=== PATIENT | male | born 1965 | race Caucasian/White ===

== ENCOUNTER 2024-02-29 18:24 | Inpatient (IN) | payer OTHER, SELFPAY ==
--- OUTSIDE RECORDS SUMMARY | 2024-02-29 18:26 | XMS_ITS | Continuity of Care Document ---
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 Graham torres Outpatient [facility] Outpatient [facility] Out[facility] Recurring Patient [facility] Recurring Patient [facility] Rec[facility] Rec[facility] Rec[facility] Rec[facility] Rec[facility] Rec[facility] Rec[facility] Rec[facility] Rec[facility] Outpatient [facility] Outpatient [facility] Outpatient [facility] Outpatient [facility] Outpatient [facility] Out[facility] Out[facility] Outpatient [facility]
[2024-02-29 18:30] VITALS: BP 144/118; PULSE 130; RESP 24; TEMP 37.7; O2SAT 94; BMI 39.1
--- NOTE | 2024-02-29 18:49 | CRLHL7_ITS ---
For Patients: As a result of the Cures Act, medical imaging exams and procedure reports are released immediately into your electronic medical record. You may view this report before your referring provider. If you have questions, please contact your health care provider. INDICATION: Intermittent chest pain. COMPARISON: None. FINDINGS: The cardiomediastinal silhouette is normal. The lungs are essentially clear. The pulmonary vasculature and pleural surfaces appear normal. There are mild multilevel wedge compression fractures of the lower thoracic and upper lumbar spine. IMPRESSION: No acute cardiac pulmonary process identified. There are mild multilevel wedge compression fractures of the lower thoracic and upper lumbar spine. Dictated by Del Wade MD @ 02/29/2024 8:48:03 PM (Electronically Signed)
--- NOTE | 2024-02-29 18:49 | CRLHL7_ITS ---
For Patients: As a result of the 21st Century Cures Act, medical imaging exams and procedure reports are released immediately into your electronic medical record. You may view this report before your referring provider. If you have questions, please contact your health care provider. INDICATION: Abdominal pain. TECHNIQUE: Multiplanar CT examination of the abdomen and pelvis was performed after the administration of 137 mL Omnipaque 300 intravenous contrast. COMPARISON: Same day ultrasound abdomen. FINDINGS: Lower chest: No focal consolidation. Normal heart size. No pleural effusions or pneumothorax. Linear band like opacification of the lungs bilaterally, likely subsegmental atelectasis and/or scarring. Liver: Diffuse hepatic steatosis. Gallbladder: Distended gallbladder measuring approximately 11.9 cm longitudinally. No gallbladder wall thickening, cholelithiasis or pericholecystic edema. Biliary: Unremarkable. Pancreas: Within normal limits. Spleen: Splenomegaly. Adrenal glands: Unremarkable. Renal/ureters/bladder: Normal in size and symmetrically enhancing. No obstructive uropathy. No hydronephrosis or obstructive urinary calculi. Subcentimeter renal hypodensities are too small to characterize. Tiny nonobstructive calculi within the collecting system of the left kidney. The ureters appear unremarkable. The bladder is within normal limits. Pelvis: Unremarkable prostate. Gastrointestinal: Mild wall thickening and hyperenhancement involving loops of nondistended, fluid-filled small bowel diffusely. No bowel obstruction. Normal appendix. Trace colonic diverticulosis without pericolonic fat stranding. Mild colonic stool burden. Vasculature: No aortic aneurysm. The portal vein remains patent. Mild atherosclerotic calcifications. Lymph nodes: No pathologic lymphadenopathy by size criteria. Peritoneum: No free fluid or pneumoperitoneum. No drainable fluid collections. Abdominal wall/soft tissues: Unremarkable. Small fat containing umbilical hernia. Bones: No acute osseous abnormalities. Multilevel degenerative changes of the visualized thoracolumbar spine. IMPRESSION: 1. Mild wall thickening and hyperenhancement involving loops of nondistended, fluid-filled small bowel diffusely, raising the possibility of an underlying nonspecific infectious versus inflammatory enteritis. No bowel obstruction. 2. Gallbladder distention without cholelithiasis, gallbladder wall thickening or adjacent inflammatory changes to suggest acute cholecystitis. 3. Splenomegaly. 4. Diffuse hepatic steatosis. Please note that all CT scans at this facility use dose modulation, iterative reconstruction, and/or weight-based dosing when appropriate to reduce radiation dose to as low as reasonably achievable. Dictated by Raul Mccarthy MD @ 02/29/2024 8:54:48 PM (Electronically Signed)
--- NOTE | 2024-02-29 18:55 | CRLHL7_ITS ---
For Patients: As a result of the Century Cures Act, medical imaging exams and procedure reports are released immediately into your electronic medical record. You may view this report before your referring provider. If you have questions, please contact your health care provider. INDICATION: Right upper quadrant pain. TECHNIQUE: Limited right upper quadrant ultrasound examination of the abdomen was performed. Grayscale and color Doppler images were obtained. COMPARISON: Same day CT abdomen and pelvis. FINDINGS: Liver: Normal in size and contour. Increased echogenicity of the hepatic echotexture, compatible with diffuse hepatic steatosis. No suspicious hepatic masses. Gallbladder: Distended gallbladder measuring 5.6 cm in maximal transverse dimension. No pericholecystic fluid. Biliary sludge. No cholelithiasis. Sonographic Velazquez`s sign was negative. Common bile duct: Measures 8.5 mm, within normal limits given patient`s age. Pancreas: Visualized portions unremarkable. Right kidney: Normal in size. No hydronephrosis. No suspicious renal masses or obstructive urinary calculus. Vascular: Visualized aorta and IVC are unremarkable. IMPRESSION: 1. Gallbladder distention and biliary sludge without cholelithiasis or other sonographic evidence of acute cholecystitis, indeterminate. Consider further evaluation with a nuclear medicine HIDA scan if clinically warranted. 2. Diffuse hepatic steatosis. Dictated by Raul Mccarthy MD @ 02/29/2024 8:42:29 PM (Electronically Signed)
[2024-02-29] MEDS: ONDANSETRON 2 MG/ML inj 4 MG IVP ×2 (19:00→20:56)
[2024-02-29] MEDS: MORPHINE 4 MG/ML INJ IVP ×2 (19:00→20:50)
[2024-02-29] MEDS: LACTATED RINGERS 1000 ML 1,000 ML IV ×2 (19:02→20:57)
[2024-02-29 19:03] LABS: Lactate* 2.2 mmol/L (0.5-1.9)
[2024-02-29 19:05] LABS: Eosinophils Percent Auto 1.2 % (0.0-7.0); Hematocrit 49.8 % (37.0-53.0); Hemoglobin* 16.8 gm/dL (13.5-17.5); Lymphocytes Percent Auto 15.4 % (20-44); Mean Corpuscular HGB Conc 34 gm/dL (32-36); Mean Corpuscular Hemoglobin 28 pg (26-34); Mean Corpuscular Volume 84 fL (80-100); Monocytes Percent Auto 9.5 % (0.0-11.0); Neutrophils Percent Auto 73.9 % (42.0-72.0); Platelet Count* 70 K/uL (140-440); RDW Coefficient of Variation % 13.2 % (11.5-15.5); Red Blood Count 5.93 m/uL (4.30-5.90); White Blood Count* 2.53 K/uL (4.50-11.00)
[2024-02-29 19:07] LABS: Slide Review Reflex No
--- OUTSIDE RECORDS SUMMARY | 2024-02-29 19:25 | XMS_ITS | Continuity of Care Document ---
Author Name [place] [facility] Address Unknown Organization Unknown Address Unknown Encounters FILTER APPLIED:Only known Encounters with Admission Date within the last 5 years Encounter Location Admission Discharge Billing Code Candy Butcher Graham torres Outpatient [facility] Outpatient [facility] Outpatient [facility] Recurring Patient [facility] Recurring [facility] Recur[facility] Patient [facility] Recur[facility] Patient [facility] Rec[facility] Patient [facility] Recur[facility] Patient [facility] Recur[facility] Patient [facility] Recur[facility] Patient [facility] Recur[facility] Patient [facility] Recur[facility] Patient [facility] Recur[facility] Patient [facility] Outpatient [facility] Outpatient [facility] Outpatient [facility] Outpatient [facility] Outpatient [facility] Outpatient [facility] Outpatient [facility] Out[facility]
--- OUTSIDE RECORDS SUMMARY | 2024-02-29 19:25 | XMS_ITS | Clinical Summary ---
Author Organization [facility] Address [address] [place] [address] Care Team Providers Care Clamp Jig Assembler Name Role Phone Abdirizak Villalta MD Unavailable [phone] Kassie Elizabeth MD Unavailable [phone] Kassie Elizabeth MD Primary Care Provider Kassie Martinez [facility] Unavailable [phone] Darcy Trevino RN Unavailable Unavailable Kassie Martinez [facility] Unavailable Cl Hugo MD Unavailable [phone] Markie Wade MD Unavailable [phone] Christopher Castaneda DO Unavailable [phone] Allergies Active Allergy Reactions Criticality Noted Date Comments Dulaglutide 12/17/2017 itchiness Niacin 07/12/2008 FLUSHING Rosuvastatin Calcium 07/12/2008 MUSCLE PAIN Medications * This document contains information received from the source organization and may not represent a complete record from that organization. omeprazole 20 MG tabletIndicatio ns:Gastroesopha geal reflux disease without esophagitis Take 1 tablet (20 mg) by mouth daily 90 tablet 3 12/06/19 17 Active aspirin 81 MG tabletIndicatio ns:Type 2 diabetes mellitus with hyperglycemia, without long-term current use of insulin (H) Take 1 tablet (81 mg) by mouth daily INDICATION: FOR HEART AND CARDIOVASCULAR HEALTH 100 tablet 3 12/06/19 17 Active Loratadine (CLARITIN PO) Take 10 mg by mouth as needed (allergies) Active sildenafil (VIAGRA) 100 MG tabletIndicatio ns:Erectile dysfunction, unspecified erectile dysfunction type Take 0.5-1 tablet an hour prior to sexual activity. Do not exceed 100 mg in 24 hours. 30 tablet 3 02/09/20 22 Active cholecalciferol (VITAMIN D3) 125 mcg (5000 units) capsule Take by mouth daily Active lisinopril (ZESTRIL) 5 MG tabletIndicatio ns:Type 2 diabetes mellitus with peripheral neuropathy (H) TAKE 1 TABLET BY MOUTH DAILY DIRECTED TO LOWER BLOOD PRESSURE 90 tablet 3 09/30/19 24 Active metFORMIN (GLUCOPHAGE) 1000 MG tabletIndicatio ns:Type 2 diabetes mellitus with peripheral neuropathy (H) TAKE 1 TABLET(1000 MG) BY MOUTH TWICE DAILY WITH MEALS 180 tablet 1 09/30/19 24 Active Continuous Glucose Sensor (FREESTYLE JUAN PABLO 3 PLUS SENSOR) MISCIndications :Type 2 diabetes mellitus with peripheral neuropathy (H) Use 1 sensor every 15 days. Use to read blood sugars per coning machine operator's instructions. 6 each 3 12/19/19 24 Active glipiZIDE (GLUCOTROL) 5 MG tabletIndicatio ns:Type 2 diabetes mellitus with diabetic polyneuropathy, without long-term current use of insulin (H) Take 1 tablet (5 mg) by mouth 2 times daily (before meals). 180 tablet 1 12/30/19 24 Active insulin pen needle (BD PEN NEEDLE HORTENCIA 2ND GEN) 32G X 4 MM miscellaneousIn dications:Type 2 diabetes mellitus with diabetic polyneuropathy, without long-term current use of insulin (H) Use twice daily with insulin 100 each 3 12/30/19 24 Active insulin glargine (LANTUS PEN) 100 UNIT/ML penIndications: Type 2 diabetes mellitus with diabetic polyneuropathy, without long-term current use of insulin (H) Inject 40 units in the morning and 35 units in the evening 75 mL 1 12/31/19 24 Active MOUNJARO 15 MG/0.5ML SOAJIndications :Type 2 diabetes mellitus with peripheral neuropathy (H) Inject 0.5 mLs (15 mg) subcutaneously every 7 days. 6 mL 01/29/20 24 Active rosuvastatin (CRESTOR) 40 MG tabletIndicatio ns:CAD (coronary artery disease),Type 2 diabetes, HbA1c goal < 7% (H),Hyperlipide ursula LDL goal <100 Take 1 tablet (40 mg) by mouth daily INDICATION: TO LOWER CHOLESTEROL 30 tablet PRN 03/11/19 14 014 Discontin ued(Reord er (No AVS)) Active Problems Problem Noted Date Diagnosed Date Intermittent asthma, uncomplicated 12/30/2023 Type 2 diabetes mellitus with peripheral neuropa thy 03/26/2021 Bariatric surgery status 01/29/2021 History of hepatitis C 10/05/2020 Coronary artery disease invo lving circle coronary artery of circle heart without angina pectoris 03/12/2016 Gastroesophageal reflux disease without esophagi tis 09/29/2014 Osteoarthritis of knee 09/29/2014 Hypertriglyceridemia 09/29/2014 Hyperlipidemia with target LDL less than 100 06/2014 Hepatitis B core antibody positive 03/04/2014 Severe obesity (BMI 35.0-39.9) with comorbidity 12/10/2013 Primary hypertension 12/10/2013 History of DVT of lower extremity 02/09/2013 Overview (09/27/2016): Left leg Anxiety 07/31/2012 Vitamin B12 deficiency without anemia 12/31/2011 Overview (12/26/2014): Diagnosis updated by automated process. Provider to review and confirm. History of intravenous drug use in remission 10/2011 Thrombocytopenia 06/10/2011 Overview (06/10/2011): RELATED TO ALCOHOL USE Testosterone deficiency 12/03/2010 Alcohol dependence in remission 11/06/2010 Overview (11/25/2011): (Problem list name updated by automated process. Provider to review and confirm.) CHEYENNE (obstructive sleep apnea) 11/06/2010 Overview (09/27/2016): Uses CPAP Erectile dysfunction 11/06/2010 Vitamin D deficiency 07/19/2010 Plantar fascial fibromatosis 07/02/2007 Resolved Problems Problem Noted Date Diagnosed Date Resolved Date Postsurgical malabsorption 01/29/2021 1 04/11/2020 Alcohol withdrawal with comp lication with inpatient treatment, with unspecified complication 12/24/2020 02/08/2021 Knee pain, right 10/18/2020 01/02/2021 Knee pain, left 10/18/2020 01/02/2021 Small's esophagus 11/01/2016 12/17/19 19 RUQ abdominal pain 10/20/2016 8 Morbid obesity due to excess calories 09/05/2016 03/12/2017 Type 2 diabetes mellitus wit hout complication, without long-term current use of insulin 03/12/2016 08/16/2021 Chronic hepatitis C without hepatic coma 04/26/2015 10/05/2020 Obesity (BMI 30-39.9) 04/18/20152017 Morbid obesity 12/18/2014 04/18/2015 Adult BMI 38.0-38.9 kg/sq m 06/28/2014 02/08/2021 Alcoholic cirrhosis 03/04/2014 04/18/19 16 Neck pain 12/16/2013 10/18/2020 Shoulder joint pain 12/16/2013 10/19/19 21 Overview (03/12/2017): 2003 injury Esophageal reflux 12/10/2013 04/18/2015 Intermittent asthma 02/09/2013 12/18/19 18 Hypomagnesemia 02/09/2013 02/08/2021 CAD (coronary artery disease) 02/09/2013 03/12/2017 Special screening for malign ant neoplasms, colon 02/09/2013 10/05/2020 Swelling of left lower extremity 02/09/2013 10/05/2020 EtOH dependence 11/03/2012 02/09/2013 GERD (gastroesophageal reflux disease) 11/03/2012 04/18/2015 Pain in shoulder 11/03/2012 09/24/2016 Health Snf 07/29/2012 08/11/2023 Overview (08/14/2012): [facility] Sn[facility] Patient Care Plan About Me Patient Name Richardson Eugene Date of 1965 Age [age] year old Cell Phone Address: [address] [address] Email address [email or web address] Insurance I.D. [id number] [facility] Emergency Contact Rita Eugene (mother ) Parent/Guardian Phone Primary language: Citizen Of [place] Roofing Supervisor needed? No [facility]: [phone] op. 1 Preferred Method of Communication: MyChart, Phone and Letter Other communication barriers: Current living arrangement: Mobility Status/ Medical Equipment: Other information to know about me: My Access Plan Medical Emergency 911 Primary Clinic Line [phone] 24 Hour Appointment Line [phone] or [phone]) (toll-free) 24 Hour Nurse Line (toll-free) Preferred Urgent Care Preferred Hospital Preferred Pharmacy Behavioral Health Crisis Line Crisis Connection, or 922 My Care Team Members Care Clamp Jig Assembler Name/Specialty Clinic, Address, Phone, Fax, E-mail Date of release on file Primary Care Provider: Hansel Gillespie [facility] Clinic: [address] [place] [id number] [facility] Worker: Elinor Higgins RN [facility] [phone] [facility] My Care Plans Self Management and Treatment Plan Presenting Concern Signs and symptoms Goal/Action Plan Alcohol dependence I will continue my sobriety I will attend AA meetings once a week and call my sponsor for support Start Date: 08/07/2012 Active/Complete Active Initiated with: Elinor Higgins RN Date Reviewed: 08/07/2012 Anxiety I will take my Ativan as needed and use the Remeron as directed. I will go to the gym I just joined when able Start Date: 08/07/2012 Active/Complete Active Initiated with: Elinor Higgins RN Date Reviewed: 08/07/2012 Start Date: Active/Complete Initiated with: Date Reviewed: Action Plans on File: No None Advance Care Plans/Directives on file: not on file My Medical and Care Information Problem List as of Patient Active Problem List Diagnosis HEPATITIS C CARRIER OBESITY NOS VITAMIN D DEFICIENCY NOS LIPOID METABOL DIS NOS PAIN IN LIMB PLANTAR FIBROMATOSIS FH: Coronary Artery Bypass Surgery CARDIOVASCULAR SCREENING; LDL GOAL LESS THAN 130 Alcohol abuse, in remission Lumbar pain Shoulder pain Ankle pain Vitamin D deficiency Dysmetabolic syndrome Alcohol dependence in remission CHEYENNE (obstructive sleep apnea) Erectile dysfunction Testosterone deficiency Hyperlipidemia LDL goal <130 Thrombocytopenia Alcoholism Abnormal LFTs Encounter for long-term (current) use of medications Alcoholic liver disease History of intravenous drug use in remission Hepatitis B carrier COPD (chronic obstructive pulmonary disease) Type 2 diabetes, HbA1C goal < 7% Nondependent alcohol abuse Vitamin C deficiency SOB (shortness of breath) Hyperlipidemia LDL goal <100 Vitamin B12 deficiency (non anaemic) Atypical chest pain Health Snf Anxiety Current Medications as of Current Outpatient Prescriptions Medication Sig mirtazapine (REMERON) 15 MG tablet Take 1 tablet by mouth At Bedtime. For the first week take 1/2 tab then increase to 1 whole tab before bed. LORazepam (ATIVAN) 1 MG tablet Take 1 tablet by mouth every 8 hours as needed for anxiety. lisinopril-hydrochlorothiazide (PRINZIDE,ZESTORETIC) 10-12.5 MG per tablet Take 1 tablet by mouth daily (with breakfast). INDICATION: TO LOWER BLOOD PRESSURE AND TO PREVENT DIABETIC KIDNEY DISEASE glipiZIDE (GLIPIZIDE XL) 5 MG 24 hr tablet Take 1 tablet by mouth daily. atorvastatin (LIPITOR) 80 MG tablet Take 0.5 tablets by mouth every evening. INDICATION: TO LOWER CHOLESTEROL AND TO HELP REDUCE RISK OF HEART ATTACK AND STROKE omeprazole (PRILOSEC) 20 MG capsule Take 1 capsule by mouth 2 times daily. cholecalciferol 39152 UNITS capsule TAKE ONE CAP 3 X A MONTH ON THE , AND OF EACH MONTH, FOR VITAMIN D DEFICIENCY aspirin 81 MG tablet Take 1 tablet by mouth daily. INDICATION:HEART HEALTH inositol niacinate (NIACIN FLUSH FREE) 500 MG CAPS Take 2 tablets by mouth 2 times daily (with meals). INDICATION: DYSLIPIDEMIA glucose blood test strips (ACCU-CHEK SMARTVIEW) strip Test twice a day ascorbic acid (VITAMIN C) 1000 MG TABS Take 1 tablet by mouth daily. VITAMIN SUPPLEMENT oxyCODONE (ROXICODONE) 5 MG immediate release tablet Take 1-2 tablets by mouth every 6 hours as needed for pain. Multiple Vitamin (MULTIVITAMIN) per tablet Take 1 tablet by mouth daily. tramadol (ULTRAM) 50 MG tablet Take 1 tablet by mouth every 6 hours as needed for pain. Allergies Allergies Allergen Reactions Niacin FLUSHING Rosuvastatin Calcium MUSCLE PAIN Health Snf Complexity Tier: Care Coordination Start Date: 08/07/2012 Frequency of Care Coordination:1-2 weeks Form Last Updated: 08/07/2012 Atypical chest pain 07/26/2012 09/25/19 17 Hyperlipidemia LDL goal <100 12/31/2011 04/18/2015 COPD (chronic obstructive pulmonary disease) 2 03/12/2017 Type 2 diabetes mellitus without complication 09/02/19 12 03/12/2017 Vitamin C deficiency 09/02/2011 021 SOB (shortness of breath) 09/02/2011 Overview (09/02/2011): WITH WHEEZING IN THE SETTING OF HX OF TOBACCO USE, BUT ALSO HAS ANKLE SWELLING Encounter for long-term (cur rent) use of medications 06/10/2011 10/05/2020 Overview (06/10/2011): STATINS, GLUCOPHAGE Dysmetabolic syndrome 07/19/20102021 Ankle pain 07/05/2010 09/24/2016 Lumbar pain 06/12/2010 10/18/2020 Shoulder pain 06/12/2010 09/24/2016 Pain in limb 07/02/2007 04/18/2015 Disorder of lipoid metabolism 06/24/2007 04/18/2015 Overview (11/25/2014): Problem list name updated by automated process. Provider to review Vitamin D deficiency 03/20/2007 016 Overview (11/25/2014): Problem list name updated by automated process. Provider to review Encounters Date Type Department Care Team Description 02/11/2024 Telephone [facility] [address] [place] [address] Kassie Elizabeth MD Prior Auth - Medication (MOUNJARO 15 MG/0.5ML SOAJ - PA NOT NEEDED) 01/29/2024 [facility] Medical Advice [facility] [address] [place] [phone] Kassie Martinez RPH Type 2 diabetes mellitus with peripheral neuropathy (H) (Primary Dx) 01/14/2024 MyC Medical Advice [facility] [place] [address] [facility] [address] [place] [address] Katie Reina, DPM, Podiatry/Foot and Ankle Surgery Diabetic polyneuropathy associated with type 2 diabetes mellitus (H) (Primary Dx); Plantar fasciitis, bilateral 01/14/2024 MyC Medical Advice [address] [phone] [facility] 12/31/2023 2:00 PM WATERWORKS PUMP STATION OPERATOR Office Visit [facility] [address] [place] [phone] Kassie Martinez RPH Type 2 diabetes mellitus with diabetic polyneuropathy, without long-term current use of insulin (H) (Primary Dx); Severe obesity (BMI 35.0-39.9) with comorbidity (H) 12/30/2023 2:30 PM WATERWORKS PUMP STATION OPERATOR Office Visit [address] [phone] Kassie Elizabeth MD Type 2 diabetes mellitus with diabetic polyneuropathy, without long-term current use of insulin (H) (Primary Dx); Primary hypertension; Intermittent asthma, uncomplicated; Severe obesity (BMI 35.0-39.9) with comorbidity (H) 12/30/2023 Travel 12/29/2023 Travel 12/19/2023 MyC Medical Advice [facility] [address] [place] [phone] Kassie Martinez RPH Type 2 diabetes mellitus with peripheral neuropathy (H) (Primary Dx) 12/19/2023 Refill [facility] [address] [place] [phone] Kassie Elizabeth MD Medication Refill from Last 3 Months Immunizations Name Administration Dates Next Due HepB 03/09/2014 Hepatitis A (ADULT 19+) 08/14/2012,09/02/2011 Hepatitis B, Peds 03/09/2014 Influenza (IIV3) PF 11/15/2015, 4,01/10/2013,2012,12/22/2011,12/04/2009,01/15/2008 Influenza (prior to 2023) 12/01/2008 Influenza Vaccine 18-64 (Flublok) 2019,12/15/2018,12/16/2017,2017 Influenza Vaccine >6 months,quad, PF 12/2022,12/05/2021,12/06/2020,2017,11/20/2016 Influenza, Split Virus, Triv alent, Pf (Fluzone\Fluarix) 11/26/2023,12/01/2008 Influenza,INJ,MDCK,PF,Quad >6mo(Flucelvax) 12/04/2016 Pneumo Conj 13-V (2010&after) 06/28/2014 Pneumococcal 23 valent 10/07/2009,01/26/2007 TD,PF 7+ (Tenivac) 07/27/2021,02/02/2005 TDAP Vaccine (Adacel) 08/16/2011 Td (Adult), Adsorbed 12/30/2004,12/18/1998 Family History Medical History Relation Comments Anxiety Disorder Brother 1 Coronary Artery Disease Brother [address] from apparent heart attack Diabetes Brother 1 Hepatitis Brother 1 Substance Abuse Brother 1 Cardiovascular Brother 2 DVT with IVC regino ter placement, PVD Diabetes Brother 2 Substance Abuse Brother 2 Unknown/Adopted Brother 2 Lipids Brother 3 Blood Disease Brother 4 DVT Blood Disease Father PULM EMBOLUS C.A.D. Father 76 YRS Cancer Father Bladder, lung Eye Disorder Father Cataracts Prostate Cancer Father Unknown/Adopted Maternal Grandfather Unknown/Adopted Maternal Grandmother Anxiety Disorder Mother C.A.D. Mother Had bypass at ag e 79 yrs Coronary Artery Disease Mother Eye Disorder Mother Cataracts Hypertension Mother Thyroid Disease Mother Unknown/Adopted Niece Unknown/Adopted Paternal Grandfather Unknown/Adopted Paternal Grandmother Arthritis Sister 1 Depression Sister 1 Unknown/Adopted Sister 1 Blood Disease Sister 2 PULM EMBOLUS Gallbladder Disease Sister 3 Unknown/Adopted Sister 4 Relation Status Comments Brother 1 Alive Brother 2 Alive Brother 3 Brother 4 Father Maternal Grandfather Maternal Grandmother Mother Alive Niece Paternal Grandfather Paternal Grandmother Sister 1 Alive Sister 2 Sister 3 Sister 4 Social History Tobacco Use Types Packs/Day Years Used Date Smoking Tobacco: Former Cigarettes 1 35 0 05/13/1976 - 05/10/2011 Smokeless Tobacco: Never Tobacco Cessation:Counseling Given: Not Answered Alcohol Use Standard Drinks/Week Comments Not Currently 0 (1 standard drink = 0.6 oz pur e alcohol) Social Connection and Isolation Panel [NHANES] A nswer Date Recorded In a typical week, how many times do you talk on the phone with family, friends, or neighbors? Twice a week 03/24/19 How often do you get togethe r with friends or relatives? Twice a week 03/24/2023 How often do you attend up health system or scientologist services? Patient declined 03/24/2023 Do you belong to any clubs o r organizations such as moravian groups, unions, fraternal or athletic groups, or school groups? Patient declined 03/24/2023 How often do you attend meet ings of the clubs or organizations you belong to? Patient declined 03/24/2023 Are you , , di vorced, , never , or living with a partner? Living with partner 03/24/2023 AUDIT-C Answer Date Recorded Q1: How often do you have a drink containing alcohol? Never 03/24/2023 Q2: How many drinks containi ng alcohol do you have on a typical day when you are drinking? Patient does not drink Q3: How often do you have si x or more drinks on one occasion? Never 03/24/2023 PHQ-2 Answer Date Recorded PHQ-2 Score 0 09/30/2023 [facility] Occupat ional [facility] - Occupational Stress Questionnaire Answer Date Recorded Do you feel stress - tense, restless, nervous, or anxious, or unable to sleep at night because your mind is troubled all the time - these days? Only a little 03/24/2023 Exercise Vital Sign Answer Date Recorde d On average, how many days pe r week do you engage in moderate to strenuous exercise (like a brisk walk)? 2 days 03/24/2023 On average, how many minutes do you engage in exercise at this level? 30 min 03/24/2023 Adolescent Education Answer Date Record ed Getting School Help Needed Not on file 11/20 Food Insecurity Answer Date Recorded Within the past 12 months, d id you worry that your food would run out before you got money to buy more? Patient declined 0 03/24/2023 Within the past 12 months, d id the food you bought just not last and you didn t have money to get more? Patient declined 03/24/2023 Housing Stability Answer Date Recorded Do you have housing? (Hayes g is defined as stable permanent housing and does not include staying ouside in a car, in a tent, in an abandoned building, in an overnight halfway, or couch-surfing.) Yes 03/24/2023 Are you worried about losing your housing? No 03/24/2023 Financial Resource Strain Answer Date R ecorded Within the past 12 months, h ave you or your family members you live with been unable to get utilities (heat, electricity) when it was really needed? Patient declined 024 Transportation Needs Answer Date Record ed Within the past 12 months, h as lack of transportation kept you from medical appointments, getting your medicines, non-medical meetings or appointments, work, or from getting things that you need? Patient declined 03/24/2023 Interpersonal Safety Answer Date Record ed Do you feel physically and e motionally safe where you currently live? Yes 03/24/2023 Within the past 12 months, h ave you been hit, slapped, kicked or otherwise physically hurt by someone? No 03/24/2023 Within the past 12 months, h ave you been humiliated or emotionally abused in other ways by your partner or ex-partner? No 03/24/2023 Sex and Gender Information Value Date Recorded Sex Assigned at Male 06/23/2020 10:21 PM CDT Legal Sex Male 3:30 AM WATERWORKS PUMP STATION OPERATOR Gender Identity Male 06/23/2020 10:21 PM CDT Sexual Orientation Straight 06/23/2020 10 :21 PM CDT Last Filed Vital Signs Vital Sign Reading Time Taken Comments Blood Pressure 109/71 12/31/2023 2:17 PM WATERWORKS PUMP STATION OPERATOR Pulse 74 12/31/2023 2:17 PM WATERWORKS PUMP STATION OPERATOR Temperature 36.4 C (97.5 F) 12/30/2023 1:57 PM WATERWORKS PUMP STATION OPERATOR Respiratory Rate 14 12/30/2023 1:57 PM WATERWORKS PUMP STATION OPERATOR Oxygen Saturation 99% 12/31/2023 2:17 PM WATERWORKS PUMP STATION OPERATOR Inhaled Oxygen Concentration - - Weight 123.4 kg (272 lb) 12/31/2023 2:17 PM WATERWORKS PUMP STATION OPERATOR Height 179.7 cm (5' 10.75) 12/30/2023 1:57 PM C Body Mass Index 38.2 12/30/2023 1:57 PM WATERWORKS PUMP STATION OPERATOR Plan of Treatment Upcoming Encounters Date Type Department Care Team (Late st Contact Info) Description 04/09/2024 9:30 AM WATERWORKS PUMP STATION OPERATOR Office Visit [facility] [address] [place] [phone] [place] [address] [place], [place] [phone] 04/14/2024 2:00 PM WATERWORKS PUMP STATION OPERATOR Office Visit [facility] [address] [place] [phone] Kassie Martinez, [facility] [address] [place] [address] Health Maintenance Due Date Last Done Comments ASTHMA ACTION PLAN 1965 CT COLONOGRAPHY 1965 FLEX SIG 1965 sDNA (Cologuard) 1965 ZOSTER IMMUNIZATION (1 of 2) 2013 FIT 02/10/2014 02/10/2013 LUNG CANCER SCREENING 11/05/2017 11/05/2016 , 07/26/2012, 08/21/2011 Pneumococcal Vaccine: 50+ Years (3 of 3 - PCV20 or PCV21) 06/29/2019 06/28/2014, 10/07/2009, 01/26/2007 RSV VACCINE (1 - Risk 60-74 years 1-dose series) 2023 COVID-19 Vaccine (3 - season) 2023 07/17/2020, 06/24/2020 CMP 12/27/2023 06/26/2023, 08/24, 05/23/2022, Additional history exists DIABETIC FOOT EXAM 01/02/2024 01/01/2023, 0 11/20/2021, 11/20/2021, Additional history exists PHQ-2 (once per calendar year) 2024 09/30/2023, 09/30/2023, 03/26/2023, Additional history exists YEARLY PREVENTIVE VISIT 03/24/2024 03/24/19 24, 06/23/2020, 07/15/2018 ASTHMA CONTROL TEST 04/01/2024 09/30/2023, 03/24/2023, 09/03/2022, Additional history exists EYE EXAM 04/04/2024 04/04/2023, 02/0 10/2023, 04/04/2023, Additional history exists CBC 06/25/2024 06/26/2023, 08/24, 06/13/2022, Additional history exists PSA 06/25/2024 06/26/2023, 01/25, 02/08/2021, Additional history exists TSH W/FREE T4 REFLEX 06/25/2024 06/26/2023, 02/19/2022, 12/23/2020, Additional history exists BMP 09/29/2024 09/30/2023, 05/0 03/2023, 09/03/2022, Additional history exists LIPID 09/29/2024 09/30/2023, 08/24, 08/15/2021, Additional history exists MICROALBUMIN 09/29/2024 09/30/2023, 03/3 , 03/26/2021, Additional history exists A1C 12/29/2024 12/30/2023, 08/0 07/2023, 06/26/2023, Additional history exists ANNUAL REVIEW OF HM ORDERS 12/29/202412/29, 12/10/2022, 11/20/2021, Additional history exists ADVANCE CARE PLANNING 03/26/2026 03/26/2021 , 01/19/2020 (Declined) COLONOSCOPY 04/14/2030 04/14/2020, 03/27, 03/30/2013 COLORECTAL CANCER SCREENING 04/14/2030 DTAP/TDAP/TD IMMUNIZATION (3 - Td or Tdap) 07/28/2031 07/27/2021, 08/16/2011, 02/02/2005, Additional history exists HIV SCREENING Completed 02/05/2007 HEPATITIS B IMMUNIZATION Discontinued 03/09/2014, 02/24 HEPATITIS C SCREENING Completed 06/06/2017 , 02/26/2017, 09/24/2016, Additional history exists INFLUENZA VACCINE Completed 11/26/2023, , 12/05/2021, Additional history exists HPV IMMUNIZATION Aged Out No longer e ligible based on patient's age to complete this topic MENINGITIS IMMUNIZATION Aged Out No l onger eligible based on patient's age to complete this topic RSV MONOCLONAL ANTIBODY Aged Out No l onger eligible based on patient's age to complete this topic Goals Goal Patient Goal Type Associated Problems Recent Progress Patient-Stated? Author Healthy Eating General Yes Darcy Trevino, RN Note: My Goal: I will increase my carb intake. What I need to meet my goal: Read labels and count carbs in meals/snacks. I plan to meet my goal by this date: November 2021. Procedures Procedure Name Priority Date/Time Associated Diagnosis Comments HEMOGLOBIN A1C Routine 12/30/2023 1:55 PM WATERWORKS PUMP STATION OPERATOR Type 2 diabetes mellitus with diabetic polyneuropathy, without long-term current use of insulin (H) ALBUMIN RANDOM URINE QUANTITATIVE Routine 09/30/2023 1:45 PM CDT Type 2 diabetes mellitus with peripheral neuropathy (H) LIPID REFLEX TO DIRECT LDL PANEL Routine 09/30/2023 1:05 PM CDT Hypertriglyceridemia BASIC METABOLIC PANEL Routine 09/30/2023 1:05 PM CDT Primary hypertension CBC WITH PLATELETS Routine 06/26/2023 12 :50 PM CDT Thrombocytopenia (H) TSH WITH FREE T4 REFLEX Routine 06/26/2023 12:50 PM CDT Type 2 diabetes mellitus with peripheral neuropathy (H) PROSTATE SPECIFIC ANTIGEN SCREEN Routine 06/26/2023 12:50 PM CDT Screening for prostate cancer COMPREHENSIVE METABOLIC PANEL Routine 06/26/2023 12:50 PM CDT Primary hypertension EYE EXAM - HIM SCAN Routine 04/04/2023 COLONOSCOPY - HIM SCAN 04/14/2020 12:00 AM WATERWORKS PUMP STATION OPERATOR HEPATITIS C RNA, QUANTITATIVE BY PCR Routine 06/06/2017 10:54 AM CDT Chronic hepatitis C without hepatic coma (H) CT CHEST W CONTRAST XIN 11/05/2016 7 :56 AM CDT RUQ abdominal pain Painful respiration FECAL COLORECTAL CANCER SCREEN FIT Routine 02/10/2013 4:30 PM WATERWORKS PUMP STATION OPERATOR Special screening for malignant neoplasms, colon C FOOT EXAM Routine 02/09/2013 10:03 AM WATERWORKS PUMP STATION OPERATOR Type 2 diabetes, HbA1C goal < 7% (H) HCL HIV 1 & 2 ANTIBODY Routine 02/05/2007 9:23 AM WATERWORKS PUMP STATION OPERATOR Hepatitis Nos from Last 3 Months or Most Recently Relevant to Health Maintenance Results * (ABNORMAL) Hemoglobin A1c (12/30/2023 1:55 PM WATERWORKS PUMP STATION OPERATOR) Estimated Average Glucose 174(H) <117 mg/dL 12/30/2023 2:15 PM WATERWORKS PUMP STATION OPERATOR [facility] Hemoglobin A1C 7.7(H) 0.0 - 5.6 % 12/30/2023 2:15 PM WATERWORKS PUMP STATION OPERATOR [facility] Comment: Normal <5.7% Prediabetes 5.7-6.4% Diabetes 6.5% or higher Note: Adopted from ADA consensus guidelines. Blood BLOOD SPECIMEN / Unknown Venipuncture / Unknown 12/30/2023 1:55 PM WATERWORKS PUMP STATION OPERATOR 12/30/2023 1:55 PM WATERWORKS PUMP STATION OPERATOR us Kassie Elizabeth MD LAB - BLOOD ORDERABLES Fi nal Result LABORATORY [facility] [address] [facility] Lab (no room number, 1st floor of clinic) [place] [address], [place] * (ABNORMAL) Albumin Random Urine Quantitative with Creat Ratio (09/30/2023 1:45 PM CDT) Creatinine Urine mg/dL 154.0 mg/dL 09/30/2023 7:23 PM CDT [facility] Comment:The reference ranges have not been established in urine creatinine. The results should be integrated into the clinical context for interpretation. Albumin Urine mg/L 46.4 mg/L 2023 7:23 PM CDT [facility] Comment:The reference ranges have not been established in urine albumin. The results should be integrated into the clinical context for interpretation. Albumin Urine mg/g Cr 30.13(H) 0.00 - 17.00 mg/g Cr 09/30/2023 7:23 PM CDT [facility] Comment: Microalbuminuria is defined as an albumin:creatinine ratio of 17 to 299 for males and 25 to 299 for females. A ratio of albumin:creatinine of 300 or higher is indicative of overt proteinuria. Due to biologic variability, positive results should be confirmed by a second, first-morning random or 24-hour timed urine specimen. If there is discrepancy, a third specimen is recommended. When 2 out of 3 results are in the microalbuminuria range, this is evidence for incipient nephropathy and warrants increased efforts at glucose control, blood pressure control, and institution of therapy with an ixlpjlnbfxr-gmokrapvme-viqcef (SHANTEL) inhibitor (if the patient can tolerate it). Urine URINE SPECIMEN OBTAINED BY CLEAN CATCH PROCEDURE / Unknown Non-blood Collection / Unknown 09/30/2023 1:45 PM CDT 09/30/2023 1:54 PM CDT us Kassie Elizabeth MD LAB - URINE ORDERABLES Fi nal Result [facility] [address] [facility] [place], [address] [place] [address], [place] * (ABNORMAL) Lipid panel reflex to direct LDL Fasting (09/30/2023 1:05 PM CDT) Cholesterol 149 <200 mg/dL 09/30/2023 7:29 PM CDT [facility] Triglycerides 459(H) <150 mg/dL 09/30/2023 7:29 PM CDT [facility] Direct Measure HDL 24(L) >=40 mg/dL 09/30/2023 7:29 PM CDT [facility] LDL Cholesterol Calculated 09/30/2023 7:29 PM CDT [facility] Comment:Cannot estimate LDL when triglyceride exceeds 400 mg/dL Non HDL Cholesterol 125 <130 mg/dL 09/30/2023 7:29 PM CDT [facility] Patient Fasting > 8hrs? Yes 09/30/2023 7:29 PM CDT [facility] Blood BLOOD SPECIMEN / Unknown Venipuncture / Unknown 09/30/2023 1:05 PM CDT 09/30/2023 1:05 PM CDT Narrative [facility] - 09/30/2023 7:29 PM CDT Cholesterol Desirable: <200 mg/dL Triglycerides Normal: Less than 150 mg/dL Borderline High: 150-199 mg/dL High: 200-499 mg/dL Very High: Greater than or equal to 500 mg/dL Direct Measure HDL Female: Greater than or equal to 50 mg/dL Male: Greater than or equal to 40 mg/dL LDL Cholesterol Desirable: <100mg/dL Above Desirable: 100-129 mg/dL Borderline High: 130-159 mg/dL High: 160-189 mg/dL Very High: >= 190 mg/dL Non HDL Cholesterol Desirable: 130 mg/dL Above Desirable: 130-159 mg/dL Borderline High: 160-189 mg/dL High: 190-219 mg/dL Very High: Greater than or equal to 220 mg/dL us Kassie Elizabeth MD LAB - BLOOD ORDERABLES Fi nal Result U LAB[facility]ATORY [facility] [address] [facility], [address] [place] [address], [place] * (ABNORMAL) Basic metabolic panel (Ca, Cl, CO2, Creat, Gluc, K, Na, BUN) (09/30/2023 1:05 PM CDT) Sodium 138 135 - 145 mmol/L 09/30/2023 7:29 PM CDT [facility] Potassium 4.7 3.4 - 5.3 mmol/L 09/30/2023 7:29 PM CDT [facility] Chloride 108(H) 98 - 107 mmol/L 09/30/2023 7:29 PM CDT [facility] Carbon Dioxide (CO2) 20(L) 22 - 29 mmol/L 09/30/2023 7:29 PM CDT [facility] Anion Gap 10 7 - 15 mmol/L 09/30/2023 7:29 PM CDT [facility] Urea Nitrogen 18.6 8.0 - 23.0 mg/dL 09/30/2023 7:29 PM CDT [facility] Creatinine 0.82 0.67 - 1.17 mg/dL 09/30/2023 7:29 PM CDT [facility] GFR Estimate >90 >60 mL/min/1.7 3m2 09/30/2023 7:29 PM CDT [facility] Comment:eGFR calculated usin 2020 CKD-EPI equation. Calcium 10.4 8.8 - 10.4 mg/dL 09/30/2023 7:29 PM CDT [facility] Comment:Reference intervals for this test were updated on 09/09/2023 to reflect our healthy population more accurately. There may be differences in the flagging of prior results with similar values performed with this method. Those prior results can be interpreted in the context of the updated reference intervals. Glucose 148(H) 70 - 99 mg/dL 09/30/2023 7:29 PM CDT [facility] Patient Fasting > 8hrs? Yes 09/30/2023 7:29 PM CDT [facility] Blood BLOOD SPECIMEN / Unknown Venipuncture / Unknown 09/30/2023 1:05 PM CDT 09/30/2023 1:05 PM CDT us Kassie Elizabeth MD LAB - BLOOD ORDERABLES Fi nal Result [facility] [address] [facility] [facility] [place], [address] [id number] [place] [address] * TSH WITH FREE T4 REFLEX (06/26/2023 12:50 PM CDT) [facility] TSH 1.36 0.30 - 4.20 uIU/mL 06/26/2023 6:32 PM CDT U [facility]ORY Blood BLOOD SPECIMEN / Unknown Venipuncture / Unknown 06/26/2023 12:50 PM CDT 06/26/2023 1:01 PM CDT Kassie Elizabeth MD LAB - BLOOD ORDERABLES Fi nal Result Performing Organization Address City/[facility]/ZIP Co de Phone Number LABORATORY [facility] [address] [facility] [place], [address] [id number] * PROSTATE SPEC ANTIGEN SCREEN (06/26/2023 12:50 PM CDT) [facility] Prostate Specific Antigen Screen 1.98 0.00 - 4.50 ng/mL 06/26/2023 6:32 PM CDT LABORATORY Blood BLOOD SPECIMEN / Unknown Venipuncture / Unknown 06/26/2023 12:50 PM CDT 06/26/2023 1:01 PM CDT Narrative [facility] - 06/26/2023 6:32 PM CDT This result is obtained using the [employer] Elecsys total PSA method on the rema [id number] immunoassay analyzer. Results obtained with different assay methods or kits cannot be used interchangeably. Kassie Elizabeth MD LAB - BLOOD ORDERABLES Fi nal Result LABORATORY [facility] [address] [facility] [facility] [place], [address] [id number] * (ABNORMAL) COMPREHENSIVE METABOLIC PANEL (06/26/2023 12:50 PM CDT) [facility] Sodium 136 135 - 145 mmol/L 06/26/2023 6:32 PM CDT [facility] Comment:Reference intervals for this test were updated on 11/19/2022 to more accurately reflect our healthy population. There may be differences in the flagging of prior results with similar values performed with this method. Interpretation of those prior results can be made in the context of the updated reference intervals. Potassium 4.6 3.4 - 5.3 mmol/L 06/26/2023 6:32 PM CDT [facility] Carbon Dioxide (CO2) 20(L) 22 - 29 mmol/L 06/26/2023 6:32 PM CDT [facility] Anion Gap 13 7 - 15 mmol/L 06/26/2023 6:32 PM CDT [facility] Urea Nitrogen 23.7(H) 8.0 - 23.0 mg/dL 06/26/2023 6:32 PM CDT [facility] Creatinine 0.78 0.67 - 1.17 mg/dL 06/26/2023 6:32 PM CDT [facility] GFR Estimate >90 >60 mL/min/1. 73m2 06/26/2023 6:32 PM CDT [facility] Calcium 10.7(H) 8.8 - 10.2 mg/dL 06/26/2023 6:32 PM CDT [facility] Chloride 103 98 - 107 mmol/L 06/26/2023 6:32 PM CDT [facility] Glucose 211(H) 70 - 99 mg/dL 06/26/2023 6:32 PM CDT [facility] Alkaline Phosphatase 45 40 - 150 U/L 06/26/2023 6:32 PM CDT [facility] Comment:Reference intervals for this test were updated on 01/07/2023 to more accurately reflect our healthy population. There may be differences in the flagging of prior results with similar values performed with this method. Interpretation of those prior results can be made in the context of the updated reference intervals. AST 39 0 - 45 U/L 06/26/2023 6:32 PM CDT [facility] Comment:Reference intervals for this test were updated on 08/05/2022 to more accurately reflect our healthy population. There may be differences in the flagging of prior results with similar values performed with this method. Interpretation of those prior results can be made in the context of the updated reference intervals. ALT 60 0 - 70 U/L 06/26/2023 6:32 PM CDT [facility] Comment:Reference intervals for this test were updated on 08/05/2022 to more accurately reflect our healthy population. There may be differences in the flagging of prior results with similar values performed with this method. Interpretation of those prior results can be made in the context of the updated reference intervals. Protein Total 7.5 6.4 - 8.3 g/dL 06/26/2023 6:32 PM CDT [facility] Albumin 4.3 3.5 - 5.2 g/dL 06/26/2023 6:32 PM CDT [facility] Bilirubin Total 0.6 <=1.2 mg/dL 06/26/2023 6:32 PM CDT [facility] Blood BLOOD SPECIMEN / Unknown Venipuncture / Unknown 06/26/2023 12:50 PM CDT 06/26/2023 1:01 PM CDT us Kassie Elizabeth MD LAB - BLOOD ORDERABLES Fi nal Result [facility] [address] [facility] [facility] [place], [address] [id number] * (ABNORMAL) CBC with platelets (06/26/2023 12:50 PM CDT) WBC Count 3.8(L) 4.0 - 11.0 10e3/uL 06/26/2023 3:54 PM CDT [facility] RBC Count 5.16 4.40 - 5.90 10e6/uL 06/26/2023 3:54 PM CDT [facility] Hemoglobin 14.4 13.3 - 17.7 g/dL 06/26/2023 3:54 PM CDT [facility] Hematocrit 43.4 40.0 - 53.0 % 06/26/2023 3:54 PM CDT [facility] MCV 84 78 - 100 fL 06/26/2023 3:54 PM CDT [facility] MCH 27.9 26.5 - 33.0 pg 06/26/2023 3:54 PM CDT [facility] MCHC 33.2 31.5 - 36.5 g/dL 06/26/2023 3:54 PM CDT [facility] RDW 14.1 10.0 - 15.0 % 06/26/2023 3:54 PM CDT [facility] Platelet Count 82(L) 150 - 450 10e3/uL 06/26/2023 3:54 PM CDT [facility] Blood BLOOD SPECIMEN / Unknown Venipuncture / Unknown 06/26/2023 12:50 PM CDT 06/26/2023 1:01 PM CDT us Kassie Elizabeth MD LAB - BLOOD ORDERABLES Fi nal Result LABORATORY [facility] [address] Lab (1st floor, no room number) [place] [address], [place] * Eye Exam - HIM Scan (04/04/2023) RETINOPATHY UNKNOWN Narrative Erin Perez Graham - 04/04/2023 See encounter dated 04/07/23 us Patient Reported OTHER Final Result * COLONOSCOPY - HIM SCAN (04/14/2020 12:00 AM WATERWORKS PUMP STATION OPERATOR) 04/14/2020 us Provider Outside PROCEDURES Final Result * Hepatitis C RNA quantitative (06/06/2017 10:54 AM CDT) HCV RNA Quant IU/ml HCV RNA Not Detected HCVND^HCV RNA Not Detected [IU]/mL 06/09/2017 1:19 PM CDT [facility] Comment: The REMA AmpliPrep/REMA TaqMan HCV Test is an FDA-approved in vitro nucleic acid amplification test for the quantitation of HCV RNA in human plasma (ETDA plasma) or serum using the REMA AmpliPrep Instrument for automated viral nucleic acid extraction and the REMA TaqMan Analyzer or REMA TaqMan for automated Real Time PCR amplification and detection of the viral nucleic acid target. Titer results are reported in International Units/mL (IU/mL) using the 1st WHO International standard for HCV for Nucleic Acid Amplification based assays. Log of HCV RNA Qt Not Calculated <1.2 Log IU/mL 06/09/2017 1:19 PM CDT [facility] Blood specimen (specimen) 06/06/2017 10:54 AM CDT 06/06/2017 11:00 AM CDT Abdirizak Salinas MD LAB - BLOOD ORDERABLES Final Result [facility] [address] [place] [address], [place] * CT Chest w Contrast (11/05/2016 7:56 AM CDT) Anatomical Region Laterality Modality Chest, SUBRAD CT BODY, UMP CT CHEST Computed Tomography Impressions 11/05/2016 9:23 AM CDT IMPRESSION: 1. Trace atelectasis and/or fibrosis at both lung bases right worse than left. 2. Marked fatty infiltration of the liver. 3. Splenomegaly at 16.4 cm in greatest axial dimension. The entire spleen is not included in the study. NIKO CHAU MD Narrative 11/05/2016 9:[address] CHEST WITH CONTRAST November 05, 2016 7:56 AM HISTORY: Abnormal chest x-ray. Persistent right upper quadrant pain. Chest pain on breathing. COMPARISON: None. TECHNIQUE: Volumetric helical acquisition of CT images of the chest from the clavicles to the kidneys were acquired after the administration of 75mL Isovue-370 IV contrast. Radiation dose for this scan was reduced using automated exposure control, adjustment of the mA and/or kV according to patient size, or iterative reconstruction technique. FINDINGS: Trace peripheral fibrosis and/or atelectasis at the lung base. No pleural or pericardial effusion. There are mild coronary vascular calcifications consistent with coronary artery disease. Normal caliber aorta. Fatty changes of the liver seen in the upper abdomen. Splenomegaly at 16.4 cm. Survey of the visualized bony structures demonstrates no destructive bony lesions. Procedure Note Niko Chau MD - 11/05/2016 CT CHEST WITH CONTRAST November 05, 2016 7:56 AM HISTORY: Abnormal chest x-ray. Persistent right upper quadrant pain. Chest pain on breathing. COMPARISON: None. TECHNIQUE: Volumetric helical acquisition of CT images of the chest from the clavicles to the kidneys were acquired after the administration of 75mL Isovue-370 IV contrast. Radiation dose for this scan was reduced using automated exposure control, adjustment of the mA and/or kV according to patient size, or iterative reconstruction technique. FINDINGS: Trace peripheral fibrosis and/or atelectasis at the lung base. No pleural or pericardial effusion. There are mild coronary vascular calcifications consistent with coronary artery disease. Normal caliber aorta. Fatty changes of the liver seen in the upper abdomen. Splenomegaly at 16.4 cm. Survey of the visualized bony structures demonstrates no destructive bony lesions. IMPRESSION: 1. Trace atelectasis and/or fibrosis at both lung bases right worse than left. 2. Marked fatty infiltration of the liver. 3. Splenomegaly at 16.4 cm in greatest axial dimension. The entire spleen is not included in the study. NIKO CHAU MD Hansel Gillespie MD IMG CT ORDERABLES Final Res ult * Fecal colorectal cancer screen FIT (02/10/2013 4:30 PM WATERWORKS PUMP STATION OPERATOR) Occult Blood Scn FIT Negative [facility] Stool specimen (specimen) 02/10/2013 4:30 PM WATERWORKS PUMP STATION OPERATOR 02/11/2013 4:50 PM WATERWORKS PUMP STATION OPERATOR us Hansel Gillespie MD LAB - STOOLS ORDERABLES Fin al Result Performing Organization Address [facility] Co de Phone Number [address] [address] * HIV 1 & 2, SCREEN (02/05/2007 9:23 AM WATERWORKS PUMP STATION OPERATOR) HIV 1&[address] 02/05/2007 9:23 AM WATERWORKS PUMP STATION OPERATOR 02/05/2007 9:28 AM WATERWORKS PUMP STATION OPERATOR us Hansel Gillespie MD LABORATORY Final Resul t Performing Organization Address [facility] Co de Phone Number [facility] [address] [place] [address] from Last 3 Months or Most Recently Relevant to Health Maintenance Insurance [address] [address] [employer] [address] [address] [address] [address] [employer] [address] [address] [employer] [address] [address] [facility] [facility] * Guarantor: Richardson Eugene Account Type Relation to Patient Date of Phone Billing Address Medication Therapy Self [address] [address] [facility] [address] [address] [facility] Advance Directives For more information, please contact: [phone] * Full Code (Latest Code Status on File) Date Activated Date Inactivated Comments 12/24/2020 3:23 AM 12/25/2020 3:06 PM All basic a nd advanced life-sustaining interventions are performed as appropriate Question Answer Comments Code status determined by: Discussion with patie nt/ legal decision maker * Full Code Date Activated Date Inactivated Comments 10/20/2016 1:50 PM 12/23/2020 5:32 PM * Full Code Date Activated Date Inactivated Comments 10/20/2016 3:28 AM 10/20/2016 1:50 PM * Full Code Date Activated Date Inactivated Comments 07/28/2012 4:29 PM 10/20/2016 3:28 AM * Full Code Date Activated Date Inactivated Comments 07/26/2012 5:06 PM 07/28/2012 4:29 PM Care Teams Clamp Jig Assembler Relationship Specialty [place] [address] [place] [address] PCP - General Family Medicine 01/29/21 Abdirizak Villalta MD [address] [facility] [address] [place] [address] Referring Physician Gastroenterology 09/24/16 [place] [address] [place] [address] Assigned PCP 10/15/20 Kassie Martinez [facility] [address] [place] [address] Pharmacist Pharmacist 05/14/21 Darcy Trevino, tank maker wood Diabetes Education 09/25/21 Kassie Martinez [facility] [address] [place] [address] Assigned MTM Pharmacist 11/21/21 Cl Hugo MD [address] [id number] Urology 01/28/23 Markie Wade MD [address] [place] [id number] Assigned Surgical Provider 08/17/23 [place] [address] [address] CARBAJAL, [address] [address] Assigned Musculoskeletal Provider 01/17/24
[2024-02-29 19:26] LABS: Chloride* 105 mmol/L (96-114); Potassium* 4.2 mmol/L (3.6-5.1); Sodium* 133 mmol/L (135-149)
--- OUTSIDE RECORDS SUMMARY | 2024-02-29 19:26 | XMS_ITS | Encounter Summary ---
Author Organization [place] Address [address] [place] [address] Care Team Providers Care Laborer Aquatic Life Name Role Phone Abdirizak Villalta MD Unavailable [phone] Kassie Elizabeth MD Unavailable [phone] [facility] Primary Care Provider [phone] Holli Damian-C Unavailable [phone] Dilip Tate DPM Unavailable [phone] Abdirizak Villalta MD Unavailable [phone] Kassie Martinez [facility] Unavailable [phone] Jackie Muñoz RN Unavailable Unavailable Kassie Martinez RP Unavailable [phone] Darcy Trevino RN Unavailable Unavailable Kassie Martinez RP Unavailable [phone] Luh Tapia-C Unavailable [phone] Holli Damian-C Unavailable [phone] Luh Tapia-C Unavailable [phone] Abdiel New PA-C Unavailable [phone] Katie Reina DPM, Podiatry /Foot and Ankle Surgery Unavailable Cl Hugo MD Unavailable [phone] Christopher Castaneda DO Unavailable [phone] Markie Wade MD Unavailable [phone] Dilip TateM Unavailable [phone] Christopher Castaneda DO Unavailable [phone] Encounter Details Date Type Department Care Team (Late st Contact Info) Description 10/08/2021 [facility] Advice [address] [address] Kassie Martinez, [facility] [address] [place] [address] Type 2 diabetes mellitus with peripheral neuropathy (H) (Primary Dx) Social History Tobacco Use Types Packs/Day Years Used Date Smoking Tobacco: Former Cigarettes 1 35 0 05/13/1976 - 05/10/2011 Smokeless Tobacco: Never Alcohol Use Standard Drinks/Week Comments Not Currently 0 (1 standard drink = 0.6 oz pur e alcohol) PHQ-2 Answer Date Recorded PHQ-2 Score 0 05/10/2021 Sex and Gender Information Value Date Recorded Sex Assigned at Male 06/23/2020 10:21 PM CDT Legal Sex Male 3:30 AM SLUDGE CONTROL ATTENDANT Gender Identity Male 06/23/2020 10:21 PM CDT Sexual Orientation Straight 06/23/2020 10 :21 PM CDT COVID-19 Exposure Response Date Recorded In the last 10 days, have yo u been in contact with someone who was confirmed or suspected to have Coronavirus/COVID-19? No / Unsure 10/03/2021 2:00 PM CDT documented as of this encounter Miscellaneous Notes * Telephone Encounter - Kassie Martinez [facility] - 10/08/2021 1:21 PM CDT See [employer] message, sending Ozempic prescription using collaborative practice agreement with Dr. Kassie Elizabeth. Reyna Martinez, PharmD Medication Therapy Management Pharmacist documented in this encounter Plan of Treatment Upcoming Encounters Date Type Department Care Team (Late st Contact Info) Description 04/09/2024 9:30 AM SLUDGE CONTROL ATTENDANT Office Visit [facility] [address] [place] [address] [place] [address] [place] [address] 04/14/2024 2:00 PM SLUDGE CONTROL ATTENDANT Office Visit [facility] [address] [place] [phone] Kassie Martinez RPH [address] [place], [place] [id number] documented as of this encounter Goals Goal Patient Goal Type Associated Problems Recent Progress Patient-Stated? Author Healthy Eating General Yes Darcy Trevino, RN Note: My Goal: I will increase my carb intake. What I need to meet my goal: Read labels and count carbs in meals/snacks. I plan to meet my goal by this date: November 2021. documented as of this encounter Visit Diagnoses Diagnosis Type 2 diabetes mellitus with peripheral neuropathy (H)- Primary documented in this encounter Additional Health Concerns Infection Onset Date Last Indicated Resolved Time Rule Out COVID-19 03/01/2022 03/01/2022 03/22/2022 11:41 PM SLUDGE CONTROL ATTENDANT Rule Out COVID-19 06/13/2022 06/13/2022 06/14/2022 9:45 AM CDT Assessment Noted Time PHQ-9 Depression Total Score: 2 06/25/19 7:02 AM CDT documented as of this encounter Care Teams Laborer Aquatic Life Relationship Specialty [place] [address] [place], [place] [id number] PCP - General Family Medicine 01/29/21 Abdirizak Villalta MD [address] [place] [address] Referring Physician Gastroenterology 09/24/16 [place] [address] [place] [address] Assigned PCP 10/15/20 Holli Damian PA-C [address] [facility] [place] [address] Assigned Surgical Provider 02/04/2104/26/22 Dilip Tate DPM [address] [facility] 300 [place] [address] Assigned Musculoskeletal Provider 01/28/21 07/26/22 Abdirizak Villalta MD [address] [place] [address] Assigned Gastroenterology Provider 01/28/21 07/26/22 Kassie Martinez [facility] [address] [place] [address] Pharmacist Pharmacist 05/14/21 Jackie Muñoz, RN Personal Advocate & Liaison (PAL) Family Medicine 07/06/21 05/22/22 Kassie Martinez Tisha [address] [place] [address] Assigned MTM Pharmacist 07/21/21 Darcy Trevino, director enterprise systems Diabetes Education 09/25/21 Kassie Martinez [facility] [address] [place] [address] Assigned MTM Pharmacist 11/21/21 Luh Tapia PA-C [address] [facility] [address] [place] [address] Assigned Surgical Provider 04/27/22 Holli Damian PA-C [address] [facility] [address] [place] [address] Assigned Surgical Provider 06/22/2206/28/22 Luh Tapia PA-C [address] [facility] [address] [place] [address] Assigned Surgical Provider 06/29/22 Abdiel New PA-C [address] [place] [address] Assigned Musculoskeletal Provider 12/21/22 01/03/23 Katie Reina DPM, Podiatry/Foot and Ankle Surgery [address] [facility] 300 [place] [address] Assigned Musculoskeletal Provider 01/04/23 06/16/23 Cl Hugo MD 420 [facility] 394 [place] [address] Urology 01/28/23 [place] [address] [facility] 300 [place] [address] Assigned Musculoskeletal Provider 06/17/23 08/16/23 Markie Wade MD 9 [place] [address] Assigned Surgical Provider 08/17/23 Dilip Tate DPM [address] [facility] [address] [place] [address] Assigned Musculoskeletal Provider 08/17/23 01/16/24 [place] [address] [address], [facility] [address] [place] [address] Assigned Musculoskeletal Provider 01/17/24 documented as of this encounter
--- OUTSIDE RECORDS SUMMARY | 2024-02-29 19:26 | XMS_ITS | Encounter Summary ---
Author Organization [place] Address [address] [place] [address] Care Team Providers Care Master Control Operator Name Role Phone Abdirizak Villalta MD Unavailable [phone] Kassie Elizabeth MD Unavailable [phone] Kassie Elizabeth MD Primary Care Provider Kassie Martinez [facility] Unavailable [phone] Darcy Tervino RN Unavailable Unavailable Kassie Martinez [facility] Unavailable [phone] Luh Tapia-C Unavailable [phone] Abdiel New PA-C Unavailable [phone] Katie Reina DPM, Podiatry /Foot and Ankle Surgery Unavailable Cl Hugo MD Unavailable [phone] Christopher Castaneda DO Unavailable [phone] Markie Wade MD Unavailable [phone] Dilip Tate DPM Unavailable [phone] Christopher Castaneda DO Unavailable [phone] Encounter Details Date Type Department Care Team (Late st Contact Info) Description 12/11/2022 My[facility] Medical Advice [facility] [address] [place] [address] Kassie Martinez, [facility] [address] [place] [address] Social History Tobacco Use Types Packs/Day Years Used Date Smoking Tobacco: Former Cigarettes 1 35 0 05/13/1976 - 05/10/2011 Smokeless Tobacco: Never Alcohol Use Standard Drinks/Week Comments Not Currently 0 (1 standard drink = 0.6 oz pur e alcohol) PHQ-2 Answer Date Recorded PHQ-2 Score 0 12/10/2022 Adolescent Education Answer Date Record ed Getting School Help Needed Not on file 11/20 Food Insecurity Answer Date Recorded Within the past 12 months, d id you worry that your food would run out before you got money to buy more? No 12/10/2022 Within the past 12 months, d id the food you bought just not last and you didn t have money to get more? No 12/10/2022 Housing Stability Answer Date Recorded Do you have housing? (Housin g is defined as stable permanent housing and does not include staying ouside in a car, in a tent, in an abandoned building, in an overnight longterm, or couch-surfing.) Yes 12/10/2022 Are you worried about losing your housing? No 12/10/2022 Financial Resource Strain Answer Date R ecorded Within the past 12 months, h ave you or your family members you live with been unable to get utilities (heat, electricity) when it was really needed? No 12/10/2022 Transportation Needs Answer Date Record ed Within the past 12 months, h as lack of transportation kept you from medical appointments, getting your medicines, non-medical meetings or appointments, work, or from getting things that you need? No 12/10/2022 Interpersonal Safety Answer Date Record ed Do you feel physically and e motionally safe where you currently live? Yes 12/10/2022 Within the past 12 months, h ave you been hit, slapped, kicked or otherwise physically hurt by someone? No 12/10/2022 Within the past 12 months, h ave you been humiliated or emotionally abused in other ways by your partner or ex-partner? No 12/10/2022 Sex and Gender Information Value Date Recorded Sex Assigned at Male 06/23/2020 10:21 PM CDT Legal Sex Male 3:30 AM RADIAL DRILL PRESS SET UP OPERATOR Gender Identity Male 06/23/2020 10:21 PM CDT Sexual Orientation Straight 06/23/2020 10 :21 PM CDT COVID-19 Exposure Response Date Recorded In the last 10 days, have yo u been in contact with someone who was confirmed or suspected to have Coronavirus/COVID-19? No / Unsure 11/13/2022 1:28 PM CDT documented as of this encounter Plan of Treatment Upcoming Encounters Date Type Department Care Team (Late st Contact Info) Description 04/09/2024 9:30 AM RADIAL DRILL PRESS SET UP OPERATOR Office Visit [facility] [address] [place] [address] Kassie Elizabeth MD [address] [place] [address] 04/14/2024 2:00 PM RADIAL DRILL PRESS SET UP OPERATOR Office Visit [facility] [address] [place] [address] Kassie Martinez, [facility] [address] [place] [address] documented as of this encounter Goals Goal [...] documented as of this encounter Visit Diagnoses Not on filedocumented in this encounter Additional Health Concerns Assessment Noted Time PHQ-9 Depression Total Score: 0 12/11/19 2:04 PM CDT documented as of this encounter Care Teams Master Control Operator Relationship Specialty [place] [address] [place] [address] PCP - General Family Medicine 01/29/21 Abdirizak Villalta MD 6 [facility] [address] [place] [address] Referring Physician Gastroenterology 09/24/16 [place] [address] [place] [address] Assigned PCP 10/15/20 Kassie Martinez [facility] [address] [place] [address] Pharmacist Pharmacist 05/14/21 Darcy Trevino, wire brush operator Diabetes Education 09/25/21 Kassie Martinez [facility] [address] [place] [address] Assigned MTM Pharmacist 11/21/21 Luh Tapia PA-C [address] [address] Assigned Surgical Provider 06/29/22 Abdiel New PA-C [address] [place] [address] Assigned Musculoskeletal Provider 12/21/22 01/03/23 Katie Reina DPM, Podiatry/Foot and Ankle Surgery [address] [address] [address] Assigned Musculoskeletal Provider 01/04/23 06/16/23 Cl Hugo MD [address] [place] [address] 394 [place] [address] Urology 01/28/23 [place] [address] [facility], [facility] 300 [place] [address] Assigned Musculoskeletal Provider 06/17/23 08/16/23 Markie Wade MD [address] [place] [address] Assigned Surgical Provider 08/17/23 Dilip Tate DPM [address] [facility] 300 [place], [place] [address] Assigned Musculoskeletal Provider 08/17/23 01/16/24 [place] [address] [address]AL, [facility] 300 [place] [address] Assigned Musculoskeletal Provider 01/17/24 documented as of this encounter
--- OUTSIDE RECORDS SUMMARY | 2024-02-29 19:26 | XMS_ITS | Encounter Summary ---
Author Organization [place] Address [address] [place] [address] Care Team Providers Care Bindery Manager Name Role Phone Abdirizak Villalta MD Unavailable [phone] Kassie Elizabeth MD Unavailable [phone] Kassie Elizabeth MD Primary Care Provider [phone] Kassie Martinez [facility] Unavailable [phone] Darcy Trevino RN Unavailable Unavailable Kassie Martinez [facility] Unavailable [phone] Luh Tapia PA-C Unavailable [phone] Katie Reina DPM, Podiatry /Foot and Ankle Surgery Unavailable Cl Hugo MD Unavailable [phone] Christopher Castaneda DO Unavailable [phone] Markie Wade MD Unavailable [phone] Dilip Tate DPM Unavailable [phone] Christopher Castaneda DO Unavailable [phone] Encounter Details Date Type Department Care Team (Late st Contact Info) Description 02/21/2023 [facility] Advice [facility] [address] [address] Yo Workman RN Social History Tobacco Use Types Packs/Day Years Used Date Smoking Tobacco: Former Cigarettes 1 35 0 05/13/1976 - 05/10/2011 Smokeless Tobacco: Never Alcohol Use Standard Drinks/Week Comments Not Currently 0 (1 standard drink = 0.6 oz pur e alcohol) PHQ-2 Answer Date Recorded PHQ-2 Score 0 01/21/2023 Adolescent Education Answer Date Record ed Getting [...] Date Recorded Do you have housing? (Hayes moran is defined as stable permanent housing and does not include staying ouside in a car, in a tent, in an abandoned building, in an overnight prison, or couch-surfing.) Yes 12/10/2022 Are you worried [...] PM CDT Legal Sex Male 3:30 AM WHARF OPERATOR Gender Identity Male 06/23/2020 10:21 PM CDT Sexual Orientation Straight 06/23/2020 10 :21 PM CDT documented as of this encounter Plan of Treatment Upcoming Encounters Date Type Department Care Team (Late st Contact Info) Description 04/09/2024 9:30 AM WHARF OPERATOR Office Visit [facility] [address] [place] [address] [place] [address] [place] [address] 04/14/2024 2:00 PM WHARF OPERATOR Office Visit [facility] [address] [place] [phone] Kassie Martinez [facility] [address] [place], [place] [id number] documented as of this encounter Goals Goal [...] Time PHQ-9 Depression Total Score: 0 12/11/19 23 2:04 PM CDT documented as of this encounter Care Teams Bindery Manager Relationship Specialty [place] [address] [place] [address] PCP - General Family Medicine 01/29/21 Abdirizak Villalta MD 6 [facility] [place] [address] Referring Physician Gastroenterology 09/24/16 [place] [address] [place] [address] Assigned PCP 10/15/20 Kassie Martinez [facility] [address] [place] [address] Pharmacist Pharmacist 05/14/21 Darcy Trevino, groundskeeping maintenance Diabetes Education 09/25/21 Kassie Martinez [facility] [address] [place] [address] Assigned MTM Pharmacist 11/21/21 Luh Tapia PA-C 6363 [facility] 500 [place] [address] Assigned Surgical Provider 06/29/22 Katie Reina DPM, Podiatry/Foot and Ankle Surgery [address] [address] Assigned Musculoskeletal Provider 01/04/23 06/16/23 Cl Hugo MD [address] [place] [address] 394 [place] [address] Urology 01/28/23 [place] [address] [facility] 300 [place] [address] Assigned Musculoskeletal Provider 06/17/23 08/16/23 Markie Wade MD [address] [place] [address] Assigned Surgical Provider 08/17/23 Dilip Tate DPM [address] [facility] [address] [place] [address] Assigned Musculoskeletal Provider 08/17/23 01/16/24 [place] [address] [facility] 300 [place] [address] Assigned Musculoskeletal Provider 01/17/24 documented as of this encounter
--- OUTSIDE RECORDS SUMMARY | 2024-02-29 19:26 | XMS_ITS | Encounter Summary ---
Author Organization [place] Address [address] [place] [address] Care Team Providers Care Vp Software Support Name Role Phone Abdirizak Villalta MD Unavailable [phone] Kassie Elizabeth MD Unavailable [phone] Kassie Elizabeth MD Primary Care Provider Kassie Martinez [facility] Unavailable [phone] Darcy Trevino RN Unavailable Unavailable Kassie Martinez [facility] Unavailable [phone] Luh Tapia PA-C Unavailable [phone] Katie Reina DPM, Podiatry /Foot and Ankle Surgery Unavailable Cl Hugo MD Unavailable [phone] Christopher Castaneda DO Unavailable [phone] Markie Wade MD Unavailable [phone] Dilip Tate DPM Unavailable [phone] Christopher Castaneda DO Unavailable [phone] Encounter Details Date Type Department Care Team (Late st Contact Info) Description 01/22/2023 [facility] [address] [place] [address] Luh Tapia PA-C [address] [facility] [facility] 500 [place] [address] Social History Tobacco Use Types Packs/Day Years [...] Answer Date Recorded Do you have housing? (Dengin g is defined as stable permanent housing and does not include staying ouside in a car, in a tent, in an abandoned building, in an overnight alf, or couch-surfing.) Yes 12/10/2022 Are you worried [...] PM CDT Legal Sex Male 3:30 AM PHONE REPRESENTATIVE Gender Identity Male 06/23/2020 10:21 PM CDT Sexual Orientation Straight 06/23/2020 10 :21 PM CDT documented as of this encounter Plan of Treatment Upcoming Encounters Date Type Department Care Team (Late st Contact Info) Description 04/09/2024 9:30 AM PHONE REPRESENTATIVE Office Visit [facility] [address] [place] [address] [place] [address] [place], [place] [address] 04/14/2024 2:00 PM PHONE REPRESENTATIVE Office [facility] [address] [place] [phone] [facility] [address] [place] [address] documented as of this encounter Goals Goal [...] documented as of this encounter Care Teams Vp Software Support Relationship Specialty [place] [address] [place] [address] PCP - General Family Medicine 01/29/21 Abdirizak Villalta MD [address] [facility] [address] [place] [address] Referring Physician Gastroenterology 09/24/16 [place] [address] [place] [address] Assigned PCP 10/15/20 Kassie Martinez [facility] [address] [place] [address] Pharmacist Pharmacist 05/14/21 Darcy Trevino, loading machine operator helper Diabetes Education 09/25/21 Kassie Martinez [facility] [address] [place] [address] Assigned MTM Pharmacist 11/21/21 Luh Tapia PA-C 6[address] [facility] 500 [place], [place] [address] Assigned Surgical Provider 06/29/22 Katie Reina DPM, Podiatry/Foot and Ankle Surgery [address] [facility] 300 [place], [place] [address] Assigned Musculoskeletal Provider 01/04/23 06/16/23 Cl Hugo MD 420 [facility] 394 [place], [place] [address] Urology 01/28/23 [place] [address] [address], [facility] 300 [place], [place] [address] Assigned Musculoskeletal Provider 06/17/23 08/16/23 Markie Wade MD 909 [place] [address] Assigned Surgical Provider 08/17/23 Dilip Tate DPM [address] [facility] 300 [place], [place] [address] Assigned Musculoskeletal Provider 08/17/23 01/16/24 [place] [address] [facility], [facility] 300 [place] [address] Assigned Musculoskeletal Provider 01/17/24 documented as of this encounter
--- OUTSIDE RECORDS SUMMARY | 2024-02-29 19:26 | XMS_ITS | Encounter Summary ---
Author Organization [facility] Address [address] [place] [address]. [place] [address] Care Team Providers Care Handle And Vent Machine Operator Name Role Phone Abdirizak Villalta MD Unavailable [phone] Kassie Elizabeth MD Unavailable [phone] Kassie Elizabeth MD Primary Care Provider [phone] Kassie Martinez [facility] Unavailable [phone] Darcy Trevino RN Unavailable Unavailable Kassie Martinez [facility] Unavailable [phone] Cl Hugo MD Unavailable [phone] Markie Wade MD Unavailable [phone] Dilip Tate DPM Unavailable [phone] Christopher Castaneda DO Unavailable [phone] Reason for Visit * Reason Onset Date Comments MyChart Communication 01/14/2024 Encounter Details Date Type Department Care Team (Late st Contact Info) Description 01/14/2024 MyC Medical [facility] [address] [place] [address] [place] [address] [place] [address] Performance Indicatort Communication Social History Tobacco Use Types Packs/Day Years [...] week 03/24/2023 How often do you attend chur or adventist services? Patient declined 03/24/2023 Do you belong to any clubs o r organizations such as yarsani groups, unions, fraternal or athletic groups, or [...] Answer Date Recorded PHQ-2 Score 0 09/30/2023 [facility]ational [facility] Questionnaire Answer [...] in an abandoned building, in an overnight nursing home, or couch-surfing.) Yes 03/24/2023 Are you worried [...] PM CDT Legal Sex Male 3:30 AM BLAST FURNACE KEEPER HELPER Gender Identity Male 06/23/2020 10:21 PM CDT Sexual Orientation Straight 06/23/2020 10 :21 PM CDT documented as of this encounter Plan of Treatment Upcoming Encounters Date Type Department Care Team (Late st Contact Info) Description 04/09/2024 9:30 AM BLAST FURNACE KEEPER HELPER Office Visit [facility] [address] [place] [address] [place] [address] [place] [address] 04/14/2024 2:00 PM BLAST FURNACE KEEPER HELPER Office Visit [address] [phone] Kassie Martinez RPH [address] [place] [address] documented as of this encounter Goals Goal [...] Noted Time PHQ-9 Depression Total Score: 0 09/30/19 24 12:59 PM CDT documented as of this encounter Care Teams Handle And Vent Machine Operator Relationship Specialty [place] [address] [place] [address] PCP - General Family Medicine 01/29/21 Abdirizak Villalta MD 6 [facility] 2[address] [place] [address] Referring Physician Gastroenterology 09/24/16 [place] [address] [place] [address] Assigned PCP 10/15/20 Kassie Martinez RPH [address] [place] [address] Pharmacist Pharmacist 05/14/21 Darcy Trevino, survey operations director Diabetes Education 09/25/21 Kassie Martinez [facility] [address] [place] [address] Assigned MTM Pharmacist 11/21/21 Cl Hugo MD [address] [facility] 394 [place], [place] [address] Urology 01/28/23 Markie Wade MD [address] [place], [place] [address] Assigned Surgical Provider 08/17/23 Dilip Tate DPM [address] [facility] [address] [place], [place] [address] Assigned Musculoskeletal Provider 08/17/23 01/16/24 [place] [address] [facility] 300 [place], [place] [address] Assigned Musculoskeletal Provider 01/17/24 documented as of this encounter
--- OUTSIDE RECORDS SUMMARY | 2024-02-29 19:26 | XMS_ITS | Encounter Summary ---
Author Organization [facility] Address [address] [place] [address] Care Team Providers Care Crna Name Role Phone Abdirizak Villalta MD Unavailable [phone] Kassie Elizabeth MD Unavailable [phone] [facility] Primary Care Provider [phone] Holli Damian-C Unavailable +[phone] Dilip Tate DPM Unavailable [phone] Abdirizak Villalta MD Unavailable [phone] Kassie Martinez [facility] Unavailable +[phone] Jackie Muñoz RN Unavailable Unavailable Kassie Martinez RP Unavailable [phone] Darcy Trevino RN Unavailable Unavailable Kassie Martinez RP Unavailable [phone] Luh Tapia-C Unavailable [phone] Holli Damian-C Unavailable [phone] Luh Tapia-C Unavailable [phone] Abdiel New PA-C Unavailable [phone] Katie Reina DPM, Podiatry /Foot and Ankle Surgery Unavailable Cl Hugo MD Unavailable [phone] Christopher Castaneda DO Unavailable [phone] Markie Wade MD Unavailable [phone] Dilip TateM Unavailable [phone] Christopher Castaneda DO Unavailable [phone] Encounter Details Date Type Department Care Team (Late st Contact Info) Description 10/06/2021 MyC Medical Advice [facility] [address] [place] [address] Kassie Martinez [facility] [address] [place] [address] Social History Tobacco Use Types Packs/Day Years [...] PM CDT Legal Sex Male 3:30 AM FINANCIAL SERVICES SALES REPRESENTATIVE Gender Identity Male 06/23/2020 10:21 PM [...] Encounters Date Type Department Care Team (Late Contact Info) Description 04/09/2024 9:30 AM FINANCIAL SERVICES SALES REPRESENTATIVE Office Visit [facility] [address] [place] [address] [place] [address] [place] [address] 04/14/2024 2:00 PM FINANCIAL SERVICES SALES REPRESENTATIVE Office Visit [address] [phone] Kassie Martinez, [facility] [address] [place] [address] documented as of this encounter Goals Goal Patient Goal Type Associated Problems Recent Progress Patient-Stated? Author Healthy Eating General Yes Darcy Trevino, MARIE Note: My Goal: I will increase my carb intake. What I need to meet my goal: Read labels and count carbs in meals/snacks. I plan to meet my goal by this date: November 2021. documented as of this encounter Visit Diagnoses Not on filedocumented in this encounter Additional Health Concerns Infection Onset Date Last Indicated Resolved Time Rule Out COVID-19 03/01/2022 03/01/2022 03/22/2022 11:41 PM FINANCIAL SERVICES SALES REPRESENTATIVE Rule Out COVID-19 06/13/2022 06/13/2022 06/14/2022 9:45 AM CDT Assessment Noted Time PHQ-9 Depression Total Score: 2 06/25/19 7:02 AM CDT documented as of this encounter Care Teams Crna Relationship Specialty [place] [address] [place] [address] PCP - General Family Medicine 01/29/21 Abdirizak Villalta MD [address] [place] [address] Referring Physician Gastroenterology 09/24/16 [place] [address] [place] [address] Assigned PCP 10/15/20 Holli Damian PA-C [address] [place] [address] Assigned Surgical Provider 02/04/2104/26/22 Dilip Tate DPM [address] [facility] [address] [place] [address] Assigned Musculoskeletal Provider 01/28/21 07/26/22 Abdirizak Villalta MD [address] [address] Assigned Gastroenterology Provider 01/28/21 07/26/22 Kassie Martinez [facility] [address] [place] [address] Pharmacist Pharmacist 05/14/21 Jackie Muñoz, MARIE Personal Advocate & Liaison (PAL) Family Medicine 07/06/21 05/22/22 Kassie Martinez [facility] [address] [place] [address] Assigned MTM Pharmacist 07/21/21 Darcy Trevino, car supervisor Diabetes Education 09/25/21 Kassie Martinez [facility] [address] [place] [address] Assigned MTM Pharmacist 11/21/21 Luh Tapia PA-C [address] [place] [address] Assigned Surgical Provider 04/27/22 Holli Damian PA-C [address] [place] [address] Assigned Surgical Provider 06/22/2206/28/22 Luh Tapia PA-C [address] [place] [address] Assigned Surgical Provider 06/29/22 Abdiel New PA-C [address] [place] [address] Assigned Musculoskeletal Provider 12/21/22 01/03/23 Katie Reina DPM, Podiatry/Foot and Ankle Surgery [address] [facility] [address] [place], [place] [address] Assigned Musculoskeletal Provider 01/04/23 06/16/23 Cl Hugo MD [address] [place] [address] Urology 01/28/23 [place] [address] [address] [facility] [address] [place] [address] Assigned Musculoskeletal Provider 06/17/23 08/16/23 Markie Wade MD [address] [place] [address] Assigned Surgical Provider 08/17/23 Dilip Tate DPM [address] [facility] [address] [place] [address] Assigned Musculoskeletal Provider 08/17/23 01/16/24 [place] [address] [facility], [address] [place] [address] Assigned Musculoskeletal Provider 01/17/24 documented as of this encounter
--- OUTSIDE RECORDS SUMMARY | 2024-02-29 19:26 | XMS_ITS | Encounter Summary ---
Author Organization [facility] Address [address] [place] [address]. [place] [address] Care Team Providers Care Clinical Informaticist Name Role Phone Abdirizak Villalta MD Unavailable [phone] Kassie Elizabeth MD Unavailable [phone] Kassie Elizabeth MD Primary Care Provider [phone] Kassie Martinez [facility] Unavailable [phone] Darcy Trevino RN Unavailable Unavailable Kassie Martinez [facility] Unavailable [phone] Cl Hugo MD Unavailable [phone] Markie Wade MD Unavailable [phone] Christopher Castaneda DO Unavailable [phone] Reason for Visit * Reason Onset Date Comments Prior Auth - Medication 02/11/2024 MOUNJARO 15 MG/0.5ML SOAJ - PA NOT NEEDED Encounter Details Date Type Department Care Team (Late st Contact Info) Description 02/11/2024 Telephone [facility] [address] [place] [address] [place] [address] [place] [address] Prior Auth - Medication (MOUNJARO 15 MG/0.5ML SOAJ - PA NOT NEEDED) Social History Tobacco Use Types Packs/Day Years [...] How often do you attend chur or adventism services? Patient declined 03/24/2023 Do you belong to any clubs o r organizations such as baptism groups, unions, fraternal or athletic groups, or [...] Answer Date Recorded PHQ-2 Score 0 09/30/2023 [facility] - Occupational Stress Questionnaire [...] in an abandoned building, in an overnight assisted, or couch-surfing.) Yes 03/24/2023 Are you worried [...] PM CDT Legal Sex Male 3:30 AM THINNER SPRAYER Gender Identity Male 06/23/2020 10:21 PM CDT Sexual Orientation Straight 06/23/2020 10 :21 PM CDT documented as of this encounter Miscellaneous Notes * Telephone Encounter - NewtonTanja N - 02/12/2024 4:03 PM CST Images from the original note were not included. Prior Authorization Not Needed per Insurance Medication: MOUNJARO 15 MG/0.5ML SC SOAJ Insurance Company: [employer] - Expected CoPay: $ Pharmacy Filling the Rx: [id number] - [place], [place] - [address] [facility] [address] Pharmacy Notified: YES Patient Notified: Instructed pharmacy to notify patient once order is ready. NER SPRAYER * Telephone Encounter - Mukul Hameed - 02/11/2024 7:26 AM CST Prior Authorization Retail Medication Request Medication/Dose: MOUNJARO 15 MG/0.5ML SOAJ Diagnosis and ICD code (if different than what is on RX): New/renewal/insurance change PA/secondary ins. PA: Previously Tried and Failed: tirzepatide (MOUNJARO) 10 MG/0.5ML pen, insulin glargine (LANTUS PEN) 100 UNIT/ML pen Rationale: Insurance COVERMYMEDS RAMIREZ: [id number]ST NAME: SJOBERG : 1965 Secondary (if applicable): Insurance ID: Pharmacy Information (if different than what is on RX) Name: Phone: Fax: Clinic Information Preferred routing pool for dept communication: Mukul Hameed XRT NER SPRAYER documented in this encounter Plan of Treatment Upcoming Encounters Date Type Department Care Team (Late st Contact Info) Description 04/09/2024 9:30 AM THINNER SPRAYER Office Visit [facility] [address] [place] [address] [place] [address] [place] [address] 04/14/2024 2:00 PM THINNER SPRAYER Office Visit [facility] [address] [place] [address] Kassie Martinez [facility] [address] [place] [address] documented as of this encounter Goals Goal [...] documented as of this encounter Care Teams Clinical Informaticist Relationship Specialty [place] [address] [place] [address] PCP - General Family Medicine 01/29/21 Abdirizak Villalta MD 516 [facility] [address] [place] [address] Referring Physician Gastroenterology 09/24/16 [place] [address] [place] [address] Assigned PCP 10/15/20 Kassie Martinez RPH [address] [place] [address] Pharmacist Pharmacist 05/14/21 Darcy Trevino, white kid buffer Diabetes Education 09/25/21 Kassie Martinez RPH [address] [place] [address] Assigned MTM Pharmacist 11/21/21 Cl Hugo MD [address] [address] [facility] [address] [place], [place] [address] Urology 01/28/23 Markie Wade MD [address] [facility] [place] [address] Assigned Surgical Provider 08/17/23 [place] [address] [address], [address] [address] Assigned Musculoskeletal Provider 01/17/24 documented as of this encounter
--- OUTSIDE RECORDS SUMMARY | 2024-02-29 19:26 | XMS_ITS | Encounter Summary ---
Author Organization [facility] Address [address] [place] [address] Care Team Providers Care Jack Prizer Name Role Phone Abdirizak Villalta MD Unavailable [phone] Kassie Elizabeth MD Unavailable [phone] Kassie Elizabeth MD Primary Care Provider [phone] Kassie Martinez [facility] Unavailable [phone] Darcy Trevino RN Unavailable Unavailable Kassie Martinez [facility] Unavailable [phone] Cl Hugo MD Unavailable [phone] Markie Wade MD Unavailable [phone] Dilip Tate DPM Unavailable [phone] Encounter Details Date Type Department Care Team (Late st Contact Info) Description 01/14/2024 MyC Medical Advice [facility] [address] [facility] [address] [place] [address] Katie Reina, DPM, Podiatry/Foot and Ankle Surgery [address] [place], [place] [id number] Diabetic polyneuropathy associated with type 2 diabetes mellitus (H) (Primary Dx); Plantar fasciitis, bilateral Social History Tobacco Use Types Packs/Day Years [...] How often do you attend chur or hindu services? Patient declined 03/24/2023 Do you belong to any clubs o r organizations such as samaritan groups, unions, fraternal or athletic groups, or [...] Answer Date Recorded PHQ-2 Score 0 09/30/2023 [facility] - Occupational Stress Questionnaire Answer Date Recorded [...] in an abandoned building, in an overnight fdc, or couch-surfing.) Yes 03/24/2023 Are you worried [...] PM CDT Legal Sex Male 3:30 AM HVAC ENGINEER Gender Identity Male 06/23/2020 10:21 PM CDT Sexual Orientation Straight 06/23/2020 10 :21 PM CDT documented as of this encounter Miscellaneous Notes * Telephone Encounter - Katie Reina DPM, Podiatry/Foot and Ankle Surgery - 01/15/2024 2:15 PM CST I did put in an order for orthotics. He likely will have to follow-up in clinic before he gets fitted for another pair for insurance to cover them. Please let patient know. Thanks, Katie Reina DPM CST * Telephone Encounter - Margie Sams ATC - 01/15/2024 1:40 PM CST See patient request for new orthotics order and advise. Margie Sams ATC ENGINEER documented in this encounter Plan of Treatment Upcoming Encounters Date Type Department Care Team (Late st Contact Info) Description 04/09/2024 9:30 AM HVAC ENGINEER Office Visit [facility] [address] [place] [address] [place] [address] [place], [place] [address] 04/14/2024 2:00 PM HVAC ENGINEER Office Visit [facility] [address] [place] [address] Kassie Martinez, [facility] [address] [place] [id number] documented as of this encounter Goals Goal Patient Goal Type Associated Problems Recent Progress Patient-Stated? Author Healthy Eating General Yes Darcy Trevino RN Note: My Goal: I will increase my carb intake. What I need to meet my goal: Read labels and count carbs in meals/snacks. I plan to meet my goal by this date: November 2021. documented as of this encounter Visit Diagnoses Diagnosis Diabetic polyneuropathy associated with type 2 diabetes mellitus (H)- Primary Plantar fasciitis, bilateral Plantar fascial fibromatosis documented in this encounter Additional Health Concerns Assessment Noted Time PHQ-9 Depression Total Score: 0 09/30/19 24 12:59 PM CDT documented as of this encounter Care Teams Jack Prizer Relationship Specialty [place] [address] [place] [address] PCP - General Family Medicine 01/29/21 Abdirizak Villalta MD [address] [facility] [address] [place] [address] Referring Physician Gastroenterology 09/24/16 [place] [address] [place] [address] Assigned PCP 10/15/20 Kassie Martinez [facility] [address] [address] Pharmacist Pharmacist 05/14/21 Darcy Trevino, roll machine operator Diabetes Education 09/25/21 Kassie Martinez [facility] [address] [place] [address] Assigned MTM Pharmacist 11/21/21 Cl Hugo MD 420 [facility] [address] [place] [address] Urology 01/28/23 Markie Wade MD [address] [facility] [place], [place] [address] Assigned Surgical Provider 08/17/23 Dilip Tate DPM [address] [facility] [address] [place] [address] Assigned Musculoskeletal Provider 08/17/23 01/16/24 documented as of this encounter
--- OUTSIDE RECORDS SUMMARY | 2024-02-29 19:26 | XMS_ITS | Encounter Summary ---
Author Organization [facility] Address [address] [place] [address] Care Team Providers Care Social Organization Professor Name Role Phone Abdirizak Villalta MD Unavailable Kassie Elizabeth MD Unavailable [phone] Kassie Elizabeth MD Primary Care Provider Dilip Tate DPM Unavailable [phone] Abdirizak Villalta MD Unavailable [phone] Kassie Martinez [facility] Unavailable [phone] Jackie Muñoz RN Unavailable Unavailable Darcy Trevino RN Unavailable Unavailable Kassie Martinez [facility] Unavailable [phone] Luh Tapia PA-C Unavailable [phone] Holli Damian PA-C Unavailable + [phone] Luh Tapia PA-C Unavailable [phone] Abdiel New PA-C Unavailable [phone] Katie Reina DPM, Podiatry /Foot and Ankle Surgery Unavailable Cl Hugo MD Unavailable [phone] Christopher Castaneda DO Unavailable [phone] Markie Wade MD Unavailable [phone] Dilip Tate DPM Unavailable [phone] Christopher Castaneda DO Unavailable [phone] Encounter Details Date Type Department Care Team (Late st Contact Info) Description 04/30/2022 MyC Medical Advice [facility] [address] [place] [address] Kassie Martinez RPH [address] [place] [address] Type 2 diabetes mellitus with peripheral neuropathy (H) Social History Tobacco Use Types Packs/Day Years Used Date Smoking Tobacco: Former Cigarettes 1 35 0 05/13/1976 - 05/10/2011 Smokeless Tobacco: Never Alcohol Use Standard Drinks/Week Comments Not Currently 0 (1 standard drink = 0.6 oz pur e alcohol) PHQ-2 Answer Date Recorded PHQ-2 Score 0 02/19/2022 Sex and Gender Information Value Date Recorded Sex Assigned at Male 06/23/2020 10:21 PM CDT Legal Sex Male 3:30 AM MANAGER OF PRODUCTION Gender Identity Male 06/23/2020 10:21 PM CDT Sexual Orientation Straight 06/23/2020 10 :21 PM CDT COVID-19 Exposure Response Date Recorded In the last 10 days, have yo u been in contact with someone who was confirmed or suspected to have Coronavirus/COVID-19? No / Unsure 04/15/2022 12:03 PM MANAGER OF PRODUCTION documented as of this encounter Miscellaneous Notes * Telephone Encounter - Kassie Martinez RPH - 05/06/2022 12:04 PM CDT Sending new prescription for Lantus with dose change and updating med list since patient is no longer taking Mounjaro due to cost issues. Changes made using collaborative practice agreement with Dr. Kassie Elizabeth. Reyna Martinez PharmD Medication Therapy Management Pharmacist documented in this encounter Plan of Treatment Upcoming Encounters Date Type Department Care Team (Late st Contact Info) Description 04/09/2024 9:30 AM MANAGER OF PRODUCTION Office Visit [facility] [address] [place] [address] [place] [address] [place] [address] 04/14/2024 2:00 PM MANAGER OF PRODUCTION Office Visit [facility] [address] [place] [phone] Kassie Martinez RPH [address] [place] [address] documented as of this encounter Goals Goal [...] 2 diabetes mellitus with peripheral neuropathy (H) documented in this encounter Additional Health Concerns Infection Onset Date Last Indicated Resolved Time Rule Out COVID-19 06/13/2022 06/13/2022 06/14/2022 9:45 AM CDT Assessment Noted Time PHQ-9 Depression Total Score: 2 06/25/19 7:02 AM CDT documented as of this encounter Care Teams Social Organization Professor Relationship Specialty [place] [address] [place] [address] PCP - General Family Medicine 01/29/21 Abdirizak Villalta MD [address] [facility] [address] [place], [place] [address] Referring Physician Gastroenterology 09/24/16 [place] [address] [place] [address] Assigned PCP 10/15/20 Dilip Tate DPM [address] [facility] [address] [place] [address] Assigned Musculoskeletal Provider 01/28/21 07/26/22 Abdirizak Villalta MD [address] [address] Assigned Gastroenterology Provider 01/28/21 07/26/22 Kassie Martinez [facility] [address] [facility] [place] [address] Pharmacist Pharmacist 05/14/21 Jackie Muñoz, RN Personal Advocate & Liaison (PAL) Family Medicine 07/06/21 05/22/22 Darcy Trevino, newspaper deliverer Diabetes Education 09/25/21 Kassie Martinez [facility] [address] [place] [address] Assigned MTM Pharmacist 11/21/21 Luh Tapia PA-C [address] [place] [address] Assigned Surgical Provider 04/27/22 Holli Damian PA-C [address] [place] [address] Assigned Surgical Provider 06/22/2206/28/22 Luh Tapia PA-C [address] [facility] 500 [place] [address] Assigned Surgical Provider 06/29/22 Abdiel New PA-C [address] [place] [address] Assigned Musculoskeletal Provider 12/21/22 01/03/23 Katie Reina DPM, Podiatry/Foot and Ankle Surgery [address] [facility] [address] [place] [address] Assigned Musculoskeletal Provider 01/04/23 06/16/23 Cl Hugo MD [address] [place] [address] [address] [place], [place] [address] Urology 01/28/23 [place] [address] [facility] [address] [place] [address] Assigned Musculoskeletal Provider 06/17/23 08/16/23 Markie Wade MD [address] [place] [address] Assigned Surgical Provider 08/17/23 Dilip Tate DPM [address] [facility] [address] [place], [place] [address] Assigned Musculoskeletal Provider 08/17/23 01/16/24 [place] [address] [address], [address] [address] Assigned Musculoskeletal Provider 01/17/24 documented as of this encounter
--- OUTSIDE RECORDS SUMMARY | 2024-02-29 19:26 | XMS_ITS | Referral Summary ---
Author Organization [facility] Address [address] [place] [address] Care Team Providers Care Is Technician Name Role Phone Abdirizak Villalta MD Unavailable [phone] Kassie Elizabeth MD Unavailable [phone] Kassie Elizabeth MD Primary Care Provider Kassie Martinez [facility] Unavailable [phone] Darcy Trevino RN Unavailable Unavailable Kassie Martinez RPH Unavailable [phone] Cl Hugo MD Unavailable [phone] Markie Wade MD Unavailable [phone] Christopher Castaneda DO Unavailable [phone] Encounters Date Type Department Care Team Description 02/11/2024 Telephone [facility] [address] [place] [address] Kassie Elizabeth MD Prior Auth - Medication (MOUNJARO 15 MG/0.5ML SOAJ - PA NOT NEEDED) 01/29/2024 MyC Medical Advice [facility] [address] [place] [address] Kassie Martinez RPH Type 2 diabetes mellitus with peripheral neuropathy (H) (Primary Dx) 01/14/2024 [facility] Medical Advice [facility] [address] [place] [address] Katie Reina, DPM, Podiatry/Foot and Ankle Surgery Diabetic polyneuropathy associated with type 2 diabetes mellitus (H) (Primary Dx); Plantar fasciitis, bilateral 01/14/2024 MyC Medical Advice [address] [phone] Kassie Elizabeth MD [facility] Communication 12/31/2023 2:00 PM FRUIT OR NUT FARMER Office Visit [address] [phone] Kassie Martinez RPH Type 2 diabetes mellitus with diabetic polyneuropathy, without long-term current use of insulin (H) (Primary Dx); Severe obesity (BMI 35.0-39.9) with comorbidity (H) 12/30/2023 Travel 12/30/2023 2:30 PM FRUIT OR NUT FARMER Office Visit [address] [phone] Kassie Elizabeth MD Type 2 diabetes mellitus with diabetic polyneuropathy, without long-term current use of insulin (H) (Primary Dx); Primary hypertension; Intermittent asthma, uncomplicated; Severe obesity (BMI 35.0-39.9) with comorbidity (H) 12/29/2023 Travel 12/19/2023 [facility] Medical Advice [facility] [address] [place] [address] Kassie Martinez RPH Type 2 diabetes mellitus with peripheral neuropathy (H) (Primary Dx) 12/19/2023 Refill [facility] [address] [place] [phone] Kassie Elizabeth MD Medication Refill from Last 3 Months Allergies Active Allergy Reactions Criticality Noted Date [...] days. Use to read blood sugars per senior system operator's instructions. 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 [id number] [facility] Emergency Contact Rita Eugene (mother ) Parent/Guardian Phone Primary language: Jamaican Oven Dumper needed? No [facility]: [phone] op. 1 Preferred Method of Communication: MyChart, Phone and Letter Other communication barriers: Current living arrangement: Mobility Status/ Medical Equipment: Other information to know about me: My Access Plan Medical Emergency 911 Primary Clinic Line [phone] 24 Hour Appointment Line [phone] or [phone] ([phone]) (toll-free) 24 Hour Nurse Line (toll-free) Preferred Urgent Care Preferred Hospital Preferred Pharmacy Behavioral Health Crisis Line Crisis Connection, or [phone] My Care Team Members Care Is Technician Name/Specialty Clinic, Address, Phone, Fax, E-mail Date of release on file Primary Care Provider: Hansel Gillespie [facility]: [address] [address] [place] Topology Teacher: Elinor Higgins RN [facility] [phone] [place] My Care Plans Self Management and Treatment [...] deficiency (non anaemic) Atypical chest pain Health Longterm Anxiety Current Medications as of Current Outpatient [...] capsule by mouth 2 times daily. cholecalciferol 93051 UNITS capsule TAKE ONE CAP 3 X [...] Niacin FLUSHING Rosuvastatin Calcium MUSCLE PAIN Health Longterm Complexity Tier: Care Coordination Start Date: 08/07/2012 [...] updated by automated process. Provider to review Immunizations Name Administration Dates Next Due HepB [...] Vaccine (Adacel) 08/16/2011 Td (Adult), Adsorbed 12/30/2004,12/18/1998 Social History Tobacco Use Types Packs/Day Years [...] friends, or neighbors? Twice a week 03/24/19 24 How often do you get togethe r with friends or relatives? Twice a week 03/24/2023 How often do you attend [facility] or spiritism services? Patient declined 03/24/2023 Do you belong to any clubs o r organizations such as holiness groups, unions, fraternal or athletic groups, or [...] Answer Date Recorded PHQ-2 Score 0 09/30/2023 [facility] - Occupational Stress [...] in an abandoned building, in an overnight custodial, or couch-surfing.) Yes 03/24/2023 Are you worried [...] PM CDT Legal Sex Male 3:30 AM FRUIT OR NUT FARMER Gender Identity Male 06/23/2020 10:21 PM CDT Sexual Orientation Straight 06/23/2020 10 :21 PM CDT Last Filed Vital Signs Vital Sign Reading Time Taken Comments Blood Pressure 109/71 12/31/2023 2:17 PM FRUIT OR NUT FARMER Pulse 74 12/31/2023 2:17 PM FRUIT OR NUT FARMER Temperature 36.4 C (97.5 F) 12/30/2023 1:57 PM FRUIT OR NUT FARMER Respiratory Rate 14 12/30/2023 1:57 PM FRUIT OR NUT FARMER Oxygen Saturation 99% 12/31/2023 2:17 PM FRUIT OR NUT FARMER Inhaled Oxygen Concentration - - Weight 123.4 kg (272 lb) 12/31/2023 2:17 PM FRUIT OR NUT FARMER Height 179.7 cm (5' 10.75) 12/30/2023 1:[address] Body Mass Index 38.2 12/30/2023 1:57 PM FRUIT OR NUT FARMER Plan of Treatment Upcoming Encounters Date Type Department Care Team (Late st Contact Info) Description 04/09/2024 9:30 AM FRUIT OR NUT FARMER Office Visit [facility] [address] [place] [address] [place] [address] [place] [address] 04/14/2024 2:00 PM FRUIT OR NUT FARMER Office Visit [address] [address] Kassie Martinez, [facility] [address] [address] Goals Goal Patient Goal Type Associated Problems [...] Comments HEMOGLOBIN A1C Routine 12/30/2023 1:55 PM FRUIT OR NUT FARMER Type 2 diabetes mellitus with diabetic polyneuropathy, [...] COLONOSCOPY - HIM SCAN 04/14/2020 12:00 AM FRUIT OR NUT FARMER HEPATITIS C RNA, QUANTITATIVE BY PCR Routine 06/06/2017 10:54 AM CDT Chronic hepatitis C without hepatic coma (H) CT CHEST W CONTRAST XIN 11/05/2016 7 :56 AM CDT RUQ abdominal pain Painful respiration FECAL COLORECTAL CANCER SCREEN FIT Routine 02/10/2013 4:30 PM FRUIT OR NUT FARMER Special screening for malignant neoplasms, colon C FOOT EXAM Routine 02/09/2013 10:03 AM FRUIT OR NUT FARMER Type 2 diabetes, HbA1C goal < 7% (H) HCL HIV 1 & 2 ANTIBODY Routine 02/05/2007 9:23 AM FRUIT OR NUT FARMER Hepatitis Nos from Last 3 Months or Most Recently Relevant to Health Maintenance Results * (ABNORMAL) Hemoglobin A1c (12/30/2023 1:55 PM FRUIT OR NUT FARMER) Estimated Average Glucose 174(H) <117 mg/dL 12/30/2023 2:15 PM FRUIT OR NUT FARMER [facility] Hemoglobin A1C 7.7(H) 0.0 - 5.6 % 12/30/2023 2:15 PM FRUIT OR NUT FARMER [facility] Comment: Normal <5.7% Prediabetes 5.7-6.4% Diabetes 6.5% or higher Note: Adopted from ADA consensus guidelines. Blood BLOOD SPECIMEN / Unknown Venipuncture / Unknown 12/30/2023 1:55 PM FRUIT OR NUT FARMER 12/30/2023 1:55 PM FRUIT OR NUT FARMER us Kassie Elizabeth MD LAB - BLOOD ORDERABLES Fi nal Result [facility] [address] [facility] Lab (no room number, 1st floor of clinic) [place] [address], [facility] * (ABNORMAL) Albumin Random Urine Quantitative with [...] control, and institution of therapy with an uvvsmuulbzo-fnomknhovl-veyepr (SHANTEL) inhibitor (if the patient can tolerate it). Urine URINE SPECIMEN OBTAINED BY CLEAN CATCH PROCEDURE / Unknown Non-blood Collection / Unknown 09/30/2023 1:45 PM CDT 09/30/2023 1:54 PM CDT us Kassie Elizabeth MD LAB - URINE ORDERABLES Fi nal Result [facility] Core Lab [address] [facility], [address] [place] [address], [facility] * (ABNORMAL) Lipid panel reflex to direct [...] BLOOD ORDERABLES Fi nal Result [facility] [place] [address] [facility], [address] [address] * (ABNORMAL) Basic metabolic panel (Ca, Cl, [...] 7:29 PM CDT [facility] Comment:eGFR calculated us2020 CKD-EPI equation. Calcium 10.4 8.8 - 10.4 [...] 1:05 PM CDT 09/30/2023 1:05 PM CDT Kassie Elizabeth MD LAB - BLOOD ORDERABLES Fi nal Result [facility] [place] [facility] [address] [facility], [address] [place] [address] * TSH WITH FREE T4 REFLEX (06/26/2023 12:50 PM CDT) TSH 1.36 0.30 - 4.20 uIU/mL 06/26/2023 6:32 PM CDT [facility] Blood BLOOD SPECIMEN / Unknown Venipuncture / Unknown 06/26/2023 12:50 PM CDT 06/26/2023 1:01 PM CDT Kassie Elizabeth MD LAB - BLOOD ORDERABLES Fi nal Result Performing Organization Address [facility] Co de Phone Number LABORATORY [facility] Core Lab [address] [facility], [address] * PROSTATE SPEC ANTIGEN SCREEN (06/26/2023 12:50 PM CDT) Pathologist [facility] Prostate Specific Antigen Screen 1.98 0.00 - 4.50 ng/mL 06/26/2023 6:32 PM CDT [facility] Blood [...] ORDERABLES Fi nal Result Performing Organization Address [facility] de Phone Number LABORATORY [facility] Core Lab [address] [place] [address], Room [address] [place] [address] * (ABNORMAL) COMPREHENSIVE METABOLIC PANEL (06/26/2023 12:50 PM CDT) Pathologist [facility] Sodium 136 135 - 145 mmol/L 06/26/2023 [...] BLOOD ORDERABLES Fi nal Result [facility] [place] [facility] [address] [facility], [address] [place] [address] * (ABNORMAL) CBC with platelets (06/26/2023 12:50 PM CDT) Pathologist [facility] WBC Count 3.8(L) 4.0 - 11.0 10e3/uL [...] LAB - BLOOD ORDERABLES Fi nal Result [facility] [address] Lab (1st floor, no room number) [place] [address], [facility] * Eye Exam - HIM Scan (04/04/2023) RETINOPATHY UNKNOWN Narrative Erin Perez - 04/04/2023 See encounter dated 04/07/23 us Patient Reported OTHER Final Result * COLONOSCOPY - HIM SCAN (04/14/2020 12:00 AM FRUIT OR NUT FARMER) 04/14/2020 us Provider Outside PROCEDURES Final Result * Hepatitis C RNA quantitative (06/06/2017 10:54 AM CDT) HCV RNA Quant IU/ml HCV RNA Not Detected HCVND^HCV RNA Not Detected [IU]/mL 06/09/2017 1:19 PM CDT [facility] Comment: The REMA AmpliPrep/REMA TaqMan HCV Test [...] 06/09/2017 1:19 PM CDT [facility] Blood specimen (specimen) 06/06/2017 10:54 AM CDT 06/06/2017 11:00 AM CDT us Abdirizak Salinas MD LAB - BLOOD ORDERABLES Final Result [facility] [address] [place] [address], [facility] * CT Chest w Contrast (11/05/2016 7:56 AM CDT) Anatomical Region Laterality Modality Chest, SUBRAD CT BODY, [facility] CT CHEST Computed Tomography Impressions 11/05/2016 9:23 [...] included in the study. NIKO CHAU MD us Hansel Gillespie MD IMG CT ORDERABLES Final Res ult * Fecal colorectal cancer screen FIT (02/10/2013 4:30 PM FRUIT OR NUT FARMER) Occult Blood Scn FIT Negative NEG [facility] Stool specimen (specimen) 02/10/2013 4:30 PM FRUIT OR NUT FARMER 02/11/2013 4:50 PM FRUIT OR NUT FARMER us Hansel Gillespie MD LAB - STOOLS ORDERABLES Fin al Result Performing Organization Address [facility] Co de Phone Number [facility] [address] [place] [address] * HIV 1 & 2, SCREEN (02/05/2007 9:23 AM FRUIT OR NUT FARMER) HIV 1&2 Antibody Negative NEG [facility] 02/05/2007 9:23 AM FRUIT OR NUT FARMER 02/05/2007 9:28 AM FRUIT OR NUT FARMER us Hansel Gillespie MD LABORATORY Final Resul t Performing Organization Address [facility] Co de Phone Number [facility] [address] [place] [address] from Last 3 Months or Most Recently Relevant to Health Maintenance Insurance [address] [address] [employer] [address] [address] [address] [address] [employer] [address] [address] [employer] [address] [address] [facility] * Guarantor: [place] Eugene Account Type Relation to Patient Date of Phone Billing Address Medication Therapy Self 1965 [address] [address] [facility] [address] [address] [facility] Advance Directives For more information, please contact: [phone] * Full Code (Latest Code Status on [...] 5:06 PM 07/28/2012 4:29 PM Care Teams Is Technician Relationship Specialty [place] [address] [place] [address] PCP - General Family Medicine 01/29/21 Abdirizak Villalta MD [address] [address] Referring Physician Gastroenterology 09/24/16 [place] [address] [place] [address] Assigned PCP 10/15/20 Kassie Martinez RPH [address] [place] [address] Pharmacist Pharmacist 05/14/21 Darcy Trevino, dry cleaner Diabetes Education 09/25/21 Kassie Martinez RPH [address] [place] [address] Assigned MTM Pharmacist 11/21/21 Cl Hugo MD [address] [facility] [address] [place], [place] [address] Urology 01/28/23 Markie Wade MD [address] [place], [place] [address] Assigned Surgical Provider 08/17/23 [place] [address] [address], [address] [address] Assigned Musculoskeletal Provider 01/17/24
--- OUTSIDE RECORDS SUMMARY | 2024-02-29 19:26 | XMS_ITS | Encounter Summary ---
Author Organization [facility] [place] Address [address] [facility] [place] [address] Care Team Providers Care Personal Insurance Advisor Name Role Phone Abdirizak Villalta MD Unavailable [phone] Kassie Elizabeth MD Unavailable [phone] Kassie Elizabeth MD Primary Care Provider [phone] Kassie Martinez [facility] Unavailable [phone] Darcy Trevino RN Unavailable Unavailable Kassie Martinez [facility] Unavailable Cl Hugo MD Unavailable [phone] Markie Wade MD Unavailable [phone] Christopher Castaneda DO Unavailable [phone] Encounter Details Date Type Department Care Team (Late st Contact Info) Description 01/29/2024 MyC Medical Advice [facility] [address] [place] [address] Kassie Martinez [facility] [address] [place] [address] Type 2 diabetes mellitus with [...] How often do you attend chur or buddhism services? Patient declined 03/24/2023 Do you belong to any clubs o r organizations such as hinduism groups, unions, fraternal or athletic groups, or [...] Score 0 09/30/2023 [facility] - Occupational [...] in an abandoned building, in an overnight fci, or couch-surfing.) Yes 03/24/2023 Are you worried [...] PM CDT Legal Sex Male 3:30 AM BRICKLAYER PAVING BRICK Gender Identity Male 06/23/2020 10:21 PM CDT Sexual Orientation Straight 06/23/2020 10 :21 PM CDT documented as of this encounter Plan of Treatment Upcoming Encounters Date Type Department Care Team (Late st Contact Info) Description 04/09/2024 9:30 AM BRICKLAYER PAVING BRICK Office Visit [facility] [address] [place] [phone] [place] [address] [place], [place] [phone] 04/14/2024 2:00 PM BRICKLAYER PAVING BRICK Office Visit [facility] [address] [place] [address] Kassie Martinez RPH [address] [place] [address] documented as of this encounter Goals Goal [...] documented as of this encounter Care Teams Personal Insurance Advisor Relationship Specialty [place] [address] [place] [address] PCP - General Family Medicine 01/29/21 Abdirizak Villalta MD [address] [place] [address] Referring Physician Gastroenterology 09/24/16 [place] [address] [place] [address] Assigned PCP 10/15/20 Kassie Martinez RPH [address] [place] [address] Pharmacist Pharmacist 05/14/21 Darcy Trevino, developer programmer analyst Diabetes Education 09/25/21 Kassie Martinez [facility] [address] [place] [address] Assigned MTM Pharmacist 11/21/21 Cl Hugo MD [address] [facility] [address] [place], [place] [address] Urology 01/28/23 Markie Wade MD [address] [place], [place] [address] Assigned Surgical Provider 08/17/23 [place] [address] [address]AL, [address] [address] Assigned Musculoskeletal Provider 01/17/24 documented as of this encounter
--- OUTSIDE RECORDS SUMMARY | 2024-02-29 19:26 | XMS_ITS | Encounter Summary ---
Author Organization [facility] Address [address] [facility] [place] [address] Care Team Providers Care Customer Experience Professional Name Role Phone Abdirizak Villalta MD Unavailable [phone] Kassie Elizabeth MD Unavailable [phone] Ksasie Elizabeth MD Primary Care Provider [phone] Kassie Martinez [facility] Unavailable [phone] Darcy Trevino RN Unavailable Unavailable Kassie Martinez [facility] Unavailable [phone] Cl Hugo MD Unavailable [phone] Markie Wade MD Unavailable [phone] Dilip Tate DPM Unavailable [phone] Christopher Castaneda DO Unavailable [phone] Encounter Details Date Type Department Care Team (Late st Contact Info) Description 11/05/[address] [facility] [address] [place] [address] Kassie Martinez [facility] [address] [place] [address] Social History Tobacco Use Types Packs/Day [...] How often do you attend chur or amish services? Patient declined 03/24/2023 Do you belong to any clubs o r organizations such as religious groups, unions, fraternal or athletic groups, or [...] Answer Date Recorded PHQ-2 Score 0 09/30/2023 [facility] - Occupational Stress Questionnaire Answer Date [...] in an abandoned building, in an overnight usp, or couch-surfing.) Yes 03/24/2023 Are you worried [...] PM CDT Legal Sex Male 3:30 AM MERCURY WASHER Gender Identity Male 06/23/2020 10:21 PM CDT Sexual Orientation Straight 06/23/2020 10 :21 PM CDT documented as of this encounter Plan of Treatment Upcoming Encounters Date Type Department Care Team (Late st Contact Info) Description 04/09/2024 9:30 AM MERCURY WASHER Office Visit [facility] [address] [place] [address] [place] [address] [place], [place] [address] 04/14/2024 2:00 PM MERCURY WASHER Office Visit [address] [address] Kassie Martinez RPH [address] [place] [address] documented as of this encounter Goals Goal [...] documented as of this encounter Care Teams Customer Experience Professional Relationship Specialty [place] [address] [place] [address] PCP - General Family Medicine 01/29/21 Abdirizak Villalta MD [address] [facility] [address] [place] [address] Referring Physician Gastroenterology 09/24/16 [place] [address] [place] [address] Assigned PCP 10/15/20 Kassie Martinez RPH [address] [place] [address] Pharmacist Pharmacist 05/14/21 Darcy Trevino, diamond powder mixer Diabetes Education 09/25/21 Kassie Martinez [facility] [address] [place] [address] Assigned MTM Pharmacist 11/21/21 Cl Hugo MD [address] [facility] [address] [place], [place] [address] Urology 01/28/23 Markie Wade MD [address] [facility] [place] [address] Assigned Surgical Provider 08/17/23 Dilip Tate DPM [address] [facility] [address] [place] [address] Assigned Musculoskeletal Provider 08/17/23 01/16/24 [place] [address] [facility] [address] [place], [place] [address] Assigned Musculoskeletal Provider 01/17/24 documented as of this encounter
--- OUTSIDE RECORDS SUMMARY | 2024-02-29 19:26 | XMS_ITS | Encounter Summary ---
Author Organization [facility] Address [address] [place] [address] Care Team Providers Care Classifications Officer Cc/Cm Name Role Phone Abdirizak Villalta MD Unavailable [phone] Kassie Elizabeth MD Unavailable [phone] Kassie Elizabeth MD Primary Care Provider Dilip Tate DPM Unavailable [phone] Abdirizak Villalta MD Unavailable [phone] [facility] Unavailable [phone] Jackie Muñoz RN Unavailable Unavailable Darcy Trevino RN Unavailable Unavailable Kassie Martinez [facility] Unavailable [phone] Luh Tapia PA-C Unavailable [phone] Holli Damian PA-C Unavailable + [phone] Luh Tapia PA-C Unavailable [phone] Abdiel New PA-C Unavailable [phone] Katie Reina DPM, Podiatry /Foot and Ankle Surgery Unavailable Cl Hugo MD Unavailable [phone] Christopher Castaneda DO Unavailable [phone] Markie Wade MD Unavailable [phone] Dilip Tate DPM Unavailable [phone] Christopher Castaneda DO Unavailable [phone] Encounter Details Date Type Department Care Team (Late Contact Info) Description 05/15/2022 MyC Medical Advice [facility] [address] [place] [address] Jackie Muñoz RN Social History Tobacco Use Types Packs/Day Years Used Date Smoking Tobacco: Former Cigarettes 1 35 0 05/13/1976 - 05/10/2011 Smokeless Tobacco: Never Alcohol Use Standard Drinks/Week Comments Not Currently 0 (1 standard drink = 0.6 oz pur e alcohol) PHQ-2 Answer Date Recorded PHQ-2 Total Score (Adult) - Positive if 3 or more points; Administer PHQ-9 if positive 0 05/16/2022 Sex and Gender Information Value Date Recorded Sex Assigned at Male 06/23/2020 10:21 PM CDT Legal Sex Male 3:30 AM ALTERATION TAILOR APPRENTICE Gender Identity Male 06/23/2020 10:21 PM CDT Sexual Orientation Straight 06/23/2020 10 :21 PM CDT COVID-19 Exposure Response Date Recorded In the last 10 days, have yo u been in contact with someone who was confirmed or suspected to have Coronavirus/COVID-19? No / Unsure 04/15/2022 12:03 PM ALTERATION TAILOR APPRENTICE documented as of this encounter Plan of Treatment Upcoming Encounters Date Type Department Care Team (Late st Contact Info) Description 04/09/2024 9:30 AM ALTERATION TAILOR APPRENTICE Office Visit [facility] [address] [place] [address] [place] [address] [place] [address] 04/14/2024 2:00 PM ALTERATION TAILOR APPRENTICE Office Visit [facility] [address] [place] [phone] Kassie Martinez, [facility] [address] [place], [place] [phone] documented as of this encounter Goals Goal [...] documented as of this encounter Care Teams Classifications Officer Cc/Cm Relationship Specialty [place] [address] [place] [address] PCP - General Family Medicine 01/29/21 Abdirizak Villalta MD [address] [facility] [address] [place] [address] Referring Physician Gastroenterology 09/24/16 [place] [address] [place] [address] Assigned PCP 10/15/20 Dilip Tate DPM [address] [facility] 300 [place] [address] Assigned Musculoskeletal Provider 01/28/21 07/26/22 Abdirizak Villalta MD [address] [facility] [address] [place] [address] Assigned Gastroenterology Provider 01/28/21 07/26/[address] [facility] [address] [place] [address] Pharmacist Pharmacist 05/14/21 Jackie Muñoz, MARIE Personal Advocate & Liaison (PAL) Family Medicine 07/06/21 05/22/22 Darcy Trevino, rice farmworker Diabetes Education 09/25/[address] [facility] [address] [place] [address] Assigned MTM Pharmacist 11/21/21 Luh Tapia PA-C [address] [place] [address] Assigned Surgical Provider 04/27/22 Holli Damian PA-C [address] [place] [address] Assigned Surgical Provider 06/22/2206/28/22 Luh Tapia PA-C [address] [place] [address] Assigned Surgical Provider 06/29/22 Abdiel New PA-C [address] [address] Assigned Musculoskeletal Provider 12/21/22 01/03/23 Katie Reina DPM, Podiatry/Foot and Ankle Surgery [address] [address] [facility] 300 [place] [address] Assigned Musculoskeletal Provider 01/04/23 06/16/23 Cl Hugo MD [address] [place] [address] [address] [place] [address] Urology 01/28/23 [place] [address] [address]AL, [facility] [address] [place] [address] Assigned Musculoskeletal Provider 06/17/23 08/16/23 Markie Wade MD [address] [place] [address] Assigned Surgical Provider 08/17/23 Dilip Tate DPM [address] [facility] 300 [place] [address] Assigned Musculoskeletal Provider 08/17/23 01/16/24 [place] [address] [address], [facility] 300 [place] [address] Assigned Musculoskeletal Provider 01/17/24 documented as of this encounter
--- OUTSIDE RECORDS SUMMARY | 2024-02-29 19:26 | XMS_ITS | Encounter Summary ---
Author Organization [facility] Address [address] [place] [address] Care Team Providers Care V Belt Finisher Name Role Phone Abdirizak Villalta MD Unavailable [phone] Kassie Elizabeth MD Unavailable [phone] Kassie Elizabeth MD Primary Care Provider Dilip TateM Unavailable [phone] Abdirizak Villalta MD Unavailable [phone] Kassie Martinez [facility] Unavailable [phone] Darcy Trevino RN Unavailable Unavailable Kassie Martinez [facility] Unavailable [phone] Luh Tapia PA-C Unavailable [phone] Holli Damian PA-C Unavailable [phone] Luh Tapia-C Unavailable [phone] Abdiel New PA-C Unavailable [phone] Katie Reina DPM, Podiatry /Foot and Ankle Surgery Unavailable Cl Hugo MD Unavailable Christopher Castaneda DO Unavailable [phone] Markie Wade MD Unavailable [phone] Bebeto Dilip DPM Unavailable [phone] Christopher Castaneda DO Unavailable [phone] Encounter Details Date Type Department Care Team (Late st Contact Info) Description 06/06/2022 MyC Medical Advice [address] [address] [place] [address] [place] [address] Throat pain Social History Tobacco Use Types Packs/Day Years Used Date Smoking Tobacco: Former Cigarettes 1 35 0 05/13/1976 - 05/10/2011 Smokeless Tobacco: Never Alcohol Use Standard Drinks/Week Comments Not Currently 0 (1 standard drink = 0.6 oz pur e alcohol) PHQ-2 Answer Date Recorded PHQ-2 Score 0 05/21/2022 Sex and Gender Information Value Date Recorded Sex Assigned at Male 06/23/2020 10:21 PM CDT Legal Sex Male 3:30 AM FINISH MILL OPERATOR Gender Identity Male 06/23/2020 10:21 PM CDT Sexual Orientation Straight 06/23/2020 10 :21 PM CDT COVID-19 Exposure Response Date Recorded In the last 10 days, have yo u been in contact with someone who was confirmed or suspected to have Coronavirus/COVID-19? No / Unsure 05/23/2022 2:15 PM CDT documented as of this encounter Plan of Treatment Upcoming Encounters Date Type Department Care Team (Late st Contact Info) Description 04/09/2024 9:30 AM FINISH MILL OPERATOR Office Visit [address] [address] [place] [address] [place] [address] 04/14/2024 2:00 PM FINISH MILL OPERATOR Office Visit [facility] [id number] [place] [address] Kassie Martinez, [facility] [address] [place] [address] documented as of this encounter [...] November 2021. documented as of this encounter Procedures Procedure Name Priority Date/Time Associated Diagnosis Comments CBC WITH PLATELETS AND DIFFERENTIAL Routine 06/13/2022 10:56 AM CDT Throat pain CBC WITH PLATELETS & DIFFERENTIAL Routine 06/13/2022 10:56 AM CDT Throat pain documented in this encounter Results * (ABNORMAL) CBC with platelets and differential (06/13/2022 10:56 AM CDT) WBC Count 5.8 4.0 - 11.0 10e3/uL 06/13/2022 7:28 PM CDT [facility] RBC Count 5.02 4.40 - 5.90 10e6/uL 06/13/2022 7:28 PM CDT [facility] Hemoglobin 14.6 13.3 - 17.7 g/dL 06/13/2022 7:28 PM CDT [facility] Hematocrit 44.7 40.0 - 53.0 % 06/13/2022 7:28 PM CDT [facility] MCV 89 78 - 100 fL 06/13/2022 7:28 PM CDT [facility] MCH 29.1 26.5 - 33.0 pg 06/13/2022 7:28 PM CDT [facility] MCHC 32.7 31.5 - 36.5 g/dL 06/13/2022 7:28 PM CDT [facility] RDW 13.7 10.0 - 15.0 % 06/13/2022 7:28 PM CDT [facility] Platelet Count 89(L) 150 - 450 10e3/uL 06/13/2022 7:28 PM CDT [facility] % Neutrophils 53 % 06/13/2022 7:28 PM CDT [facility] % Lymphocytes 35 % 06/13/2022 7:28 PM CDT [facility] % Monocytes 9 % 06/13/2022 7:28 PM CDT [facility] % Eosinophils 2 % 06/13/2022 7:28 PM CDT [facility] % Basophils 1 % 06/13/2022 7:28 PM CDT [facility] % Immature Granulocytes 0 % 06/13/2022 7:28 PM CDT [facility] NRBCs per 100 WBC 0 <1 /100 023 7:28 PM CDT [facility] Absolute Neutrophils 3.0 1.6 - 8.3 10e3/uL 06/13/2022 7:28 PM CDT [facility] Absolute Lymphocytes 2.0 0.8 - 5.3 10e3/uL 06/13/2022 7:28 PM CDT [facility] Absolute Monocytes 0.5 0.0 - 1.3 10e3/uL 06/13/2022 7:28 PM CDT [facility] Absolute Eosinophils 0.1 0.0 - 0.7 10e3/uL 06/13/2022 7:28 PM CDT [facility] Absolute Basophils 0.0 0.0 - 0.2 10e3/uL 06/13/2022 7:28 PM CDT [facility] Absolute Immature Granulocytes 0.0 <=0.4 10e3/uL 06/13/2022 7:28 PM CDT [facility] Absolute NRBCs 0.0 10e3/uL 06/13/2022 7:28 PM CDT [facility] Blood STRUCTURE OF LEFT HAND / Unknown Venipuncture / Unknown 06/13/2022 10:56 AM CDT 06/13/2022 10:56 AM CDT us Aline Kaur NP LAB - BLOOD ORDERABLES Final Res ult [facility] [address] Lab (1st floor, no room number) [place] [address], [facility] [phone] documented in this encounter Visit Diagnoses Diagnosis Throat pain documented in this encounter Additional Health Concerns Infection Onset Date Last Indicated Resolved Time Rule Out COVID-19 06/13/2022 06/13/2022 06/14/2022 9:45 AM CDT Assessment Noted Time PHQ-9 Depression Total Score: 2 06/25/19 7:02 AM CDT documented as of this encounter Care Teams V Belt Finisher Relationship Specialty [place] [address] [place] [address] PCP - General Family Medicine 01/29/21 Abdirizak Villalta MD [address] [place] [address] Referring Physician Gastroenterology 09/24/16 [place] [address] [place] [address] Assigned PCP 10/15/20 [place] [address] [facility] 300 [place] [address] Assigned Musculoskeletal Provider 01/28/21 07/26/22 Abdirizak Villalta MD [address] [place] [address] Assigned Gastroenterology Provider 01/28/21 07/26/22 Kassie Martinez [facility] [address] [place] [address] Pharmacist Pharmacist 05/14/21 Darcy Trevino, digital project coordinator Diabetes Education 09/25/21 Kassie Martinez [facility] [address] [place] [address] Assigned MTM Pharmacist 11/21/21 Luh Tapia PA-C [address] [place] [address] Assigned Surgical Provider 04/27/22 Holli Damian PA-C [address] [place] [address] Assigned Surgical Provider 06/22/2206/28/22 Luh Tapia PA-C [address] [place] [address] Assigned Surgical Provider 06/29/22 Abdiel New PA-C [address] [address] Assigned Musculoskeletal Provider 12/21/22 01/03/23 Katie Reina DPM, Podiatry/Foot and Ankle Surgery [address] [address] [facility] 300 [place], [place] [address] Assigned Musculoskeletal Provider 01/04/23 06/16/23 Cl Hugo MD [address] [place] [address] 394 [place], [place] [address] Urology 01/28/23 [place] [address] [address] [facility] 300 [place] [address] Assigned Musculoskeletal Provider 06/17/23 08/16/23 Markie Wade MD [address] [place] [address] Assigned Surgical Provider 08/17/23 Dilip Tate DPM [address] [facility] 300 [place], [place] [address] Assigned Musculoskeletal Provider 08/17/23 01/16/24 [place] [address] [facility], [facility] 300 [place], [place] [address] Assigned Musculoskeletal Provider 01/17/24 documented as of this encounter
--- OUTSIDE RECORDS SUMMARY | 2024-02-29 19:26 | XMS_ITS | Encounter Summary ---
Author Organization [facility] Address [address] [place] [address] Care Team Providers Care Nut Orchardist Name Role Phone Abdirizak Villalta MD Unavailable [phone] Kassie Elizabeth MD Unavailable [phone] Kassie Elizabeth MD Primary Care Provider Dilip Tate DPM Unavailable [phone] Abdirizak Villalta MD Unavailable [phone] Kassie Martinez [facility] Unavailable [phone] Darcy Trevino RN Unavailable Unavailable Kassie Martinez [facility] Unavailable [phone] Luh Tapia PA-C Unavailable Abdiel New PA-C Unavailable [phone] Katie Reina DPM, Podiatry /Foot and Ankle Surgery Unavailable Cl Hugo MD Unavailable [phone] Christopher Castaneda DO Unavailable [phone] Markie Wade MD Unavailable [phone] Dilip Tate DPM Unavailable [phone] Christopher Castaneda DO Unavailable [phone] Encounter Details Date Type Department Care Team (Late st Contact Info) Description 07/01/2022 MyC Medical Advice [facility] [address] [place] [phone] Kassie Martinez, [facility] [address] [place] [address] Social History Tobacco Use Types [...] PM CDT Legal Sex Male 3:30 AM RETAIL PRODUCT ADVISOR Gender Identity Male 06/23/2020 10:21 PM CDT Sexual Orientation Straight 06/23/2020 10 :21 PM CDT COVID-19 Exposure Response Date Recorded In the last 10 days, have yo u been in contact with someone who was confirmed or suspected to have Coronavirus/COVID-19? No / Unsure 06/26/2022 1:57 PM CDT documented as of this encounter Plan of Treatment Upcoming Encounters Date Type Department Care Team (Late st Contact Info) Description 04/09/2024 9:30 AM RETAIL PRODUCT ADVISOR Office Visit [facility] [address] [place] [address] [place] [address] [place] [address] 04/14/2024 2:00 PM RETAIL PRODUCT ADVISOR Office Visit [facility] [address] [place] [phone] Kassie Martinez, [facility] [address] [place], [place] [address] documented as of this encounter Goals Goal Patient Goal Type Associated Problems Recent Progress Patient-Stated? Author Healthy Eating General Yes Darcy Trevino, AMRIE Note: My Goal: I will increase my carb intake. What I need to meet my goal: Read labels and count carbs in meals/snacks. I plan to meet my goal by this date: November 2021. documented as of this encounter Visit Diagnoses Not on filedocumented in this encounter Additional Health Concerns Assessment Noted Time PHQ-9 Depression Total Score: 2 06/25/19 21 7:02 AM CDT documented as of this encounter Care Teams Nut Orchardist Relationship Specialty [place] [address] [place] [address] PCP - General Family Medicine 01/29/21 Abdirizak Villalta MD [address] [place] [address] Referring Physician Gastroenterology 09/24/16 [place] [address] [place] [address] Assigned PCP 10/15/20 [place] [address] [facility] 300 [place] [address] Assigned Musculoskeletal Provider 01/28/21 07/26/22 Abdirizak Villalat MD [address] [place] [address] Assigned Gastroenterology Provider 01/28/21 07/26/22 Kassie Martinez [facility] [address] [place] [address] Pharmacist Pharmacist 05/14/21 Darcy Trevino, pin drafting machine tender Diabetes Education 09/25/21 Kassie Martinez [facility] [address] [place] [address] Assigned MTM Pharmacist 11/21/21 Luh Tapia PA-C 6363 [facility] 500 [place] [address] Assigned Surgical Provider 06/29/22 Abdiel New PA-C [address] [place] [address] Assigned Musculoskeletal Provider 12/21/22 01/03/23 Katie Reina DPM, Podiatry/Foot and Ankle Surgery [address] [address] [facility] 300 [place] [address] Assigned Musculoskeletal Provider 01/04/23 06/16/23 Cl Hugo MD [address] [place] [address] Urology 01/28/23 [place] [address] [address] [facility] 300 [place] [address] Assigned Musculoskeletal Provider 06/17/23 08/16/23 Markie Wade MD [address] [place] [address] Assigned Surgical Provider 08/17/23 [place] [address] [facility] 300 [place], [place] [address] Assigned Musculoskeletal Provider 08/17/23 01/16/24 [place] [address] [facility], [facility] 300 [place], [place] [address] Assigned Musculoskeletal Provider 01/17/24 documented as of this encounter
--- OUTSIDE RECORDS SUMMARY | 2024-02-29 19:26 | XMS_ITS | Encounter Summary ---
Author Organization [facility] Address [address] [place] [address] Care Team Providers Care Gas Appliance Adjuster Name Role Phone Abdirizak Villalta MD Unavailable Kassie Elizabeth MD Unavailable [phone] Kassie Elizabeth MD Primary Care Provider Dilip Tate DPM Unavailable [phone] Abdirizak Villalta MD Unavailable [phone] Kassie Martinez [facility] Unavailable [phone] Jackie Muñoz RN Unavailable Unavailable Darcy Trevino RN Unavailable Unavailable Kassie Martinez [facility] Unavailable [phone] Luh Tapia PA-C Unavailable [phone] Holli Damian PA-C Unavailable + [phone] Luh Tapia PA-C Unavailable [phone] Abdiel New PA-C Unavailable [phone] Katie Reina DPM, Podiatry /Foot and Ankle Surgery Unavailable Cl Hugo MD Unavailable [phone] Christopher Castaneda DO Unavailable [phone] Markie Wade MD Unavailable [phone] Dilip Tate DPM Unavailable [phone] Christopher Castaneda DO Unavailable [phone] Encounter Details Date Type Department Care Team (Late st Contact Info) Description 05/07/2022 MyC Medical Advice [facility] [address] [place] [phone] Jackie Muñoz RN Social History Tobacco Use [...] PM CDT Legal Sex Male 3:30 AM INSPECTOR HANDBAG FRAMES Gender Identity Male 06/23/2020 10:21 PM CDT Sexual Orientation Straight 06/23/2020 10 :21 PM CDT COVID-19 Exposure Response Date Recorded In the last 10 days, have yo u been in contact with someone who was confirmed or suspected to have Coronavirus/COVID-19? No / Unsure 04/15/2022 12:03 PM INSPECTOR HANDBAG FRAMES documented as of this encounter Plan of Treatment Upcoming Encounters Date Type Department Care Team (Late st Contact Info) Description 04/09/2024 9:30 AM INSPECTOR HANDBAG FRAMES Office Visit [facility] [address] [place] [phone] [place] [address] [place], [place] [phone] 04/14/2024 2:00 PM INSPECTOR HANDBAG FRAMES Office Visit [facility] [address] [place] [phone] [address] [place] [address] documented as of this encounter Goals Goal [...] documented as of this encounter Care Teams Gas Appliance Adjuster Relationship Specialty [place] [address] [place] [address] PCP - General Family Medicine 01/29/21 Abdirizak Villalta MD [address] [place] [address] Referring Physician Gastroenterology 09/24/16 [place] [address] [place] [address] Assigned PCP 10/15/20 Dilip Tate DPM [address] [facility] 300 [place] [address] Assigned Musculoskeletal Provider 01/28/21 07/26/22 Abdirizak Villalta MD [address] [place] [address] Assigned Gastroenterology Provider 01/28/21 07/26/22 Kassie Martinez [facility] [address] [place] [address] Pharmacist Pharmacist 05/14/21 Jackie Muñoz RN Personal Advocate & Liaison (PAL) Family Medicine 07/06/21 05/22/22 Darcy Trevino, field support rep Diabetes Education 09/25/21 Kassie Martinez [facility] [address] [place] [address] Assigned MTM Pharmacist 11/21/21 Luh Tapia PA-C [address] [place] [address] Assigned Surgical Provider 04/27/22 Holli Damian PA-C [address] [place] [address] Assigned Surgical Provider 06/22/2206/28/22 Luh Tapia PA-C [address] [place] [address] Assigned Surgical Provider 06/29/22 Abdiel New PA-C [address] [address] Assigned Musculoskeletal Provider 12/21/22 01/03/23 Katie Reina DPM, Podiatry/Foot and Ankle Surgery [address] [place] [facility] 300 [place] [address] Assigned Musculoskeletal Provider 01/04/23 06/16/23 Cl Hugo MD [address] [place] [address] 394 [place] [address] Urology 01/28/23 [place] [address] [address]AL, [facility] 300 [place] [address] Assigned Musculoskeletal Provider 06/17/23 08/16/23 Markie Wade MD [address] [place] [address] Assigned Surgical Provider 08/17/23 Dilip Tate DPM [address] [facility] 300 [place] [address] Assigned Musculoskeletal Provider 08/17/23 01/16/24 [place] [address] [address], [facility] 300 [place] [address] Assigned Musculoskeletal Provider 01/17/24 documented as of this encounter
--- OUTSIDE RECORDS SUMMARY | 2024-02-29 19:26 | XMS_ITS | Encounter Summary ---
Author Organization [facility] Address [address] [place] [address] Care Team Providers Care Occupational Physician Name Role Phone Abdirizak Villalta MD Unavailable [phone] Kassie Elizabeth MD Unavailable [phone] Kassie Elizabeth MD Primary Care Provider +[phone] Kassie Martinez [facility] Unavailable +[phone] Darcy Trevino RN Unavailable Unavailable Kassie Martinez [facility] Unavailable +[phone] Luh Tapia-C Unavailable Abdiel New PA-C Unavailable [phone] Katie Reina DPM, Podiatry /Foot and Ankle Surgery Unavailable Cl Hugo MD Unavailable [phone] Christopher Castaneda DO Unavailable [phone] Markie Wade MD Unavailable [phone] Dilip Tate DPM Unavailable [phone] Christopher Castaneda DO Unavailable [phone] Encounter Details Date Type Department Care Team (Late st Contact Info) Description 09/05/2022 MyC Medical Advice [facility] [address] [place] [phone] Nury Bloom Social History Tobacco Use Types Packs/Day Years Used Date Smoking Tobacco: Former Cigarettes 1 35 0 05/13/1976 - 05/10/2011 Smokeless Tobacco: Never Alcohol Use Standard Drinks/Week Comments Not Currently 0 (1 standard drink = 0.6 oz pur e alcohol) PHQ-2 Answer Date Recorded PHQ-2 Score 0 09/03/2022 Sex and Gender Information Value Date Recorded Sex Assigned at Male 06/23/2020 10:21 PM CDT Legal Sex Male 3:30 AM MEMBER SERVICES COORDINATOR Gender Identity Male 06/23/2020 10:21 PM CDT Sexual Orientation Straight 06/23/2020 10 :21 PM CDT COVID-19 Exposure Response Date Recorded In the last 10 days, have yo u been in contact with someone who was confirmed or suspected to have Coronavirus/COVID-19? No / Unsure 09/03/2022 2:09 PM CDT documented as of this encounter Plan of Treatment Upcoming Encounters Date Type Department Care Team (Late st Contact Info) Description 04/09/2024 9:30 AM MEMBER SERVICES COORDINATOR Office Visit [facility] [address] [place] [phone] [place] [address] [place] [address] 04/14/2024 2:00 PM MEMBER SERVICES COORDINATOR Office Visit [facility] [address] [place] [phone] Kassie Martinez, [facility] [address] [place] [address] documented as of this encounter Goals Goal [...] documented as of this encounter Care Teams Occupational Physician Relationship Specialty [place] [address] [place] [address] PCP - General Family Medicine 01/29/21 Abdirizak Villalta MD [address] [place] [address] Referring Physician Gastroenterology 09/24/16 [place] [address] [place] [address] Assigned PCP 10/15/20 Kassie Martinez RPH [address] [place] [address] Pharmacist Pharmacist 05/14/21 Darcy Trevino, dot compliance coordinator Diabetes Education 09/25/21 Kassie Martinez RPH [address] [place] [address] Assigned MTM Pharmacist 11/21/21 Luh Tapia PA-C [address] [address] Assigned Surgical Provider 06/29/22 Abdiel New PA-C [address] [place] [address] Assigned Musculoskeletal Provider 12/21/22 01/03/23 Katie Reina DPM, Podiatry/Foot and Ankle Surgery [address] [facility] 300 [place] [address] Assigned Musculoskeletal Provider 01/04/23 06/16/23 Cl Hugo MD [address] [place] [address] Urology 01/28/23 [place] [address] COS[address]BAJAL, [facility] 300 [place] [address] Assigned Musculoskeletal Provider 06/17/23 08/16/23 Markie Wade MD [address] [place] [address] Assigned Surgical Provider 08/17/23 Dilip Tate DPM [address] [facility] [address] [place] [address] Assigned Musculoskeletal Provider 08/17/23 01/16/24 [place] [address] COSME CARBAJAL, [facility] 300 [place] [address] Assigned Musculoskeletal Provider 01/17/24 documented as of this encounter
--- OUTSIDE RECORDS SUMMARY | 2024-02-29 19:26 | XMS_ITS | Encounter Summary ---
Author Organization [place] Address [address] [place] [address] Care Team Providers Care Training Personnel Supervisor Name Role Phone Abdirizak Villalta MD Unavailable [phone] Kassie Elizabeth MD Unavailable [phone] [facility] castell[facility] MD Primary Care Provider [phone] Holli Damian-C Unavailable +[phone] Dilip Tate DPM Unavailable [phone] Abdirizak Villalta MD Unavailable [phone] Kassie Martinez [facility] Unavailable +[phone] Jackie Muñoz RN Unavailable Unavailable Kassie Martinez RP Unavailable [phone] Darcy Trevino RN Unavailable Unavailable Kassie Martinez RP Unavailable [phone] Luh Tapia-C Unavailable [phone] Holli Damian-C Unavailable [phone] Luh Tapia-C Unavailable [phone] Abdiel New PA-C Unavailable [phone] Katie Reina DPM, Podiatry /Foot and Ankle Surgery Unavailable Cl Hugo MD Unavailable [phone] Christopher Castaneda DO Unavailable [phone] Markie Wade MD Unavailable [phone] Dilip TateM Unavailable [phone] Christopher Castaneda DO Unavailable [phone] Encounter Details Date Type Department Care Team (Late st Contact Info) Description 08/20/2021 MyC Medical Advice [facility] [address] [place] [address] Kassie Martinez [facility] [address] [place] [address] Social History Tobacco Use Types Packs/Day [...] PM CDT Legal Sex Male 3:30 AM PRINTING ROLLER POLISHER Gender Identity Male 06/23/2020 10:21 PM CDT Sexual Orientation Straight 06/23/2020 10 :21 PM CDT COVID-19 Exposure Response Date Recorded In the last 10 days, have yo u been in contact with someone who was confirmed or suspected to have Coronavirus/COVID-19? No / Unsure 08/15/2021 2:21 PM CDT documented as of this encounter Plan of Treatment Upcoming Encounters Date Type Department Care Team (Late Contact Info) Description 04/09/2024 9:30 AM PRINTING ROLLER POLISHER Office Visit [facility] [address] [place] [address] [place] [address] [place] [address] 04/14/2024 2:00 PM PRINTING ROLLER POLISHER Office Visit [address] [phone] JuanKassie, [facility] [address] [place] [address] documented as of this encounter Visit Diagnoses Not on filedocumented in this encounter Additional Health Concerns Infection Onset Date Last Indicated Resolved Time Rule Out COVID-19 03/01/2022 03/01/2022 03/22/2022 11:41 PM PRINTING ROLLER POLISHER Rule Out COVID-19 06/13/2022 06/13/2022 06/14/2022 9:45 AM CDT Assessment Noted Time PHQ-9 Depression Total Score: 2 06/25/19 7:02 AM CDT documented as of this encounter Care Teams Training Personnel Supervisor Relationship Specialty [place] [address] [place] [address] PCP - General Family Medicine 01/29/21 Abdirizak Villalta MD 6 [facility] 2A [place] [address] Referring Physician Gastroenterology 09/24/16 [place] [address] [place] [address] Assigned PCP 10/15/20 Holli Damian PA-C 6405 [facility] [address] [place] [address] Assigned Surgical Provider 02/04/2104/26/22 Dilip Tate DPM [address] [facility] [place] 300 [place] [address] Assigned Musculoskeletal Provider 01/28/21 07/26/22 Abdirizak Villalta MD 516 [facility] 2[address] [place] [address] Assigned Gastroenterology Provider 01/28/21 07/26/22 [facility] [address] [place] [address] Pharmacist Pharmacist 05/14/21 Jackie Muñoz RN Personal Advocate & Liaison (PAL) Family Medicine 07/06/21 05/22/22 Kassie Martinez [facility] [address] [place] [address] Assigned MTM Pharmacist 07/21/21 Darcy Trevino, pharmacy technician assistant Diabetes Education 09/25/21 [facility] [address] [place] [address] Assigned MTM Pharmacist 11/21/21 Luh Tapia PA-C [address] [place] [address] Assigned Surgical Provider 04/27/22 Holli Damian PA-C [address] [place] [address] Assigned Surgical Provider 06/22/2206/28/22 Luh Tapia PA-C [address] [facility] 500 [place] [address] Assigned Surgical Provider 06/29/22 Abdiel New PA-C [address] [place] [address] Assigned Musculoskeletal Provider 12/21/22 01/03/23 Katie Reina DPM, Podiatry/Foot and Ankle Surgery [address] [facility] 300 [place] [address] Assigned Musculoskeletal Provider 01/04/23 06/16/23 Cl Hugo MD [address] [place] [address] Urology 01/28/23 [place] [address] COSME CARBAJAL, [facility] 300 [place] [address] Assigned Musculoskeletal Provider 06/17/23 08/16/23 Markie Wade MD [address] [place] [address] Assigned Surgical Provider 08/17/23 Dilip Tate DPM [address] [facility] [place] 300 [place] [address] Assigned Musculoskeletal Provider 08/17/23 01/16/24 [place] [address] COS[address] CARBAJAL [facility] 300 [place] [address] Assigned Musculoskeletal Provider 01/17/24 documented as of this encounter
--- OUTSIDE RECORDS SUMMARY | 2024-02-29 19:27 | XMS_ITS | Encounter Summary ---
Author Organization [facility] Address [address] [place] [address] Care Team Providers Care Statistical Engineer Name Role Phone Abdirizak Villalta MD Unavailable [phone] Kassie Elizabeth MD Unavailable [phone] [facility] Primary Care Provider [phone] Holli Damian-C Unavailable [phone] Dilip Tate DPM Unavailable [phone] Abdirizak Villalta MD Unavailable [phone] Kassie Martinez [facility] Unavailable [phone] Shani Madison RN Unavailable Unavailable Jackie Muñoz RN Unavailable Unavailable JuanKassie min [facility] Unavailable [phone] Darcy Trevino RN Unavailable Unavailable Kassie Martinez RP Unavailable [phone] Luh Tapia-C Unavailable [phone] Holli Damian-C Unavailable [phone] Luh Tapia-C Unavailable +[phone] Abdiel New PA-C Unavailable [phone] Katie Reina DPM, Podiatry /Foot and Ankle Surgery Unavailable Cl Hugo MD Unavailable [phone] LeonelChristopher mckinnon DO Unavailable [phone] Markie Wade MD Unavailable [phone] Dilip TateM Unavailable [phone] Christopher Castaneda DO Unavailable [phone] Reason for Visit * Reason Comments Sleep Problem Encounter Details Date Type Department Care Team (Late Contact Info) Description 05/11/2021 Orders Only [address] [address] [place] [address] [place] [address] Obstructive sleep apnea (adult) (pediatric) (Primary Dx) Social History Tobacco Use Types [...] PM CDT Legal Sex Male 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 No / Unsure 05/10/2021 8:12 AM CDT documented as of this encounter Plan of Treatment Upcoming Encounters Date Type Department Care Team (Late Contact Info) Description 04/09/2024 9:30 AM HABILITATION SPECIALIST Office Visit [address] [address] [place] [address] [place] [address] 04/14/2024 2:00 PM HABILITATION SPECIALIST Office Visit [address] [phone] [address] [address] [place] [address] documented as of this encounter Visit Diagnoses Diagnosis Obstructive sleep apnea (adult) (pediatric)- Primary documented in this encounter Additional Health Concerns Infection Onset Date Last Indicated Resolved Time Rule Out COVID-19 03/01/2022 03/01/2022 03/22/2022 11:41 PM HABILITATION SPECIALIST Rule Out COVID-19 06/13/2022 06/13/2022 06/14/2022 9:45 AM CDT Assessment Noted Time PHQ-9 Depression Total Score: 2 06/25/19 7:02 AM CDT documented as of this encounter Care Teams Statistical Engineer Relationship Specialty [place] [address] [place] [address] PCP - General Family Medicine 01/29/21 Abdirizak Villalta MD [address] [place] [address] Referring Physician Gastroenterology 09/24/16 [place] [address] [place] [address] Assigned PCP 10/15/20 Holli Damian PA-C 6405 [facility] [address] [place] [address] Assigned Surgical Provider 02/04/2104/26/22 Dilip Tate DPM [address] [facility] [address] [place] [address] Assigned Musculoskeletal Provider 01/28/21 07/26/22 Abdirizak Villalta MD [address] [address] Assigned Gastroenterology Provider 01/28/21 07/26/22 Kassie Martinez [facility] [address] [place] [address] Pharmacist Pharmacist 05/14/21 Shani Madison, MARIE Personal Advocate & Liaison (PAL) Family Medicine 05/15/21 07/06/21 Jackie Muñoz RN Personal Advocate & Liaison (PAL) Family Medicine 07/06/21 05/22/[address] [address] [address] [place] [address] Assigned MTM Pharmacist 07/21/21 Darcy Trevino, renewable energy trader Diabetes Education 09/25/[address] [address] [address] [place] [address] Assigned MTM Pharmacist 11/21/21 Luh Tapia PA-C 6363 [facility] [address] [address] Assigned Surgical Provider 04/27/22 Holli Damian PA-C [address] [place] [address] Assigned Surgical Provider 06/22/2206/28/22 Luh Tapia PA-C [address] [facility] 500 [place] [address] Assigned Surgical Provider 06/29/22 Abdiel New PA-C [address] [place] [address] Assigned Musculoskeletal Provider 12/21/22 01/03/23 Katie Reina DPM, Podiatry/Foot and Ankle Surgery [address] [facility] 300 [place] [address] Assigned Musculoskeletal Provider 01/04/23 06/16/23 Cl Hugo MD [address] [place] [address] Urology 01/28/23 [place] [address] COSME CARBAJAL, [facility] 300 [place] [address] Assigned Musculoskeletal Provider 06/17/23 08/16/23 Markie Wade MD [address] [place] [address]375 Assigned Surgical Provider 08/17/23 [place] [address] [facility] 300 [place], [place] [address] Assigned Musculoskeletal Provider 08/17/23 01/16/24 [place] [address] COSME CARBAJAL, [address] [address] Assigned Musculoskeletal Provider 01/17/24 documented as of this encounter
--- OUTSIDE RECORDS SUMMARY | 2024-02-29 19:27 | XMS_ITS | Encounter Summary ---
Author Organization [place] Address [address] [place] [address] Care Team Providers Care Road Conductor Name Role Phone Abdirizak Villalta MD Unavailable [phone] Kassie Elizabeth MD Unavailable [phone] [facility] Hospital[facility] castellon MD Primary Care Provider [phone] Holli Damian-C Unavailable [phone] Dilip Tate DPM Unavailable [phone] Abdirizak Villalta MD Unavailable [phone] Kassie Martinez [facility] Unavailable +[phone] Shani Madison RN Unavailable Unavailable Jackie Muñoz RN Unavailable Unavailable JuanKassie min [facility] Unavailable [phone] Darcy Trevino RN Unavailable Unavailable aKssie Martinez RP Unavailable +[phone] Luh Tapia-C Unavailable [phone] Holli Damian-C Unavailable +[phone] Luh Tapia-C Unavailable +1- Abdiel New PA-C Unavailable [phone] Katie Reina DPM, Podiatry /Foot and Ankle Surgery Unavailable Cl Hugo MD Unavailable [phone] Leonel, Christopher DO Unavailable [phone] Markie Wade MD Unavailable [phone] Dilip TateM Unavailable [phone] Christopher Castaneda DO Unavailable [phone] Encounter Details Date Type Department Care Team (Late st Contact Info) Description 06/27/2021 MyC Medical Advice [facility] [address] [place] [address] Kassie Martinez [facility] [address] [place] [address] Social History Tobacco Use Types [...] PM CDT Legal Sex Male 3:30 AM MAGAZINE EDITOR Gender Identity Male 06/23/2020 10:21 PM CDT Sexual Orientation Straight 06/23/2020 10 :21 PM CDT COVID-19 Exposure Response Date Recorded In the last 10 days, have yo u been in contact with someone who was confirmed or suspected to have Coronavirus/COVID-19? No / Unsure 06/13/2021 2:18 PM CDT documented as of this encounter Plan of Treatment Upcoming Encounters Date Type Department Care Team (Late st Contact Info) Description 04/09/2024 9:30 AM MAGAZINE EDITOR Office Visit [facility] [address] [place] [address] [place] [address] [place] [address] 04/14/2024 2:00 PM MAGAZINE EDITOR Office Visit [address] [phone] JuanKassie, [facility] [address] [place] [address] documented as of this encounter Visit Diagnoses Not on filedocumented in this encounter Additional Health Concerns Infection Onset Date Last Indicated Resolved Time Rule Out COVID-19 03/01/2022 03/01/2022 03/22/2022 11:41 PM MAGAZINE EDITOR Rule Out COVID-19 06/13/2022 06/13/2022 06/14/2022 9:45 AM CDT Assessment Noted Time PHQ-9 Depression Total Score: 2 06/25/19 7:02 AM CDT documented as of this encounter Care Teams Road Conductor Relationship Specialty [place] [address] [place] [address] PCP - General Family Medicine 01/29/21 Abdirizak Villalta MD 516 [facility] 2[address] [place] [address] Referring Physician Gastroenterology 09/24/16 [place] [address] [place] [address] Assigned PCP 10/15/20 Holli Damian PA-C 6405 [facility] [address] [place] [address] Assigned Surgical Provider 02/04/2104/26/22 Dilip Tate DPM [address] [facility] [address] [place] [address] Assigned Musculoskeletal Provider 01/28/21 07/26/22 Abdirizak Villalta MD [address] 67[address] Assigned Gastroenterology Provider 01/28/21 07/26/22 Kassie Martinez [facility] [address] [place] [address] Pharmacist Pharmacist 05/14/21 Shani Madison, MARIE Personal Advocate & Liaison ([facility]) Family Medicine 05/15/21 07/06/21 Jackie Muñoz RN Personal Advocate & Liaison (PAL) Family Medicine 07/06/21 05/22/22 aKssie Martinez [facility] [address] [place] [address] Assigned MTM Pharmacist 07/21/21 Darcy Trevino, analytics architect Diabetes Education 09/25/21 Kassie Martinez [facility] [address] [place] [address] Assigned MTM Pharmacist 11/21/21 Luh Tapia PA-C [address] [place] [address] Assigned Surgical Provider 04/27/22 Holli Damian PA-C [address] [place] [address] Assigned Surgical Provider 06/22/2206/28/22 Luh Tapia PA-C [address] [place] [address] Assigned Surgical Provider 06/29/22 Abdiel New PA-C [facility] [address] Assigned Musculoskeletal Provider 12/21/22 01/03/23 Katie Reina DPM, Podiatry/Foot and Ankle Surgery [address] [facility] 300 [place] [address] Assigned Musculoskeletal Provider 01/04/23 06/16/23 Cl Hugo MD [address] [place] [address] 876405 Urology 01/28/23 [place] [address] [place] , [facility] 300 [place] [address] Assigned Musculoskeletal Provider 06/17/23 08/16/23 Markie Wade MD [address] [place] [address] 459925 Assigned Surgical Provider 08/17/23 Dilip Tate DPM [address] [facility] [address] [place] [address] Assigned Musculoskeletal Provider 08/17/23 01/16/24 [place] [address] [address]BA[address]AL, [address] [address] Assigned Musculoskeletal Provider 01/17/24 documented as of this encounter
--- OUTSIDE RECORDS SUMMARY | 2024-02-29 19:27 | XMS_ITS | Encounter Summary ---
Author Organization [place] Address [address] [place] [address] Care Team Providers Care Recycling Tech Name Role Phone Abdirizak Villalta MD Unavailable [phone] Kelley Gunderson MD Primary Care Provider + [phone] Kelley Gunderson MD Unavailable [phone] Abdirizak Villalta MD Unavailable +[phone] Hugo Osborne MD Unavailable [phone] Kassie Elizabeth MD Unavailable [phone] Kassie Elizabeth MD Primary Care Provider +[phone] Holli Damian PA-C Unavailable +[phone] Dilip Tate DPM Unavailable +[phone] Abdirizak Villalta MD Unavailable +[phone] Kassie Martinez [facility] Unavailable +[phone] Shani Madison RN Unavailable Unavailable Jackie Muñoz RN Unavailable Unavailable Kassie Martinez [facility] Unavailable +[phone] Darcy Trevino RN Unavailable Unavailable Kassie Martinez [facility] Unavailable +[phone] Luh Tapia PA-C Unavailable +[phone] NatiHolli underwooddeborah PA-C Unavailable +[phone] Luh Tapia PA-C Unavailable +[phone] Abdiel New PA-C Unavailable [phone] Katie Reina DPM, Podiatry /Foot and Ankle Surgery Unavailable Cl Hugo MD Unavailable +[phone] Christopher Castaneda DO Unavailable [phone] Markie Wade MD Unavailable [phone] Dilip Tate DPM Unavailable +[phone] Christopher Castaneda DO Unavailable +[phone] Encounter Details Date Type Department Care Team (Late st Contact Info) Description 11/23/2018 MyC Medical Advice [facility] [address] [place] [phone] Sophie Dumont, RUBBER AND POUNDER Social History Tobacco Use Types Packs/Day Years Used Date Smoking Tobacco: Former Cigarettes 1 35 0 05/13/1976 - 05/10/2011 Smokeless Tobacco: Never Alcohol Use Standard Drinks/Week Comments Not Currently 0 (1 standard drink = 0.6 oz pur e alcohol) PHQ-2 Answer Date Recorded PHQ-2 Score 0 03/03/2018 Sex and Gender Information Value Date Recorded Sex Assigned at Male 06/23/2020 10:21 PM CDT Legal Sex Male 3:30 AM FIREMAN Gender Identity Male 06/23/2020 10:21 PM CDT Sexual Orientation Straight 06/23/2020 10 :21 PM CDT documented as of this encounter Plan of Treatment Upcoming Encounters Date Type Department Care Team (Late st Contact Info) Description 04/09/2024 9:30 AM FIREMAN Office Visit [facility] [address] [place] [phone] [place] [address] [place] [address] 04/14/2024 2:00 PM FIREMAN Office Visit [address] [phone] Kassie Martinez, [facility] [address] [place], [place] [address] documented as of this encounter Visit Diagnoses Not on filedocumented in this encounter Additional Health Concerns Infection Onset Date Last Indicated Resolved Time Rule Out COVID-19 03/01/2022 03/01/2022 03/22/2022 11:41 PM FIREMAN Rule Out COVID-19 06/13/2022 06/13/2022 06/14/2022 9:45 AM CDT Assessment Noted Time PHQ-9 Depression Total Score: 0 01/07/20 15 7:31 AM FIREMAN documented as of this encounter Care Teams Recycling Tech Relationship Specialty Start Date End Date Kelley Gunderson MD [address] [place] [address] PCP - General Internal Medicine 03/12/17 01/28/21 [place] [address] [place] [address] PCP - General Family Medicine 01/29/21 Abdirizak Villalta MD [address] [place] [address] Referring Physician Gastroenterology 09/24/16 Kelley Gunderson MD [address] [address] Assigned PCP 05/04/17 10/14/20 Abdirizak Villalta MD [address] [place] [address] [address] [place] [address] Assigned Gastroenterology Provider 12/17/19 06/17/20 [place] [address] [place] [address] 300 [place], [place] 809197 Assigned Musculoskeletal Provider 12/17/19 01/27/21 [place] [address] [place] [address] Assigned PCP 10/15/20 Holli Damian PA-C 6[address] [facility] [place] [address] Assigned Surgical Provider 02/04/2104/26/22 Dilip Tate DPM [id number] [place] [address] 300 [place], [place] 117197 Assigned Musculoskeletal Provider 01/28/21 07/26/22 Abdirizak Villalta MD [address] [place] [address] [address] [place] [address] Assigned Gastroenterology Provider 01/28/21 07/26/22 Kassie Martinez RPH [address] [place] [phone] Pharmacist Pharmacist 05/14/21 Shani Madison, MARIE Personal Advocate & Liaison (PAL) Family Medicine 05/15/21 07/06/21 Jackie Muñoz RN Personal Advocate & Liaison (PAL) Family Medicine 07/06/21 05/22/22 [facility] [address] [place] [address] Assigned MTM Pharmacist 07/21/21 Darcy Trevino, occupational therapist aide Diabetes Education 09/25/21 [facility] [address] [place] [address] Assigned MTM Pharmacist 11/21/21 Luh Tapia PA-C [address] [place] [address] Assigned Surgical Provider 04/27/22 Holli Damian PA-C [address] [place] [address] Assigned Surgical Provider 06/22/2206/28/22 Luh Tapia PA-C [address] [place] [address] Assigned Surgical Provider 06/29/22 Abdiel New PA-C [address] [place] [address] Assigned Musculoskeletal Provider 12/21/22 01/03/23 Katie Reina DPM, Podiatry/Foot and Ankle Surgery [address] [place] [address] Assigned Musculoskeletal Provider 01/04/23 06/16/23 Cl Hugo MD 420 [facility] 394 [place] [address] Urology 01/28/23 [place] [address] [facility] 300 [place] [address] Assigned Musculoskeletal Provider 06/17/23 08/16/23 Markie Wade MD [address] [place] [address] Assigned Surgical Provider 08/17/23 Dilip Tate DPM [address] [facility] 300 [place] [address] Assigned Musculoskeletal Provider 08/17/23 01/16/24 [place] [address] [address]AL, [facility] 300 [place] [address] Assigned Musculoskeletal Provider 01/17/24 documented as of this encounter
--- OUTSIDE RECORDS SUMMARY | 2024-02-29 19:27 | XMS_ITS | Encounter Summary ---
Author Organization [place] Address [address] [place] [address] Care Team Providers Care Train Brakeman Name Role Phone Abdirizak Villalta MD Unavailable [phone] Kassie Elizabeth MD Unavailable [phone] [facility] MD Primary Care Provider +[phone] Holli Damian-C Unavailable +[phone] Dilip Tate DPM Unavailable +[phone] Abdirizak Villalta MD Unavailable +[phone] Kassie Martinez [facility] Unavailable +[phone] Jackie Muñoz RN Unavailable Unavailable Kassie Martinez RP Unavailable [phone] Darcy Trevino RN Unavailable Unavailable Kassie Martinez RP Unavailable +[phone] Luh Tapia-C Unavailable [phone] Holli Damian-C Unavailable +[phone] Luh Tapia-C Unavailable +[phone] Abdiel New PA-C Unavailable [phone] Katie Reina DPM, Podiatry /Foot and Ankle Surgery Unavailable Cl Hugo MD Unavailable [phone] Christopher Castaneda DO Unavailable [phone] Markie Wade MD Unavailable [phone] Dilip TateM Unavailable [phone] Christopher Castaneda DO Unavailable [phone] Encounter Details Date Type Department Care Team (Late st Contact Info) Description 07/29/2021 MyC Medical Advice [facility] [address] [place] [address] [place] [address] [place] [address] Social History Tobacco Use Types Packs/Day Years [...] PM CDT Legal Sex Male 3:30 AM SCHOLARSHIP COUNSELOR Gender Identity Male 06/23/2020 10:21 PM CDT Sexual Orientation Straight 06/23/2020 10 :21 PM CDT documented as of this encounter Plan of Treatment Upcoming Encounters Date Type Department Care Team (Late st Contact Info) Description 04/09/2024 9:30 AM SCHOLARSHIP COUNSELOR Office Visit [address] [phone] [place] [address] [place] [address] 04/14/2024 2:00 PM SCHOLARSHIP COUNSELOR Office [place] [facility] [address] [place] [phone] JuanKassie, [facility] [address] [facility] [place] [address] documented as of this encounter Visit Diagnoses Not on filedocumented in this encounter Additional Health Concerns Infection Onset Date Last Indicated Resolved Time Rule Out COVID-19 03/01/2022 03/01/2022 03/22/2022 11:41 PM SCHOLARSHIP COUNSELOR Rule Out COVID-19 06/13/2022 06/13/2022 06/14/2022 9:45 AM CDT Assessment Noted Time PHQ-9 Depression Total Score: 2 06/25/19 7:02 AM CDT documented as of this encounter Care Teams Train Brakeman Relationship Specialty [place] [address] [place] [address] PCP - General Family Medicine 01/29/21 Abdirizak Villalta MD 516 [facility] 2A [place] [address] Referring Physician Gastroenterology 09/24/16 [place] [address] [place] [address] Assigned PCP 10/15/20 Holli Damian PA-C 6405 [facility] [address] [place] [address] Assigned Surgical Provider 02/04/2104/26/22 Dilip Tate DPM [address] [facility] 300 [place] [address] Assigned Musculoskeletal Provider 01/28/21 07/26/22 Abdirizak Villalta MD [address] [place] [address] Assigned Gastroenterology Provider 01/28/21 07/26/22 Kassie Martinez [facility] [address] [place] [address] Pharmacist Pharmacist 05/14/21 Jackie Muñoz, MARIE Personal Advocate & Liaison (PAL) Family Medicine 07/06/21 05/22/22 Kassie Martinez [facility] [address] [place] [address] Assigned MTM Pharmacist 07/21/21 Darcy Trevino, veterinary epidemiologist Diabetes Education 09/25/21 Kassie Martinez [facility] [address] [place] [address] Assigned MTM Pharmacist 11/21/21 Luh Tapia PA-C [address] [place] [address] Assigned Surgical Provider 04/27/22 Holli Damian PA-C [address] [place] [address] Assigned Surgical Provider 06/22/2206/28/22 Luh Tapia PA-C [address] [place] 2858[address] Assigned Surgical Provider 06/29/22 Abdiel New PA-C [address] [place] [address] Assigned Musculoskeletal Provider 12/21/22 01/03/23 Katie Reina DPM, Podiatry/Foot and Ankle Surgery [address] [facility] 300 [place] [address] Assigned Musculoskeletal Provider 01/04/23 06/16/23 Cl Hugo MD [address] [place] [address] Urology 01/28/23 [place] [address] [facility] , [address] [address] Assigned Musculoskeletal Provider 06/17/23 08/16/23 Markie Wade MD [address] [place] [address] Assigned Surgical Provider 08/17/23 Dilip Tate DPM [address] [place] [address] 300 [place] [address] Assigned Musculoskeletal Provider 08/17/23 01/16/24 [place] [address] COS[address] CARBAJAL, [facility] 300 [place] [address] Assigned Musculoskeletal Provider 01/17/24 documented as of this encounter
--- OUTSIDE RECORDS SUMMARY | 2024-02-29 19:27 | XMS_ITS | Encounter Summary ---
Author Organization [place] Address [address] [place] [address] Care Team Providers Care Agronomy Specialist Name Role Phone Abdirizak Villalta MD Unavailable [phone] Kelley Gunderson MD Primary Care Provider + [phone] Hugo Osborne MD Unavailable [phone] Kassie Elizabeth MD Unavailable [phone] Kassie Elizabeth MD Primary Care Provider +[phone] Holli DamianC Unavailable +[phone] Dilip Tate DPM Unavailable [phone] Abdirizak Villalta MD Unavailable [phone] Kassie Martinez [facility] Unavailable +[phone] Shani Madison RN Unavailable Unavailable Jackie Muñoz RN Unavailable Unavailable Kassie Martinez [facility] Unavailable +[phone] Darcy Trevino RN Unavailable Unavailable Kassie Martinez RP Unavailable +[phone] Luh Tapia PA-C Unavailable Holli Damian-C Unavailable [phone] Willie Luh Phillips PA-C Unavailable Abdiel Sophy PA-C Unavailable [phone] Katie Reina DPM, Podiatry /Foot and Ankle Surgery Unavailable Cl Hugo MD Unavailable +[phone] Christopher Castaneda DO Unavailable [phone] Markie Wade MD Unavailable [phone] Dilip Tate DPM Unavailable [phone] Christopher Castaneda DO Unavailable [phone] Encounter Details Date Type Department Care Team (Late st Contact Info) Description 01/23/2021 MyC Medical Advice [facility] [address] [phone] Felicia Darden, SAVI Social History Tobacco Use Types Packs/Day Years Used Date Smoking Tobacco: Former Cigarettes 1 35 0 05/13/1976 - 05/10/2011 Smokeless Tobacco: Never Alcohol Use Standard Drinks/Week Comments Not Currently 0 (1 standard drink = 0.6 oz pur e alcohol) PHQ-2 Answer Date Recorded PHQ-2 Score 1 01/22/2021 Sex and Gender Information Value Date Recorded Sex Assigned at Male 06/23/2020 10:21 PM CDT Legal Sex Male 3:30 AM PHARMACOGNOSIST Gender Identity Male 06/23/2020 10:21 PM CDT Sexual Orientation Straight 06/23/2020 10 :21 PM CDT COVID-19 Exposure Response Date Recorded In the last month, have you been in contact with someone who was confirmed or suspected to have Coronavirus / COVID-19? No / Unsure 01/25/2021 10:56 AM PHARMACOGNOSIST documented as of this encounter Plan of Treatment Upcoming Encounters Date Type Department Care Team (Late st Contact Info) Description 04/09/2024 9:30 AM PHARMACOGNOSIST Office Visit [address] [phone] [place] [address] [place] [address] 04/14/2024 2:00 PM PHARMACOGNOSIST Office Visit [facility] [address] [place] [phone] Juan Kassie, [facility] [address] [place], [place] [address] documented as of this encounter Visit Diagnoses Not on filedocumented in this encounter Additional Health Concerns Infection Onset Date Last Indicated Resolved Time Rule Out COVID-19 03/01/2022 03/01/2022 03/22/2022 11:41 PM PHARMACOGNOSIST Rule Out COVID-19 06/13/2022 06/13/2022 06/14/2022 9:45 AM CDT Assessment Noted Time PHQ-9 Depression Total Score: 2 06/25/19 7:02 AM CDT documented as of this encounter Care Teams Agronomy Specialist Relationship Specialty Start Date End Date Kelley Gunderson MD 6 [facility] 2A [place], [place] [address] PCP - General Internal Medicine 03/12/17 01/28/21 [place] [address] [place] [address] PCP - General Family Medicine 01/29/21 Abdirizak Villalta MD 516 [facility] 2A [place], [place] [address] Referring Physician Gastroenterology 09/24/16 [place] [address] 274417 Assigned Musculoskeletal Provider 12/17/19 01/27/21 [place] [address] [place] [address] Assigned PCP 10/15/20 Holli Damian PA-C 6405 [facility] [address] [place] [address] Assigned Surgical Provider 02/04/2104/26/22 Dilip Tate DPM [address] [facility] 300 [place], [place] [address] Assigned Musculoskeletal Provider 01/28/21 07/26/22 Abdirizak Villalta MD [address] [address] Assigned Gastroenterology Provider 01/28/21 07/26/22 Kassie Martinez [facility] [address] [place], [place] [phone] Pharmacist Pharmacist 05/14/21 Shani Madison, MARIE Personal Advocate & Liaison (PAL) Family Medicine 05/15/21 07/06/21 Jackie Muñoz RN Personal Advocate & Liaison (PAL) Family Medicine 07/06/21 05/22/22 Kassie Martinez [facility] [address] [place], [place] [address] Assigned MTM Pharmacist 07/21/21 Darcy Trevino, bucket operator Diabetes Education 09/25/21 Kassie Martinez [facility] [address] [place] [address] Assigned MTM Pharmacist 11/21/21 Luh Tapia PA-C [address] [place] [address] Assigned Surgical Provider 04/27/22 Holli Damian PA-C [address] [place] [address] Assigned Surgical Provider 06/22/2206/28/22 Luh Tapia PA-C [address] [place] [address] Assigned Surgical Provider 06/29/22 Abdiel New PA-C [address] [address] Assigned Musculoskeletal Provider 12/21/22 01/03/23 Katie Reina, DPM, Podiatry/Foot and Ankle Surgery [address] [address]BAJAL [facility] 300 [place], [place] 29112[address] Assigned Musculoskeletal Provider 01/04/23 06/16/23 Cl Hugo MD [address] [place] [address] 394 [place], [place] 9[address] Urology 01/28/23 [place] [address] [address] CARBAJAL [facility] 300 [place] [address] Assigned Musculoskeletal Provider 06/17/23 08/16/23 Markie Wade MD 909 [place] [address] Assigned Surgical Provider 08/17/23 Dilip Tate DPM [address] [facility] [place] 300 [place], [place] [address] Assigned Musculoskeletal Provider 08/17/23 01/16/24 [place] [address] [facility], [address] [address] Assigned Musculoskeletal Provider 01/17/24 documented as of this encounter
--- OUTSIDE RECORDS SUMMARY | 2024-02-29 19:27 | XMS_ITS | Encounter Summary ---
Author Organization [place] Address [address] [place] [address] Care Team Providers Care Cinder Pitman Name Role Phone Abdirizak Villalta MD Unavailable [phone] Kassie Elizabeth MD Unavailable [phone] [facility] cast[facility] MD Primary Care Provider [phone] Holli Damian-C Unavailable +[phone] Dilip Tate DPM Unavailable [phone] Abdirizak Villalta MD Unavailable + [phone] Kassie Martinez [facility] Unavailable +[phone] Shani Madison RN Unavailable Unavailable Jacike Muñoz RN Unavailable Unavailable JuanKassie min [facility] Unavailable [phone] Darcy Trevino RN Unavailable Unavailable Kassie Martinez RP Unavailable +[phone] Luh Tapia-C Unavailable [phone] Holli Damian-C Unavailable +[phone] Luh Tapia-C Unavailable +[phone] Abdiel New PA-C Unavailable [phone] Katie Reina DPM, Podiatry /Foot and Ankle Surgery Unavailable Cl Hugo MD Unavailable +[phone] Leonel, Christopher DO Unavailable [phone] Markie Wade MD Unavailable [phone] Dilip Tate DPM Unavailable +[phone] Christopher Castaneda DO Unavailable [phone] Encounter Details Date Type Department Care Team (Late st Contact Info) Description 03/22/2021 Documentation Only INTERFACED REPORT Unknown, Provider Social History Tobacco Use Types Packs/Day Years Used Date Smoking Tobacco: Former Cigarettes 1 35 0 05/13/1976 - 05/10/2011 Smokeless Tobacco: Never Alcohol Use Standard Drinks/Week Comments Not Currently 0 (1 standard drink = 0.6 oz pur e alcohol) PHQ-2 Answer Date Recorded PHQ-2 Score 0 03/26/2021 Sex and Gender Information Value Date Recorded Sex Assigned at Male 06/23/2020 10:21 PM CDT Legal Sex Male 3:30 AM REPAIRER SHOE STICKS Gender Identity Male 06/23/2020 10:21 PM CDT Sexual Orientation Straight 06/23/2020 10 :21 PM CDT COVID-19 Exposure Response Date Recorded In the last month, have you been in contact with someone who was confirmed or suspected to have Coronavirus / COVID-19? No / Unsure 03/21/2021 9:32 PM REPAIRER SHOE STICKS documented as of this encounter Plan of Treatment Upcoming Encounters Date Type Department Care Team (Late st Contact Info) Description 04/09/2024 9:30 AM REPAIRER SHOE STICKS Office Visit [facility] [phone] [place] [address] [place] [address] [place] [address] 04/14/2024 2:00 PM REPAIRER SHOE STICKS Office Visit [facility] [address] [place] [phone] JuanKassie, [facility] [address] [place] [address] documented as of this encounter Visit Diagnoses Not on filedocumented in this encounter Additional Health Concerns Infection Onset Date Last Indicated Resolved Time Rule Out COVID-19 03/01/2022 03/01/2022 03/22/2022 11:41 PM REPAIRER SHOE STICKS Rule Out COVID-19 06/13/2022 06/13/2022 06/14/2022 9:45 AM CDT Assessment Noted Time PHQ-9 Depression Total Score: 2 06/25/19 7:02 AM CDT documented as of this encounter Care Teams Cinder Pitman Relationship Specialty [place] [address] [place] [address] PCP - General Family Medicine 01/29/21 Abdirizak Villalta MD [address] [facility] 2[address] [place] [address] Referring Physician Gastroenterology 09/24/16 [place] [address] [place] [address] Assigned PCP 10/15/20 Holli Damian PA-C [address] [facility] [address] [place] [address] Assigned Surgical Provider 02/04/2104/26/22 Dil[place] D[place] [address] [facility] [address] [place] [address] Assigned Musculoskeletal Provider 01/28/21 07/26/22 Abdirizak Villalta MD [address] [facility] [address] [place] [address] Assigned Gastroenterology Provider 01/28/21 07/26/22 Kassie Martinez [facility] [address] [place] [address] Pharmacist Pharmacist 05/14/21 Shani Madison, RN Personal Advocate & Liaison ([facility]) Family Medicine 05/15/21 07/06/21 Jackie Muñoz RN Personal Advocate & Liaison ([facility]) Family Medicine 07/06/21 05/22/22 Kassie Martinez [facility] [address] [place] [address] Assigned MTM Pharmacist 07/21/21 Darcy Trevino, product safety lead Diabetes Education 09/25/21 [facility] [address] [place] [address] Assigned MTM Pharmacist 11/21/21 Luh Tapia PA-C [address] [place] [address] Assigned Surgical Provider 04/27/22 Holli Damian PA-C [address] [place] [address] Assigned Surgical Provider 06/22/2206/28/22 Luh Tapia PA-C [address] [place] [address] Assigned Surgical Provider 06/29/22 Abdiel New PA-C [address] [place] [address] Assigned Musculoskeletal Provider 12/21/22 01/03/23 Katie Reina DPM, Podiatry/Foot and Ankle Surgery [address] [place] [facility] 300 [place] [address] Assigned Musculoskeletal Provider 01/04/23 06/16/23 Cl Hugo MD [address] [place] [address] Urology 01/28/23 [place] [address] [place] , [facility] 300 [place] [address] Assigned Musculoskeletal Provider 06/17/23 08/16/23 Markie Wade MD [address] [place] [address] Assigned Surgical Provider 08/17/23 Dilip Tate DPM [address] [facility] [address] [place] [address] Assigned Musculoskeletal Provider 08/17/23 01/16/24 [place] [address] [address]BA[address]AL, [facility] 300 [place] [address] Assigned Musculoskeletal Provider 01/17/24 documented as of this encounter
--- OUTSIDE RECORDS SUMMARY | 2024-02-29 19:27 | XMS_ITS | Encounter Summary ---
Author Organization [place] Address [address] [place] [address] Care Team Providers Care Pressure Tank Operator Name Role Phone Abdirizak Villalta MD Unavailable +[phone] Kelley Gunderson MD Primary Care Provider + [phone] Kelley Gunderson MD Unavailable [phone] Abdirizak Villalta MD Unavailable +[phone] Hugo Osborne MD Unavailable +[phone] Kassie Elizabeth MD Unavailable +[phone] Kassie Elizabeth MD Primary Care Provider +[phone] Holli Damian PA-C Unavailable +[phone] Dilip Tate DPM Unavailable +[phone] Abdirizak Villalta MD Unavailable +[phone] Kassie Martinez [facility] Unavailable +[phone] Shani Madison RN Unavailable Unavailable Jackie Muñoz RN Unavailable Unavailable Kassie Martinez [facility] Unavailable [phone] Darcy Trevino RN Unavailable Unavailable Kassie Martinez [facility] Unavailable +[phone] Luh Tapia PA-C Unavailable NatiHolli underwooddeborah PA-C Unavailable +[phone] Luh Tapia PA-C Unavailable [phone] Abdiel New PA-C Unavailable [phone] Katie Reina DPM, Podiatry /Foot and Ankle Surgery Unavailable Cl Hugo MD Unavailable +[phone] Christopher Castaneda DO Unavailable [phone] Markie Wade MD Unavailable [phone] Dilip TateM Unavailable +[phone] Christopher Castaneda DO Unavailable [phone] Encounter Details Date Type Department Care Team (Late st Contact Info) Description 08/28/2018 MyC Medical Advice [facility] Hepatology [address] [address] Maru Correia LPN Social History Tobacco Use Types Packs/Day Years [...] PM CDT Legal Sex Male 3:30 AM OIL FIELD EQUIPMENT MECHANIC SUPERVISOR Gender Identity Male 06/23/2020 10:21 PM CDT Sexual Orientation Straight 06/23/2020 10 :21 PM CDT documented as of this encounter Plan of Treatment Upcoming Encounters Date Type Department Care Team (Late st Contact Info) Description 04/09/2024 9:30 AM OIL FIELD EQUIPMENT MECHANIC SUPERVISOR Office Visit [facility] [address] [place] [address] [place] [address] [place] [address] 04/14/2024 2:00 PM OIL FIELD EQUIPMENT MECHANIC SUPERVISOR Office Visit [address] [phone] Kassie Martinez, [facility] [address] [place], [place] [id number] documented as of this encounter Visit Diagnoses Not on filedocumented in this encounter Additional Health Concerns Infection Onset Date Last Indicated Resolved Time Rule Out COVID-19 03/01/2022 03/01/2022 03/22/2022 11:41 PM OIL FIELD EQUIPMENT MECHANIC SUPERVISOR Rule Out COVID-19 06/13/2022 06/13/2022 06/14/2022 9:45 AM CDT Assessment Noted Time PHQ-9 Depression Total Score: 0 01/07/20 15 7:31 AM OIL FIELD EQUIPMENT MECHANIC SUPERVISOR documented as of this encounter Care Teams Pressure Tank Operator Relationship Specialty Start Date End Date Kelley Gunderson MD [address] [place] [address] PCP - General Internal Medicine 03/12/17 01/28/21 [place] [address] [place] [address] PCP - General Family Medicine 01/29/21 Abdirizak Villalta MD [address] [place] [address] Referring Physician Gastroenterology 09/24/16 Kelley Gunderson MD [address] [address] Assigned PCP 05/04/17 10/14/20 Abdirizak Villalta MD [address] [place] [address] [address] [place] [address] Assigned Gastroenterology Provider 12/17/19 06/17/20 [place] [id number] [place] [address] 300 [place], [place] 266707 Assigned Musculoskeletal Provider 12/17/19 01/27/21 [place] [address] [place] [address] Assigned PCP 10/15/20 Holli Damian PA-C [address] [facility] [place] [address] Assigned Surgical Provider 02/04/2104/26/22 Dilip Tate DPM [id number] [place] [address] [address] [place], [place] [id number] Assigned Musculoskeletal Provider 01/28/21 07/26/22 Abdirizak Villalta MD [address] [place] [address] [address] [place] [address] Assigned Gastroenterology Provider 01/28/21 07/26/22 Kassie Martinez RPH [address] [place] [address] [phone] Pharmacist Pharmacist 05/14/21 Shani Madison, RN Personal Advocate & Liaison ([facility]) Family Medicine 05/15/21 07/06/21 Jackie Muñoz RN Personal Advocate & Liaison ([facility]) Family Medicine 07/06/21 05/22/22 [facility] [address] [place] [address] Assigned MTM Pharmacist 07/21/21 Darcy Trevino, referral coordinator Diabetes Education 09/25/21 [facility] [address] [place] [address] Assigned MTM Pharmacist 11/21/21 Luh Tapia PA-C [address] [place] [address] Assigned Surgical Provider 04/27/22 Holli Damian PA-C [address] [place] [address] Assigned Surgical Provider 06/22/2206/28/22 Luh Tapia PA-C [address] [place] [address] Assigned Surgical Provider 06/29/22 Abdiel New PA-C [address] [place] [address] Assigned Musculoskeletal Provider 12/21/22 01/03/23 Katie Reina, DPM, Podiatry/Foot and Ankle Surgery [address] GARC[address]A [address] [place] [address] Assigned Musculoskeletal Provider 01/04/23 06/16/23 Cl Hugo MD 420 [facility] 394 [place] [address] Urology 01/28/23 [place] [address] [facility] 300 [place] [address] Assigned Musculoskeletal Provider 06/17/23 08/16/23 Markie Wade MD [address] [place] [address] Assigned Surgical Provider 08/17/23 Dilip Tate DPM [address] [facility] 300 [place] [address] Assigned Musculoskeletal Provider 08/17/23 01/16/24 [place] [address] [address]BA[address]AL, [facility] 300 [place] [address] Assigned Musculoskeletal Provider 01/17/24 documented as of this encounter
--- OUTSIDE RECORDS SUMMARY | 2024-02-29 19:27 | XMS_ITS | Encounter Summary ---
Author Organization [place] Address [address] [place] [address] Care Team Providers Care Safety Lead Name Role Phone Abdirizak Villalta MD Unavailable [phone] Kelley Gunderson MD Primary Care Provider + [phone] Kelley Gunderson MD Unavailable [phone] Abdirizak Villalta MD Unavailable [phone] Hugo Osborne MD Unavailable +[phone] Kassie Elizabeth MD Unavailable [phone] Kassie Elizabeth MD Primary Care Provider [phone] Holli Damian PA-C Unavailable +[phone] Dilip Tate DPM Unavailable +[phone] Abdirizak Villalta MD Unavailable +[phone] Kassie Martinez [facility] Unavailable +[phone] Shani Madison RN Unavailable Unavailable Jackie Muñoz RN Unavailable Unavailable Kassie Martinez [facility] Unavailable +[phone] Darcy Trevino RN Unavailable Unavailable Kassie Martinez [facility] Unavailable +[phone] Luh Tapia PA-C Unavailable NatiHolli underwood Connie PA-C Unavailable [phone] Luh Tapia PA-C Unavailable Abdiel New PA-C Unavailable [phone] Katie Reina DPM, Podiatry /Foot and Ankle Surgery Unavailable Cl Hugo MD Unavailable [phone] Christopher Castaneda DO Unavailable [phone] Markie Wade MD Unavailable [phone] Dilip Tate DPM Unavailable [phone] Christopher Castaneda DO Unavailable [phone] Reason for Visit * Reason Comments Medication Refill Encounter Details Date Type Department Care Team (Late st Contact Info) Description [facility]/03/[facility] [address] [place] [address] Kelley Gunderson MD [address] [place] [address]703 Medication Refill Social History Tobacco Use Types Packs/Day Years [...] PM CDT Legal Sex Male 3:30 AM CAREER COORDINATOR Gender Identity Male 06/23/2020 10:21 PM CDT Sexual Orientation Straight 06/23/2020 10 :21 PM CDT documented as of this encounter Miscellaneous Notes * Telephone Encounter - Lilo Werner RN - 08/04/2019 11:36 AM CDT Routing refill request to provider for review/approval because: Drug interaction warning documented in this encounter Plan of Treatment Upcoming Encounters Date Type Department Care Team (Late st Contact Info) Description 04/09/2024 9:30 AM CAREER COORDINATOR Office Visit [facility] [address] [place] [phone] [place] [address] [place] [address] 04/14/2024 2:00 PM CAREER COORDINATOR Office Visit [facility] [address] [place] [phone] [facility] [address] [place], [place] [phone] documented as of this encounter Visit Diagnoses Diagnosis Type 2 diabetes mellitus with hyperglycemia, without long-term current use of insulin (H) documented in this encounter Additional Health Concerns Infection Onset Date Last Indicated Resolved Time Rule Out COVID-19 03/01/2022 03/01/2022 03/22/2022 11:41 PM CAREER COORDINATOR Rule Out COVID-19 06/13/2022 06/13/2022 06/14/2022 9:45 AM CDT Assessment Noted Time PHQ-9 Depression Total Score: 0 01/07/20 15 7:31 AM CAREER COORDINATOR documented as of this encounter Care Teams Safety Lead Relationship Specialty Start Date End Date Kelley Gunderson MD 6 [facility] [address] [place] [address] PCP - General Internal Medicine 03/12/17 01/28/21 [place] [address] [place] [address] PCP - General Family Medicine 01/29/21 Abdirizak Villalta MD [address] [place] [address]28[address] Referring Physician Gastroenterology 09/24/16 Kelley Gunderson MD [address] [place], [place] 0[address]663 Assigned PCP 05/04/17 10/14/20 Abdirizak Villalta MD [address] [place] [address] 546235 Assigned Gastroenterology Provider 12/17/19 06/17/20 [place] [address] [place] [address] 300 [place] [address] Assigned Musculoskeletal Provider 12/17/19 01/27/21 [place] [address] [place] [address] Assigned PCP 10/15/20 Holli Damian PA-C [address] [place] [address] Assigned Surgical Provider 02/04/2104/26/22 Dilip Tate DPM [address] [facility] [address] [place], [place] 9[address] Assigned Musculoskeletal Provider 01/28/21 07/26/22 Abdirizak Villalta MD [address] [place] [address] Assigned Gastroenterology Provider 01/28/21 07/26/22 Kassie Martinez [facility] [address] [place] [address] Pharmacist Pharmacist 05/14/21 Shani Madison, MARIE Personal Advocate & Liaison ([facility]) Family Medicine 05/15/21 07/06/21 Jackie Muñoz RN Personal Advocate & Liaison ([facility]) Family Medicine 07/06/21 05/22/22 Kassie Martinez [facility] [address] [place] [address] Assigned MTM Pharmacist 07/21/21 Darcy Trevino, venetian blind installer Diabetes Education 09/25/21 Kassie Martinez [facility] [address] [place] [address] Assigned MTM Pharmacist 11/21/21 Luh Tapia PA-C [address] [place] [address] Assigned Surgical Provider 04/27/22 Holli Damian PA-C [address] [place] [address] Assigned Surgical Provider 06/22/2206/28/22 Luh Tapia PA-C [address] [place] [address] Assigned Surgical Provider 06/29/22 Abdiel New PA-C [address] [place] [address] Assigned Musculoskeletal Provider 12/21/22 01/03/23 Katie Reina DPM, Podiatry/Foot and Ankle Surgery [address] [facility] [address] [place] [address] Assigned Musculoskeletal Provider 01/04/23 06/16/23 Cl Hugo MD [address] [place] [address] Urology 01/28/23 [place] [address] [facility] [address] [place] [address] Assigned Musculoskeletal Provider 06/17/23 08/16/23 Markie Wade MD [address] [place] [address] Assigned Surgical Provider 08/17/23 Dilip [place] DPM [address] [facility] 300 [place] [address] Assigned Musculoskeletal Provider 08/17/23 01/16/24 [place] [address] COS[address] CARBAJAL, [facility] 300 [place] [address] Assigned Musculoskeletal Provider 01/17/24 documented as of this encounter
--- OUTSIDE RECORDS SUMMARY | 2024-02-29 19:27 | XMS_ITS | Encounter Summary ---
Author Organization [place] Address [address] [place] [address] Care Team Providers Care Metal Casting Trades Worker Name Role Phone Abdirizak Villalta MD Unavailable [phone] Kelley Gunderson MD Primary Care Provider + [phone] Kelley Gunderson MD Unavailable [phone] Abdirizak Villalta MD Unavailable +[phone] Hugo Osborne MD Unavailable +[phone] Kassie Elizabeth MD Unavailable [phone] Kassie Elizabeth MD Primary Care Provider [phone] Holli Damian PA-C Unavailable +[phone] Dilip Tate DPM Unavailable +[phone] Abdirizak Villalta MD Unavailable +[phone] Kassie Martinez [facility] Unavailable +[phone] Shani Madison RN Unavailable Unavailable Jackie Muñoz RN Unavailable Unavailable Kassie Martinez [facility] Unavailable +[phone] Darcy Trevino RN Unavailable Unavailable Kassie Martinez [facility] Unavailable +[phone] Luh Tapia PA-C Unavailable NatiHolli underwood Connie PA-C Unavailable +[phone] Luh Tapia PA-C Unavailable Abdiel New PA-C Unavailable [phone] Katie Reina DPM, Podiatry /Foot and Ankle Surgery Unavailable Cl Hugo MD Unavailable +[phone] Christopher Castaneda DO Unavailable [phone] Markie Wade MD Unavailable [phone] Dilip Tate DPM Unavailable [phone] Christopher Castaneda DO Unavailable [phone] Reason for Visit * Reason Comments Medication Refill Encounter Details Date Type Department Care Team (Late st Contact Info) Description 05/31/[address] [place] [address] Kelley Gunderson MD [address] [place] [address] 904153 Medication Refill Social History Tobacco Use Types [...] PM CDT Legal Sex Male 3:30 AM SUBSURFACE AUGMENTEE OPERATOR Gender Identity Male 06/23/2020 10:21 PM CDT Sexual Orientation Straight 06/23/2020 10 :21 PM CDT documented as of this encounter Miscellaneous Notes * Telephone Encounter - Jennie Angel RN - 05/31/2020 3:43 PM CDT Refill per RN protocol Jennie Angel RN, BSN [place] Triage documented in this encounter Plan of Treatment Upcoming Encounters Date Type Department Care Team (Late st Contact Info) Description 04/09/2024 9:30 AM SUBSURFACE AUGMENTEE OPERATOR Office Visit [facility] [address] [place] [phone] [place] [address] [place] [address] 04/14/2024 2:00 PM SUBSURFACE AUGMENTEE OPERATOR Office [facility] [address] [place] [phone] Kassie Martinez, [facility] [address] [place], [place] [phone] documented as of this encounter Visit Diagnoses Diagnosis Type 2 diabetes mellitus without complication, without long-term current use of insulin (H) documented in this encounter Additional Health Concerns Infection Onset Date Last Indicated Resolved Time Rule Out COVID-19 03/01/2022 03/01/2022 03/22/2022 11:41 PM SUBSURFACE AUGMENTEE OPERATOR Rule Out COVID-19 06/13/2022 06/13/2022 06/14/2022 9:45 AM CDT Assessment Noted Time PHQ-9 Depression Total Score: 0 01/07/20 15 7:31 AM SUBSURFACE AUGMENTEE OPERATOR documented as of this encounter Care Teams Metal Casting Trades Worker Relationship Specialty Start Date End Date Kelley Gunderson MD 6 [facility] [address] [place] [address] PCP - General Internal Medicine 03/12/17 01/28/21 [place] [address] [place] [address] PCP - General Family Medicine 01/29/21 Abdirizak Villalta MD [address] [place] [address] [address] [place], [place] 74[address] Referring Physician Gastroenterology 09/24/16 Kelley Gunderson MD [address] [place], [place] 442613 Assigned PCP 05/04/17 10/14/20 Abdirizak Villalta MD [address] [place] [address] 590145 Assigned Gastroenterology Provider 12/17/19 06/17/20 [place] [address] [place] [address] 300 [place] [address] Assigned Musculoskeletal Provider 12/17/19 01/27/21 [place] [address] [place] [address] Assigned PCP 10/15/20 Holli Damian PA-C [address] [place] [address] Assigned Surgical Provider 02/04/2104/26/22 [place] [address] [employer] [facility] [address] [place], [place] 84[address]87 Assigned Musculoskeletal Provider 01/28/21 07/26/22 Abdirizak Villalta MD [address] [place] [address] [address] [place] [address] Assigned Gastroenterology Provider 01/28/21 07/26/22 Kassie Martinez [facility] [address] [place] [address] Pharmacist Pharmacist 05/14/21 Shani Madison, RN Personal Advocate & Liaison ([facility]) Family Medicine 05/15/21 07/06/21 Jackie Muñoz RN Personal Advocate & Liaison ([facility]) Family Medicine 07/06/21 05/22/22 Kassie Martinez [facility] [address] [place] [address] Assigned MTM Pharmacist 07/21/21 Darcy Trevino, framing mill operator Diabetes Education 09/25/21 Kassie Martinez [facility] [address] [place] [address] Assigned MTM Pharmacist 11/21/21 Luh Tapia PA-C [address] [place] [address] Assigned Surgical Provider 04/27/22 Holli Damian PA-C [address] [place] [address] Assigned Surgical Provider 06/22/2206/28/22 Luh Tapia PA-C [address] [place] [address] Assigned Surgical Provider 06/29/22 Abdiel New PA-C [address] [place] [address] Assigned Musculoskeletal Provider 12/21/22 01/03/23 Katie Reina DPM, Podiatry/Foot and Ankle Surgery [address] [place] [facility] 300 [place] [address] Assigned Musculoskeletal Provider 01/04/23 06/16/23 Cl Hugo MD [address] [place] [address] Urology 01/28/23 [place] [address] COSME CARBAJAL, [address] [address] Assigned Musculoskeletal Provider 06/17/23 08/16/23 Markie Wade MD [address] [place] [address] Assigned Surgical Provider 08/17/23 [place] [address] [facility] 300 [place] [address] Assigned Musculoskeletal Provider 08/17/23 01/16/24 [place] [address] COSME CARBAJAL, [facility] 300 [place] [address] Assigned Musculoskeletal Provider 01/17/24 documented as of this encounter
--- OUTSIDE RECORDS SUMMARY | 2024-02-29 19:27 | XMS_ITS | Encounter Summary ---
Author Organization [place] Address [address] [place] [address] Care Team Providers Care Chemical Engraver Name Role Phone Abdirizak Villalta MD Unavailable [phone] Kelley Gunderson MD Primary Care Provider + [phone] Kelley Gunderson MD Unavailable [phone] Abdirizak Villalta MD Unavailable [phone] Hugo Osborne MD Unavailable [phone] Kassie Elizabeth MD Unavailable [phone] Kassie Elizabeth MD Primary Care Provider +[phone] Holli Damian PA-C Unavailable +[phone] Dilip Tate DPM Unavailable +[phone] Abdirizak Villalta MD Unavailable +[phone] Kassie Martinez [facility] Unavailable +[phone] Shani Madison RN Unavailable Unavailable Jackie Muñoz RN Unavailable Unavailable Kassie Martinez [facility] Unavailable +[phone] Darcy Trevino RN Unavailable Unavailable Kassie Martinez [facility] Unavailable +[phone] Luh Tapia PA-C Unavailable NatiHolli underwood Connie PA-C Unavailable +[phone] Luh Tapia PA-C Unavailable Abdiel New PA-C Unavailable [phone] Katie Reina DPM, Podiatry /Foot and Ankle Surgery Unavailable Cl Hugo MD Unavailable [phone] Christopher Castaneda DO Unavailable Markie Wade MD Unavailable [phone] Dilip Tate DPM Unavailable [phone] Christopher Castaneda DO Unavailable [phone] Reason for Visit * Reason Comments Medication Refill atorvastatin (LIPITO R) Encounter Details Date Type Department Care Team (Late st Contact Info) Description 01/26/[address] [place] [address] Kelley Gunderson MD [address] [place] [address] [id number] Medication Refill (atorvastatin (LIPITOR)) Social History Tobacco Use Types Packs/Day Years [...] PM CDT Legal Sex Male 3:30 AM POISER BALANCE Gender Identity Male 06/23/2020 10:21 PM CDT Sexual Orientation Straight 06/23/2020 10 :21 PM CDT documented as of this encounter Miscellaneous Notes * Telephone Encounter - Kailee Harris RN - 01/27/2019 2:50 PM CST Routing refill request to provider for review/approval because: Drug allergy/contraindication warning Please advise, thanks. (Routed to covering provider.) ER BALANCE * Telephone Encounter - Abdiel Mejía - 01/26/2019 3:02 PM CST Requested Prescriptions Pending Prescriptions Disp Refills ??? atorvastatin (LIPITOR) 10 MG tablet [Pharmacy Med Name: ATORVASTATIN 10MG TABLETS] Last Written Prescription Date: 12/17/17 Last Fill Quantity: 90, # refills: 4 Last office visit: 07/15/2018 with prescribing provider: Jalyn Future Office Visit: Next 5 appointments (look out 90 days) Mar 05, 2019 11:40 AM POISER BALANCE SHORT with Kelley Gunderson MD [facility] ([facility]) [address] [place] [phone] 90 tablet 0 Sig: TAKE 1 TABLET(10 MG) BY MOUTH DAILY Statins Protocol Passed - 01/26/2019 9:30 AM Passed - LDL on file in past 12 months Recent Labs Lab Test 03/26/18 1110 LDL 38 Passed - No abnormal creatine kinase in past 12 months No lab results found. Passed - Recent (12 mo) or future (30 days) visit within the authorizing provider's specialty Patient has had an office visit with the authorizing provider or a provider within the authorizing providers department within the previous 12 mos or has a future within next 30 days. See Patient Info tab in inbasket, or Choose Columns in Meds & Orders section of the refill encounter. Passed - Medication is active on med list Passed - Patient is age 18 or older ER BALANCE documented in this encounter Plan of Treatment Upcoming Encounters Date Type Department Care Team (Late st Contact Info) Description 04/09/2024 9:30 AM POISER BALANCE Office Visit [facility] [address] [place] [phone] [place] [address] [place] [address] 04/14/2024 2:00 PM POISER BALANCE Office Visit [address] [phone] JuanKassie min, [facility] [address] [place] [address] documented as of this encounter Visit Diagnoses Diagnosis Type 2 diabetes mellitus with hyperglycemia, without long-term current use of insulin (H) documented in this encounter Additional Health Concerns Infection Onset Date Last Indicated Resolved Time Rule Out COVID-19 03/01/2022 03/01/2022 03/22/2022 11:41 PM POISER BALANCE Rule Out COVID-19 06/13/2022 06/13/2022 06/14/2022 9:45 AM CDT Assessment Noted Time PHQ-9 Depression Total Score: 0 01/07/20 15 7:31 AM POISER BALANCE documented as of this encounter Care Teams Chemical Engraver Relationship Specialty Start Date End Date Kelley Gunderson MD [address] [place] [address] [address] [place], [place] 391085 PCP - General Internal Medicine 03/12/17 01/28/21 [place] [address] [place] [address] PCP - General Family Medicine 01/29/21 Abdirizak Villalta MD 6 [facility] [address] [place] [address] Referring Physician Gastroenterology 09/24/16 Kelley Gunderson MD [address] [place] [address] [id number] Assigned PCP 3/11/18 8/21/21 Abdirizak Villalta MD [address] [place] [address] Assigned Gastroenterology Provider 12/17/19 06/17/20 [place] [address] [place] [address] 300 [place], [place] 146727 Assigned Musculoskeletal Provider 12/17/19 01/27/21 [place] [address] [place] [address] Assigned PCP 10/15/20 Holli Damian PA-C [address] [facility] [place] [address] Assigned Surgical Provider 02/04/2104/26/22 Dilip Tate DPM [address] [place] [address] Assigned Musculoskeletal Provider 01/28/21 07/26/22 Abdirizak Villalta MD [address] [place] [address] Assigned Gastroenterology Provider 01/28/21 07/26/22 Kassie Martinez [facility] [address] [place] [address] Pharmacist Pharmacist 05/14/21 Shani Madison, MARIE Personal Advocate & Liaison ([facility]) Family Medicine 05/15/21 07/06/21 Jackie Muñoz, MARIE Personal Advocate & Liaison ([facility]) Family Medicine 07/06/21 05/22/22 [facility] [address] [place] [address] Assigned MTM Pharmacist 07/21/21 Darcy Trevino, parts counterman Diabetes Education 09/25/21 [facility] [address] [place] [address] Assigned MTM Pharmacist 11/21/21 Luh Tapia PA-C [address] [place] [address] Assigned Surgical Provider 04/27/22 Holli Damian PA-C [address] [place] [address] Assigned Surgical Provider 06/22/2206/28/22 Luh Tapia PA-C [address] [place] [address] Assigned Surgical Provider 06/29/22 Abdiel New PA-C [address] [place] [address] Assigned Musculoskeletal Provider 12/21/22 01/03/23 Katie Reina, DPM, Podiatry/Foot and Ankle Surgery [address] GARC[address]A [address] [place] [address] Assigned Musculoskeletal Provider 01/04/23 06/16/23 Cl Hugo MD [address] [place] [address] [address] [place] [address] Urology 01/28/23 [place] [address] COS[address] CARBAJAL, [address] [address] Assigned Musculoskeletal Provider 06/17/23 08/16/23 Markie Wade MD [address] [place] [address] Assigned Surgical Provider 08/17/23 Dilip Tate DPM [address] [facility] 300 [place] [address] Assigned Musculoskeletal Provider 08/17/23 01/16/24 [place] [address] [address]BAJAL, [facility] [address] [place] [address] Assigned Musculoskeletal Provider 01/17/24 documented as of this encounter
--- OUTSIDE RECORDS SUMMARY | 2024-02-29 19:27 | XMS_ITS | Encounter Summary ---
Author Organization [place] Address [address] [place] [address] Care Team Providers Care Home Aide Name Role Phone Abdirizak Villalta MD Unavailable [phone] Kelley Gunderson MD Primary Care Provider + [phone] Kelley Gunderson MD Unavailable [phone] Abdirizak Villalta MD Unavailable [phone] Hugo Osborne MD Unavailable [phone] Kassie Elizabeth MD Unavailable [phone] Kassie Elizabeth MD Primary Care Provider [phone] Holli Damian PA-C Unavailable [phone] Dilip Tate DPM Unavailable +[phone] Abdirizak Villalta MD Unavailable [phone] Kassie Martinez [facility] Unavailable +[phone] Shani Madison RN Unavailable Unavailable Jackie Muñoz RN Unavailable Unavailable Kassie Martinez [facility] Unavailable [phone] Darcy Trevino RN Unavailable Unavailable Kassie Martinez [facility] Unavailable +[phone] Luh Tapia PA-C Unavailable NatiHolli underwood Connie PA-C Unavailable +[phone] Luh Tapia PA-C Unavailable [phone] Abdiel New PA-C Unavailable [phone] Katie Reina DPM, Podiatry /Foot and Ankle Surgery Unavailable Cl Hugo MD Unavailable [phone] Christopher Castaneda DO Unavailable Markie Wade MD Unavailable [phone] Dilip Ttae DPM Unavailable [phone] Christopher Castaneda DO Unavailable [phone] Reason for Visit * Reason Onset Date Comments Erroneous encounter-disregard 04/23/2019 Er roneous encounter - disregard Encounter Details Date Type Department Care Team (Late st Contact Info) Description 04/23/2019 Telephone [facility] Yefri [address] [facility] [address] [place] [phone] Juan Robertson MD [address] [facility] [place] [phone] Erroneous encounter-disregard (Erroneous encounter - disregard) Social History Tobacco Use Types Packs/Day Years [...] PM CDT Legal Sex Male 3:30 AM BULLARD OPERATOR Gender Identity Male 06/23/2020 10:21 PM CDT Sexual Orientation Straight 06/23/2020 10 :21 PM CDT documented as of this encounter Miscellaneous Notes * Telephone Encounter - Nisha Vázquez - 04/23/2019 5:48 PM CST Please disregard this encounter. Information was scanned under the wrong patient account. Thank you, Central PA Team ARD OPERATOR documented in this encounter Plan of Treatment Upcoming Encounters Date Type Department Care Team (Late st Contact Info) Description 04/09/2024 9:30 AM BULLARD OPERATOR Office Visit [facility] [address] [place] [address] [place] [address] [place], [place] [phone] 04/14/2024 2:00 PM BULLARD OPERATOR Office Visit [facility] [address] [place] [phone] Kassie Martinez, [facility] [address] [place] [address] documented as of this encounter Visit Diagnoses Not on filedocumented in this encounter Additional Health Concerns Infection Onset Date Last Indicated Resolved Time Rule Out COVID-19 03/01/2022 03/01/2022 03/22/2022 11:41 PM BULLARD OPERATOR Rule Out COVID-19 06/13/2022 06/13/2022 06/14/2022 9:45 AM CDT Assessment Noted Time PHQ-9 Depression Total Score: 0 01/07/20 15 7:31 AM BULLARD OPERATOR documented as of this encounter Care Teams Home Aide Relationship Specialty Start Date End Date Kelley Gunderson MD 6 [facility] [address] [place] [address] PCP - General Internal Medicine 03/12/17 01/28/21 [place] [address] [place], [place] 2631844 PCP - General Family Medicine 01/29/21 Abdirizak Villalta MD [address] [facility] [address] [place] [address] Referring Physician Gastroenterology 09/24/16 Kelley Gunderson MD [address] [place] [address] 781513 Assigned PCP 05/04/17 10/14/20 Abdirizak Villalta MD [address] [facility] [address] [place] [address] Assigned Gastroenterology Provider 12/17/19 06/17/20 [place] [address] [employer] [facility] 300 [place] [address] Assigned Musculoskeletal Provider 12/17/19 01/27/21 [place] [address] [place] [address] Assigned PCP 10/15/20 Holli Damian PA-C [address] [facility] [address] [place] [address] Assigned Surgical Provider 02/04/2104/26/22 Dilip Tate DPM [address] [employer] [facility] [address] [place] [address] Assigned Musculoskeletal Provider 01/28/21 07/26/22 Abdirizak Villalta MD [address] [facility] [address] [place] [address] Assigned Gastroenterology Provider 01/28/21 07/26/22 Kassie Martinez [facility] [address] [place] [address] Pharmacist Pharmacist 05/14/21 Shani Madison, RN Personal Advocate & Liaison ([facility]) Family Medicine 05/15/21 07/06/21 Jackie Muñoz, MARIE Personal Advocate & Liaison ([facility]) Family Medicine 07/06/21 05/22/22 Kassie Martinez [facility] [address] [place] [address] Assigned MTM Pharmacist 07/21/21 Darcy Trevino, fire control technician Diabetes Education 09/25/21 Kassie Martinez [facility] [address] [place] [address] Assigned MTM Pharmacist 11/21/21 Luh Tapia PA-C [address] [place] [address] Assigned Surgical Provider 04/27/22 Holli Damian PA-C [address] [place] [address] Assigned Surgical Provider 06/22/2206/28/22 Luh Tapia PA-C [address] [place] [address] Assigned Surgical Provider 06/29/22 Abdiel New PA-C [address] [place] [address] Assigned Musculoskeletal Provider 12/21/22 01/03/23 Katie Reina DPM, Podiatry/Foot and Ankle Surgery [address] [facility] 300 [place] [address] Assigned Musculoskeletal Provider 01/04/23 06/16/23 Cl Hugo MD [address] [place] [address] Urology 01/28/23 [place] [address] [facility], [address] [address] Assigned Musculoskeletal Provider 06/17/23 08/16/23 Markie Wade MD [address] [place] [address] Assigned Surgical Provider 08/17/23 Dilip Tate DPM [address] [facility] 300 [place] [address] Assigned Musculoskeletal Provider 08/17/23 01/16/24 [place] [address] [address]AL, [facility] 300 [place] [address] Assigned Musculoskeletal Provider 01/17/24 documented as of this encounter
--- OUTSIDE RECORDS SUMMARY | 2024-02-29 19:27 | XMS_ITS | Encounter Summary ---
Author Organization [facility] Address [address] [place] [address] Care Team Providers Care Bricklayer Helper Name Role Phone Abdirizak Villalta MD Unavailable [phone] Kassie Elizabeth MD Unavailable [phone] [facility] Primary Care Provider [phone] Holli Damian-C Unavailable +[phone] Dilip Tate DPM Unavailable [phone] Abdirizak Villalta MD Unavailable [phone] Kassie Martinez [facility] Unavailable [phone] Jackie Muñoz RN Unavailable Unavailable Kassie Martinez RP Unavailable [phone] Darcy Trevino RN Unavailable Unavailable Kassie Martinez RP Unavailable [phone] Luh Tapia-C Unavailable [phone] Holli Damian-C Unavailable +[phone] Luh Tapia-C Unavailable [phone] Abdiel New PA-C Unavailable [phone] Katie Reina DPM, Podiatry /Foot and Ankle Surgery Unavailable Cl Hugo MD Unavailable [phone] Christopher Castaneda DO Unavailable [phone] Markie Wade MD Unavailable [phone] Dilip TateM Unavailable [phone] Christopher Castaneda DO Unavailable [phone] Encounter Details Date Type Department Care Team (Late st Contact Info) Description 08/13/2021 MyC Medical Advice [facility] [address] [place] [phone] Jackie Muñoz RN Social History Tobacco [...] PM CDT Legal Sex Male 3:30 AM INSTALLATION AND SERVICE TECHNICIAN Gender Identity Male 06/23/2020 10:21 PM CDT [...] st Contact Info) Description 04/09/2024 9:30 AM INSTALLATION AND SERVICE TECHNICIAN Office Visit [facility] [address] [place] [phone] [place] [address] [place], [place] [phone] 04/14/2024 2:00 PM INSTALLATION AND SERVICE TECHNICIAN Office Visit [facility] [address] [place] [phone] Kassie Martinez, [facility] [address] [place] [address] documented as of this encounter Visit Diagnoses Not on filedocumented in this encounter Additional Health Concerns Infection Onset Date Last Indicated Resolved Time Rule Out COVID-19 03/01/2022 03/01/2022 03/22/2022 11:41 PM INSTALLATION AND SERVICE TECHNICIAN Rule Out COVID-19 06/13/2022 06/13/2022 06/14/2022 9:45 AM CDT Assessment Noted Time PHQ-9 Depression Total Score: 2 06/25/19 7:02 AM CDT documented as of this encounter Care Teams Bricklayer Helper Relationship Specialty [place] [address] [place] [address] PCP - General Family Medicine 01/29/21 Abdirizak Villalta MD [address] [address] Referring Physician Gastroenterology 09/24/16 [place] [address] [place] [address] Assigned PCP 10/15/20 Holli Damian PA-C [address] [facility] [address] [place] [address] Assigned Surgical Provider 02/04/2104/26/22 Dilip Tate DPM [address] [facility] [address] [place], [place] 4649[address] Assigned Musculoskeletal Provider 01/28/21 07/26/22 Abdirizak Villalta MD [address] [place] [address] Assigned Gastroenterology Provider 01/28/21 07/26/22 Kassie Martinez [facility] [address] [place] [address] Pharmacist Pharmacist 05/14/21 Jackie Muñoz, MARIE Personal Advocate & Liaison ([facility]) Family Medicine 07/06/21 05/22/22 Kassie Martinez [facility] [address] [place] [address] Assigned MTM Pharmacist 07/21/21 Darcy Trevino, printed circuit board designer Diabetes Education 09/25/21 [facility] [address] [place] [address] Assigned MTM Pharmacist 11/21/21 Luh Tapia PA-C [address] [place] [address] Assigned Surgical Provider 04/27/22 Holli Damian PA-C [address] [place] [address] Assigned Surgical Provider 06/22/2206/28/22 Luh Tapia PA-C [address] [place] [address] Assigned Surgical Provider 06/29/22 Abdiel New PA-C [address] [place] [address] Assigned Musculoskeletal Provider 12/21/22 01/03/23 Katie Reina DPM, Podiatry/Foot and Ankle Surgery [address] [place] [facility] 300 [place] [address] Assigned Musculoskeletal Provider 01/04/23 06/16/23 Cl Hugo MD [address] [place] [address] Urology 01/28/23 [place] [address] [place] , [facility] 300 [place] [address] Assigned Musculoskeletal Provider 06/17/23 08/16/23 Markie Wade MD [address] [place] [address] Assigned Surgical Provider 08/17/23 [place] [address] [facility] [address] [place] [address] Assigned Musculoskeletal Provider 08/17/23 01/16/24 [place] [address] [address]BA[address]AL, [facility] 300 [place] [address] Assigned Musculoskeletal Provider 01/17/24 documented as of this encounter
--- OUTSIDE RECORDS SUMMARY | 2024-02-29 19:27 | XMS_ITS | Encounter Summary ---
Author Organization [facility] Address [address] [place] [address] Care Team Providers Care Vice President Sales Name Role Phone Abdirizak Villalta MD Unavailable +[phone] Kelley Gunderson MD Primary Care Provider + [phone] Kelley Gunderson MD Unavailable [phone] Abdirizak Villalta MD Unavailable +[phone] Hugo Osborne MD Unavailable +[phone] Kassie Elizabeth MD Unavailable [phone] Kassie Elizabeth MD Primary Care Provider +[phone] Holli Damian PA-C Unavailable +[phone] Dilip Tate DPM Unavailable +[phone] Abdirizak Villalta MD Unavailable +[phone] Kassie Martinez [facility] Unavailable +[phone] Shani Madison RN Unavailable Unavailable Jackie Muñoz RN Unavailable Unavailable Kassie Martinez [facility] Unavailable +[phone] Darcy Trevino RN Unavailable Unavailable Kassie Martinez [facility] Unavailable +[phone] Luh Tapia PA-C Unavailable NatiHolli underwood Connie PA-C Unavailable +[phone] Luh Tapia PA-C Unavailable [phone] Abdiel New PA-C Unavailable [phone] Katie Reina DPM, Podiatry /Foot and Ankle Surgery Unavailable Cl Hugo MD Unavailable [phone] Christopher Castaneda DO Unavailable [phone] Markie Wade MD Unavailable [phone] Dilip TateM Unavailable [phone] Christopher Castaneda DO Unavailable [phone] Encounter Details Date Type Department Care Team (Late st Contact Info) Description 12/09/2019 MyC Medical Advice [facility] [address] [place] [address] Kelley Gunderson MD [address] [place] [address] Social History Tobacco Use Types Packs/Day Years [...] CDT Legal Sex Male 3:30 AM FRUIT ROOM HAND Gender Identity Male 06/23/2020 10:21 PM CDT Sexual Orientation Straight 06/23/2020 10 :21 PM CDT documented as of this encounter Plan of Treatment Upcoming Encounters Date Type Department Care Team (Late st Contact Info) Description 04/09/2024 9:30 AM FRUIT ROOM HAND Office Visit [facility] [id number] [place] [phone] [place] [address] [place] [address] 04/14/2024 2:00 PM FRUIT ROOM HAND Office Visit [facility] [address] [place] [phone] Kassie Martinez, [facility] [address] [place] [address] documented as of this encounter Visit Diagnoses Not on filedocumented in this encounter Additional Health Concerns Infection Onset Date Last Indicated Resolved Time Rule Out COVID-19 03/01/2022 03/01/2022 03/22/2022 11:41 PM FRUIT ROOM HAND Rule Out COVID-19 06/13/2022 06/13/2022 06/14/2022 9:45 AM CDT Assessment Noted Time PHQ-9 Depression Total Score: 0 01/07/20 15 7:31 AM FRUIT ROOM HAND documented as of this encounter Care Teams Vice President Sales Relationship Specialty Start Date End Date Kelley Gunderson MD [address] [place] [address] PCP - General Internal Medicine 03/12/17 01/28/21 [place] [address] [place] [address] PCP - General Family Medicine 01/29/21 Abdirizak Villalta MD [address] [place] [address] Referring Physician Gastroenterology 09/24/16 Kelley Gunderson MD [address] [place] [address] Assigned PCP 05/04/17 10/14/20 Abdirizak Villalta MD [address] [place] [address] Assigned Gastroenterology Provider 12/17/19 06/17/20 [place] [address] [facility] [address] [place] [address] Assigned Musculoskeletal Provider 12/17/19 01/27/21 [place] [address] [place] [address] Assigned PCP 10/15/20 Holli Damian PA-C 6405 [facility] [address] [place] [address] Assigned Surgical Provider 02/04/2104/26/22 Dilip Tate DPM [address] [facility] [address] [place], [place] 417467 Assigned Musculoskeletal Provider 01/28/21 07/26/22 Abdirizak Villalta MD [address] [place] [address] Assigned Gastroenterology Provider 01/28/21 07/26/22 Kassie Martinez [facility] [address] [place] [address] Pharmacist Pharmacist 05/14/21 Shani Madison, RN Personal Advocate & Liaison ([facility]) Family Medicine 05/15/21 07/06/21 Jackie Muñoz RN Personal Advocate & Liaison ([facility]) Family Medicine 07/06/21 05/22/22 [facility] [address] [place] [address] Assigned MTM Pharmacist 07/21/21 Darcy Trevino, platform attendant Diabetes Education 09/25/21 [facility] [address] [place] [address] Assigned MTM Pharmacist 11/21/21 Luh Tapia PA-C [address] [place] [address] Assigned Surgical Provider 04/27/22 Holli Damian PA-C [address] [place] [address] Assigned Surgical Provider 06/22/2206/28/22 Luh Tapia PA-C [address] [place] [address] Assigned Surgical Provider 06/29/22 Abdiel New PA-C [address] [address] Assigned Musculoskeletal Provider 12/21/22 01/03/23 Katie Reina DPM, Podiatry/Foot and Ankle Surgery [address] [address] [facility] [address] [place] [address] Assigned Musculoskeletal Provider 01/04/23 06/16/23 Cl Hugo MD [address] [place] [address] [address] [place] [address] Urology 01/28/23 [place] [address] [facility] [address] [place] [address] Assigned Musculoskeletal Provider 06/17/23 08/16/23 Markie Wade MD [address] [place] [address] Assigned Surgical Provider 08/17/23 Dilip Tate DPM [address] [facility] [address] [place] [address] Assigned Musculoskeletal Provider 08/17/23 01/16/24 [place] [address] [address], [facility] [address] [place] [address] Assigned Musculoskeletal Provider 01/17/24 documented as of this encounter
--- OUTSIDE RECORDS SUMMARY | 2024-02-29 19:27 | XMS_ITS | Encounter Summary ---
Author Organization [facility] Address [address] [place] [address] Care Team Providers Care Manager Testing Name Role Phone Abdirizak Villalta MD Unavailable [phone] Kelley Gunderson MD Primary Care Provider + [phone] Kelley Gunderson MD Unavailable [phone] Abdirizak Villalta MD Unavailable [phone] Hugo Osborne MD Unavailable [phone] Kassie Elizabeth MD Unavailable [phone] Kassie Elizabeth MD Primary Care Provider [phone] Holli Damian PA-C Unavailable [phone] Dilip Tate DPM Unavailable +[phone] Abdirizak Villalta MD Unavailable [phone] Kassie Martinez [facility] Unavailable +[phone] Shani Madison RN Unavailable Unavailable Jackie Muñoz RN Unavailable Unavailable Kassie Martinez [facility] Unavailable [phone] Darcy Trevino RN Unavailable Unavailable Kassie Martinez [facility] Unavailable [phone] Luh Tapia PA-C Unavailable NatiHloli underwood Connie PA-C Unavailable [phone] Luh Tapia PA-C Unavailable Abdiel New PA-C Unavailable [phone] Katie Reina DPM, Podiatry /Foot and Ankle Surgery Unavailable Cl Hugo MD Unavailable [phone] Christopher Castaneda DO Unavailable [phone] Markie Wade MD Unavailable [phone] Dilip Tate DPM Unavailable [phone] Christopher Castaneda DO Unavailable [phone] Reason for Visit * Reason Comments Medication Refill Encounter Details Date Type Department Care Team (Late st Contact Info) Description 05/03/[address] [place] [address] Kelley Gunderson MD [address] [place] [address] [id number] Medication Refill Social History Tobacco Use Types [...] CDT Legal Sex Male 3:30 AM OIL AND GAS SPECIALIST Gender Identity Male 06/23/2020 10:21 PM CDT Sexual Orientation Straight 06/23/2020 10 :21 PM CDT documented as of this encounter Miscellaneous Notes * Telephone Encounter - Gabriella Luo RN - 05/04/2020 3:03 PM CST Routing refill request to provider for review/approval because: Lab Results Component Value Date A1C 12.4 01/19/2020 A1C 11.9 09/13/2019 A1C 7.6 03/05/2019 A1C 7.8 07/15/2018 A1C 10.5 03/26/2018 Creatinine Date Value Ref Range Status 01/19/2020 0.58 (L) 0.66 - 1.25 mg/dL Final AND GAS SPECIALIST * Telephone Encounter - Gabriella Luo RN - 05/04/2020 3:02 PM CST Requested Prescriptions Pending Prescriptions Disp Refills ??? lisinopril (ZESTRIL) 5 MG tablet [Pharmacy Med Name: LISINOPRIL 5MG TABLETS] 90 tablet 4 Sig: TAKE 1 TABLET BY MOUTH DAILY DIRECTED TO LOWER BLOOD PRESSURE SHANTEL Inhibitors (Including Combos) Protocol Failed - 05/03/2020 12:55 PM Failed - Normal serum creatinine on file in past 12 months Recent Labs Lab Test 01/19/20 1220 CR 0.58* Ok to refill medication if creatinine is low Passed - Blood pressure under 140/90 in past 12 months BP Readings from Last 3 Encounters: 01/19/20 109/75 09/29/19 128/82 09/17/19 128/72 Passed - Recent (12 mo) or future [...] - Patient is age 18 or older Passed - Normal serum potassium on file in past 12 months Recent Labs Lab Test 01/19/20 1220 POTASSIUM 3.8 ??? metFORMIN (GLUCOPHAGE) 1000 MG tablet [Pharmacy Med Name: METFORMIN 1000MG TABLETS] 180 tablet 1 Sig: TAKE 1 TABLET(1000 MG) BY MOUTH TWICE DAILY WITH MEALS Biguanide Agents Failed - 05/03/2020 12:55 PM Failed - Patient has documented A1c within the specified period of time. If HgbA1C is 8 or greater, it needs to be on file within the past 3 months. If less than 8, must beon file within the past 6 months. Recent Labs Lab Test 01/19/20 1220 A1C 12.4* Passed - Patient is age 10 or older Passed - Patient's CR is NOT>1.4 OR Patient's EGFR is NOT<45 within past 12 mos. Recent Labs Lab Test 01/19/20 1220 GFRESTIMATED >90 GFRESTBLACK >90 Recent Labs Lab Test 01/19/20 1220 CR 0.58* Passed - Patient does NOT have a diagnosis of CHF. Passed - Medication is active on med list Passed - Recent (6 mo) or future (30 days) visit within the authorizing provider's specialty Patient had office visit in the last 6 months or has a visit in the next 30 days with authorizing provider or within the authorizing provider's specialty. See Patient Info tab in inbasket, or Choose Columns in Meds & Orders section of the refill encounter. ??? glyBURIDE (DIABETA /MICRONASE) 5 MG tablet [Pharmacy Med Name: GLYBURIDE 5MG TABLETS] 360 tablet 1 Sig: TAKE 2 TABLETS(10 MG) BY MOUTH TWICE DAILY WITH MEALS Sulfonylurea Agents Failed - 05/03/2020 12:55 PM Failed - Patient has documented A1c within the specified period of time. If HgbA1C is 8 or greater, it needs to be on file within the past 3 months. If less than 8, must beon file within the past 6 months. Recent Labs Lab Test 01/19/20 1220 A1C 12.4* Failed - Patient has a recent creatinine (normal) within the past 12 mos. Recent Labs Lab Test 01/19/20 1220 CR 0.58* Ok to refill medication if creatinine is low Passed - Medication is active on med list Passed - Patient is age 18 or older Passed - Recent (6 mo) or future (30 days) visit within the authorizing provider's specialty Patient had office visit in the last 6 months or has a visit in the next 30 days with authorizing provider or within the authorizing provider's specialty. See Patient Info tab in inbasket, or Choose Columns in Meds & Orders section of the refill encounter. AND GAS SPECIALIST documented in this encounter Plan of Treatment Upcoming Encounters Date Type Department Care Team (Late st Contact Info) Description 04/09/2024 9:30 AM OIL AND GAS SPECIALIST Office Visit [facility] [address] [place] [address] [place] [address] [place] [address] 04/14/2024 2:00 PM OIL AND GAS SPECIALIST Office Visit [facility] [address] [place] [phone] [facility] [address] [place] [address] documented as of this encounter Visit Diagnoses Diagnosis Type 2 diabetes mellitus with hyperglycemia, without long-term current use of insulin (H) Type 2 diabetes mellitus without complication, without long-term current use of insulin (H) documented in this encounter Additional Health Concerns Infection Onset Date Last Indicated Resolved Time Rule Out COVID-19 03/01/2022 03/01/2022 03/22/2022 11:41 PM OIL AND GAS SPECIALIST Rule Out COVID-19 06/13/2022 06/13/2022 06/14/2022 9:45 AM CDT Assessment Noted Time PHQ-9 Depression Total Score: 0 01/07/20 15 7:31 AM OIL AND GAS SPECIALIST documented as of this encounter Care Teams Manager Testing Relationship Specialty Start Date End Date Kelley Gunderson MD [facility] [address] [place] [address] PCP - General Internal Medicine 03/12/17 01/28/21 [place] [address] [place] [address] PCP - General Family Medicine 01/29/21 Abdirizak Villalta MD [address] [place] [address] [address] [place] [address] Referring Physician Gastroenterology 09/24/16 Kelley Gunderson MD [address] [place] [address] Assigned PCP 05/04/17 10/14/20 Abdirizak Villalta MD [address] [place] [address] [address] [place] [address] Assigned Gastroenterology Provider 12/17/19 06/17/20 [place] [address] [place] [address] Assigned Musculoskeletal Provider 12/17/19 01/27/21 [place] [address] [place] [address] Assigned PCP 10/15/20 Holli Damian PA-C [address] [facility] [address] [place] [address] Assigned Surgical Provider 02/04/2104/26/22 [place] DPM [address] [place], [place] 2750[address] Assigned Musculoskeletal Provider 01/28/21 07/26/22 Abdirizak Villalta MD 6 [facility] [address] [place] [address] Assigned Gastroenterology Provider 01/28/21 07/26/22 Kassie Martinez [facility] [address] [place] [address] Pharmacist Pharmacist 05/14/21 Shani Madison, RN Personal Advocate & Liaison ([facility]) Family Medicine 05/15/21 07/06/21 Jackie Muñoz RN Personal Advocate & Liaison ([facility]) Family Medicine 07/06/21 05/22/22 Kassie Martinez [facility] [address] [place] [address] Assigned MTM Pharmacist 07/21/21 Darcy Trevino, catechist Diabetes Education 09/25/21 Kassie Martinez [facility] [address] [place] [address] Assigned MTM Pharmacist 11/21/21 Luh Tapia PA-C [address] [place] [address] Assigned Surgical Provider 04/27/22 Holli Damian PA-C [address] [place] [address] Assigned Surgical Provider 06/22/2206/28/22 Luh Tapia PA-C [address] [place] [address] Assigned Surgical Provider 06/29/22 Abdeil New PA-C [address] [place] [address] Assigned Musculoskeletal Provider 12/21/22 01/03/23 Katie Reina DPM, Podiatry/Foot and Ankle Surgery [address] [facility] [address] [place] [address] Assigned Musculoskeletal Provider 01/04/23 06/16/23 Cl Hugo MD [address] [place] [address] Urology 01/28/23 [place] [address] [address], [facility] [address] [place] [address] Assigned Musculoskeletal Provider 06/17/23 08/16/23 Markie Wade MD [address] [place] [address] Assigned Surgical Provider 08/17/23 Dilip Tate DPM [address] [facility] [address] [place] [address] Assigned Musculoskeletal Provider 08/17/23 01/16/24 [place] [address] [address], [facility] [address] [place] [address] Assigned Musculoskeletal Provider 01/17/24 documented as of this encounter
--- OUTSIDE RECORDS SUMMARY | 2024-02-29 19:27 | XMS_ITS | Encounter Summary ---
Author Organization [facility] Address [address] [place] [address] Care Team Providers Care Automatic Vulcanizing Lead Operator Name Role Phone Abdirizak Villalta MD Unavailable [phone] Kassie Elizabeth MD Unavailable [phone] [facility] Primary Care Provider [phone] Holli Damian-C Unavailable [phone] Dilip Tate DPM Unavailable [phone] Abdirizak Villalta MD Unavailable [phone] Kassie Martinez [facility] Unavailable +[phone] Shani Madison RN Unavailable Unavailable Jackie Muñoz RN Unavailable Unavailable JuanKassie min [facility] Unavailable [phone] Darcy Trevino RN Unavailable Unavailable Kassie Martinez RP Unavailable [phone] Luh Tapia-C Unavailable [phone] Holli Damian-C Unavailable [phone] Luh Tapia-C Unavailable +[phone] Abdiel New PA-C Unavailable [phone] Katie Reina DPM, Podiatry /Foot and Ankle Surgery Unavailable Cl Hugo MD Unavailable [phone] Leonel, Christopher DO Unavailable [phone] Markie Wade MD Unavailable [phone] Dilip Tate DPM Unavailable [phone] Christopher Castaneda DO Unavailable [phone] Encounter Details Date Type Department Care Team (Late st Contact Info) Description 05/07/2021 MyC Medical Advice [address] [address] [place] Social History Tobacco Use Types [...] PM CDT Legal Sex Male 3:30 AM PIER MASTER ASSISTANT Gender Identity Male 06/23/2020 10:21 PM CDT [...] st Contact Info) Description 04/09/2024 9:30 AM PIER MASTER ASSISTANT Office Visit [address] [address] [place] [address] [place] [address] 04/14/2024 2:00 PM PIER MASTER ASSISTANT Office Visit [facility] [address] [place] [phone] Juan Kassie, [facility] [address] [place] [address] documented as of this encounter Visit Diagnoses Not on filedocumented in this encounter Additional Health Concerns Infection Onset Date Last Indicated Resolved Time Rule Out COVID-19 03/01/2022 03/01/2022 03/22/2022 11:41 PM PIER MASTER ASSISTANT Rule Out COVID-19 06/13/2022 06/13/2022 06/14/2022 9:45 AM CDT Assessment Noted Time PHQ-9 Depression Total Score: 2 06/25/19 7:02 AM CDT documented as of this encounter Care Teams Automatic Vulcanizing Lead Operator Relationship Specialty Start [place] [address] [place] [address] PCP - General Family Medicine 01/29/21 Abdirizak Villalta MD [address] [address] Referring Physician Gastroenterology 09/24/16 [place] [address] [facility] [place] [address] Assigned PCP 10/15/20 Holli Damian PA-C [address] [facility] [address] [place] [address] Assigned Surgical Provider 02/04/2104/26/22 [place] D[place] [address] [facility] [address] [place] [address] Assigned Musculoskeletal Provider 01/28/21 07/26/22 Abdirizak Villalta MD 6 [facility] [address] [place] [address] Assigned Gastroenterology Provider 01/28/21 07/26/22 [facility] [address] [place] [address] Pharmacist Pharmacist 05/14/21 Shani Madison, MARIE Personal Advocate & Liaison ([facility]) Family Medicine 05/15/21 07/06/21 Jackie Muñoz RN Personal Advocate & Liaison ([facility]) Family Medicine 07/06/21 05/22/22 [facility] [address] [place] [address] Assigned MTM Pharmacist 07/21/21 Darcy Trevino, change agent Diabetes Education 09/25/21 [facility] [address] [place] [address] Assigned MTM Pharmacist 11/21/21 Luh Tapia PA-C [address] [place] [address] Assigned Surgical Provider 04/27/22 Holli Damian PA-C [address] [place] [address] Assigned Surgical Provider 06/22/2206/28/22 Luh Tapia PA-C [address] [facility] [address] [place] [address] Assigned Surgical Provider 06/29/22 Abdiel New PA-C [address] [place] [address] Assigned Musculoskeletal Provider 12/21/22 01/03/23 Katie Reina DPM, Podiatry/Foot and Ankle Surgery [address] [facility] 300 [place] [address] Assigned Musculoskeletal Provider 01/04/23 06/16/23 Cl Hugo MD [address] [place] [address] Urology 01/28/23 [place] [address] [address], [facility] [address] [place] [address] Assigned Musculoskeletal Provider 06/17/23 08/16/23 Markie Wade MD [address] [place] [address] Assigned Surgical Provider 08/17/23 Dilip [place] D[place] [address] [facility] 300 [place], [place] [address] Assigned Musculoskeletal Provider 08/17/23 01/16/24 [place] [address] [address], [facility] 300 [place] [address] Assigned Musculoskeletal Provider 01/17/24 documented as of this encounter
--- OUTSIDE RECORDS SUMMARY | 2024-02-29 19:27 | XMS_ITS | Encounter Summary ---
Author Organization [place] Address [address] [place] [address] Care Team Providers Care Sausage Linker Name Role Phone Abdirizak Villalta MD Unavailable [phone] Kassie Elizabeth MD Unavailable [phone] [facility] Hospital[facility] castellon MD Primary Care Provider +[phone] Holli Damian-C Unavailable +[phone] Dilip Tate DPM Unavailable +[phone] Abdirizak Villalta MD Unavailable + [phone] Kassie Martinez [facility] Unavailable +[phone] Shani Madison RN Unavailable Unavailable Jackie Muñoz RN Unavailable Unavailable JuanKassie min [facility] Unavailable [phone] Darcy Trevino RN Unavailable Unavailable Kassie Martinez RP Unavailable +[phone] Luh Tapia-C Unavailable [phone] Holli Damian-C Unavailable +[phone] Luh Tapia-C Unavailable +[phone]- Abdiel New PA-C Unavailable [phone] Katie Reina DPM, Podiatry /Foot and Ankle Surgery Unavailable Cl Hugo MD Unavailable +[phone] LeonelChristopher mckinnon DO Unavailable +[phone] Markie Wade MD Unavailable [phone] Dilip TateM Unavailable +[phone] Christopher Castaneda DO Unavailable Reason for Visit * Reason Comments Sleep Problem Encounter Details Date Type Department Care Team (Late st Contact Info) Description 04/26/2021 Orders Only [facility] [place] [address] [place] [address] Kelley Gunderson MD [address] [place] [address] Obstructive sleep apnea (Primary Dx) Social History Tobacco Use Types [...] PM CDT Legal Sex Male 3:30 AM COLLECTIONS AND ARCHIVES DIRECTOR Gender Identity Male 06/23/2020 10:21 PM CDT Sexual Orientation Straight 06/23/2020 10 :21 PM CDT documented as of this encounter Plan of Treatment Upcoming Encounters Date Type Department Care Team (Late st Contact Info) Description 04/09/2024 9:30 AM COLLECTIONS AND ARCHIVES DIRECTOR Office Visit [facility] [address] [place] [phone] [place] [address] [place], [place] 29[address] 04/14/2024 2:00 PM COLLECTIONS AND ARCHIVES DIRECTOR Office Visit [facility] [address] [place] [address] Juan Kassie, [facility] [address] [place] [address] documented as of this encounter Visit Diagnoses Diagnosis Obstructive sleep apnea- Primary Obstructive sleep apnea (adult) (pediatric) documented in this encounter Additional Health Concerns Infection Onset Date Last Indicated Resolved Time Rule Out COVID-19 03/01/2022 03/01/2022 03/22/2022 11:41 PM COLLECTIONS AND ARCHIVES DIRECTOR Rule Out COVID-19 06/13/2022 06/13/2022 06/14/2022 9:45 AM CDT Assessment Noted Time PHQ-9 Depression Total Score: 2 06/25/19 7:02 AM CDT documented as of this encounter Care Teams Sausage Linker Relationship Specialty [place] [address] [place] [address] PCP - General Family Medicine 01/29/21 Abdirizak Villalta MD [address] [place] [address] Referring Physician Gastroenterology 09/24/16 [place] [address] [place] [address] Assigned PCP 10/15/20 Holli Damian PA-C [address] [place] [address] Assigned Surgical Provider 02/04/2104/26/22 Dilip Tate DPM [address] [facility] [address] [place] [address] Assigned Musculoskeletal Provider 01/28/21 07/26/22 Abdirizak Villalta MD 516 [facility] [place] [address] [place] [address] Assigned Gastroenterology Provider 01/28/21 07/26/22 [facility] [address] [place] [address] Pharmacist Pharmacist 05/14/21 Shani Madison, MARIE Personal Advocate & Liaison ([facility]) Family Medicine 05/15/21 07/06/21 Jackie Muñoz RN Personal Advocate & Liaison ([facility]) Family Medicine 07/06/21 05/22/22 [facility] [address] [place] [address] Assigned MTM Pharmacist 07/21/21 Darcy Trevino, airport location manager Diabetes Education 09/25/21 [facility] [address] [place] [address] Assigned MTM Pharmacist 11/21/21 Luh Tapia PA-C [address] [place] [address] Assigned Surgical Provider 04/27/22 Holli Damian PA-C [address] [place] [address] Assigned Surgical Provider 06/22/2206/28/22 Luh Tapia PA-C [address] [facility] 500 [place], [place] 339635 Assigned Surgical Provider 06/29/22 Abdiel New PA-C [address] [place] [address] Assigned Musculoskeletal Provider 12/21/22 01/03/23 Katie Reina DPM, Podiatry/Foot and Ankle Surgery [address] [facility] 300 [place] [address] Assigned Musculoskeletal Provider 01/04/23 06/16/23 Cl Hugo MD [address] [place] [address] Urology 01/28/23 [place] [address] [address], [facility] 300 [place] [address] Assigned Musculoskeletal Provider 06/17/23 08/16/23 Markie Wade MD [address] [place] [address] Assigned Surgical Provider 08/17/23 Dilip Tate DPM [address] [facility] 300 [place] [address] Assigned Musculoskeletal Provider 08/17/23 01/16/24 [place] [address] [address], [facility] 300 [place] [address] Assigned Musculoskeletal Provider 01/17/24 documented as of this encounter
--- OUTSIDE RECORDS SUMMARY | 2024-02-29 19:27 | XMS_ITS | Encounter Summary ---
Author Organization [place] Address [address] [place] [address] Care Team Providers Care Coat Operator Name Role Phone Abdirizak Villalta MD Unavailable [phone] Kelley Gunderson MD Primary Care Provider + [phone] Kelley Gunderson MD Unavailable [phone] Abdirizak Villalta MD Unavailable [phone] Hugo Osborne MD Unavailable [phone] Kassie Elizabeth MD Unavailable [phone] Kassie Elizabeth MD Primary Care Provider [phone] Holli Damian PA-C Unavailable +[phone] Dilip Tate DPM Unavailable +[phone] Abdirizak Villalta MD Unavailable +[phone] Kassie Martinez [facility] Unavailable +[phone] Shani Madison RN Unavailable Unavailable Jackie Muñoz RN Unavailable Unavailable Kassie Martinez [facility] Unavailable +[phone] Darcy Trevino RN Unavailable Unavailable Kassie Martinez [facility] Unavailable +[phone] Luh Tapia PA-C Unavailable +[phone] NatiHolli Connie PA-C Unavailable +[phone] Luh Tapia PA-C Unavailable [phone] Abdiel New PA-C Unavailable [phone] Katie Reina DPM, Podiatry /Foot and Ankle Surgery Unavailable Cl Hugo MD Unavailable +[phone] Christopher Castaneda DO Unavailable [phone] Markie Wade MD Unavailable [phone] Dilip TateM Unavailable +[phone] Christopher Castaneda DO Unavailable [phone] Encounter Details Date Type Department Care Team (Late st Contact Info) Description 01/24/2020 [facility] [address] [address] Abdirizak Villalta MD [address] [place] [address] Social History Tobacco Use Types Packs/Day Years [...] PM CDT Legal Sex Male 3:30 AM COLORED LIQUID PLASTIC APPLIER Gender Identity Male 06/23/2020 10:21 PM CDT Sexual Orientation Straight 06/23/2020 10 :21 PM CDT COVID-19 Exposure Response Date Recorded In the last month, have you been in contact with someone who was confirmed or suspected to have Coronavirus / COVID-19? No / Unsure 01/19/2020 11:49 AM COLORED LIQUID PLASTIC APPLIER documented as of this encounter Plan of Treatment Upcoming Encounters Date Type Department Care Team (Late st Contact Info) Description 04/09/2024 9:30 AM COLORED LIQUID PLASTIC APPLIER Office Visit [facility] [address] [place] [phone] [place] [address] [place], [place] 46[address] 04/14/2024 2:00 PM COLORED LIQUID PLASTIC APPLIER Office Visit [facility] [address] [place] [phone] [facility] [address] [place], [place] [address] documented as of this encounter Visit Diagnoses Not on filedocumented in this encounter Additional Health Concerns Infection Onset Date Last Indicated Resolved Time Rule Out COVID-19 03/01/2022 03/01/2022 03/22/2022 11:41 PM COLORED LIQUID PLASTIC APPLIER Rule Out COVID-19 06/13/2022 06/13/2022 06/14/2022 9:45 AM CDT Assessment Noted Time PHQ-9 Depression Total Score: 0 01/07/20 15 7:31 AM COLORED LIQUID PLASTIC APPLIER documented as of this encounter Care Teams Coat Operator Relationship Specialty Start Date End Date Kelley Gunderson MD [address] [place] [address] PCP - General Internal Medicine 03/12/17 01/28/21 [place] [address] [place] [address] PCP - General Family Medicine 01/29/21 Abdirizak Villalta MD 516 [facility] [address] [place] [address] Referring Physician Gastroenterology 09/24/16 Kelley Gunderson MD [address] [place] [address] Assigned PCP 05/04/17 10/14/20 Abdirizak Villalta MD [address] [place] [address] 9960[address] Assigned Gastroenterology Provider 12/17/19 06/17/20 [place] [address] [place] [address] 300 [place] [address] Assigned Musculoskeletal Provider 12/17/19 01/27/21 [place] [address] [place] [address] Assigned PCP 10/15/20 Holli Damian PA-C [address] [facility] [facility] [address] [place] [address] Assigned Surgical Provider 02/04/2104/26/22 Dilip Tate DPM [address] [place] [address] 300 [place], [place] 659527 Assigned Musculoskeletal Provider 01/28/21 07/26/22 Abdirizak Villalta MD [address] [place] [address] Assigned Gastroenterology Provider 01/28/21 07/26/22 Kassie Martinez [facility] [address] [place] [address] Pharmacist Pharmacist 05/14/21 Shani Madison, RN Personal Advocate & Liaison ([facility]) Family Medicine 05/15/21 07/06/21 Jackie Muñoz RN Personal Advocate & Liaison ([facility]) [facility] Medicine 07/06/21 05/22/22 [facility] [address] [place] [address] Assigned MTM Pharmacist 07/21/21 Darcy Trevino, behavioral school counselors Diabetes Education 09/25/21 [facility] [address] [place] [address] Assigned MTM Pharmacist 11/21/21 Luh Tapia PA-C [address] [place] [address] Assigned Surgical Provider 04/27/22 Holli Damian PA-C [address] [place] [address] Assigned Surgical Provider 06/22/2206/28/22 Luh Tapia PA-C [address] [place] [address] Assigned Surgical Provider 06/29/22 Abdiel New PA-C [address] [address] Assigned Musculoskeletal Provider 12/21/22 01/03/23 Katie Reina DPM, Podiatry/Foot and Ankle Surgery [address] [facility] 300 [place] [address] Assigned Musculoskeletal Provider 01/04/23 06/16/23 Cl Hugo MD [address] [place] [address] 394 [place] [address] Urology 01/28/23 [place] [address] [address], [facility] 300 [place] [address] Assigned Musculoskeletal Provider 06/17/23 08/16/23 Markie Wade MD [address] [place] [address] Assigned Surgical Provider 08/17/23 [place] [address] [facility] 300 [place] [address] Assigned Musculoskeletal Provider 08/17/23 01/16/24 [place] [address] [address], [facility] 300 [place] [address] Assigned Musculoskeletal Provider 01/17/24 documented as of this encounter
--- OUTSIDE RECORDS SUMMARY | 2024-02-29 19:27 | XMS_ITS | Encounter Summary ---
Author Organization [facility] Address [address] [place] [address] Care Team Providers Care Center Aisle Cashier Name Role Phone Abdirizak Villalta MD Unavailable [phone] Kassie Elizabeth MD Unavailable [phone] [facility] Primary Care Provider +[phone] Holli Damian-C Unavailable +[phone] Dilip Tate DPM Unavailable [phone] Abdirizak Villalta MD Unavailable + [phone] Kassie Martinez [facility] Unavailable +[phone] Shani Madison RN Unavailable Unavailable Jackie Muñoz RN Unavailable Unavailable JuanKassie min [facility] Unavailable [phone] Darcy Trevino RN Unavailable Unavailable Kassie Martinez RP Unavailable +[phone] Luh Tapia-C Unavailable [phone] Holli Damian-C Unavailable +[phone] Luh Tapia-C Unavailable +1- Abdiel New PA-C Unavailable [phone] Katie Reina DPM, Podiatry /Foot and Ankle Surgery Unavailable Cl Hugo MD Unavailable +[phone] LeonelChristopher mckinnon DO Unavailable [phone] Markie Wade MD Unavailable [phone] Dilip TateM Unavailable +[phone] Christopher Castaneda DO Unavailable [phone] Encounter Details Date Type Department Care Team (Late st Contact Info) Description 01/30/2021 MyC Medical Advice [facility] [place] 6405 [facility] [address] [place] [address] Holli Damian PA-C 6405 [facility] [address] [place] [address] Social History Tobacco Use Types Packs/Day Years [...] PM CDT Legal Sex Male 3:30 AM POLISHER EYEGLASS FRAMES Gender Identity Male 06/23/2020 10:21 PM CDT Sexual Orientation Straight 06/23/2020 10 :21 PM CDT COVID-19 Exposure Response Date Recorded In the last month, have you been in contact with someone who was confirmed or suspected to have Coronavirus / COVID-19? No / Unsure 01/29/2021 10:58 AM POLISHER EYEGLASS FRAMES documented as of this encounter Plan of Treatment Upcoming Encounters Date Type Department Care Team (Late st Contact Info) Description 04/09/2024 9:30 AM POLISHER EYEGLASS FRAMES Office Visit [facility] [address] [place] [address] [place] [address] [place] [address] 04/14/2024 2:00 PM POLISHER EYEGLASS FRAMES Office Visit [address] [phone] Kassie Martinez, [facility] [address] [place] [address] documented as of this encounter Visit Diagnoses Not on filedocumented in this encounter Additional Health Concerns Infection Onset Date Last Indicated Resolved Time Rule Out COVID-19 03/01/2022 03/01/2022 03/22/2022 11:41 PM POLISHER EYEGLASS FRAMES Rule Out COVID-19 06/13/2022 06/13/2022 06/14/2022 9:45 AM CDT Assessment Noted Time PHQ-9 Depression Total Score: 2 06/25/19 7:02 AM CDT documented as of this encounter Care Teams Center Aisle Cashier Relationship Specialty [place] [address] [place] [address] PCP - General Family Medicine 01/29/21 Abdirizak Villalta MD 6 [facility] [address] [place] [address] Referring Physician Gastroenterology 09/24/16 [place] [address] [place] [address] Assigned PCP 10/15/20 Holli Damian PA-C 6405 [facility] [address] [place] [address] Assigned Surgical Provider 02/04/2104/26/22 Dilip Tate DPM [address] [facility] 300 [place], [place] 6[address] Assigned Musculoskeletal Provider 01/28/21 07/26/22 Abdirizak Villalta MD [address] [address] Assigned Gastroenterology Provider 01/28/21 07/26/22 Kassie Martinez [facility] [address] [place] [address] Pharmacist Pharmacist 05/14/21 Shani Madison, MARIE Personal Advocate & Liaison ([facility]) Family Medicine 05/15/21 07/06/21 Jackie Muñoz RN Personal Advocate & Liaison ([facility]) Family Medicine 07/06/21 05/22/22 Kassie Martinez [facility] [address] [place] [address] Assigned MTM Pharmacist 07/21/21 Darcy Trevino, fuel storage technician Diabetes Education 09/25/21 Kassie Martinez [facility] [address] [place] [address] Assigned MTM Pharmacist 11/21/21 Luh Tapia PA-C [address] [address] Assigned Surgical Provider 04/27/22 Holli Damian PA-C [address] [place] [address] Assigned Surgical Provider 06/22/2206/28/22 Luh Tapia PA-C [address] [place] [address] Assigned Surgical Provider 06/29/22 Abdiel New PA-C [facility] [address] [address] Assigned Musculoskeletal Provider 12/21/22 01/03/23 Katie Reina DPM, Podiatry/Foot and Ankle Surgery [address] [facility] 300 [place] [address] Assigned Musculoskeletal Provider 01/04/23 06/16/23 Cl Hugo MD [address] [place] [address] 833125 Urology 01/28/23 [place] [address] [address], [facility] 300 [place] [address] Assigned Musculoskeletal Provider 06/17/23 08/16/23 Markie Wade MD 9 [place] [address] Assigned Surgical Provider 08/17/23 Dilip Tate DPM [address] [facility] 300 [place], [place] [address] Assigned Musculoskeletal Provider 08/17/23 01/16/24 [place] [address] [address], [address] [address] Assigned Musculoskeletal Provider 01/17/24 documented as of this encounter
--- OUTSIDE RECORDS SUMMARY | 2024-02-29 19:27 | XMS_ITS | Encounter Summary ---
Author Organization [place] Address [address] [place] [address] Care Team Providers Care Medical Sales Consultant Name Role Phone Abdirizak Villalta MD Unavailable [phone] Kelley Gunderson MD Primary Care Provider + [phone] Hugo Osborne MD Unavailable [phone] Kassie Elizabeth MD Unavailable [phone] Kassie Elizabeth MD Primary Care Provider +[phone] Holli DamianC Unavailable [phone] Dilip Tate DPM Unavailable [phone] Abdirizak Villalta MD Unavailable +[phone] Kassie Martinez [facility] Unavailable +[phone] Shani Madison RN Unavailable Unavailable Jackie Muñoz RN Unavailable Unavailable Kassie Martinez [facility] Unavailable +[phone] Darcy Trevino RN Unavailable Unavailable Kassie Martinez RP Unavailable +[phone] Luh Tapia PA-C Unavailable Holli Damian-C Unavailable +[phone] Luh Tapia PA-C Unavailable Abdiel NewC Unavailable [phone] Katie Reina DPM, Podiatry /Foot and Ankle Surgery Unavailable Cl Hugo MD Unavailable +[phone] Christopher Castaneda DO Unavailable [phone] Markie Wade MD Unavailable [phone] Dilip Tate DPM Unavailable [phone] Christopher Castaneda DO Unavailable [phone] Reason for Visit * Reason Onset Date Comments Appointment 01/23/2021 Encounter Details Date Type Department Care Team (Late st Contact Info) Description 01/23/2021 Telephone [facility] [place] 6[address] [facility] [address] [place] [address] Holli Damian PA-C [address] [facility] [address] [place], [place] [address] Appointment Social History Tobacco Use Types Packs/Day Years [...] CDT Legal Sex Male 3:30 AM MANAGER IMAGE Gender Identity Male 06/23/2020 10:21 PM CDT Sexual Orientation Straight 06/23/2020 10 :21 PM CDT COVID-19 Exposure Response Date Recorded In the last month, have you been in contact with someone who was confirmed or suspected to have Coronavirus / COVID-19? No / Unsure 01/25/2021 10:56 AM MANAGER IMAGE documented as of this encounter Miscellaneous Notes * Telephone Encounter - Katie Noble - 01/23/2021 12:48 PM MANAGER IMAGE Reason for call: Other Patient called regarding (reason for call): appointment Additional comments: Please attach any needed paperwork to patient's MyChart for upcoming [facility] appointment. Phone number to reach patient: Home number on file [phone] (home) Best Time: N/A Can we leave a detailed message on this number? Not Applicable Travel screening: Not Applicable GER IMAGE documented in this encounter Plan of Treatment Upcoming Encounters Date Type Department Care Team ([facility] st Contact Info) Description 04/09/2024 9:30 AM MANAGER IMAGE Office Visit [facility] [address] [place] [phone] [place] [address] [place] [address] [phone] 04/14/2024 2:00 PM MANAGER IMAGE Office Visit [facility] [address] [place] [phone] [facility] [address] [place], [place] [address] documented as of this encounter Visit Diagnoses Not on filedocumented in this encounter Additional Health Concerns Infection Onset Date Last Indicated Resolved Time Rule Out COVID-19 03/01/2022 03/01/2022 03/22/2022 11:41 PM MANAGER IMAGE Rule Out COVID-19 06/13/2022 06/13/2022 06/14/2022 9:45 AM CDT Assessment Noted Time PHQ-9 Depression Total Score: 2 06/25/19 7:02 AM CDT documented as of this encounter Care Teams Medical Sales Consultant Relationship Specialty Start Date End Date Kelley Gunderson MD [address] [place] [address] PCP - General Internal Medicine 03/12/17 01/28/21 [place] [address] [place] [address] PCP - General Family Medicine 01/29/21 Abdirizak Villalta MD [address] [place] [address] Referring Physician Gastroenterology 09/24/16 [place] [address] [place] [address] 300 [place] [address] Assigned Musculoskeletal Provider 12/17/19 01/27/21 [place] [address] [place] [address] Assigned PCP 10/15/20 Holli Damian PA-C [address] [facility] [address] [place] [address] Assigned Surgical Provider 02/04/2104/26/22 Dilip Tate DPM [address] [place] [address] 300 [place], [place] 302457 Assigned Musculoskeletal Provider 01/28/21 07/26/22 Abdirizak Villalta MD [address] [place] [address] Assigned Gastroenterology Provider 01/28/21 07/26/22 Kassie Martinez [facility] [address] [place] [address] Pharmacist Pharmacist 05/14/21 Shani Madison, RN Personal Advocate & Liaison ([facility]) Family Medicine 05/15/21 07/06/21 Jackie Muñoz RN Personal Advocate & Liaison ([facility]) Family Medicine 07/06/21 05/22/22 [facility] [address] [place] [address] Assigned MTM Pharmacist 07/21/21 Darcy rTevino, rebar fabricator Diabetes Education 09/25/21 [facility] [address] [place] [address] Assigned MTM Pharmacist 11/21/21 Luh Tapia PA-C [address] [place] [address] Assigned Surgical Provider 04/27/22 Holli Damian PA-C [address] [place] [address] Assigned Surgical Provider 06/22/2206/28/22 Luh Tapia PA-C [address] [place] [address] Assigned Surgical Provider 06/29/22 Abdiel New PA-C [address] [place] [address] Assigned Musculoskeletal Provider 12/21/22 01/03/23 Katie Reina DPM, Podiatry/Foot and Ankle Surgery [address] [facility] 300 [place] [address] Assigned Musculoskeletal Provider 01/04/23 06/16/23 Cl Hugo MD [address] [place] [address] Urology 01/28/23 [place] [address] [address] , [address] [address] Assigned Musculoskeletal Provider 06/17/23 08/16/23 Markie Wade MD [address] [place] [address] Assigned Surgical Provider 08/17/23 Dil[place] DPM [address] [facility] 300 [place] [address] Assigned Musculoskeletal Provider 08/17/23 01/16/24 [place] [address] [address], [address] [address] Assigned Musculoskeletal Provider 01/17/24 documented as of this encounter
--- OUTSIDE RECORDS SUMMARY | 2024-02-29 19:27 | XMS_ITS | Encounter Summary ---
Author Organization [facility] Address [address] [place] [address] Care Team Providers Care Burnisher Name Role Phone Abdirizak Villalta MD Unavailable [phone] Kelley Gunderson MD Primary Care Provider + [phone] Kelley Gunderson MD Unavailable [phone] Abdirizak Villalta MD Unavailable +[phone] Hugo Osborne MD Unavailable [phone] Kassie Elizabeth MD Unavailable [phone] Kassie Elizabeth MD Primary Care Provider +[phone] Holli Damian PA-C Unavailable +[phone] Dilip Tate DPM Unavailable +[phone] Abdirizak Villalta MD Unavailable +[phone] Kassie Martinez [facility] Unavailable +[phone] Shani Madison RN Unavailable Unavailable Jackie Muñoz RN Unavailable Unavailable Kassie Martinez [facility] Unavailable +[phone] Darcy Trevino RN Unavailable Unavailable Kassie Martinez [facility] Unavailable +[phone] Luh Tapia PA-C Unavailable NatiHolli underwood Connie PA-C Unavailable +[phone] Luh Tapia PA-C Unavailable [phone] Abdiel New PA-C Unavailable [phone] Katie Reina DPM, Podiatry /Foot and Ankle Surgery Unavailable Cl Hugo MD Unavailable [phone] Christopher Castaneda DO Unavailable [phone] Markie Wade MD Unavailable [phone] Dilip TateM Unavailable [phone] Christopher Castaneda DO Unavailable [phone] Encounter Details Date Type Department Care Team (Late st Contact Info) Description 12/10/2019 MyC Medical Advice [facility] [address] [facility] [address] [facility] [address] [place] [address] Kelley Gunderson MD [address] [place] [address] Social History Tobacco Use Types Packs/Day [...] PM CDT Legal Sex Male 3:30 AM LEATHER PATCHER Gender Identity Male 06/23/2020 10:21 PM CDT Sexual Orientation Straight 06/23/2020 10 :21 PM CDT documented as of this encounter Plan of Treatment Upcoming Encounters Date Type Department Care Team (Late st Contact Info) Description 04/09/2024 9:30 AM LEATHER PATCHER Office Visit [facility] [address] [place] [phone] [place] [address] [place] [address] 04/14/2024 2:00 PM LEATHER PATCHER Office Visit [facility] [address] [place] [phone] Kassie Martinez, [facility] [address] [place] [address] documented as of this encounter Visit Diagnoses Not on filedocumented in this encounter Additional Health Concerns Infection Onset Date Last Indicated Resolved Time Rule Out COVID-19 03/01/2022 03/01/2022 03/22/2022 11:41 PM LEATHER PATCHER Rule Out COVID-19 06/13/2022 06/13/2022 06/14/2022 9:45 AM CDT Assessment Noted Time PHQ-9 Depression Total Score: 0 01/07/20 15 7:31 AM LEATHER PATCHER documented as of this encounter Care Teams Burnisher Relationship Specialty Start Date End Date Kelley Gunderson MD [address] [place] [address] PCP - General Internal Medicine 03/12/17 01/28/21 [place] [address] [place] [address] PCP - General Family Medicine 01/29/21 Abdirizak Villalta MD [address] [place] [address] Referring Physician Gastroenterology 09/24/16 Kelley Gunderson MD [address] [place] [address] Assigned PCP 05/04/17 10/14/20 Abdirizak Villalta MD [address] [place] [address] Assigned Gastroenterology Provider 12/17/19 06/17/20 [place] [address] [facility] [address] [place] [address] Assigned Musculoskeletal Provider 12/17/19 01/27/21 [place] [address] [place] [address] Assigned PCP 10/15/20 Holli Damian PA-C [address] [facility] [address] [place] [address] Assigned Surgical Provider 02/04/2104/26/22 [place] [address] [facility] [address] [place], [place] [address] Assigned Musculoskeletal Provider 01/28/21 07/26/22 Abdirizak Villalta MD [address] [place] [address] Assigned Gastroenterology Provider 01/28/21 07/26/22 Kassie Martinez [facility] [address] [place] [address] Pharmacist Pharmacist 05/14/21 Shani Madison, RN Personal Advocate & Liaison (PAL) Family Medicine 05/15/21 07/06/21 Jackie Muñoz RN Personal Advocate & Liaison (PAL) Family Medicine 07/06/21 05/22/22 [facility] [address] [place] [address] Assigned MTM Pharmacist 07/21/21 Darcy Trevino, crossbow maker Diabetes Education 09/25/21 [facility] [address] [place] [address] Assigned MTM Pharmacist 11/21/21 Luh Tapia PA-C [address] [place] [address] Assigned Surgical Provider 04/27/22 Holli Damian PA-C [address] [place] [address] Assigned Surgical Provider 06/22/2206/28/22 Luh Tapia PA-C [address] [place] [address] Assigned Surgical Provider 06/29/22 Abdiel New PA-C [address] [address] Assigned Musculoskeletal Provider 12/21/22 01/03/23 Katie Reina DPM, Podiatry/Foot and Ankle Surgery [address] [address] [address] [place] [address] Assigned Musculoskeletal Provider 01/04/23 06/16/23 Cl Hugo MD [address] [place] [address] [address] [place] [address] Urology 01/28/23 [place] [address] [facility] [place] [facility] [address] [place] [address] Assigned Musculoskeletal Provider 06/17/23 08/16/23 Markie Wade MD [address] [place] [address] Assigned Surgical Provider 08/17/23 [place] [address] [facility] [address] [place] [address] Assigned Musculoskeletal Provider 08/17/23 01/16/24 [place] [address] [address], [facility] [place] [facility] [address] [place] [address] Assigned Musculoskeletal Provider 01/17/24 documented as of this encounter
--- OUTSIDE RECORDS SUMMARY | 2024-02-29 19:27 | XMS_ITS | Encounter Summary ---
Author Organization [facility] Address [address] [place] [address] Care Team Providers Care Oscillograph Technician Name Role Phone Abdirizak Villalta MD Unavailable [phone] Kelley Gunderson MD Primary Care Provider + [phone] Hugo Osborne MD Unavailable [phone] Kassie Elizabeth MD Unavailable [phone] Kassie Elizabeth MD Primary Care Provider [phone] Holli DamianC Unavailable [phone] Dilip Tate DPM Unavailable [phone] Abdirizak Villalta MD Unavailable [phone] Kassie Martinez [facility] Unavailable [phone] Shani Madison RN Unavailable Unavailable Jackie Muñoz RN Unavailable Unavailable Kassie Martinez [facility] Unavailable [phone] Darcy Trevino RN Unavailable Unavailable Kassie Martinez RP Unavailable [phone] Luh Tapia PA-C Unavailable Holli Damian-C Unavailable +[phone] WillieLuh Jacqueline PA-C Unavailable Abdiel Sophy PA-C Unavailable [phone] Katie Reina DPM, Podiatry /Foot and Ankle Surgery Unavailable Cl Hugo MD Unavailable [phone] Christopher Castaneda DO Unavailable [phone] Markie Wade MD Unavailable [phone] Dilip Tate DPM Unavailable [phone] Christopher Castaneda DO Unavailable [phone] Encounter Details Date Type Department Care Team (Late st Contact Info) Description 12/20/2020 [facility] [address] [address] Abdirizak Villalta MD [address] [place] [address] Social History Tobacco Use Types Packs/Day Years Used Date Smoking Tobacco: Former Cigarettes 1 35 0 05/13/1976 - 05/10/2011 Smokeless Tobacco: Never Alcohol Use Standard Drinks/Week Comments Not Currently 0 (1 standard drink = 0.6 oz pur e alcohol) PHQ-2 Answer Date Recorded PHQ-2 Score 0 10/05/2020 Sex and Gender Information Value Date Recorded Sex Assigned at Male 06/23/2020 10:21 PM CDT Legal Sex Male 3:30 AM PALEOBOTANIST Gender Identity Male 06/23/2020 10:21 PM CDT Sexual Orientation Straight 06/23/2020 10 :21 PM CDT COVID-19 Exposure Response Date Recorded In the last month, have you been in contact with someone who was confirmed or suspected to have Coronavirus / COVID-19? No / Unsure 12/23/2020 5:32 PM CDT documented as of this encounter Miscellaneous Notes * Telephone Encounter - Marlo Bertrand - 12/20/2020 4:00 PM CDT LVM TB 12/20 documented in this encounter Plan of Treatment Upcoming Encounters Date Type Department Care Team (Late st Contact Info) Description 04/09/2024 9:30 AM PALEOBOTANIST Office Visit [facility] [address] [place] [address] [place] [address] [place] [address] 04/14/2024 2:00 PM PALEOBOTANIST Office Visit [facility] [address] [place] [phone] Kassie Martinez, [facility] [address] [place], [place] [address] documented as of this encounter Visit Diagnoses Not on filedocumented in this encounter Additional Health Concerns Infection Onset Date Last Indicated Resolved Time Rule Out COVID-19 03/01/2022 03/01/2022 03/22/2022 11:41 PM PALEOBOTANIST Rule Out COVID-19 06/13/2022 06/13/2022 06/14/2022 9:45 AM CDT Assessment Noted Time PHQ-9 Depression Total Score: 2 06/25/19 21 7:02 AM CDT documented as of this encounter Care Teams Oscillograph Technician Relationship Specialty Start Date End Date Kelley Gunderson MD [address] [facility] [address] [place] [address] PCP - General Internal Medicine 03/12/17 01/28/21 [place] [address] [place] [address] PCP - General Family Medicine 01/29/21 Abdirizak Villalta MD [address] [place] [address] [address] [place] [address] Referring Physician Gastroenterology 09/24/16 [place] [address] [facility] [address] [place] [address] Assigned Musculoskeletal Provider 12/17/19 01/27/21 [place] [address] [place] [address] Assigned PCP 10/15/20 Holli Damian PA-C [address] [facility] [address] [place] [address] Assigned Surgical Provider 02/04/2104/26/22 [place] [address] [facility] [address] [place] [address] Assigned Musculoskeletal Provider 01/28/21 07/26/22 Abdirizak Villalta MD [address] [place] [address] [address] [place] [address] Assigned Gastroenterology Provider 01/28/21 07/26/22 Kassie Martinez [facility] [address] [place] [address] Pharmacist Pharmacist 05/14/21 Shani Madison, MARIE Personal Advocate & Liaison (PAL) Family Medicine 05/15/21 07/06/21 Jackie Muñoz RN Personal Advocate & Liaison (PAL) Family Medicine 07/06/21 05/22/22 Kassie Martinez [facility] [address] [place] [address] Assigned MTM Pharmacist 07/21/21 Darcy Trevino, freelance data entry Diabetes Education 09/25/21 Kassie Martinez [facility] [address] [place] [address] Assigned MTM Pharmacist 11/21/21 Luh Tapai PA-C [address] [place] [address] Assigned Surgical Provider 04/27/22 Holli Damian PA-C [address] [place] [address] Assigned Surgical Provider 06/22/2206/28/22 Luh Tapia PA-C [address] [place] [address] Assigned Surgical Provider 06/29/22 Abdiel New PA-C [address] [place] [address] Assigned Musculoskeletal Provider 12/21/22 01/03/23 Katie Reina DPM, Podiatry/Foot and Ankle Surgery [address] [place] [address] [place] [address] Assigned Musculoskeletal Provider 01/04/23 06/16/23 Cl Hugo MD [address] [facility] [address] [place] [address] Urology 01/28/23 [place] [address] [address], [facility] [address] [place] [address] Assigned Musculoskeletal Provider 06/17/23 08/16/23 Markie Wade MD [address] [place] [address] Assigned Surgical Provider 08/17/23 [place] [address] [facility] [address] [place] [address] Assigned Musculoskeletal Provider 08/17/23 01/16/24 [place] [address] [address], [facility] [address] [place] [address] Assigned Musculoskeletal Provider 01/17/24 documented as of this encounter
[2024-02-29 19:28] LABS: Creatinine* 0.7 mg/dL (0.5-1.5); Est. Creatinine Clearance* 82.62; Estimated Glomerular Filt Rate 105 ml/min
--- NOTE | 2024-02-29 19:28 | ED_ITS ---
HPI - General Adult General Date Seen: 02/29/24 Chief complaint: Fever Stated complaint: Covid symptoms, heart flutter, abd pa Time Seen by Provider: 02/29/24 18:37 Source: patient Mode of arrival: wheelchair Limitations: no limitations History of Present Illness HPI narrative: Patient is a 59-year-old male presenting to the emergency department for flu- like symptoms and abdominal pain. He states he has been having diaphoresis, fevers, chills and full body aches. He states he has had COVID several times this feels like when he had COVID. Is not aware of any sick contacts. He also notes he has been having abdominal pain. Hard to determine exactly where the pain is. Has not had pain like this before. Has had previous appendectomy and hernia surgery. Had a bowel movement today that was normal. States he has not ate anything since yesterday around 14:00. His pain does seem better than it was this morning but he is feeling more fatigue so came in for evaluation. Has not had any vomiting but does feel slightly nauseated but has not vomited. Denies dysuria. Has some mild left-sided chest pain that he states has been going on for a while but it is not there right now. Also states he had some shortness of breath earlier that has resolved. Denies headache, weakness, numbness, vision changes. Related Data Allergies Allergy/AdvReac Type Severity Reaction Status Date / Time No Known Drug Allergies Allergy Verified 02/29/24 18:35 Exam Narrative: Exam Narrative: Const: Diaphoretic, in moderate distress Eyes: PERRL, no conjunctival injection, and symmetrical lids HENT: Atraumatic external nose and ears. Moist mucous membranes. Neck: Symmetric, trachea midline, No thyromegaly. CVS: RRR, No murmurs or gallops. Peripheral pulses 2+ and equal in all extremities RESP: Unlabored respiratory effort. Clear to auscultation bilaterally. GI: Diffuse abdominal tenderness worsened right upper quadrant, Nondistended, No rebound or guarding. MSK:Extremities w/o deformity, Normal Active ROM Skin: Warm, Dry. No rashes or lesions. Neuro: Normal Muscle tone, No focal neurological deficits. Psych: Awake, Alert, & Oriented x3. Appropriate mood and affect. Const: Vital Signs, click to edit/add: Vital Signs - 24 hr 02/29/24 18:30 Temperature 99.9 F H Pulse Rate [Right Pulse Oximeter] 130 H Respiratory Rate 24 Blood Pressure [Ri ght Upper Arm] 144/118 H Pulse Oximetry 94 Oxygen Delivery Me thod Room Air Course Vital Signs Vital signs: Initial Vital Signs Temperature 99.9 F H 02/29/24 18:30 Temperature Source Temporal Artery Scan 02/29/24 18:30 Pulse Rate 130 H 02/29/24 18:30 Pulse Rhythm Regular 02/29/24 18:30 Respiratory Rate 24 02/29/24 18:30 Blood Pressure 144/118 H 02/29/24 18:30 Blood Pressure Mean 126 H 02/29/24 18:30 Blood Pressure Position Supine 02/29/24 18:30 Pulse Oximetry 94 02/29/24 18:30 Oxygen Delivery Method Room Air 02/29/24 18:30 Vital Signs Temperature 99.9 F H 02/29/24 18:30 Pulse Rate 130 H 02/29/24 18:30 Respiratory Rate 24 02/29/24 18:30 Blood Pressure 144/118 H 02/29/24 18:30 Pulse Oximetry 94 02/29/24 18:30 Oxygen Delivery Method Room Air 02/29/24 18:30 Temperature 99.9 F H 02/29/24 18:30 Pulse Rate 130 H 02/29/24 18:30 Respiratory Rate 24 02/29/24 18:30 Blood Pressure 144/118 H 02/29/24 18:30 Pulse Oximetry 94 02/29/24 18:30 Oxygen Delivery Method Room Air 02/29/24 18:30 Medications Administered Medications: Generic Name Dose Route Start Last Admin Trade Name Freq PRN Reason Stop Dose Admin Lactated Ringer's 1,000 mls @ 1,000 mls/hr 02/29/24 20:50 02/29/24 20:57 Lactated Ringers 1000 Ml IV 02/29/24 21:49 1,000 mls/hr .Q1H ONE Administration Ibuprofen 600 mg 02/29/24 21:08 02/29/24 21:17 Ibuprofen 200 Mg Tablet PO 02/29/24 21:09 600 mg ONCE ONE Administration Ondansetron HCl 4 mg 02/29/24 20:50 02/29/24 20:56 Ondansetron 2 Mg/Ml Inj IVP 02/29/24 20:51 4 mg ONCE ONE Administration Discontinued Medications Generic Name Dose Route Start Last Admin Trade Name Aileen PRN Reason Stop Dose Admin Lactated Ringer's 1,000 mls @ 1,000 mls/hr 02/29/24 18:49 02/29/24 20:50 Lactated Ringers 1000 Ml IV 02/29/24 19:48 Infused .Q1H ONE Infusion Morphine Sulfate 4 mg 02/29/24 18:49 02/29/24 19:00 Morphine 4 Mg/Ml Inj IVP 02/29/24 18:50 4 mg ONCE ONE Administration Morphine Sulfate 4 mg 02/29/24 19:59 02/29/24 20:50 Morphine 4 Mg/Ml Inj IVP 02/29/24 20:00 4 mg ONCE ONE Administration Ondansetron HCl 4 mg 02/29/24 18:49 02/29/24 19:00 Ondansetron 2 Mg/Ml Inj IVP 02/29/24 18:50 4 mg ONCE ONE Administration Medical Decision Making MDM Narrative Medical decision making narrative: Patient is a 59-year-old male presents with multiple complaints. Will do a viral swab. Differential for his abdominal pain includes gallbladder and liver disease, colitis, pancreatitis, gastroenteritis, diverticulitis. Will do a CT scan for better evaluation along with a right upper quadrant ultrasound. Also ordered CBC, CMP, magnesium, urinalysis along with an EKG and troponin. He is tachycardic right now. Fluids ordered for likely dehydration along with Zofran for nausea and morphine for pain. He does have a lactate of 2.2. Blood cultures ordered. He does have a low white count 2.53. This can be a sign of a viral infection. Viral swabs are negative though. Urinalysis shows no signs of UTI. EKG shows tachycardia but n o concerning abnormalities. Troponin shows no concerning findings. CMP shows no concerning findings. Right upper quadrant ultrasound shows and a distended gallbladder with sludge but no cholelithiasis or sonographic evidence of acute cholecystitis. Chest x-ray shows what appears to be wedge compression fractures of indeterminate chronicity. The CT scan of the abdomen pelvis describes these as multilevel degenerative changes. He does have some mild wall thickening and hyperenhancement of the small bowel. This does raise the possibility of infection versus inflammatory enteritis. No bowel obstruction. Patient is still tachycardic and will give him more Zofran, morphine and another L fluid. He was given 30 per kilos of fluids for his sepsis and repeat lactate ordered along with blood cultures. I am unsure what is causing his continued tachycardia but I do think he needs to stay in the hospital. Will treat with broad-spectrum antibiotics as I do not know exactly what the infection is. He is agreeable to this plan. Lab Data Labs: Lab Results 02/29/24 02/29/24 02/29/24 Range/Units 18:42 18:50 19:00 WBC 2.53 L (4.50-11.00) K/uL RBC 5.93 H (4.30-5.90) m/uL Hgb 16.8 (13.5-17.5) gm/dL Hct 49.8 (37.0-53.0) % MCV 84 (80-100) fL MCH 28 (26-34) pg MCHC 34 (32-36) gm/dL RDW Coeff of Sonido 13.2 (11.5-15.5) % Plt Count 70 L (140-440) K/uL Neut % (Auto) 73.9 H (42.0-72.0) % Lymph % (Auto) 15.4 L (20-44) % [place] % (Auto) 9.5 (0.0-11.0) % Eos % (Auto) 1.2 (0.0-7.0) % Baso % (Auto) 0.0 (0.0-3.0) % Neut # (Auto) 1.90 (1.7-7.0) K/uL Lymph # (Auto) 0.40 L (0.90-2.90) K/uL [place] # (Auto) 0.20 (0.00-0.90) K/UL Eos # (Auto) 0.00 (0.00-0.50) K/uL Baso # (Auto) 0.00 (0.00-0.30) K/uL Abs Immat Gran (auto) 0.00 (0.00-0.30) K/uL Imm/Tot Granulo (auto) 0.0 % Sodium 133 L (135-149) mmol/L Potassium 4.2 (3.6-5.1) mmol/L Chloride 105 (96-114) mmol/L Carbon Dioxide 20 (20-32) mmol/L Anion Gap 8 (7-15) mEq/L BUN 20 (7-30) mg/dL Creatinine 0.7 (0.5-1.5) mg/dL Estimated Creat Clear 82.62 Estimated GFR 105 ml/min Glucose 235 H (60-115) mg/dL Lactate 2.2 H (0.5-1.9) mmol/L Calcium 9.4 (8.4-10.6) mg/dL Magnesium 1.4 L (1.5-2.6) mg/dL Total Bilirubin 1.0 (0.1-1.5) mg/dL AST 41 H (12-35) U/L ALT 66 H (4-50) U/L Alkaline Phosphatase 45 (40-150) U/L Total Protein 7.0 (6.0-8.3) g/dL Albumin 4.0 (3.3-5.0) g/dL Urine Color (Yellow) Urine Appearance (Clear) Urine pH (5.0-8.5) Ur Specific [place] (1.000-1.030) Urine Protein (Negative) Urine Glucose (UA) (Negative) Urine Ketones (Negative) Urine Blood (Negative) Urine Nitrite (Negative) Urine Bilirubin (Negative) Urine Urobilinogen (0.2-1.0) Ur Leukocyte Esterase (Negative) Urine RBC (0-2) Urine WBC (0-5) Ur Squamous Epith Cells (None-Few) Urine Bacteria (None) SARS-CoV-2 (PCR) Negative SARS-CoV-2 (Negative) Influenza Type A (PCR) Negative PCR FLU A (Negative) Influenza Type B (PCR) Negative PCR FLU B (Negative) RSV (PCR) Negative PCR RSV (Negative) Lab Acknowledgement POC Troponin I 0.00 L (0.01-0.04) ng/ml 02/29/24 02/29/24 Range/Units 19:57 20:56 WBC (4.50-11.00) K/uL RBC (4.30-5.90) m/uL Hgb (13.5-17.5) gm/dL Hct (37.0-53.0) % MCV (80-100) fL MCH (26-34) pg MCHC (32-36) gm/dL RDW Coeff of Sonido (11.5-15.5) % Plt Count (140-440) K/uL Neut % (Auto) (42.0-72.0) % Lymph % (Auto) (20-44) % [place] % (Auto) (0.0-11.0) % Eos % (Auto) (0.0-7.0) % Baso % (Auto) (0.0-3.0) % Neut # (Auto) (1.7-7.0) K/uL Lymph # (Auto) (0.90-2.90) K/uL [place] # (Auto) (0.00-0.90) K/UL Eos # (Auto) (0.00-0.50) K/uL Baso # (Auto) (0.00-0.30) K/uL Abs Immat Gran (auto) (0.00-0.30) K/uL Imm/Tot Granulo (auto) % Sodium (135-149) mmol/L Potassium (3.6-5.1) mmol/L Chloride (96-114) mmol/L Carbon Dioxide (20-32) mmol/L Anion Gap (7-15) mEq/L BUN (7-30) mg/dL Creatinine (0.5-1.5) mg/dL Estimated Creat Clear Estimated GFR ml/min Glucose (60-115) mg/dL Lactate (0.5-1.9) mmol/L Calcium (8.4-10.6) mg/dL Magnesium (1.5-2.6) mg/dL Total Bilirubin (0.1-1.5) mg/dL AST (12-35) U/L ALT (4-50) U/L Alkaline Phosphatase (40-150) U/L Total Protein (6.0-8.3) g/dL Albumin (3.3-5.0) g/dL Urine Color Yellow (Yellow) Urine Appearance Clear (Clear) Urine pH 5.0 (5.0-8.5) Ur Specific [place] 1.025 (1.000-1.030) Urine Protein 1+ A (Negative) Urine Glucose (UA) 3+ A (Negative) Urine Ketones Trace A (Negative) Urine Blood Negative (Negative) Urine Nitrite Negative (Negative) Urine Bilirubin Negative (Negative) Urine Urobilinogen 0.2 (0.2-1.0) Ur Leukocyte Esterase Negative (Negative) Urine RBC 0-2 (0-2) Urine WBC 0-2 (0-5) Ur Squamous Epith Cells Few (None-Few) Urine Bacteria None (None) SARS-CoV-2 (PCR) (Negative) Influenza Type A (PCR) (Negative) Influenza Type B (PCR) (Negative) RSV (PCR) (Negative) Lab Acknowledgement Test Added POC Troponin I (0.01-0.04) ng/ml Imaging Data US - abdomen: Attestation: I have reviewed the pertinent imaging results. Radiologist's impression: 1. Gallbladder distention and biliary sludge without cholelithiasis or other sonographic evidence of acute cholecystitis, indeterminate. Consider further evaluation with a nuclear medicine HIDA scan if clinically warranted. 2. Diffuse hepatic steatosis. Dictated by Raul Mccarthy MD @ 02/29/2024 8:42:[address] scan abdomen and pelvis: Attestation: I have reviewed the pertinent imaging results. Radiologist's impression: 1. Mild wall thickening and hyperenhancement involving loops of nondistended, fluid-filled small bowel diffusely, raising the possibility of an underlying nonspecific infectious versus inflammatory enteritis. No bowel obstruction. 2. Gallbladder distention without cholelithiasis, gallbladder wall thickening or adjacent inflammatory changes to suggest acute cholecystitis. 3. Splenomegaly. 4. Diffuse hepatic steatosis. Please note that all CT scans at this facility use dose modulation, iterative reconstruction, and/or weight-based dosing when appropriate to reduce radiation dose to as low as reasonably achievable. Dictated by Raul Mccarthy MD @ 02/29/2024 8:54:48 PM Chest x-ray: Attestation: I have reviewed the pertinent imaging results. Radiologist's impression: No acute cardiac pulmonary process identified. There are mild multilevel wedge compression fractures of the lower thoracic and upper lumbar spine. Dictated by Del Wade MD @ 02/29/2024 8:48:03 PM ECG Data Attestation: I personally reviewed and interpreted this ECG as follows: Prior ECG tracings: not available for review Interpretation: Normal sinus rhythm with a rate of 134 beats per minute, right axis deviation, normal intervals, no ST or T-wave abnormalities Discharge Plan Discharge Clinical Impression: Sepsis Qualifiers: Sepsis type: sepsis due to unspecified organism Sepsis acute organ dysfunction status: unspecified Qualified Code(s): A41.9 - Sepsis, unspecified organism Patient Disposition: Admitted As Observation Condition: Guarded Follow Up/Referrals: Provider,Not a Local [Primary Care Provider] -
--- OUTSIDE RECORDS SUMMARY | 2024-02-29 19:28 | XMS_ITS | Encounter Summary ---
Author Organization [facility] Address [address] [place] [address] Care Team Providers Care Industrial Servicer Name Role Phone Hansel Gillespie MD Primary Care Provider [phone] Ange Munoz PA-C Unavailable Unavailable Elizabeth Steward MD Unavailable + Abdirizak Villalta MD Unavailable [phone] Kelley Gunderson MD Primary Care Provider [phone] Kelley Gunderson MD Unavailable [phone] Kelley Gunderson MD Unavailable [phone] Abdirizak Villalta MD Unavailable [phone] Hugo Osborne MD Unavailable [phone] Kassie Elizabeth MD Unavailable [phone] Kassie Elziabeth MD Primary Care Provider [phone] Holli Damian PA-C Unavailable [phone] Dilip Tate DPM Unavailable [phone] Abdirizak Villalta MD Unavailable [phone] Kassie Martinez [facility] Unavailable [phone] Shani Madison RN Unavailable Unavailable Jackie Muñoz RN Unavailable Unavailable Juan Kassie [facility] Unavailable [phone] Darcy Trevino RN Unavailable Unavailable JuanReynaKassie [facility] Unavailable [phone] Luh Tapia PA-C Unavailable [phone] Holli Damian PA-C Unavailable [phone] Luh Tapia PA-C Unavailable [phone] Abdiel New PA-C Unavailable [phone] Katie Reina DPM, Podiatry /Foot and Ankle Surgery Unavailable Cl Hugo MD Unavailable [phone] Christopher Castaneda DO Unavailable [phone] Markie Wade MD Unavailable [phone] Dilip Tate DPM Unavailable [phone] Christopher Castaneda DO Unavailable [phone] Encounter Details Date Type Department Care Team (Late st Contact Info) Description 04/27/2015 MyC Medical Advice Hepatology/Gastroenterol ogy 2nd Floor, Clinic [address] [phone] Ange Munoz PA-C Social History Tobacco Use Types Packs/Day Years Used Date Smoking Tobacco: Former Cigarettes 1 35 0 05/13/1976 - 05/10/2011 Smokeless Tobacco: Never Alcohol Use Standard Drinks/Week Comments No 0 (1 standard drink = 0.6 oz pur e alcohol) Sex and Gender Information Value Date Recorded Sex Assigned at Male 06/23/2020 10:21 PM CDT Legal Sex Male 3:30 AM DECORATIVE ENGRAVER Gender Identity Male 06/23/2020 10:21 PM CDT Sexual Orientation Straight 06/23/2020 10 :21 PM CDT documented as of this encounter Plan of Treatment Upcoming Encounters Date Type Department Care Team (Late st Contact Info) Description 04/09/2024 9:30 AM DECORATIVE ENGRAVER Office Visit [facility] [address] [place] [address] [place] [address] [place], [place] [id number] 04/14/2024 2:00 PM DECORATIVE ENGRAVER Office Visit [facility] [address] [place] [address] Kassie Martinez, [facility] [address] [place], [place] [id number] documented as of this encounter Visit Diagnoses Not on filedocumented in this encounter Additional Health Concerns Infection Onset Date Last Indicated Resolved Time Rule Out COVID-19 03/01/2022 03/01/2022 03/22/2022 11:41 PM DECORATIVE ENGRAVER Rule Out COVID-19 06/13/2022 06/13/2022 06/14/2022 9:45 AM CDT Assessment Noted Time PHQ-9 Depression Total Score: 0 01/07/20 15 7:31 AM DECORATIVE ENGRAVER documented as of this encounter Care Teams Industrial Servicer Relationship Specialty Start Date End Date Hansel Gillespie MD PCP - General 03/16/07 03/11/17 Kelley Gunderson MD [address] [facility] [address] [place] [address] PCP - General Internal Medicine 03/12/17 01/28/21 Kelley Gunderson MD [address] [place] [address] PCP - Assigned PCP 05/04/17 04/28/18 [place] [address] [facility] [place] [address] PCP - General Family Medicine 01/29/21 Ange Munoz PA-C Physician Packaging Machine Supplies Distributor Physician Packaging Machine Supplies Distributor 04/27/15 04/27/15 Elizabeth Steward MD [address] [place] [address] Internal Medicine 06/13/16 09/23/16 Abdirizak Villalta MD [address] [place] [address] Referring Physician Gastroenterology 09/24/16 Kelley Gunderson MD [address] [place] [address] Assigned PCP 05/04/17 10/14/20 Abdirizak Villalta MD [address] [place] [address] Assigned Gastroenterology Provider 12/17/19 06/17/20 [place] [address] [address] Assigned Musculoskeletal Provider 12/17/19 01/27/21 [place] [address] [place] [address] Assigned PCP 10/15/20 Holli Damian PA-C [address] [place] [address] Assigned Surgical Provider 02/04/21 04/26/22 Dilip Tate DPM [address] [facility] [address] [place] [address] Assigned Musculoskeletal Provider 01/28/21 07/26/22 Abdirizak Villalta MD [address] [facility] [address] [place] [address] Assigned Gastroenterology Provider 01/28/21 07/26/22 Kassie Martinez [facility] [address] [place] [address] Pharmacist Pharmacist 05/14/21 Shani Madison, MARIE Personal Advocate & Liaison (PAL) Family Medicine 05/15/21 07/06/21 Jackie Muñoz, MARIE Personal Advocate & Liaison (PAL) Family Medicine 07/06/21 05/22/22 Kassie Martinez [facility] [address] [place] [address] Assigned MTM Pharmacist 07/21/21 Darcy Trevino, heat reader Diabetes Education 09/25/21 Kassie Martinez [facility] [address] [place] [address] Assigned MTM Pharmacist 11/21/21 Luh Tapia PA-C [address] [place] [address] Assigned Surgical Provider 04/27/22 06/21/22 Holli Damian PA-C [address] [place] [address] Assigned Surgical Provider 06/22/22 06/28/22 Luh Tapia PA-C [address] [place] [address] Assigned Surgical Provider 06/29/22 08/16/23 Abdiel New PA-C [address] [place] [address] Assigned Musculoskeletal Provider 12/21/22 01/03/23 Katie Reina DPM, Podiatry/Foot and Ankle Surgery [address] [facility] [address] [place] [address] Assigned Musculoskeletal Provider 01/04/23 06/16/23 Cl Hugo MD [address] [place] [address] Urology 01/28/23 [place] [address] [facility] [address] [place] [address] Assigned Musculoskeletal Provider 06/17/23 08/16/23 Markie Wade MD [address] [place] [address] Assigned Surgical Provider 08/17/23 [place] [address] [facility] [address] [place] [address] Assigned Musculoskeletal Provider 08/17/23 01/16/24 [place] [address] [facility] [address] [place] [address] Assigned Musculoskeletal Provider 01/17/24 documented as of this encounter
--- OUTSIDE RECORDS SUMMARY | 2024-02-29 19:28 | XMS_ITS | Encounter Summary ---
Author Organization [facility] Address [address] [place] [address] Care Team Providers Care Wax Pourer Name Role Phone Abdirizak Villalta MD Unavailable [phone] Kelley Gunderson MD Primary Care Provider + [phone] Kelley Gunderson MD Unavailable [phone] Abdirizak Villalta MD Unavailable +[phone] Hugo Osborne MD Unavailable [phone] Kassie Elizabeth MD Unavailable [phone] Kassie Elizabeth MD Primary Care Provider +[phone] Holli Damian PA-C Unavailable +[phone] Dilip Tate DPM Unavailable +[phone] Abdirizak Villalta MD Unavailable +[phone] Kassie Martinez [facility] Unavailable +[phone] Shani Madison RN Unavailable Unavailable Jackie Muñoz RN Unavailable Unavailable Kassie Martinez [facility] Unavailable +[phone] Darcy Trevino RN Unavailable Unavailable Kassie Martinez [facility] Unavailable +[phone] Luh Tapia PA-C Unavailable +[phone] Holli Damian PA-C Unavailable +[phone] Luh Tapia PA-C Unavailable +[phone] Abdiel New PA-C Unavailable [phone] Katie Reina DPM, Podiatry /Foot and Ankle Surgery Unavailable Cl Hugo MD Unavailable [phone] Christopher Castaneda DO Unavailable Markie Wade MD Unavailable [phone] Dilip Tate DPM Unavailable [phone] Christopher Castaneda DO Unavailable [phone] Encounter Details Date Type Department Care Team (Late st Contact Info) Description 06/16/2018 MyC Medical Advice [facility] [address] [facility] [address] [place] [phone] Holli Panda, MARIE Social History Tobacco Use Types Packs/Day Years [...] PM CDT 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 Gender Identity Male 06/23/2020 10:21 PM CDT Sexual Orientation Straight 06/23/2020 10 :21 PM CDT documented as of this encounter Plan of Treatment Upcoming Encounters Date Type Department Care Team (Late st Contact Info) Description 04/09/2024 9:30 AM ORTHODONTIST ASSISTANT Office Visit [facility] [address] [place] [address] [place] [address] [place] [address] 04/14/2024 2:00 PM ORTHODONTIST ASSISTANT Office Visit [address] [phone] Kassie Martinez, [facility] [address] [place], [place] [phone] documented as of this encounter Visit Diagnoses Not on filedocumented in this encounter Additional Health Concerns Infection Onset Date Last Indicated Resolved Time Rule Out COVID-19 03/01/2022 03/01/2022 03/22/2022 11:41 PM ORTHODONTIST ASSISTANT Rule Out COVID-19 06/13/2022 06/13/2022 06/14/2022 9:45 AM CDT Assessment Noted Time PHQ-9 Depression Total Score: 0 01/07/20 15 7:31 AM ORTHODONTIST ASSISTANT documented as of this encounter Care Teams Wax Pourer Relationship Specialty Start Date End Date Kelley Gunderson MD [address] [place] [address] PCP - General Internal Medicine 03/12/17 01/28/21 [place] [address] [place] [address] PCP - General Family Medicine 01/29/21 Abdirizak Villalta MD [address] [place] [address] Referring Physician Gastroenterology 09/24/16 Kelley Gunderson MD [address] [place] [address] Assigned PCP 05/04/17 10/14/20 Abdirizak Villalta MD [address] [place] [address] [address] [place] [address] Assigned Gastroenterology Provider 12/17/19 06/17/20 [place] [address] [facility] [address] [place], [place] 79[address]77 Assigned Musculoskeletal Provider 12/17/19 01/27/21 [place] [address] [place] [address] Assigned PCP 10/15/20 Holli Damian PA-C [address] [facility] [place] [address] Assigned Surgical Provider 02/04/2104/26/22 Dilip Tate DPM [id number] [place] [address] 300 [place], [place] 0[address]17 Assigned Musculoskeletal Provider 01/28/21 07/26/22 Abdirizak Villalta MD [address] [place] [address] [address] [place] [address] Assigned Gastroenterology Provider 01/28/21 07/26/22 Kassie Martinez RPH [address] [place] [id number] Pharmacist Pharmacist 05/14/21 Shani Madison, RN Personal Advocate & Liaison ([facility]) Family Medicine 05/15/21 07/06/21 Jackie Muñoz RN Personal Advocate & Liaison ([facility]) Family Medicine 07/06/21 05/22/22 [facility] [address] [place] [address] Assigned MTM Pharmacist 07/21/21 Darcy Trevino, lap regulator Diabetes Education 09/25/21 [facility] [address] [place] [address] Assigned MTM Pharmacist 11/21/21 Luh Tapia PA-C [address] [place] [address] Assigned Surgical Provider 04/27/22 Holli Damian PA-C [address] [place] [address] Assigned Surgical Provider 06/22/2206/28/22 Luh Tapia PA-C [address] [place] [address] Assigned Surgical Provider 06/29/22 Abdiel New PA-C [address] [place] [address] Assigned Musculoskeletal Provider 12/21/22 01/03/23 Katie Reina, DPM, Podiatry/Foot and Ankle Surgery [address] [place] [address] Assigned Musculoskeletal Provider 01/04/23 06/16/23 Cl Hugo MD [address] [facility] 394 [place] [address] Urology 01/28/23 [place] [address] [facility], [facility] 300 [place] [address] Assigned Musculoskeletal Provider 06/17/23 08/16/23 Markie Wade MD [address] [place] [address] Assigned Surgical Provider 08/17/23 Dilip Tate DPM [address] [facility] 300 [place] [address] Assigned Musculoskeletal Provider 08/17/23 01/16/24 [place] [address] [address]BAJAL, [facility] 300 [place] [address] Assigned Musculoskeletal Provider 01/17/24 documented as of this encounter
--- OUTSIDE RECORDS SUMMARY | 2024-02-29 19:28 | XMS_ITS | Encounter Summary ---
Author Organization [facility] Address [address] [place] [address] Care Team Providers Care Hydroelectric Plant Technician Name Role Phone Hansel Gillespie MD Primary Care Provider [phone] Abdirizak Villalta MD Unavailable [phone] Kelley Gunderson MD Primary Care Provider +[phone] Kelley Gunderson MD Unavailable [phone] Kelley Gunderson MD Unavailable [phone] Abdirizak Villalta MD Unavailable [phone] Hugo Osborne MD Unavailable [phone] Kassie Elizabeth MD Unavailable [phone] Kassie Elizabeth MD Primary Care Provider [phone] Holli Damian PA-C Unavailable +[phone] Dilip Tate DPM Unavailable [phone] Abdirizak Villalta MD Unavailable [phone] Kassie Martinez [facility] Unavailable [phone] Shani Madison RN Unavailable Unavailable Jackie Muñoz RN Unavailable Unavailable Kassie Martinez [facility] Unavailable [phone] Darcy Trevino RN Unavailable Unavailable Kassie Martinez [facility] Unavailable [phone] Luh Tapia PA-C Unavailable [phone] NatiHolli underwood Connie PA-C Unavailable +[phone] Luh Tapia PA-C Unavailable [phone] Abdiel New PA-C Unavailable [phone] Katie Reina DPM, Podiatry /Foot and Ankle Surgery Unavailable Cl Hugo MD Unavailable [phone] Christopher Castaneda DO Unavailable [phone] Markie Wade MD Unavailable [phone] Dilip TateM Unavailable [phone] Christopher Castaneda DO Unavailable [phone] Encounter Details Date Type Department Care Team (Late st Contact Info) Description 09/26/2016 MyC Medical Advice [address] [address] Hansel Gillespie MD [address] [place] [address] Social History Tobacco Use Types Packs/Day Years Used Date Smoking Tobacco: Former Cigarettes 1 35 0 05/13/1976 - 05/10/2011 Smokeless Tobacco: Never Alcohol Use Standard Drinks/Week Comments No 0 (1 standard drink = 0.6 oz pur e alcohol) Sex and Gender Information Value Date Recorded Sex Assigned at Male 06/23/2020 10:21 PM CDT 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 Pt states he will just talk to MD about it next time he comes in .Gisella Suh RN * Telephone Encounter - Rachel Arndt CMA - 10/08/2016 9:17 AM CDT Called and left VM to call back the clinic. Will postpone until tomorrow. * Telephone Encounter - Hansel Gillespie MD - 10/08/2016 2:22 AM CDT Please call Dhruv to find out how he's doing. * Telephone Encounter - Yamile Oneill RN - 09/26/2016 10:20 AM CDT See Dympolt message: Hi, I would like Dr. Gillespie to consider giving me a script for Qualaquin or Quinine Sulfate for leg cramps. I'm doing more walking and stairs at work do to increased workload. I'm having quite a few leg cramps as a result. I have a history of blood clots caused by leg cramps.I've taken this med before and it works very well.? Patient reports history of blood clot in leg. Has always had leg cramps, but in past 3-4 weeks havegotten more severe and hard to get rid of. Has cramps in groin area as well. No CP/SOB. No redness//warmth. Baseline left leg swelling. Cannot walk when gets cramp. Pain gets worse with walking. 1010 pain when cramps come. Recommended patient be seen today especially with history. Patient has to work today at 3. No available appointments but offered different clinic/UC and patient refused. Is hoping not to have to be seen. Please advise. Onset/duration: Worsened in last 3-4 weeks Precip. factors: Doing more walking and stairs at work Pain scale (0-10) 12/03 Last exam/Treatment: 09/03/16 Allergies: Allergies Allergen Reactions ??? Niacin FLUSHING ??? Rosuvastatin Calcium MUSCLE PAIN NURSING PLAN: Routed to provider Yes RECOMMENDED DISPOSITION: See in 24 hours - patient declined. Do not massage areas in case of clot. Will comply with recommendation: No- Barriers to comply with plan of care patient has to work and no appointment available here this morning, declined other clinic/UC. If further questions/concerns or if symptoms do not improve, worsen or new symptoms develop, call your PCP or [facility] as soon as possible. 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 [address] [place] [address] Kassie Martinez, [facility] [address] [place] [address] documented as of this encounter Visit Diagnoses Not on filedocumented in this encounter Additional Health Concerns Infection Onset Date Last Indicated Resolved Time Rule Out COVID-19 03/01/2022 03/01/2022 03/22/2022 11:41 PM SOLE MOLDING MACHINE OPERATOR Rule Out COVID-19 06/13/2022 06/13/2022 06/14/2022 9:45 AM CDT Assessment Noted Time PHQ-9 Depression Total Score: 0 01/07/20 15 7:31 AM SOLE MOLDING MACHINE OPERATOR documented as of this encounter Care Teams Hydroelectric Plant Technician Relationship Specialty Start Date End Date Hansel Gillespie MD PCP - General 03/16/07 03/11/17 Kelley Gunderson MD [address] [place] [address] PCP - General Internal Medicine 03/12/17 01/28/21 Kelley Gunderson MD [address] [place] [address] PCP - Assigned PCP 05/04/17 04/28/18 [place] [address] [place] [address] PCP - General Family Medicine 01/29/21 Abdirizak Villalta MD [address] [place] [address] [address] [place], [place] [address] Referring Physician Gastroenterology 09/24/16 Kelley Gunderson MD [address] [place] [address] Assigned PCP 05/04/17 10/14/20 Abdirizak Villalta MD [address] [place] [address] [address] [place], [place] 9[address] Assigned Gastroenterology Provider 12/17/19 06/17/20 [place] [address] [facility] 300 [place], [place] [address]297 Assigned Musculoskeletal Provider 12/17/19 01/27/21 [place] [address] [place] [address] Assigned PCP 10/15/20 Holli Damian PA-C [address] [facility] [address] [place], [place] [address] Assigned Surgical Provider 02/04/2104/26/22 Dilip Tate DPM [address] [place] [address] 300 [place], [place] 698987 Assigned Musculoskeletal Provider 01/28/21 07/26/22 Abdirizak Villalta MD [address] [place] [address] [address] [place], [place] [address] Assigned Gastroenterology Provider 01/28/21 07/26/22 Kassie Martinez RPH [address] [place] [address] [phone] Pharmacist Pharmacist 05/14/21 Shani Madison, RN Personal Advocate & Liaison ([facility]) Family Medicine 05/15/21 07/06/21 Jackie Muñoz, RN Personal Advocate & Liaison ([facility]) Family Medicine 07/06/21 05/22/22 [facility] [address] [place] [address] Assigned MTM Pharmacist 07/21/21 Darcy Trevino, striper spray gun Diabetes Education 09/25/21 [facility] [address] [place] [address] Assigned MTM Pharmacist 11/21/21 Luh Tapia PA-C [address] [place] [address] Assigned Surgical Provider 04/27/22 Holli Damian PA-C [address] [place] [address] Assigned Surgical Provider 06/22/2206/28/22 Luh Tapia PA-C [address] [place] [address] Assigned Surgical Provider 06/29/22 Abdiel New PA-C [address] [place] [address] Assigned Musculoskeletal Provider 12/21/22 01/03/23 Katie Reina DPM, Podiatry/Foot and Ankle Surgery [address] [facility] 300 [place] [address] Assigned Musculoskeletal Provider 01/04/23 06/16/23 Cl Hugo MD [address] [place] [address] 394 [place] [address] Urology 01/28/23 [place] [address] [address]AL, [facility] 300 [place] [address] Assigned Musculoskeletal Provider 06/17/23 08/16/23 Markie Wade MD 909 [place] [address] Assigned Surgical Provider 08/17/23 [place] [address] [facility] 300 [place] [address] Assigned Musculoskeletal Provider 08/17/23 01/16/24 [place] [address] [address], [facility] 300 [place] [address] Assigned Musculoskeletal Provider 01/17/24 documented as of this encounter
--- OUTSIDE RECORDS SUMMARY | 2024-02-29 19:28 | XMS_ITS | Encounter Summary ---
Author Organization [facility] Address [address] [place] [address] Care Team Providers Care Trust Evaluation Supervisor Name Role Phone Hansel Gillespie MD Primary Care Provider [phone] Abdirizak Villalta MD Unavailable [phone] Kelley Gunderson MD Primary Care Provider [phone] Kelley Gunderson MD Unavailable +[phone] Kelley Gunderson MD Unavailable +[phone] Abdirizak Villalta MD Unavailable [phone] Hugo Osborne MD Unavailable [phone] Kassie Elizabeth MD Unavailable [phone] Kassie Elizabeth MD Primary Care Provider +[phone] Holli Damian PA-C Unavailable [phone] Dilip Tate DPM Unavailable +[phone] Abdirizak Villalta MD Unavailable [phone] Kassie Martinez [facility] Unavailable +[phone] Shani Madison RN Unavailable Unavailable Jackie Muñoz RN Unavailable Unavailable Kassie Martinez [facility] Unavailable Darcy Trevino RN Unavailable Unavailable Kassie Martinez [facility] Unavailable [phone] Luh Tapia PA-C Unavailable [phone] NatiHolli underwood Connie PA-C Unavailable +[phone] Luh Tapia PA-C Unavailable [phone] Abdiel New PA-C Unavailable [phone] Katie Reina DPM, Podiatry /Foot and Ankle Surgery Unavailable Cl Hugo MD Unavailable [phone] Christopher Castaneda DO Unavailable Markie Wade MD Unavailable [phone] Dilip TateM Unavailable [phone] Christopher Castaneda DO Unavailable [phone] Encounter Details Date Type Department Care Team (Late st Contact Info) Description 09/27/2016 [facility] [address] [address] Abdirizak Villalta MD [address] [place] [address] Social History Tobacco Use Types Packs/Day Years Used Date Smoking Tobacco: Former Cigarettes 1 35 0 05/13/1976 - 05/10/2011 Smokeless Tobacco: Never Alcohol Use Standard Drinks/Week Comments No 0 (1 standard drink = 0.6 oz pur e alcohol) Sex and Gender Information Value Date Recorded Sex Assigned at Male 06/23/2020 10:21 PM CDT 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 Gender Identity Male 06/23/2020 10:21 PM CDT Sexual Orientation Straight 06/23/2020 10 :21 PM CDT documented as of this encounter Plan of Treatment Upcoming Encounters Date Type Department Care Team (Late st Contact Info) Description 04/09/2024 9:30 AM PIECE WORK CHECKER Office Visit [facility] [address] [place] [phone] [place] [address] [place], [place] [address] 04/14/2024 2:00 PM PIECE WORK CHECKER Office Visit [facility] [address] [place] [phone] Kassie Martinez, [facility] [address] [place], [place] [id number] documented as of this encounter Visit Diagnoses Not on filedocumented in this encounter Additional Health Concerns Infection Onset Date Last Indicated Resolved Time Rule Out COVID-19 03/01/2022 03/01/2022 03/22/2022 11:41 PM PIECE WORK CHECKER Rule Out COVID-19 06/13/2022 06/13/2022 06/14/2022 9:45 AM CDT Assessment Noted Time PHQ-9 Depression Total Score: 0 01/07/20 15 7:31 AM PIECE WORK CHECKER documented as of this encounter Care Teams Trust Evaluation Supervisor Relationship Specialty Start Date End Date Hansel Gillespie MD PCP - General 03/16/07 03/11/17 Kelley Gunderson MD [address] [place] [address] PCP - General Internal Medicine 03/12/17 01/28/21 Kelley Gunderson MD [address] [place] [address] PCP - Assigned PCP 05/04/17 04/28/18 [place] [address] [place] [address] PCP - General Family Medicine 01/29/21 Abdirizak Villalta MD [address] [facility] [address] [place] [address] Referring Physician Gastroenterology 09/24/16 Kelley Gunderson MD [address] [place] [address] Assigned PCP 05/04/17 10/14/20 Abdirizak Villalta MD [address] [facility] [address] [place] [address] Assigned Gastroenterology Provider 12/17/19 06/17/20 [place] [address] [employer] [facility] 300 [place] [address] Assigned Musculoskeletal Provider 12/17/19 01/27/21 [place] [address] [place] [address] Assigned PCP 10/15/20 Holli Damian PA-C [address] [facility] [address] [place] [address] Assigned Surgical Provider 02/04/2104/26/22 [place] [address] [employer] [facility] 300 [place], [place] [address] Assigned Musculoskeletal Provider 01/28/21 07/26/22 Abdirizak Villalta MD [address] [facility] [address] [place] [address] Assigned Gastroenterology Provider 01/28/21 07/26/22 Kassie Martinez [facility] [address] [place] [address] Pharmacist Pharmacist 05/14/21 Shani Madison, MARIE Personal Advocate & Liaison ([facility]) Family Medicine 05/15/21 07/06/21 Jackie Muñoz RN Personal Advocate & Liaison ([facility]) Family Medicine 07/06/21 05/22/22 [facility] [address] [place] [address] Assigned MTM Pharmacist 07/21/21 Darcy Trevino, receiving clerk Diabetes Education 09/25/21 [facility] [address] [place] [address] Assigned MTM Pharmacist 11/21/21 Luh Tapia PA-C [address] [place] [address] Assigned Surgical Provider 04/27/22 Holli Damian PA-C [address] [place] [address] Assigned Surgical Provider 06/22/2206/28/22 Luh Tapia PA-C [address] [place] [address] Assigned Surgical Provider 06/29/22 Abdiel New PA-C [address] [place] [address] Assigned Musculoskeletal Provider 12/21/22 01/03/23 Katie Reina DPM, Podiatry/Foot and Ankle Surgery [address] [facility] 300 [place] [address] Assigned Musculoskeletal Provider 01/04/23 06/16/23 Cl Hugo MD [address] [place] [address] Urology 01/28/23 [place] [address] [address], [facility] 300 [place] [address] Assigned Musculoskeletal Provider 06/17/23 08/16/23 Markie Wade MD 909 [place] [address] Assigned Surgical Provider 08/17/23 [place] [address] [facility] [address] [place] [address] Assigned Musculoskeletal Provider 08/17/23 01/16/24 [place] [address] [address], [facility] 300 [place] [address] Assigned Musculoskeletal Provider 01/17/24 documented as of this encounter
--- OUTSIDE RECORDS SUMMARY | 2024-02-29 19:28 | XMS_ITS | Encounter Summary ---
Author Organization [facility] Address [address] [place] [address] Care Team Providers Care Change Over Name Role Phone Hansel Gillespie MD Primary Care Provider [phone] Elizabeth Steward MD Unavailable + Abdirizak Villalta MD Unavailable +[phone] Kelley Gunderson MD Primary Care Provider + [phone] Kelley Gunderson MD Unavailable +[phone] Kelley Gunderson MD Unavailable +[phone] Abdirizak Villalta MD Unavailable +[phone] Hugo Osborne MD Unavailable +[phone] Kassie Elizabeth MD Unavailable +[phone] Kassie Elizabeth MD Primary Care Provider +[phone] Holli Damian PA-C Unavailable +[phone] Dilip Tate DPM Unavailable +[phone] Abdirizak Villalta MD Unavailable +[phone] Kassie Martinez [facility] Unavailable +[phone] Shani Madison RN Unavailable Unavailable Jackie Muñoz RN Unavailable Unavailable Juan Kassie [facility] Unavailable +[phone] Darcy Trevino RN Unavailable Unavailable JuanKassie min [facility] Unavailable +[phone] Luh Tapia PA-C Unavailable +[phone] NatiHolli underwood Connie PA-C Unavailable +[phone] Luh Tapia PA-C Unavailable +[phone] Abdiel Sophy PA-C Unavailable [phone] Katie Reina DPM, Podiatry /Foot and Ankle Surgery Unavailable Cl Hugo MD Unavailable +[phone] Christopher Castaneda DO Unavailable [phone] Markie Wade MD Unavailable [phone] Dilip Tate DPM Unavailable +[phone] Christopher Castaneda DO Unavailable [phone] Encounter Details Date Type Department Care Team (Late st Contact Info) Description 01/01/2016 [facility] [address] [address] Hansel Gillespie MD [address] [address] Social History Tobacco Use Types Packs/Day Years Used Date Smoking Tobacco: Former Cigarettes 1 35 0 05/13/1976 - 05/10/2011 Smokeless Tobacco: Never Alcohol Use Standard Drinks/Week Comments No 0 (1 standard drink = 0.6 oz pur e alcohol) Sex and Gender Information Value Date Recorded Sex Assigned at Male 06/23/2020 10:21 PM CDT Legal Sex Male 3:30 AM RN CHILD Gender Identity Male 06/23/2020 10:21 PM CDT Sexual Orientation Straight 06/23/2020 10 :21 PM CDT documented as of this encounter Plan of Treatment Upcoming Encounters Date Type Department Care Team (Late st Contact Info) Description 04/09/2024 9:30 AM RN CHILD Office [facility] [address] [place] [phone] [place] [address] [place], [place] [address] 04/14/2024 2:00 PM RN CHILD Office Visit [facility] [address] [place] [address] Kassie Martinez, [facility] [address] [place] [address] documented as of this encounter Visit Diagnoses Not on filedocumented in this encounter Additional Health Concerns Infection Onset Date Last Indicated Resolved Time Rule Out COVID-19 03/01/2022 03/01/2022 03/22/2022 11:41 PM RN CHILD Rule Out COVID-19 06/13/2022 06/13/2022 06/14/2022 9:45 AM CDT Assessment Noted Time PHQ-9 Depression Total Score: 0 01/07/20 15 7:31 AM RN CHILD documented as of this encounter Care Teams Change Over Relationship Specialty Start Date End Date Hansel Gillespie MD PCP - General 03/16/07 03/11/17 Kelley Gunderson MD 516 [facility] [address] [place], [place] [address] PCP - General Internal Medicine 03/12/17 01/28/21 Kelley Gunderson MD [address], [place] [address] PCP - Assigned PCP 05/04/17 04/28/18 [place] [address] [place] [address] PCP - General Family Medicine 01/29/21 Elizabeth Steward MD [address] [place] [address] Internal Medicine 06/13/16 09/23/16 Abdirizak Villalta MD [address] [place] [address] Referring Physician Gastroenterology 09/24/16 Kelley Gunderson MD [address] [place] [address] Assigned PCP 05/04/17 10/14/20 Abdirizak Villalta MD [address] [place] [address] 427835 Assigned Gastroenterology Provider 12/17/19 06/17/20 [place] [address] 8[address] Assigned Musculoskeletal Provider 12/17/19 01/27/21 [place] [address] [place] [address] Assigned PCP 10/15/20 Holli Damian PA-C 6405 [facility] [place] [address] Assigned Surgical Provider 02/04/2104/26/22 [place] [address] [facility] [address] [place] [address] Assigned Musculoskeletal Provider 01/28/21 07/26/22 Abdirizak Villalta MD [address] [address] Assigned Gastroenterology Provider 01/28/21 07/26/22 Kassie Martinez [facility] [address] [place] [address] Pharmacist Pharmacist 05/14/21 Shani Madison, MARIE Personal Advocate & Liaison ([facility]) Family Medicine 05/15/21 07/06/21 Jackie Muñoz RN Personal Advocate & Liaison ([facility]) Family Medicine 07/06/21 05/22/22 Kassie Martinez [facility] [address] [place] [address] Assigned MTM Pharmacist 07/21/21 Darcy Trevino, irrigator head Diabetes Education 09/25/21 Kassie Martinez [facility] [address] [place] [address] Assigned MTM Pharmacist 11/21/21 Luh Tapia PA-C [address] [address] Assigned Surgical Provider 04/27/22 Holli Damian PA-C [address] [place] [address] Assigned Surgical Provider 06/22/2206/28/22 Luh Tapia PA-C [address] [place] [address] Assigned Surgical Provider 06/29/22 Abdiel New PA-C [address] [address] Assigned Musculoskeletal Provider 12/21/22 01/03/23 Katie Reina DPM, Podiatry/Foot and Ankle Surgery [address] [facility] 300 [place] [address] Assigned Musculoskeletal Provider 01/04/23 06/16/23 Cl Hugo MD [address] [place] [address] Urology 01/28/23 [place] [address] [facility] 300 [place] [address] Assigned Musculoskeletal Provider 06/17/23 08/16/23 Markie Wade MD [address] [place] [address] 379125 Assigned Surgical Provider 08/17/23 Dilip Tate DPM [address] [facility] [address] [place] [address] Assigned Musculoskeletal Provider 08/17/23 01/16/24 [place] [address] [address] CARBAJAL, [address] [address] Assigned Musculoskeletal Provider 01/17/24 documented as of this encounter
--- OUTSIDE RECORDS SUMMARY | 2024-02-29 19:28 | XMS_ITS | Encounter Summary ---
Author Organization [facility] Address [address] [place] [address] Care Team Providers Care Still Runner Name Role Phone Hansel Gillespie MD Primary Care Provider [phone] Abdirizak Villalta MD Unavailable [phone] Kelley Gunderson MD Primary Care Provider +[phone] Kelley Gunderson MD Unavailable +[phone] Kelley Gunderson MD Unavailable +[phone] Abdirizak Villalta MD Unavailable [phone] Hugo Osborne MD Unavailable +[phone] Ksasie Elizabeth MD Unavailable [phone] Kassie Elizabeth MD Primary Care Provider +[phone] Holli Damian PA-C Unavailable +[phone] Dilip Tate DPM Unavailable +[phone] Abdirizak Villalta MD Unavailable [phone] Kassie Martinez [facility] Unavailable +[phone] Shani Madison RN Unavailable Unavailable Jackie Muñoz RN Unavailable Unavailable Kassie Martinez [facility] Unavailable Darcy Trevino RN Unavailable Unavailable Kassie Martinez [facility] Unavailable [phone] Luh Tapia PA-C Unavailable +[phone] NatiHolli Connie PA-C Unavailable +[phone] Luh Tapia PA-C Unavailable +[phone] Abdiel New PA-C Unavailable [phone] Katie Reina DPM, Podiatry /Foot and Ankle Surgery Unavailable Cl Hugo MD Unavailable [phone] Christopher Castaneda DO Unavailable [phone] Markie Wade MD Unavailable [phone] Dilip TateM Unavailable +[phone] Christopher Castaneda DO Unavailable [phone] Encounter Details Date Type Department Care Team (Late st Contact Info) Description 03/05/2017 [facility] Advice [facility] Specialty [facility] [address] [facility] 3rd [facility] [address] [place] [address] [facility] [address] [place] [address] Social History Tobacco Use Types Packs/Day Years Used Date Smoking Tobacco: Former Cigarettes 1 35 0 05/13/1976 - 05/10/2011 Smokeless Tobacco: Never Alcohol Use Standard Drinks/Week Comments No 0 (1 standard drink = 0.6 oz pur e alcohol) Sex and Gender Information Value Date Recorded Sex Assigned at Male 06/23/2020 10:21 PM CDT Legal Sex Male 3: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 Gender Identity Male 06/23/2020 10:21 PM CDT Sexual Orientation Straight 06/23/2020 10 :21 PM CDT documented as of this encounter Plan of Treatment Upcoming Encounters Date Type Department Care Team (Late st Contact Info) Description 04/09/2024 9: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 Office Visit [facility] [address] [place] [phone] [place] [address] [place], [place] [address] 04/14/2024 2:00 PM WIRE FRAME LAMPSHADE MAKER Office Visit [facility] [address] [place] [phone] Kassie Martinez, [facility] [address] [place], [place] [phone] documented as of this encounter Visit Diagnoses Not on filedocumented in this encounter Additional Health Concerns Infection Onset Date Last Indicated Resolved Time Rule Out COVID-19 03/01/2022 03/01/2022 03/22/2022 11:41 PM WIRE FRAME LAMPSHADE MAKER Rule Out COVID-19 06/13/2022 06/13/2022 06/14/2022 9:45 AM CDT Assessment Noted Time PHQ-9 Depression Total Score: 0 01/07/20 15 7:31 AM WIRE FRAME LAMPSHADE MAKER documented as of this encounter Care Teams Still Runner Relationship Specialty Start Date End Date Hansel Gillespie MD PCP - General 03/16/07 03/11/17 Kelley Gunderson MD [address] [place] [address] PCP - General Internal Medicine 03/12/17 01/28/21 Kelley Gunderson MD [address] [place] [address] PCP - Assigned PCP 05/04/17 04/28/18 [place] [address] [place] [address] PCP - General Family Medicine 01/29/21 Abdirizak Villalta MD 516 [facility] [address] [place] [address] Referring Physician Gastroenterology 09/24/16 Kelley Gunderson MD [address] [place] [address] Assigned PCP 05/04/17 10/14/20 Abdirizak Villalta MD 6 [facility] [address] [place] [address] Assigned Gastroenterology Provider 12/17/19 06/17/20 [place] [address] [employer] [facility] 300 [place] [address] Assigned Musculoskeletal Provider 12/17/19 01/27/21 [place] [address] [place] [address] Assigned PCP 10/15/20 Holli Damian PA-C 6405 [facility] [address] [place] [address] Assigned Surgical Provider 02/04/2104/26/22 [place] [address] [employer] [facility] 300 [place], [place] [address] Assigned Musculoskeletal Provider 01/28/21 07/26/22 Abdirizak Villalta MD 516 [facility] [address] [place] [address] Assigned Gastroenterology Provider 01/28/21 07/26/22 Kassie Martinez [facility] [address] [place] [address] Pharmacist Pharmacist 05/14/21 Shani Madison, MARIE Personal Advocate & Liaison ([facility]) Family Medicine 05/15/21 07/06/21 Jackie Muñoz RN Personal Advocate & Liaison ([facility]) Family Medicine 07/06/21 05/22/22 [facility] [address] [place] [address] Assigned MTM Pharmacist 07/21/21 Darcy Trevino, overseer kosher kitchen Diabetes Education 09/25/21 [facility] [address] [place] [address] Assigned MTM Pharmacist 11/21/21 Luh Tapia PA-C [address] [place] [address] Assigned Surgical Provider 04/27/22 Holli Damian PA-C [address] [place] [address] Assigned Surgical Provider 06/22/2206/28/22 Luh Tapia PA-C [address] [place] [address] Assigned Surgical Provider 06/29/22 Abdiel New PA-C [address] [place] [address] Assigned Musculoskeletal Provider 12/21/22 01/03/23 Katie Reina DPM, Podiatry/Foot and Ankle Surgery [address] [facility] [address] [place] [address] Assigned Musculoskeletal Provider 01/04/23 06/16/23 Cl Hugo MD [address] [place] [address] Urology 01/28/23 [place] [address] [address]AL, [facility] 300 [place] [address] Assigned Musculoskeletal Provider 06/17/23 08/16/23 Markie Wade MD 909 [place] [address] Assigned Surgical Provider 08/17/23 Dilip Tate DPM [address] [facility] [address] [place] [address] Assigned Musculoskeletal Provider 08/17/23 01/16/24 [place] [address] [address]BAJAL, [facility] [address] [place] [address] Assigned Musculoskeletal Provider 01/17/24 documented as of this encounter
--- OUTSIDE RECORDS SUMMARY | 2024-02-29 19:28 | XMS_ITS | Encounter Summary ---
Author Organization [facility] Address [address] [place] [address] Care Team Providers Care Magneto Repairer Name Role Phone Hansel Gillespie MD Primary Care Provider [phone] Abdirizak Villalta MD Unavailable [phone] Kelley Gunderson MD Primary Care Provider +[phone] Kelley Gunderson MD Unavailable +[phone] Kelley Gunderson MD Unavailable +[phone] Abdirizak Villalta MD Unavailable +[phone] Hugo Osborne MD Unavailable +[phone] Kassie Elizabeth MD Unavailable +[phone] Kassie Elizabeth MD Primary Care Provider +[phone] Holli Damian PA-C Unavailable +[phone] Dilip Tate DPM Unavailable +[phone] Abdirizak Villalta MD Unavailable +[phone] Kassie Martinez [facility] Unavailable +[phone] Shani Madison RN Unavailable Unavailable Jackie Muñoz RN Unavailable Unavailable Kassie Martinez [facility] Unavailable Darcy Trevino RN Unavailable Unavailable Kassie Martinez [facility] Unavailable +[phone] Luh Tapia PA-C Unavailable +[phone] NatiHolli underwood Connie PA-C Unavailable +[phone] Luh Tapia PA-C Unavailable +[phone] Abdiel New PA-C Unavailable [phone] Katie Reina DPM, Podiatry /Foot and Ankle Surgery Unavailable Cl Hugo MD Unavailable +[phone] Christopher Castaneda DO Unavailable [phone] Markie Wade MD Unavailable [phone] Dilip TateM Unavailable +[phone] Christopher Castaneda DO Unavailable [phone] Encounter Details Date Type Department Care Team (Late st Contact Info) Description 12/12/2016 [facility] [address] [address] Abdirizak Villalta MD [address] [place] [address] Social History Tobacco Use Types Packs/Day Years Used Date Smoking Tobacco: Former Cigarettes 1 35 0 05/13/1976 - 05/10/2011 Smokeless Tobacco: Never Alcohol Use Standard Drinks/Week Comments No 0 (1 standard drink = 0.6 oz pur e alcohol) Sex and Gender Information Value Date Recorded Sex Assigned at Male 06/23/2020 10:21 PM CDT Legal Sex 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 Gender Identity Male 06/23/2020 10:21 PM CDT Sexual Orientation Straight 06/23/2020 10 :21 PM CDT documented as of this encounter Plan of Treatment Upcoming Encounters Date Type Department Care Team (Late st Contact Info) Description 04/09/2024 9:30 AM GEAR CODING MACHINE OPERATOR Office Visit [facility] [address] [place] [address] [place] [address] [place], [place] [address] 04/14/2024 2:00 PM GEAR CODING MACHINE OPERATOR Office Visit [facility] [address] [place] [phone] Kassie Martinez, [facility] [address] [place], [place] [address] documented as of this encounter Visit Diagnoses Not on filedocumented in this encounter Additional Health Concerns Infection Onset Date Last Indicated Resolved Time Rule Out COVID-19 03/01/2022 03/01/2022 03/22/2022 11:41 PM GEAR CODING MACHINE OPERATOR Rule Out COVID-19 06/13/2022 06/13/2022 06/14/2022 9:45 AM CDT Assessment Noted Time PHQ-9 Depression Total Score: 0 01/07/20 15 7:31 AM GEAR CODING MACHINE OPERATOR documented as of this encounter Care Teams Magneto Repairer Relationship Specialty Start Date End Date Hansel Gillespie MD PCP - General 03/16/07 03/11/17 Kelley Gunderson MD [address] [place] [address] PCP - General Internal Medicine 03/12/17 01/28/21 Kelley Gunderson MD [address] [place] [address] PCP - Assigned PCP 05/04/17 04/28/18 [place] [address] [place] [address] PCP - General Family Medicine 01/29/21 Abdirizak Villalta MD 516 [facility] [address] [place] [address] Referring Physician Gastroenterology 09/24/16 Kelley Gunderson MD [address] [place] [address] Assigned PCP 05/04/17 10/14/20 Abdirizak Villalta MD 6 [facility] [address] [place] [address] Assigned Gastroenterology Provider 12/17/19 06/17/20 [place] [address] [employer] [facility] 300 [place] [address] Assigned Musculoskeletal Provider 12/17/19 01/27/21 [place] [address] [place] [address] Assigned PCP 10/15/20 Holli Damian PA-C 6405 [facility] [place] [address] [place] [address] Assigned Surgical Provider 02/04/2104/26/22 Dilip Tate DPM [address] [employer] [facility] 300 [place], [place] [address]17 Assigned Musculoskeletal Provider 01/28/21 07/26/22 Abdirizak Villalta MD 516 [facility] [address] [place] [address] Assigned Gastroenterology Provider 01/28/21 07/26/22 Kassie Martinez [facility] [address] [place] [address] Pharmacist Pharmacist 05/14/21 Shani Madison, MARIE Personal Advocate & Liaison ([facility]) Family Medicine 05/15/21 07/06/21 Jackie Muñoz RN Personal Advocate & Liaison ([facility]) Family Medicine 07/06/21 05/22/22 [facility] [address] [place] [address] Assigned MTM Pharmacist 07/21/21 Darcy Trevino, can inspector Diabetes Education 09/25/21 [facility] [address] [place] [address] Assigned MTM Pharmacist 11/21/21 Luh Tapia PA-C [address] [place] [address] Assigned Surgical Provider 04/27/22 Holli Damian PA-C [address] [place] [address] Assigned Surgical Provider 06/22/2206/28/22 Luh Tapia PA-C [address] [place] [address] Assigned Surgical Provider 06/29/22 Abdiel New PA-C [address] [place] [address] Assigned Musculoskeletal Provider 12/21/22 01/03/23 Katie Reina DPM, Podiatry/Foot and Ankle Surgery [address] [facility] 300 [place] [address] Assigned Musculoskeletal Provider 01/04/23 06/16/23 Cl Hugo MD [address] [place] [address] Urology 01/28/23 [place] [address] [address]BAJAL, [facility] 300 [place] [address] Assigned Musculoskeletal Provider 06/17/23 08/16/23 Markie Wade MD 909 [place] [address] Assigned Surgical Provider 08/17/23 [place] [address] [facility] [address] [place] [address] Assigned Musculoskeletal Provider 08/17/23 01/16/24 [place] [address] [address]BAJAL, [facility] 300 [place] [address] Assigned Musculoskeletal Provider 01/17/24 documented as of this encounter
--- OUTSIDE RECORDS SUMMARY | 2024-02-29 19:28 | XMS_ITS | Encounter Summary ---
Author Organization [place] Address [address] [place] [address] Care Team Providers Care Garment Fitter Name Role Phone Hansel Gillespie MD Primary Care Provider [phone] Abdirizak Villalta MD Unavailable [phone] Kelley Gunderson MD Primary Care Provider [phone] Kelley Gunderson MD Unavailable +[phone] Kelley Gunderson MD Unavailable +[phone] Abdirizak Villalta MD Unavailable [phone] Hugo Osborne MD Unavailable +[phone] Kassie Elizabeth MD Unavailable +[phone] Kassie Elizabeth MD Primary Care Provider +[phone] Holli Damian PA-C Unavailable +[phone] Dilip Tate DPM Unavailable +[phone] Abdirizak Villalta MD Unavailable [phone] Kassie Martinez [facility] Unavailable +[phone] Shani Madison RN Unavailable Unavailable Jackie Muñoz RN Unavailable Unavailable Kassie Martinez [facility] Unavailable Darcy Trevino RN Unavailable Unavailable Kassie Martinez [facility] Unavailable +[phone] Luh Tapia PA-C Unavailable +[phone] NatiHolli underwood Connie PA-C Unavailable +[phone] Luh Tapia PA-C Unavailable +[phone] Abdiel New PA-C Unavailable [phone] Katie Reina DPM, Podiatry /Foot and Ankle Surgery Unavailable Cl Hugo MD Unavailable +[phone] Christopher Castaneda DO Unavailable Markie Wade MD Unavailable [phone] Dilip TateM Unavailable +[phone] Christopher Castaneda DO Unavailable [phone] Encounter Details Date Type Department Care Team (Late st Contact Info) Description 02/14/2017 [facility] [address] [address] Abdirizak Villalta MD [address] [place] [address] Social History Tobacco Use Types Packs/Day Years Used Date Smoking Tobacco: Former Cigarettes 1 35 0 05/13/1976 - 05/10/2011 Smokeless Tobacco: Never Alcohol Use Standard Drinks/Week Comments No 0 (1 standard drink = 0.6 oz pur e alcohol) Sex and Gender Information Value Date Recorded Sex Assigned at Male 06/23/2020 10:21 PM CDT Legal Sex Male 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 [address] [place] [phone] [place] [address] [place], [place] [phone] 04/14/2024 2:00 PM LAY HEALTH ADVOCATE Office Visit [facility] [address] [place] [phone] Kassie Martinez, [facility] [address] [place], [place] [id number] documented as of this encounter Visit Diagnoses Not on filedocumented in this encounter Additional Health Concerns Infection Onset Date Last Indicated Resolved Time Rule Out COVID-19 03/01/2022 03/01/2022 03/22/2022 11:41 PM LAY HEALTH ADVOCATE Rule Out COVID-19 06/13/2022 06/13/2022 06/14/2022 9:45 AM CDT Assessment Noted Time PHQ-9 Depression Total Score: 0 01/07/20 15 7:31 AM LAY HEALTH ADVOCATE documented as of this encounter Care Teams Garment Fitter Relationship Specialty Start Date End Date Hansel Gillespie MD PCP - General 03/16/07 03/11/17 Kelley Gunderson MD [address] [place] [address] PCP - General Internal Medicine 03/12/17 01/28/21 Kelley Gunderson MD [address] [place] [address] PCP - Assigned PCP 05/04/17 04/28/18 [place] [address] [place] [address] PCP - General Family Medicine 01/29/21 Abdirizak Villalta MD 516 [facility] [address] [place] [address] Referring Physician Gastroenterology 09/24/16 Kelley Gunderson MD [address] [place] [address] Assigned PCP 05/04/17 10/14/20 Abdirizak Villalta MD 6 [facility] [address] [place] [address] Assigned Gastroenterology Provider 12/17/19 06/17/20 [place] [address] [employer] [facility] 300 [place] [address] Assigned Musculoskeletal Provider 12/17/19 01/27/21 [place] [address] [place] [address] Assigned PCP 10/15/20 Holli Damian PA-C 6405 [facility] [address] [place] [address] Assigned Surgical Provider 02/04/2104/26/22 [place] D[place] [address] [employer] [facility] [address] [place], [place] [address] Assigned Musculoskeletal Provider 01/28/21 07/26/22 Abdirizak Villalta MD [address] [facility] [address] [place] [address] Assigned Gastroenterology Provider 01/28/21 07/26/22 Kassie Martinez [facility] [address] [place] [address] Pharmacist Pharmacist 05/14/21 Shani Madison, MARIE Personal Advocate & Liaison ([facility]) Family Medicine 05/15/21 07/06/21 Jackie Muñoz RN Personal Advocate & Liaison ([facility]) Family Medicine 07/06/21 05/22/22 [facility] [address] [place] [address] Assigned MTM Pharmacist 07/21/21 Darcy Trevino, landman Diabetes Education 09/25/21 [facility] [address] [place] [address] Assigned MTM Pharmacist 11/21/21 Luh Tapia PA-C [address] [place] [address] Assigned Surgical Provider 04/27/22 Holli Damian PA-C [address] [place] [address] Assigned Surgical Provider 06/22/2206/28/22 Luh Tapia PA-C [address] [place] [address] Assigned Surgical Provider 06/29/22 Abdiel New PA-C [address] [place] [address] Assigned Musculoskeletal Provider 12/21/22 01/03/23 Katie Reina DPM, Podiatry/Foot and Ankle Surgery [address] [place] [facility] [address] [place] [address] Assigned Musculoskeletal Provider 01/04/23 06/16/23 Cl Hugo MD [address] [place] [address] Urology 01/28/23 [place] [address] [address], [facility] 300 [place] [address] Assigned Musculoskeletal Provider 06/17/23 08/16/23 Markie Wade MD 909 [place] [address] Assigned Surgical Provider 08/17/23 Dilip Tate DPM [address] [facility] [address] [place] [address] Assigned Musculoskeletal Provider 08/17/23 01/16/24 [place] [address] [address], [facility] [address] [place] [address] Assigned Musculoskeletal Provider 01/17/24 documented as of this encounter
--- OUTSIDE RECORDS SUMMARY | 2024-02-29 19:28 | XMS_ITS | Encounter Summary ---
Author Organization [place] Address [address] [place] [address] Care Team Providers Care Linen Supply Load Builder Name Role Phone Hansel Gillespie MD Primary Care Provider [phone] Abdirizak Villalta MD Unavailable [phone] Kelley Gunderson MD Primary Care Provider [phone] Kelley Gunderson MD Unavailable +[phone] Kelley Gunderson MD Unavailable +[phone] Abdirizak Villalta MD Unavailable [phone] Hugo Osborne MD Unavailable +[phone] Kassie Elizabeth MD Unavailable [phone] Kassie Elizabeth MD Primary Care Provider [phone] Holli Damian PA-C Unavailable +[phone] Dilip Tate DPM Unavailable +[phone] Abdirizak Villalta MD Unavailable [phone] Kassie Martinez [facility] Unavailable +[phone] Shani Madison RN Unavailable Unavailable Jackie Muñoz RN Unavailable Unavailable Kassie Martinez [facility] Unavailable Darcy Trevino RN Unavailable Unavailable Kassie Martinez [facility] Unavailable [phone] Luh Tapia PA-C Unavailable +[phone] NatiHolli Connie PA-C Unavailable +[phone] Luh Tapia PA-C Unavailable [phone] Abdiel New PA-C Unavailable [phone] Katie Reina DPM, Podiatry /Foot and Ankle Surgery Unavailable Cl Hugo MD Unavailable +[phone] Christopher Castaneda DO Unavailable [phone] Markie Wade MD Unavailable [phone] iDlip TateM Unavailable [phone] Christopher Castaneda DO Unavailable [phone] Encounter Details Date Type Department Care Team (Late st Contact Info) Description 02/26/2017 MyC Medical Advice [facility] Specialty [facility] 909 [facility] 3rd Floor Clinic [address] [place] [address] [facility] [address] [place] [address] Social History Tobacco Use Types Packs/Day Years Used Date Smoking Tobacco: Former Cigarettes 1 35 0 05/13/1976 - 05/10/2011 Smokeless Tobacco: Never Alcohol Use Standard Drinks/Week Comments No 0 (1 standard drink = 0.6 oz pur e alcohol) Sex and Gender Information Value Date Recorded Sex Assigned at Male 06/23/2020 10:21 PM CDT Legal Sex Male 3:30 AM AUTOMATIC CORN GRINDER OPERATOR Gender Identity Male 06/23/2020 10:21 PM CDT Sexual Orientation Straight 06/23/2020 10 :21 PM CDT documented as of this encounter Plan of Treatment Upcoming Encounters Date Type Department Care Team (Late st Contact Info) Description 04/09/2024 9:30 AM AUTOMATIC CORN GRINDER OPERATOR Office Visit [facility] [address] [place] [phone] [place] [address] [place], [place] [address] 04/14/2024 2:00 PM AUTOMATIC CORN GRINDER OPERATOR Office Visit [facility] [address] [place] [phone] Kassie Martinez, [facility] [address] [place], [place] [address] documented as of this encounter Visit Diagnoses Not on filedocumented in this encounter Additional Health Concerns Infection Onset Date Last Indicated Resolved Time Rule Out COVID-19 03/01/2022 03/01/2022 03/22/2022 11:41 PM AUTOMATIC CORN GRINDER OPERATOR Rule Out COVID-19 06/13/2022 06/13/2022 06/14/2022 9:45 AM CDT Assessment Noted Time PHQ-9 Depression Total Score: 0 01/07/20 15 7:31 AM AUTOMATIC CORN GRINDER OPERATOR documented as of this encounter Care Teams Linen Supply Load Builder Relationship Specialty Start Date End Date Hansel Gillespie MD PCP - General 03/16/07 03/11/17 Kelley Gunderson MD [address] [place] [address] PCP - General Internal Medicine 03/12/17 01/28/21 Kelley Gunderson MD [address] [place] [address] PCP - Assigned PCP 05/04/17 04/28/18 [place] [address] [place] [address] PCP - General Family Medicine 01/29/21 Abdirizak Villalta MD [address] [facility] [address] [place] [address] Referring Physician Gastroenterology 09/24/16 Kelley Gunderson MD [address] [place] [address] Assigned PCP 05/04/17 10/14/20 Abdirizak Villalta MD 6 [facility] [address] [place] [address] Assigned Gastroenterology Provider 12/17/19 06/17/20 [place] [address] [employer] [facility] 300 [place] [address] Assigned Musculoskeletal Provider 12/17/19 01/27/21 [place] [address] [place] [address] Assigned PCP 10/15/20 Holli Damian PA-C [address] [facility] [address] [place] [address] Assigned Surgical Provider 02/04/2104/26/22 [place] [address] [employer] [facility] [address] [place], [place] [address] Assigned Musculoskeletal Provider 01/28/21 07/26/22 Abdirizak Villalta MD [address] [facility] [address] [place] [address] Assigned Gastroenterology Provider 01/28/21 07/26/22 Kassie Martinez [facility] [address] [place] [address] Pharmacist Pharmacist 05/14/21 Shani Madison, MARIE Personal Advocate & Liaison ([facility]) Family Medicine 05/15/21 07/06/21 Jackie Muñoz RN Personal Advocate & Liaison ([facility]) Family Medicine 07/06/21 05/22/22 [facility] [address] [place] [address] Assigned MTM Pharmacist 07/21/21 Darcy Trevino, battery plate remover Diabetes Education 09/25/21 [facility] [address] [place] [address] Assigned MTM Pharmacist 11/21/21 Luh Tapia PA-C [address] [place] [address] Assigned Surgical Provider 04/27/22 Holli Damian PA-C [address] [place] [address] Assigned Surgical Provider 06/22/2206/28/22 Luh Tapia PA-C [address] [place] [address] Assigned Surgical Provider 06/29/22 Abdiel New PA-C [address] [place] [address] Assigned Musculoskeletal Provider 12/21/22 01/03/23 Katie Reina DPM, Podiatry/Foot and Ankle Surgery [address] [employer] [facility] 300 [place] [address] Assigned Musculoskeletal Provider 01/04/23 06/16/23 Cl Hugo MD [address] [place] [address] Urology 01/28/23 [place] [address] [address], [facility] 300 [place] [address] Assigned Musculoskeletal Provider 06/17/23 08/16/23 Markie Wade MD 909 [place] [address] Assigned Surgical Provider 08/17/23 [place] [address] [facility] [address] [place] [address] Assigned Musculoskeletal Provider 08/17/23 01/16/24 [place] [address] [address], [facility] [address] [place] [address] Assigned Musculoskeletal Provider 01/17/24 documented as of this encounter
--- OUTSIDE RECORDS SUMMARY | 2024-02-29 19:28 | XMS_ITS | Encounter Summary ---
Author Organization [place] Address [address] [place] [address] Care Team Providers Care Box Folding Machine Operator Name Role Phone Abdirizak Villalta MD Unavailable [phone] Kelley Gunderson MD Primary Care Provider [phone] Kelley Gunderson MD Unavailable +[phone] Kelley Gunderson MD Unavailable +[phone] Abdirizak Villalta MD Unavailable +[phone] Hugo Osborne MD Unavailable +[phone] Kassie Elizabeth MD Unavailable [phone] Kassie Elizabeth MD Primary Care Provider [phone] Holli Damian PA-C Unavailable +[phone] Dilip Tate DPM Unavailable +[phone] Abdirizak Villalta MD Unavailable [phone] Kassie Martinez [facility] Unavailable +[phone] Shani Madison RN Unavailable Unavailable Jackie Muñoz RN Unavailable Unavailable Kassie Martinez [facility] Unavailable [phone] Darcy Trevino RN Unavailable Unavailable Kassie Martinez [facility] Unavailable [phone] Willie Luh Phillips PA-C Unavailable [phone] Nati Holli Connie PA-C Unavailable +[phone] JimenezLuh farah PA-C Unavailable [phone] Abdiel Sophy PA-C Unavailable [phone] Katie Reina DPM, Podiatry /Foot and Ankle Surgery Unavailable Cl Hugo MD Unavailable [phone] Christopher Castaneda DO Unavailable [phone] Markie Wade MD Unavailable [phone] Dilip Tate DPM Unavailable [phone] Christopher Castaneda DO Unavailable [phone] Encounter Details Date Type Department Care Team (Late st Contact Info) Description 06/03/2017 MyC Medical Advice [facility] Hepatology Clinic [address] [address] Abdirizak Villalta MD [address] [place] [address] Social History Tobacco Use Types Packs/Day Years Used Date Smoking Tobacco: Former Cigarettes 1 35 0 05/13/1976 - 05/10/2011 Smokeless Tobacco: Never Alcohol Use Standard Drinks/Week Comments No 0 (1 standard drink = 0.6 oz pur e alcohol) Sex and Gender Information Value Date Recorded Sex Assigned at Male 06/23/2020 10:21 PM CDT Legal Sex Male 3:30 AM INSPECTOR SET UP AND LAY OUT Gender Identity Male 06/23/2020 10:21 PM CDT Sexual Orientation Straight 06/23/2020 10 :21 PM CDT documented as of this encounter Plan of Treatment Upcoming Encounters Date Type Department Care Team (Late st Contact Info) Description 04/09/2024 9:30 AM INSPECTOR SET UP AND LAY OUT Office Visit [facility] [address] [place] [address] Kassie Elizabeth [place] [address] [place] [address] 04/14/2024 2:00 PM INSPECTOR SET UP AND LAY OUT Office Visit [facility] [address] [place] [phone] Kassie Martinez, [facility] [address] [place] [address] documented as of this encounter Visit Diagnoses Not on filedocumented in this encounter Additional Health Concerns Infection Onset Date Last Indicated Resolved Time Rule Out COVID-19 03/01/2022 03/01/2022 03/22/2022 11:41 PM INSPECTOR SET UP AND LAY OUT Rule Out COVID-19 06/13/2022 06/13/2022 06/14/2022 9:45 AM CDT Assessment Noted Time PHQ-9 Depression Total Score: 0 01/07/20 15 7:31 AM INSPECTOR SET UP AND LAY OUT documented as of this encounter Care Teams Box Folding Machine Operator Relationship Specialty Start Date End Date Kelley Gunderson MD [address] [place] [address] PCP - General Internal Medicine 03/12/17 01/28/21 Kelley Gunderson MD [address] [place] [address] PCP - Assigned PCP 05/04/17 04/28/18 [place] [address] [place] [address] PCP - General Family Medicine 01/29/21 Abdirizak Villalta MD [address] [place] [address] Referring Physician Gastroenterology 09/24/16 Kelley Gunderson MD [address] [place] [address] Assigned PCP 05/04/17 10/14/20 Abdirizak Villalta MD [address] [place] [address] Assigned Gastroenterology Provider 12/17/19 06/17/20 [place] [address] [employer] [facility] [address] [place] [address] Assigned Musculoskeletal Provider 12/17/19 01/27/21 [place] [address] [place] [address] Assigned PCP 10/15/20 Holli Damian PA-C 6[address] [facility] [address] [place] [address] Assigned Surgical Provider 02/04/2104/26/22 [place] [address] [employer] [facility] [address] [place], [place] [address] Assigned Musculoskeletal Provider 01/28/21 07/26/22 Abdirizak Villalta MD [address] [place] [address] Assigned Gastroenterology Provider 01/28/21 07/26/22 [facility] [address] [place] [address] Pharmacist Pharmacist 05/14/21 Shani Madison, RN Personal Advocate & Liaison ([facility]) Family Medicine 05/15/21 07/06/21 Jackie Muñoz RN Personal Advocate & Liaison ([facility]) Family Medicine 07/06/21 05/22/22 [facility] [address] [place] [address] Assigned MTM Pharmacist 07/21/21 Darcy Trevino, author agent Diabetes Education 09/25/21 [facility] [address] [place] [address] Assigned MTM Pharmacist 11/21/21 Luh Tapia PA-C [address] [place] [address] Assigned Surgical Provider 04/27/22 Holli Damian PA-C [address] [place] [address] Assigned Surgical Provider 06/22/2206/28/22 Luh Tapia PA-C [address] [place] [address] Assigned Surgical Provider 06/29/22 Abdiel New PA-C [address] [place] [address] Assigned Musculoskeletal Provider 12/21/22 01/03/23 Katie Reina DPM, Podiatry/Foot and Ankle Surgery [address] [place] [place] [address] Assigned Musculoskeletal Provider 01/04/23 06/16/23 Cl Hugo MD [address] [place] [address] [address] [place] [address] Urology 01/28/23 [place] [address] [address], [address] [place] [address] Assigned Musculoskeletal Provider 06/17/23 08/16/23 Markie Wade MD [address] [place] [address] Assigned Surgical Provider 08/17/23 [place] [address] [facility] [address] [place] [address] Assigned Musculoskeletal Provider 08/17/23 01/16/24 [place] [address] [address], [address] [place] [address] Assigned Musculoskeletal Provider 01/17/24 documented as of this encounter
--- OUTSIDE RECORDS SUMMARY | 2024-02-29 19:28 | XMS_ITS | Encounter Summary ---
Author Organization [facility] Address [address] [place] [address] Care Team Providers Care Poll Clerk Name Role Phone Abdirizak Villalta MD Unavailable [phone] Kleley Gunderson MD Primary Care Provider + [phone] Kelley Gunderson MD Unavailable +[phone] Abdirizak Villalta MD Unavailable +[phone] Hugo Osborne MD Unavailable +[phone] Kassie Elizabeth MD Unavailable [phone] Kassie Elizabeth MD Primary Care Provider +[phone] Holli Damian PA-C Unavailable +[phone] Dilip Tate DPM Unavailable +[phone] Abdirizak Villalta MD Unavailable +[phone] Kassie Martinez [facility] Unavailable +[phone] Shani Madison RN Unavailable Unavailable Jackie Muñoz RN Unavailable Unavailable Kassie Martinez [facility] Unavailable +[phone] Darcy Trevino RN Unavailable Unavailable Kassie Martinez [facility] Unavailable +[phone] Luh Tapia PA-C Unavailable +[phone] NatiHolli underwood Connie PA-C Unavailable +[phone] Luh Tapia PA-C Unavailable +[phone] Abdiel New PA-C Unavailable [phone] Katie Reina DPM, Podiatry /Foot and Ankle Surgery Unavailable Cl Hugo MD Unavailable +[phone] Christopher Castaneda DO Unavailable [phone] Markie Wade MD Unavailable [phone] Dilip TateM Unavailable [phone] Christopher Castaneda DO Unavailable [phone] Reason for Visit * Reason Onset Date Comments Labs Only 08/28/2018October appt Encounter Details Date Type Department Care Team (Late st Contact Info) Description 08/28/2018 Telephone [facility] [address] [address] Abdirizak Villalta MD [address] [place] [address] Labs Only (October appt) Social History Tobacco Use Types Packs/Day Years [...] PM CDT Legal Sex Male 3:30 AM CLOTH WORKER Gender Identity Male 06/23/2020 10:21 PM CDT Sexual Orientation Straight 06/23/2020 10 :21 PM CDT documented as of this encounter Miscellaneous Notes * Telephone Encounter - Kailee Baltazar - 08/28/2018 9:46 AM CDT [facility] Call Center Phone Message May a detailed message be left on voicemail: yes Reason for Call: Other: Patient rescheduled his August appt to October with Dr. Marc Ramos. Please contact him IF labs are needed. Action Taken: Message routed to: [facility] Hepatology documented in this encounter Plan of Treatment Upcoming Encounters Date Type Department Care Team (Late st Contact Info) Description 04/09/2024 9:30 AM CLOTH WORKER Office Visit [facility] [address] [place] [address] [place] [address] [place], [place] [id number] 04/14/2024 2:00 PM CLOTH WORKER Office Visit [facility] [address] [place] [phone] Kassie Martinez, [facility] [address] [place], [place] [id number] documented as of this encounter Visit Diagnoses Not on filedocumented in this encounter Additional Health Concerns Infection Onset Date Last Indicated Resolved Time Rule Out COVID-19 03/01/2022 03/01/2022 03/22/2022 11:41 PM CLOTH WORKER Rule Out COVID-19 06/13/2022 06/13/2022 06/14/2022 9:45 AM CDT Assessment Noted Time PHQ-9 Depression Total Score: 0 01/07/20 15 7:31 AM CLOTH WORKER documented as of this encounter Care Teams Poll Clerk Relationship Specialty Start Date End Date Kelley Gunderson MD [address] [place] [address] [address] [place] [address] PCP - General Internal Medicine 03/12/17 01/28/21 [place] [address] [place] [address] PCP - General Family Medicine 01/29/21 Abdirizak Villalta MD [address] [facility] [address] [place] [address] Referring Physician Gastroenterology 09/24/16 Kelley Gunderson MD [address] [place] [address] Assigned PCP 05/04/17 10/14/20 Abdirizak Villalta MD 6 [facility] [address] [place] [address] Assigned Gastroenterology Provider 12/17/19 06/17/20 [place] [address] [facility] [address] [place] [address] Assigned Musculoskeletal Provider 12/17/19 01/27/21 [place] [address] [place] [address] Assigned PCP 10/15/20 Holli Damian PA-C [address] [place] [address] Assigned Surgical Provider 02/04/2104/26/22 Dil[place] DPM [address] [facility] [address] [place], [place] [address] Assigned Musculoskeletal Provider 01/28/21 07/26/22 Abdirizak Villalta MD [address] [place] [address] Assigned Gastroenterology Provider 01/28/21 07/26/22 Kassie Martinez [facility] [address] [place] [address] Pharmacist Pharmacist 05/14/21 Shani Madison, MARIE Personal Advocate & Liaison ([facility]) Family Medicine 05/15/21 07/06/21 Jackie Muñoz RN Personal Advocate & Liaison ([facility]) Family Medicine 07/06/21 05/22/22 Kassie Martinez [facility] [address] [place] [address] Assigned MTM Pharmacist 07/21/21 Darcy Trevino, retail mortgage banker Diabetes Education 09/25/21 [facility] [address] [place] [address] Assigned MTM Pharmacist 11/21/21 Luh Tapia PA-C [address] [place] [address] Assigned Surgical Provider 04/27/22 Holli Damian PA-C [address] [place] [address] Assigned Surgical Provider 06/22/2206/28/22 Luh Tapia PA-C [address] [facility] [address] [place] [address] Assigned Surgical Provider 06/29/22 Abdiel New PA-C [address] [place] [address] Assigned Musculoskeletal Provider 12/21/22 01/03/23 Katie Reina DPM, Podiatry/Foot and Ankle Surgery [address] [place] [facility] [address] [place] [address] Assigned Musculoskeletal Provider 01/04/23 06/16/23 Cl Hugo MD [address] [place] [address] Urology 01/28/23 [place] [address] [address], [facility] [address] [place] [address] Assigned Musculoskeletal Provider 06/17/23 08/16/23 Markie Wade MD [address] [place] [address] Assigned Surgical Provider 08/17/23 Dilip Tate DPM [address] [facility] 300 [place] [address] Assigned Musculoskeletal Provider 08/17/23 01/16/24 [place] [address] [address] [facility] [address] [place] [address] Assigned Musculoskeletal Provider 01/17/24 documented as of this encounter
--- OUTSIDE RECORDS SUMMARY | 2024-02-29 19:28 | XMS_ITS | Encounter Summary ---
Author Organization [facility] Address [address] [place] [address] Care Team Providers Care Warp Dyeing Tender Name Role Phone Abdirizak Villalta MD Unavailable [phone] Kelley Gunderson MD Primary Care Provider [phone] Kelley Gunderson MD Unavailable [phone] Kelley Gunderson MD Unavailable [phone] Abdirizak Villalta MD Unavailable +[phone] Hugo Osborne MD Unavailable [phone] Kassie Elizabeth MD Unavailable [phone] Kassie Elizabeth MD Primary Care Provider [phone] Holli Damian PA-C Unavailable +[phone] Dilip Tate DPM Unavailable +[phone] Abdirizak Villalta MD Unavailable +[phone] aKssie Martinez [facility] Unavailable +[phone] Shani Madison RN Unavailable Unavailable Jackie Muñoz RN Unavailable Unavailable Kassie Martinez [facility] Unavailable +[phone] Darcy Trevino RN Unavailable Unavailable Kassie Martinez [facility] Unavailable Willie Luh Phillips PA-C Unavailable [phone] Nati Holli Connie PA-C Unavailable +[phone] JimenezLuh farah PA-C Unavailable [phone] Abdiel Sophy PA-C Unavailable [phone] Katie Reina DPM, Podiatry /Foot and Ankle Surgery Unavailable Cl Hugo MD Unavailable [phone] Christopher Castaneda DO Unavailable [phone] Markie Wade MD Unavailable [phone] Dilip Tate DPM Unavailable [phone] Christopher Castaneda DO Unavailable [phone] Encounter Details Date Type Department Care Team (Late st Contact Info) Description 06/11/2017 MyC Medical Advice [facility] Hep[facility]ology [facility] [address] [address] Abdirizak Villalta MD [address] [place] [address] Social History Tobacco Use Types Packs/Day Years Used Date Smoking Tobacco: Former Cigarettes 1 35 0 05/13/1976 - 05/10/2011 Smokeless Tobacco: Never Alcohol Use Standard Drinks/Week Comments No 0 (1 standard drink = 0.6 oz pur e alcohol) Sex and Gender Information Value Date Recorded Sex Assigned at Male 06/23/2020 10:21 PM CDT Legal Sex Male 3:30 AM BEATER ROOM SUPERVISOR Gender Identity Male 06/23/2020 10:21 PM CDT Sexual Orientation Straight 06/23/2020 10 :21 PM CDT documented as of this encounter Plan of Treatment Upcoming Encounters Date Type Department Care Team (Late st Contact Info) Description 04/09/2024 9:30 AM BEATER ROOM SUPERVISOR Office Visit [facility] [address] [place] [address] [place]ass[place] Elizabeth [place] [address] [place] [address] 04/14/2024 2:00 PM BEATER ROOM SUPERVISOR Office Visit [facility] [address] [place] [phone] Kassie Martinez, [facility] [address] [place] [address] documented as of this encounter Visit Diagnoses Not on filedocumented in this encounter Additional Health Concerns Infection Onset Date Last Indicated Resolved Time Rule Out COVID-19 03/01/2022 03/01/2022 03/22/2022 11:41 PM BEATER ROOM SUPERVISOR Rule Out COVID-19 06/13/2022 06/13/2022 06/14/2022 9:45 AM CDT Assessment Noted Time PHQ-9 Depression Total Score: 0 01/07/20 15 7:31 AM BEATER ROOM SUPERVISOR documented as of this encounter Care Teams Warp Dyeing Tender Relationship Specialty Start Date End Date Kelley Gunderson MD [address] [place] [address] PCP - General Internal Medicine 03/12/17 01/28/21 Kelley Gunderson MD [address] [place] [address] PCP - Assigned PCP 05/04/17 04/28/18 [place] [address] [place] [address] PCP - General Family Medicine 01/29/21 Abdirizak Villalta MD [address] [place] [address] Referring Physician Gastroenterology 09/24/16 Kelley Gunderson MD [address] [place] [address] Assigned PCP 05/04/17 10/14/20 Abdirizak Villalta MD [address] [place] [address] Assigned Gastroenterology Provider 12/17/19 06/17/20 [place] [address] [email or web address] [place] [address] [place] [address] Assigned Musculoskeletal Provider 12/17/19 01/27/21 [place] [address] [place] [address] Assigned PCP 10/15/20 Holli Damian PA-C [address] [facility] [address] [place] [address] Assigned Surgical Provider 02/04/2104/26/22 [place] [address] [email or web address] [place] [address] [place], [place] [address] Assigned Musculoskeletal Provider 01/28/21 07/26/22 Abdirizak Villalta MD [address] [place] [address] Assigned Gastroenterology Provider 01/28/21 07/26/22 [facility] [address] [place] [address] Pharmacist Pharmacist 05/14/21 Shani Madison, RN Personal Advocate & Liaison ([facility]) Family Medicine 05/15/21 07/06/21 Jackie Muñoz RN Personal Advocate & Liaison ([facility]) Family Medicine 07/06/21 05/22/22 [facility] [address] [place] [address] Assigned MTM Pharmacist 07/21/21 Darcy Trevino, medical records specialist Diabetes Education 09/25/21 [facility] [address] [place] [address] Assigned MTM Pharmacist 11/21/21 Luh Tapia PA-C [address] [place] [address] Assigned Surgical Provider 04/27/22 Holli Damian PA-C [address] [place] [address] Assigned Surgical Provider 06/22/2206/28/22 Luh Tapia PA-C [address] [place] [address] Assigned Surgical Provider 06/29/22 Abdiel New PA-C [address] [place] [address] Assigned Musculoskeletal Provider 12/21/22 01/03/23 Katie Reina DPM, Podiatry/Foot and Ankle Surgery [address] [facility] [address] [place] [address] Assigned Musculoskeletal Provider 01/04/23 06/16/23 Cl Hugo MD [address] [place] [address] 394 [place] [address] Urology 01/28/23 [place] [address] [address], [facility] [address] [place] [address] Assigned Musculoskeletal Provider 06/17/23 08/16/23 Markie Wade MD [address] [place] [address] Assigned Surgical Provider 08/17/23 Dilip Tate DPM [address] [facility] 300 [place] [address] Assigned Musculoskeletal Provider 08/17/23 01/16/24 [place] [address] [address], [facility] [address] [place] [address] Assigned Musculoskeletal Provider 01/17/24 documented as of this encounter
--- OUTSIDE RECORDS SUMMARY | 2024-02-29 19:28 | XMS_ITS | Encounter Summary ---
Author Organization [facility] Address [address] [place] [address] Care Team Providers Care Material Planning Analyst Name Role Phone Abdirizak Villalta MD Unavailable [phone] Kelley Gundesron MD Primary Care Provider +[phone] Kelley Gunderson MD Unavailable +[phone] Kelley Gunderson MD Unavailable +[phone] Abdirizak Villalta MD Unavailable +[phone] Hugo Osborne MD Unavailable +[phone] Kassie Elizabeth MD Unavailable +[phone] Kassie Elizabeth MD Primary Care Provider +[phone] Holli Damian PA-C Unavailable +[phone] Dilip Tate DPM Unavailable +[phone] Abdirizak Villalta MD Unavailable [phone] Kassie Martinez [facility] Unavailable +[phone] Shani Madison RN Unavailable Unavailable Jackie Muñoz RN Unavailable Unavailable Kassie Martinez [facility] Unavailable +[phone] Darcy Trevino RN Unavailable Unavailable Kassie Martinez [facility] Unavailable WillieLuh PA-C Unavailable [phone] Nati Holli Connie PA-C Unavailable +[phone] Luh Tapia PA-C Unavailable [phone] Abdiel New PA-C Unavailable [phone] Katie Reina DPM, Podiatry /Foot and Ankle Surgery Unavailable Cl Hugo MD Unavailable +[phone] Christopher Castaneda DO Unavailable [phone] Markie Wade MD Unavailable [phone] Dilip TateM Unavailable [phone] Christopher Castaneda DO Unavailable [phone] Encounter Details Date Type Department Care Team (Late st Contact Info) Description 07/09/2017 MyC Medical Advice [facility] 9[address] [facility] 3rd Floor Clinic [address] [place] [address] [address] Social History Tobacco Use Types Packs/Day Years Used Date Smoking Tobacco: Former Cigarettes 1 35 0 05/13/1976 - 05/10/2011 Smokeless Tobacco: Never Alcohol Use Standard Drinks/Week Comments No 0 (1 standard drink = 0.6 oz pur e alcohol) Sex and Gender Information Value Date Recorded Sex Assigned at Male 06/23/2020 10:21 PM CDT Legal Sex Male 3:30 AM CATALOG LIBRARY ASSISTANT Gender Identity Male 06/23/2020 10:21 PM CDT Sexual Orientation Straight 06/23/2020 10 :21 PM CDT documented as of this encounter Plan of Treatment Upcoming Encounters Date Type Department Care Team (Late st Contact Info) Description 04/09/2024 9:30 AM CATALOG LIBRARY ASSISTANT Office Visit [address] [place] [address] [place] [id number] [place] [address] 04/14/2024 2:00 PM CATALOG LIBRARY ASSISTANT Office Visit [facility] [address] [place] [address] Kassie Martinez, [facility] [address] [place] [address] documented as of this encounter Visit Diagnoses Not on filedocumented in this encounter Additional Health Concerns Infection Onset Date Last Indicated Resolved Time Rule Out COVID-19 03/01/2022 03/01/2022 03/22/2022 11:41 PM CATALOG LIBRARY ASSISTANT Rule Out COVID-19 06/13/2022 06/13/2022 06/14/2022 9:45 AM CDT Assessment Noted Time PHQ-9 Depression Total Score: 0 01/07/20 15 7:31 AM CATALOG LIBRARY ASSISTANT documented as of this encounter Care Teams Material Planning Analyst Relationship Specialty Start Date End Date Kelley Gunderson MD [address] [place] [address] PCP - General Internal Medicine 03/12/17 01/28/21 Kelley Gunderson MD [address] [place] [address] PCP - Assigned PCP 05/04/17 04/28/18 [place] [address] [place] [address] PCP - General Family Medicine 01/29/21 Abdirizak Villalta MD [address] [place] [address] Referring Physician Gastroenterology 09/24/16 Kelley Gunderson MD [address] [place] [address] Assigned PCP 05/04/17 10/14/20 Abdirizak Villalta MD [address] [place] [address] Assigned Gastroenterology Provider 12/17/19 06/17/20 [place] [address] [employer] [facility] [address] [place] [address] Assigned Musculoskeletal Provider 12/17/19 01/27/21 [place] [address] [place] [address] Assigned PCP 10/15/20 Holli Damian PA-C [address] [facility] [address] [place] [address] Assigned Surgical Provider 02/04/2104/26/22 [place] D[place] [address] [employer] [facility] [address] [place], [place] [address] Assigned Musculoskeletal Provider 01/28/21 07/26/22 Abdirizak Villalta MD [address] [place] [address] Assigned Gastroenterology Provider 01/28/21 07/26/22 [facility] [address] [place] [address] Pharmacist Pharmacist 05/14/21 Shani Madison, RN Personal Advocate & Liaison ([facility]) Family Medicine 05/15/21 07/06/21 Jackie Muñoz RN Personal Advocate & Liaison ([facility]) Family Medicine 07/06/21 05/22/22 [facility] [address] [place] [address] Assigned MTM Pharmacist 07/21/21 Darcy Trevino, curb supervisor Diabetes Education 09/25/21 [facility] [address] [place] [address] Assigned MTM Pharmacist 11/21/21 Luh Tapia PA-C [address] [place] [address] Assigned Surgical Provider 04/27/22 Holli Damian PA-C [address] [place] [address] Assigned Surgical Provider 06/22/2206/28/22 Luh Tapia PA-C [address] [place] [address] Assigned Surgical Provider 06/29/22 Abdiel New PA-C [address] [place] [address] Assigned Musculoskeletal Provider 12/21/22 01/03/23 Katie Reina DPM, Podiatry/Foot and Ankle Surgery [address] [place] [facility] 300 [place] [address] Assigned Musculoskeletal Provider 01/04/23 06/16/23 Cl Hugo MD [address] [place] [address] 394 [place] [address] Urology 01/28/23 [place] [address] [address], [facility] 300 [place] [address] Assigned Musculoskeletal Provider 06/17/23 08/16/23 Markie Wade MD [address] [place] [address] Assigned Surgical Provider 08/17/23 [place] [address] [facility] 300 [place] [address] Assigned Musculoskeletal Provider 08/17/23 01/16/24 [place] [address] [address]AL, [facility] [address] [place] [address] Assigned Musculoskeletal Provider 01/17/24 documented as of this encounter
--- OUTSIDE RECORDS SUMMARY | 2024-02-29 19:28 | XMS_ITS | Encounter Summary ---
Author Organization [place] Address [address] [place] [address] Care Team Providers Care Firer Boiler Name Role Phone Hansel Gillespie MD Primary Care Provider [phone] Elizabeth Steward MD Unavailable + Abdirizak Villalta MD Unavailable +[phone] Kelley Gunderson MD Primary Care Provider + [phone] Kelley Gunderson MD Unavailable +[phone] Kelley Gunderson MD Unavailable +[phone] Abdirizak Villalta MD Unavailable +[phone] Hugo Osborne MD Unavailable +[phone] Kassie Elizabeth MD Unavailable +[phone] Kassie Elizabeth MD Primary Care Provider +[phone] Holli Damian PA-C Unavailable +[phone] Dilip Tate DPM Unavailable +[phone] Abdirizak Villalta MD Unavailable +[phone] Kassie Martinez [facility] Unavailable +[phone] Shani Madison RN Unavailable Unavailable Jackie Muñoz RN Unavailable Unavailable Kassie Martinez [facility] Unavailable +[phone] Darcy Trevino RN Unavailable Unavailable Kassie Martinez [facility] Unavailable +[phone] Luh Tapia PA-C Unavailable +[phone] Holli Damian PA-C Unavailable +[phone] Luh Tapia PA-C Unavailable +[phone] Abdiel New PA-C Unavailable [phone] Katie Reina DPM, Podiatry /Foot and Ankle Surgery Unavailable Cl Hugo MD Unavailable +[phone] Christopher Castaneda DO Unavailable [phone] Markie Wade MD Unavailable [phone] Dilip Tate DPM Unavailable +[phone] Christopher Castaneda DO Unavailable [phone] Encounter Details Date Type Department Care Team (Latest Contact Info) Description 04/28/2015 Medical Correspondence [facility] [place] [id number] [place] [phone] Holli Damian PA-C [address] [facility] [address] [place] [address] [facility], letter of clearance, 04/28/2015 Social History Tobacco Use Types Packs/Day Years Used Date Smoking Tobacco: Former Cigarettes 1 35 0 05/13/1976 - 05/10/2011 Smokeless Tobacco: Never Alcohol Use Standard Drinks/Week Comments No 0 (1 standard drink = 0.6 oz pur e alcohol) Sex and Gender Information Value Date Recorded Sex Assigned at Male 06/23/2020 10:21 PM CDT Legal Sex Male 3:30 AM CLEAT LAYER Gender Identity Male 06/23/2020 10:21 PM CDT Sexual Orientation Straight 06/23/2020 10 :21 PM CDT documented as of this encounter Plan of Treatment Upcoming Encounters Date Type Department Care Team (Late st Contact Info) Description 04/09/2024 9:30 AM CLEAT LAYER Office Visit [facility] [address] [place] [phone] [place] [address] [place], [place] [phone] 04/14/2024 2:00 PM CLEAT LAYER Office Visit [facility] [address] [place] [address] Kassie Martinez, [facility] [address] [place], [place] [id number] documented as of this encounter Visit Diagnoses Not on filedocumented in this encounter Additional Health Concerns Infection Onset Date Last Indicated Resolved Time Rule Out COVID-19 03/01/2022 03/01/2022 03/22/2022 11:41 PM CLEAT LAYER Rule Out COVID-19 06/13/2022 06/13/2022 06/14/2022 9:45 AM CDT Assessment Noted Time PHQ-9 Depression Total Score: 0 01/07/20 15 7:31 AM CLEAT LAYER documented as of this encounter Care Teams Firer Boiler Relationship Specialty Start Date End Date Hansel Gillespie MD PCP - General 03/16/07 03/11/17 Kelley Gunderson MD 516 [facility] [address] [place], [place] [id number] PCP - General Internal Medicine 03/12/17 01/28/21 Kelley Gunderson MD [address] 565163 PCP - Assigned PCP 05/04/17 04/28/18 [place] [address] [place] [address] PCP - General Family Medicine 01/29/21 Elizabeth Steward MD [address] [place] [address] Internal Medicine 06/13/16 09/23/16 Abdirizak Villalta MD [address] [place] [address] Referring Physician Gastroenterology 09/24/16 Kelley Gunderson MD [address] [place] [address] Assigned PCP 05/04/17 10/14/20 Abdirizak Villalta MD [address] [place] [address] Assigned Gastroenterology Provider 12/17/19 06/17/20 [place] [address] [address] Assigned Musculoskeletal Provider 12/17/19 01/27/21 [place] [address] [place] [address] Assigned PCP 10/15/20 Holli Damian PA-C [address] [place] [address] Assigned Surgical Provider 02/04/2104/26/22 [place] D[place] [address] [facility] [address] [place] [address] Assigned Musculoskeletal Provider 01/28/21 07/26/22 Abdirizak Villalta MD 516 [facility] [address] [place] [address] Assigned Gastroenterology Provider 01/28/21 07/26/22 Kassie Martinez [facility] [address] [place] [address] Pharmacist Pharmacist 05/14/21 Shani Madison, MARIE Personal Advocate & Liaison ([facility]) Family Medicine 05/15/21 07/06/21 Jackie Muñoz, MARIE Personal Advocate & Liaison ([facility]) Family Medicine 07/06/21 05/22/22 Kassie Martinez [facility] [address] [place] [address] Assigned MTM Pharmacist 07/21/21 Darcy Trevino, plate take out worker Diabetes Education 09/25/21 Kassie Martinez [facility] [address] [place] [address] Assigned MTM Pharmacist 11/21/21 Luh Tapia PA-C [address] [place] [address] Assigned Surgical Provider 04/27/22 Holli Damian PA-C [address] [place] [address] Assigned Surgical Provider 06/22/2206/28/22 Luh Tapia PA-C [address] [place] [address] Assigned Surgical Provider 06/29/22 Abdiel New PA-C [address] [place] [address] Assigned Musculoskeletal Provider 12/21/22 01/03/23 Katie Reina DPM, Podiatry/Foot and Ankle Surgery [address] [facility] [address] [place] [address] Assigned Musculoskeletal Provider 01/04/23 06/16/23 Cl Hugo MD [address] [place] [address] Urology 01/28/23 [place] [address] [facility] 300 [place] [address] Assigned Musculoskeletal Provider 06/17/23 08/16/23 Markie Wade MD [address] [place] [address] Assigned Surgical Provider 08/17/23 Dilip Tate DPM [address] [facility] 300 [place] [address] Assigned Musculoskeletal Provider 08/17/23 01/16/24 [place] [address] [facility], [address] [place] [address] Assigned Musculoskeletal Provider 01/17/24 documented as of this encounter
--- OUTSIDE RECORDS SUMMARY | 2024-02-29 19:28 | XMS_ITS | Encounter Summary ---
Author Organization [place] Address [address] [place] [address] Care Team Providers Care Optic Fibre Drawer Name Role Phone Abdirizak Villalta MD Unavailable [phone] Kelley Gunderson MD Primary Care Provider +[phone] Kelley Gunderson MD Unavailable +[phone] Kelley Gunderson MD Unavailable +[phone] Abdirizak Villalta MD Unavailable +[phone] Hugo Osborne MD Unavailable +[phone] Kassie Elizabeth MD Unavailable +[phone] Kassie Elizabeth MD Primary Care Provider +[phone] Holli Damian PA-C Unavailable +[phone] Dilip Tate DPM Unavailable +[phone] Abdirizak Villalta MD Unavailable +[phone] Kassie Martinez [facility] Unavailable +[phone] Shani Madison RN Unavailable Unavailable Jackie Muñoz RN Unavailable Unavailable Kassie Martinez [facility] Unavailable +[phone] Darcy Trevino RN Unavailable Unavailable Kassie Martinez [facility] Unavailable Willie Luh Phillips PA-C Unavailable +[phone] Nati Holli Connie PA-C Unavailable +[phone] JimenezLuh farah PA-C Unavailable +[phone] Adbiel Sophy PA-C Unavailable [phone] Katie Reina DPM, Podiatry /Foot and Ankle Surgery Unavailable Cl Hugo MD Unavailable +[phone] Christopher Castaneda DO Unavailable [phone] Markie Wade MD Unavailable [phone] Dilip Tate DPM Unavailable +[phone] Christopher Castaneda DO Unavailable [phone] Encounter Details Date Type Department Care Team (Late st Contact Info) Description 06/09/2017 [facility] Medical Advice [facility] [address] [address] Abdirizak Villalta MD [address] [place] [address] Social History Tobacco Use Types Packs/Day Years Used Date Smoking Tobacco: Former Cigarettes 1 35 0 05/13/1976 - 05/10/2011 Smokeless Tobacco: Never Alcohol Use Standard Drinks/Week Comments No 0 (1 standard drink = 0.6 oz pur e alcohol) Sex and Gender Information Value Date Recorded Sex Assigned at Male 06/23/2020 10:21 PM CDT Legal Sex Male 3:30 AM VP BIOLOGY Gender Identity Male 06/23/2020 10:21 PM CDT Sexual Orientation Straight 06/23/2020 10 :21 PM CDT documented as of this encounter Plan of Treatment Upcoming Encounters Date Type Department Care Team (Late st Contact Info) Description 04/09/2024 9:30 AM VP BIOLOGY Office Visit [facility] [address] [place] [address] [place] [address] [place] [address] 04/14/2024 2:00 PM VP BIOLOGY Office Visit [facility] [address] [place] [phone] Kassie Martienz, [facility] [address] [place] [address] documented as of this encounter Visit Diagnoses Not on filedocumented in this encounter Additional Health Concerns Infection Onset Date Last Indicated Resolved Time Rule Out COVID-19 03/01/2022 03/01/2022 03/22/2022 11:41 PM VP BIOLOGY Rule Out COVID-19 06/13/2022 06/13/2022 06/14/2022 9:45 AM CDT Assessment Noted Time PHQ-9 Depression Total Score: 0 01/07/20 15 7:31 AM VP BIOLOGY documented as of this encounter Care Teams Optic Fibre Drawer Relationship Specialty Start Date End Date Kelley Gunderson MD [address] [place] [address] PCP - General Internal Medicine 03/12/17 01/28/21 Kelley Gunderson MD [address] [place] [address] PCP - Assigned PCP 05/04/17 04/28/18 [place] [address] [place] [address] PCP - General Family Medicine 01/29/21 Abdirizak Villalta MD [address] [place] [address] Referring Physician Gastroenterology 09/24/16 Kelley Gunderson MD [address] [place] [address] Assigned PCP 05/04/17 10/14/20 Abdirizak Villalta MD [address] [place] [address] Assigned Gastroenterology Provider 12/17/19 06/17/20 [place] [address] [employer] [facility] [address] [place] [address] Assigned Musculoskeletal Provider 12/17/19 01/27/21 [place] [address] [place] [address] Assigned PCP 10/15/20 Holli Damian PA-C 6405 [facility] [address] [place] [address] Assigned Surgical Provider 02/04/2104/26/22 [place] [address] [employer] [facility] [address] [place], [place] [address] Assigned Musculoskeletal Provider 01/28/21 07/26/22 Abdirizak Villalta MD [address] [place] [address] Assigned Gastroenterology Provider 01/28/21 07/26/22 [facility] [address] [place] [address] Pharmacist Pharmacist 05/14/21 Shani Madison, RN Personal Advocate & Liaison ([facility]) Family Medicine 05/15/21 07/06/21 Jackie Muñoz RN Personal Advocate & Liaison ([facility]) Family Medicine 07/06/21 05/22/22 [facility] [address] [place] [address] Assigned MTM Pharmacist 07/21/21 Darcy Trevino, assistant signal maintainer Diabetes Education 09/25/21 [facility] [address] [place] [address] Assigned MTM Pharmacist 11/21/21 Luh Tapia PA-C [address] [place] [address] Assigned Surgical Provider 04/27/22 Holli Damian PA-C [address] [place] [address] Assigned Surgical Provider 06/22/2206/28/22 Luh Tapia PA-C [address] [place] [address] Assigned Surgical Provider 06/29/22 Abdiel New PA-C [address] [place] [address] Assigned Musculoskeletal Provider 12/21/22 01/03/23 Katie Reina DPM, Podiatry/Foot and Ankle Surgery [address] [facility] 300 [place] [address] Assigned Musculoskeletal Provider 01/04/23 06/16/23 Cl Hugo MD [address] [place] [address] 394 [place] [address] Urology 01/28/23 [place] [address] [address], [facility] 300 [place] [address] Assigned Musculoskeletal Provider 06/17/23 08/16/23 Markie Wade MD [address] [place] [address] Assigned Surgical Provider 08/17/23 Dilip Tate DPM [address] [facility] 300 [place] [address] Assigned Musculoskeletal Provider 08/17/23 01/16/24 [place] [address] [address], [facility] 300 [place] [address] Assigned Musculoskeletal Provider 01/17/24 documented as of this encounter
--- OUTSIDE RECORDS SUMMARY | 2024-02-29 19:28 | XMS_ITS | Encounter Summary ---
Author Organization [place] Address [address] [place] [address] Care Team Providers Care Safety And Skill Based Pay Manager Name Role Phone Hansel Gillespie MD Primary Care Provider [phone] Abdirizak Villalta MD Unavailable [phone] Kelley Gunderson MD Primary Care Provider +[phone] Kelley Gunderson MD Unavailable +[phone] Kelley Gunderson MD Unavailable +[phone] Abdirizak Villalta MD Unavailable [phone] Hugo Osborne MD Unavailable +[phone] Kassie Elizabeth MD Unavailable [phone] Kassie Elizabeth MD Primary Care Provider +[phone] Holli Damian PA-C Unavailable +[phone] Dilip Tate DPM Unavailable +[phone] Abdirizak Villalta MD Unavailable [phone] Kassie Martinez [facility] Unavailable +[phone] Shani Madison RN Unavailable Unavailable Jackie Muñoz RN Unavailable Unavailable Kassie Martinez [facility] Unavailable Darcy Trevino RN Unavailable Unavailable Kassie Martinez [facility] Unavailable [phone] Luh Tapia PA-C Unavailable +[phone] NatiHolli underwood Connie PA-C Unavailable +[phone] Luh Tapia PA-C Unavailable +[phone] Abdiel New PA-C Unavailable [phone] Katie Reina DPM, Podiatry /Foot and Ankle Surgery Unavailable Cl Hugo MD Unavailable +[phone] Christopher Castaneda DO Unavailable [phone] Markie Wade MD Unavailable [phone] Dilip TtaeM Unavailable +[phone] Christopher Castaneda DO Unavailable [phone] Encounter Details Date Type Department Care Team (Late st Contact Info) Description 02/27/2017 [facility] [address] [address] Abdirizak Villalta MD [address] [place] [address] Social History Tobacco Use Types Packs/Day Years Used Date Smoking Tobacco: Former Cigarettes 1 35 0 05/13/1976 - 05/10/2011 Smokeless Tobacco: Never Alcohol Use Standard Drinks/Week Comments No 0 (1 standard drink = 0.6 oz pur e alcohol) Sex and Gender Information Value Date Recorded Sex Assigned at Male 06/23/2020 10:21 PM CDT Legal Sex Male 3:30 AM SENIOR TECHNICAL SPECIALIST Gender Identity Male 06/23/2020 10:21 PM CDT Sexual Orientation Straight 06/23/2020 10 :21 PM CDT documented as of this encounter Plan of Treatment Upcoming Encounters Date Type Department Care Team (Late st Contact Info) Description 04/09/2024 9:30 AM SENIOR TECHNICAL SPECIALIST Office Visit [facility] [address] [place] [address] [place] [address] [place], [place] [phone] 04/14/2024 2:00 PM SENIOR TECHNICAL SPECIALIST Office Visit [facility] [address] [place] [phone] Kassie Martinez, [facility] [address] [place], [place] [address] documented as of this encounter Visit Diagnoses Not on filedocumented in this encounter Additional Health Concerns Infection Onset Date Last Indicated Resolved Time Rule Out COVID-19 03/01/2022 03/01/2022 03/22/2022 11:41 PM SENIOR TECHNICAL SPECIALIST Rule Out COVID-19 06/13/2022 06/13/2022 06/14/2022 9:45 AM CDT Assessment Noted Time PHQ-9 Depression Total Score: 0 01/07/20 15 7:31 AM SENIOR TECHNICAL SPECIALIST documented as of this encounter Care Teams Safety And Skill Based Pay Manager Relationship Specialty Start Date End Date Hansel Gillespie MD PCP - General 03/16/07 03/11/17 Kelley Gunderson MD [address] [place] [address] PCP - General Internal Medicine 03/12/17 01/28/21 Kelley Gunderson MD [address] [place] [address] PCP - Assigned PCP 05/04/17 04/28/18 [place] [address] [place] [address] PCP - General Family Medicine 01/29/21 Abdirizak Villalta MD 516 [facility] [address] [place] [address] Referring Physician Gastroenterology 09/24/16 Kelley Gunderson MD [address] [place] [address] Assigned PCP 05/04/17 10/14/20 Abdirizak Villalta MD 6 [facility] [address] [place] [address] Assigned Gastroenterology Provider 12/17/19 06/17/20 [place] [address] [employer] [facility] 300 [place] [address] Assigned Musculoskeletal Provider 12/17/19 01/27/21 [place] [address] [place] [address] Assigned PCP 10/15/20 Holli Damian PA-C 6405 [facility] [address] [place] [address] Assigned Surgical Provider 02/04/2104/26/22 [place] [address] [employer] [facility] 300 [place], [place] [address] Assigned Musculoskeletal Provider 01/28/21 07/26/22 Abdirizak Villalta MD 516 [facility] [address] [place] [address] Assigned Gastroenterology Provider 01/28/21 07/26/22 Kassie Martinez [facility] [address] [place] [address] Pharmacist Pharmacist 05/14/21 Shani Madison, MARIE Personal Advocate & Liaison ([facility]) Family Medicine 05/15/21 07/06/21 Jackie Muñoz RN Personal Advocate & Liaison ([facility]) Family Medicine 07/06/21 05/22/22 [facility] [address] [place] [address] Assigned MTM Pharmacist 07/21/21 Darcy Trevino, event planner Diabetes Education 09/25/21 [facility] [address] [place] [address] Assigned MTM Pharmacist 11/21/21 Luh Tapia PA-C [address] [place] [address] Assigned Surgical Provider 04/27/22 Holli Damian PA-C [address] [place] [address] Assigned Surgical Provider 06/22/2206/28/22 Luh Tapia PA-C [address] [place] [address] Assigned Surgical Provider 06/29/22 Abdiel New PA-C [address] [place] [address] Assigned Musculoskeletal Provider 12/21/22 01/03/23 Katie Reina DPM, Podiatry/Foot and Ankle Surgery [address] [facility] 300 [place] [address] Assigned Musculoskeletal Provider 01/04/23 06/16/23 Cl Hugo MD [address] [place] [address] Urology 01/28/23 [place] [address] [address], [facility] 300 [place] [address] Assigned Musculoskeletal Provider 06/17/23 08/16/23 Markie Wade MD [address]09 [place] [address] Assigned Surgical Provider 08/17/23 Dilip [place] [address] [facility] [address] [place] [address] Assigned Musculoskeletal Provider 08/17/23 01/16/24 [place] [address] [address], [facility] 300 [place] [address] Assigned Musculoskeletal Provider 01/17/24 documented as of this encounter
--- OUTSIDE RECORDS SUMMARY | 2024-02-29 19:28 | XMS_ITS | Encounter Summary ---
Author Organization [place] Address [address] [place] [address] Care Team Providers Care Bombsight Specialist Name Role Phone Abdirizak Villalta MD Unavailable [phone] Kleley Gunderson MD Primary Care Provider +[phone] Kelley Gunderson MD Unavailable +[phone] Kelley Gunderson MD Unavailable +[phone] Abdirizak Villalta MD Unavailable +[phone] Hugo Osborne MD Unavailable [phone] Kassie Elizabeth MD Unavailable +[phone] Kassie Elizabeth MD Primary Care Provider +[phone] Holli Damian PA-C Unavailable +[phone] Dilip Tate DPM Unavailable +[phone] Abdirizak Villalta MD Unavailable +[phone] Kassie Martinez [facility] Unavailable +[phone] Shani [place] RN Unavailable Unavailable Jackie Muñoz RN Unavailable Unavailable Kassie Martinez [facility] Unavailable +[phone] Darcy Trevino RN Unavailable Unavailable Kassie Martinez [facility] Unavailable [phone] Willie Luh Phillips PA-C Unavailable +[phone] NatiHolli garces Connie PA-C Unavailable +[phone] JimenezLuh farah PA-C Unavailable +[phone] Abdiel Sophy PA-C Unavailable [phone] Katie Reina DPM, Podiatry /Foot and Ankle Surgery Unavailable Cl Hugo MD Unavailable +[phone] Christopher Castaneda DO Unavailable [phone] Markie Wade MD Unavailable [phone] Dilip Tate DPM Unavailable +[phone] Christopher Castaneda DO Unavailable [phone] Reason for Visit * Reason Onset Date Comments Patient/info Update 07/09/2017 Encounter Details Date Type Department Care Team (Late st Contact Info) Description 07/09/2017 MyC Medical Advice [address] [place] [address] Kelley Gunderson MD [address] [place] [address] Patient/info Update Social History Tobacco Use Types Packs/Day Years Used Date Smoking Tobacco: Former Cigarettes 1 35 0 05/13/1976 - 05/10/2011 Smokeless Tobacco: Never Alcohol Use Standard Drinks/Week Comments No 0 (1 standard drink = 0.6 oz pur e alcohol) Sex and Gender Information Value Date Recorded Sex Assigned at Male 06/23/2020 10:21 PM CDT Legal Sex Male 3:30 AM PROCESS CONTROL SUPERVISOR Gender Identity Male 06/23/2020 10:21 PM CDT Sexual Orientation Straight 06/23/2020 10 :21 PM CDT documented as of this encounter Miscellaneous Notes * Telephone Encounter - Ingrid Henry RN - 07/10/2017 12:32 PM CDT Please abstract the following data from this visit with this patient into the appropriate field in Epic: Eye exam with ophthalmology on this date: 07/04/2017 Sent info to abstraction documented in this encounter Plan of Treatment Upcoming Encounters Date Type Department Care Team (Late st Contact Info) Description 04/09/2024 9:30 AM PROCESS CONTROL SUPERVISOR Office Visit [facility] [address] [place] [address] [place] [address] [place], [place] [address] 04/14/2024 2:00 PM PROCESS CONTROL SUPERVISOR Office Visit [facility] [address] [place] [phone] Kassie Martinez, [facility] [address] [place], [place] [phone] documented as of this encounter Visit Diagnoses Not on filedocumented in this encounter Additional Health Concerns Infection Onset Date Last Indicated Resolved Time Rule Out COVID-19 03/01/2022 03/01/2022 03/22/2022 11:41 PM PROCESS CONTROL SUPERVISOR Rule Out COVID-19 06/13/2022 06/13/2022 06/14/2022 9:45 AM CDT Assessment Noted Time PHQ-9 Depression Total Score: 0 01/07/20 15 7:31 AM PROCESS CONTROL SUPERVISOR documented as of this encounter Care Teams Bombsight Specialist Relationship Specialty Start Date End Date Kelley Gunderson MD [address] [place] [address] [id number] PCP - General Internal Medicine 03/12/17 01/28/21 Kelley Gunderson MD [address] [place] [address] 598253 PCP - Assigned PCP 05/04/17 04/28/18 [place] [address] [place] [address] PCP - General Family Medicine 01/29/21 Abdirizak Villalta MD [address] [place] [address] Referring Physician Gastroenterology 09/24/16 Kelley Gunderson MD [address] [place] [address] Assigned PCP 05/04/17 10/14/20 Abdirizak Villalta MD [address] [place] [address] Assigned Gastroenterology Provider 12/17/19 06/17/20 [place] [address] [address] Assigned Musculoskeletal Provider 12/17/19 01/27/21 [place] [address] [place] [address] Assigned PCP 10/15/20 Holli Damian PA-C [address] [facility] [place] [address] Assigned Surgical Provider 02/04/2104/26/22 Dilip Tate DPM [address] [facility] [address] [place] [address] Assigned Musculoskeletal Provider 01/28/21 07/26/22 Abdirizak Villalta MD [address] [facility] [address] [place] [address] Assigned Gastroenterology Provider 01/28/21 07/26/22 [facility] [address] [place] [address] Pharmacist Pharmacist 05/14/21 Shani [place], MARIE Personal Advocate & Liaison ([facility]) Family Medicine 05/15/21 07/06/21 Jackie Muñoz RN Personal Advocate & Liaison ([facility]) Family Medicine 07/06/21 05/22/22 [facility] [address] [place] [address] Assigned MTM Pharmacist 07/21/21 Darcy Trevino, auto rebuilder Diabetes Education 09/25/21 [facility] [address] [place] [address] Assigned MTM Pharmacist 11/21/21 Luh Tapia PA-C [address] [place] [address] Assigned Surgical Provider 04/27/22 Holli Damian PA-C [address] [place] [address] Assigned Surgical Provider 06/22/2206/28/22 Luh Tapia PA-C [address] [facility] [address] [place] [address] Assigned Surgical Provider 06/29/22 Abdiel New PA-C [address] [place] [address] Assigned Musculoskeletal Provider 12/21/22 01/03/23 Katie Reina DPM, Podiatry/Foot and Ankle Surgery [address] [facility] 300 [place] [address] Assigned Musculoskeletal Provider 01/04/23 06/16/23 Cl Hugo MD [address] [place] [address] Urology 01/28/23 [place] [address] [address] [facility] 300 [place] [address] Assigned Musculoskeletal Provider 06/17/23 08/16/23 Markie Wade MD [address] [place] [address] Assigned Surgical Provider 08/17/23 [place] [address] [facility] 300 [place] [address] Assigned Musculoskeletal Provider 08/17/23 01/16/24 [place] [address] [address] [facility] [address] [place] [address] Assigned Musculoskeletal Provider 01/17/24 documented as of this encounter
--- OUTSIDE RECORDS SUMMARY | 2024-02-29 19:28 | XMS_ITS | Encounter Summary ---
Author Organization [place] Address [address] [place] [address] Care Team Providers Care Transition Program Manager Name Role Phone Abdirizak Villalta MD Unavailable [phone] Kelley Gunderson MD Primary Care Provider [phone] Kelley Gunderson MD Unavailable [phone] Kelley Gunderson MD Unavailable +[phone] Abdirizak Villalta MD Unavailable [phone] Hugo Osborne MD Unavailable [phone] Kassie Elizabeth MD Unavailable [phone] Kassie Elizabeth MD Primary Care Provider [phone] Holli Damian PA-C Unavailable +[phone] Dilip Tate DPM Unavailable +[phone] Abdirizak Villalta MD Unavailable +[phone] Kassie Martinez [facility] Unavailable +[phone] Shani [place] RN Unavailable Unavailable Jackie Muñoz RN Unavailable Unavailable Kassie Martinez [facility] Unavailable [phone] Darcy Trevino RN Unavailable Unavailable Kassie Martinez [facility] Unavailable Willie Luh Phillips PA-C Unavailable [phone] NatiHolli Connie PA-C Unavailable +[phone] JimenezLuh farah PA-C Unavailable Abdiel Sophy PA-C Unavailable [phone] Katie Reina DPM, Podiatry /Foot and Ankle Surgery Unavailable Cl Hugo MD Unavailable [phone] Christopher Castaneda DO Unavailable [phone] Markie Wade MD Unavailable [phone] Dilip Tate DPM Unavailable [phone] Christopher Castaneda DO Unavailable [phone] Encounter Details Date Type Department Care Team (Late st Contact Info) Description 10/10/2017 MyC Medical Advice [facility] [address] [facility] [address] [place] [address] Kelley Gunderson MD [address] [place] [address] Social History Tobacco Use Types Packs/Day Years Used Date Smoking Tobacco: Former Cigarettes 1 35 0 05/13/1976 - 05/10/2011 Smokeless Tobacco: Never Alcohol Use Standard Drinks/Week Comments No 0 (1 standard drink = 0.6 oz pur e alcohol) Sex and Gender Information Value Date Recorded Sex Assigned at Male 06/23/2020 10:21 PM CDT Legal Sex Male 3:30 AM WELDER TECH Gender Identity Male 06/23/2020 10:21 PM CDT Sexual Orientation Straight 06/23/2020 10 :21 PM CDT documented as of this encounter Plan of Treatment Upcoming Encounters Date Type Department Care Team (Late st Contact Info) Description 04/09/2024 9:30 AM WELDER TECH Office Visit [facility] [address] [place] [address] [place] [address] [place] [address] 04/14/2024 2:00 PM WELDER TECH Office Visit [facility] [address] [place] [phone] Kassie Martinez, [facility] [address] [place] [address] documented as of this encounter Visit Diagnoses Not on filedocumented in this encounter Additional Health Concerns Infection Onset Date Last Indicated Resolved Time Rule Out COVID-19 03/01/2022 03/01/2022 03/22/2022 11:41 PM WELDER TECH Rule Out COVID-19 06/13/2022 06/13/2022 06/14/2022 9:45 AM CDT Assessment Noted Time PHQ-9 Depression Total Score: 0 01/07/20 15 7:31 AM WELDER TECH documented as of this encounter Care Teams Transition Program Manager Relationship Specialty Start Date End Date Kelley Gunderson MD [address] [place] [address] PCP - General Internal Medicine 03/12/17 01/28/21 Kelley Gunderson MD [address] [place] [address] PCP - Assigned PCP 05/04/17 04/28/18 [place] [address] [place] [address] PCP - General Family Medicine 01/29/21 Abdirizak Villalta MD [address] [place] [address] Referring Physician Gastroenterology 09/24/16 Kelley Gunderson MD [address] [place] [address] Assigned PCP 05/04/17 10/14/20 Abdirizak Villalta MD [address] [place] [address] Assigned Gastroenterology Provider 12/17/19 06/17/20 [place] [address] [facility] [address] [place] [address] Assigned Musculoskeletal Provider 12/17/19 01/27/21 [place] [address] [place] [address] Assigned PCP 10/15/20 Holli Damian PA-C 6405 [facility] [address] [place] [address] Assigned Surgical Provider 02/04/2104/26/22 Dilip [place] [address] [facility] [address] [place], [place] 541417 Assigned Musculoskeletal Provider 01/28/21 07/26/22 Abdirizak Villalta MD [address] [place] [address] Assigned Gastroenterology Provider 01/28/21 07/26/22 [facility] [address] [place] [address] Pharmacist Pharmacist 05/14/21 Shani [place], RN Personal Advocate & Liaison ([facility]) Family Medicine 05/15/21 07/06/21 Jackie Muñoz RN Personal Advocate & Liaison ([facility]) Family Medicine 07/06/21 05/22/22 [facility] [address] [place] [address] Assigned MTM Pharmacist 07/21/21 Darcy Trevino, bulk station agent Diabetes Education 09/25/21 [facility] [address] [place] [address] Assigned MTM Pharmacist 11/21/21 Luh Tapia PA-C [address] [place] [address] Assigned Surgical Provider 04/27/22 Holli Damian PA-C [address] [place] [address] Assigned Surgical Provider 06/22/2206/28/22 Luh Tapia PA-C [address] [place] [address] Assigned Surgical Provider 06/29/22 Abdiel New PA-C [address] [place] [address] Assigned Musculoskeletal Provider 12/21/22 01/03/23 Katie Reina DPM, Podiatry/Foot and Ankle Surgery [address] [facility] 300 [place] [address] Assigned Musculoskeletal Provider 01/04/23 06/16/23 Cl Hugo MD [address] [place] [address] [address] [place] [address] Urology 01/28/23 [place] [address] [address], [facility] 300 [place] [address] Assigned Musculoskeletal Provider 06/17/23 08/16/23 Markie Wade MD [address] [place] [address] Assigned Surgical Provider 08/17/23 [place] [address] [facility] 300 [place] [address] Assigned Musculoskeletal Provider 08/17/23 01/16/24 [place] [address] [address], [facility] 300 [place] [address] Assigned Musculoskeletal Provider 01/17/24 documented as of this encounter
[2024-02-29 19:29] LABS: Alanine Aminotransferase* 66 U/L (4-50); Alkaline Phosphatase* 45 U/L (40-150); Anion Gap 8 mEq/L (7-15); Aspartate Amino Transferase* 41 U/L (12-35); Blood Urea Nitrogen* 20 mg/dL (7-30); Calcium* 9.4 mg/dL (8.4-10.6); Carbon Dioxide* 20 mmol/L (20-32); Glucose* 235 mg/dL (60-115); Magnesium* 1.4 mg/dL (1.5-2.6)
[2024-02-29 19:29] LABS: PCR FLU A Negative PCR FLU A (Negative); PCR FLU B Negative PCR FLU B (Negative); PCR RSV Negative PCR RSV (Negative); SARS PCR* Negative SARS-CoV-2 (Negative)
--- OUTSIDE RECORDS SUMMARY | 2024-02-29 19:29 | XMS_ITS | Encounter Summary ---
Author Organization [place] Address [address] [place] [address] Care Team Providers Care Business Rules Analyst Name Role Phone Hansel Gillespie MD Primary Care Provider [phone] Ange Munoz PA-C Unavailable Unavailable Elizabeth Steward MD Unavailable + Abdirizak Villalta MD Unavailable [phone] Kelley Gunderson MD Primary Care Provider [phone] Kelley Gunderson MD Unavailable +[phone] Kelley Gunderson MD Unavailable +[phone] Abdirizak Villalta MD Unavailable [phone] Hugo Osborne MD Unavailable [phone] Kassie Elizabeth MD Unavailable +[phone] Kassie Elizabeth MD Primary Care Provider +[phone] Holli Damian PA-C Unavailable +[phone] Dilip Tate DPM Unavailable +[phone] Abdirizak Villalta MD Unavailable +[phone] Kassie Martinez [facility] Unavailable +[phone] Shani [place] RN Unavailable Unavailable Jackie Muñoz RN Unavailable Unavailable Juan Kassie [facility] Unavailable [phone] Darcy Trevino RN Unavailable Unavailable JuanReynaKassie [facility] Unavailable [phone] Luh Tapia PA-C Unavailable +[phone] Nati Hollimc Rosales PA-C Unavailable +[phone] Luh Tapia PA-C Unavailable [phone] Abdiel New PA-C Unavailable [phone] Katie Reina DPM, Podiatry /Foot and Ankle Surgery Unavailable Cl Hugo MD Unavailable +[phone] Christopher Castaneda DO Unavailable [phone] Markie Wade MD Unavailable [phone] Dilip Tate DPM Unavailable +[phone] Christopher Castaneda DO Unavailable [phone] Reason for Visit * Reason Onset Date Comments Medication Question 10/07/2014 Encounter Details Date Type Department Care Team (Latest Contact Info) Description 10/07/2014 MyC Medical Advice [address] [address] Hansel Gillespie MD [address] 889285 Medication Question Social History Tobacco Use Types Packs/Day Years Used Date Smoking Tobacco: Former Cigarettes 1 1 0 05/09/2010 - 05/10/2011 Smokeless Tobacco: Never Alcohol Use Standard Drinks/Week Comments No 0 (1 standard drink = 0.6 oz pur e alcohol) Sex and Gender Information Value Date Recorded Sex Assigned at Male 06/23/2020 10:21 PM CDT Legal Sex Male 3:30 AM PROJECT RESERVOIR ENGINEER Gender Identity Male 06/23/2020 10:21 PM CDT Sexual Orientation Straight 06/23/2020 10 :21 PM CDT documented as of this encounter Plan of Treatment Upcoming Encounters Date Type Department Care Team (Late st Contact Info) Description 04/09/2024 9:30 AM PROJECT RESERVOIR ENGINEER Office Visit [facility] [address] [place] [address] [place] [address] [place], [place] 6[address] 04/14/2024 2:00 PM PROJECT RESERVOIR ENGINEER Office Visit [facility] [address] [place] [address] Kassie Martinez [facility] [address] [place], [place] [address] documented as of this encounter Visit Diagnoses Not on filedocumented in this encounter Additional Health Concerns Infection Onset Date Last Indicated Resolved Time Rule Out COVID-19 03/01/2022 03/01/2022 03/22/2022 11:41 PM PROJECT RESERVOIR ENGINEER Rule Out COVID-19 06/13/2022 06/13/2022 06/14/2022 9:45 AM CDT documented as of this encounter Care Teams Business Rules Analyst Relationship Specialty Start Date End Date Hansel Gillespie MD PCP - General 03/16/07 03/11/17 Kelley Gunderson MD [address] [facility] [address] [place] [address] PCP - General Internal Medicine 03/12/17 01/28/21 Kelley Gunderson MD [address] [place] [address] PCP - Assigned PCP 05/04/17 04/28/18 [place] [address] [place] [address] PCP - General Family Medicine 01/29/21 Ange Munoz PA-C Physician Compliance Counsel Physician Compliance Counsel 04/27/15 04/27/15 Elizabeth Steward MD [address] [place] [address] Internal Medicine 06/13/16 09/23/16 Abdirizak Villalta MD [address] [place] [address] Referring Physician Gastroenterology 09/24/16 Kelley Gunderson MD [address] [place] [address] Assigned PCP 05/04/17 10/14/20 Abdirizak Villalta MD [address] [place] [address] Assigned Gastroenterology Provider 12/17/19 06/17/20 [place] [address] [address] Assigned Musculoskeletal Provider 12/17/19 01/27/21 [place] [address] [place] [address] Assigned PCP 10/15/20 Holli Damian PA-C [address] [place] [address] Assigned Surgical Provider 02/04/21 04/26/22 [place] [address] [facility] [address] [place], [place] 1726[address] Assigned Musculoskeletal Provider 01/28/21 07/26/22 Abdirizak Villalta MD [address] 331755 Assigned Gastroenterology Provider 01/28/21 07/26/22 Kassie Martinez [facility] [address] [place] [address] Pharmacist Pharmacist 05/14/21 Shani [place], MARIE Personal Advocate & Liaison ([facility] Family Medicine 05/15/21 07/06/21 Jackie Muñoz, MARIE Personal Advocate & Liaison ([facility]) Family Medicine 07/06/21 05/22/22 Kassie Martinez [facility] [address] [place] [address] Assigned MTM Pharmacist 07/21/21 Darcy Trevino, proposal engineer Diabetes Education 09/25/21 Kassie Martinez [facility] [address] [place] [address] Assigned MTM Pharmacist 11/21/21 Luh Tapia PA-C [address] [place] [address] Assigned Surgical Provider 04/27/22 06/21/22 Holli Damian PA-C [address] [place] [address] Assigned Surgical Provider 06/22/22 06/28/22 Luh Tapia PA-C [address] [place] [address] Assigned Surgical Provider 06/29/22 08/16/23 Abdiel New PA-C [address] [place] [address] Assigned Musculoskeletal Provider 12/21/22 01/03/23 Katie Reina DPM, Podiatry/Foot and Ankle Surgery [address] [address] [facility] 300 [place] [address] Assigned Musculoskeletal Provider 01/04/23 06/16/23 Cl Hugo MD [address] [place] [address] 394 [place] [address] Urology 01/28/23 [place] [address] [address] [facility] [address] [place], [place] [address] Assigned Musculoskeletal Provider 06/17/23 08/16/23 Markie Wade MD [address] [place] [address] Assigned Surgical Provider 08/17/23 [place] [address] [facility] [address] [place] [address] Assigned Musculoskeletal Provider 08/17/23 01/16/24 [place] [address] [facility] [address] [place] [address] Assigned Musculoskeletal Provider 01/17/24 documented as of this encounter
--- OUTSIDE RECORDS SUMMARY | 2024-02-29 19:29 | XMS_ITS | Encounter Summary ---
Author Organization [facility] Address [address] [place] [address] Care Team Providers Care Lean Facilitator Name Role Phone Hansel Gillespie MD Primary Care Provider [phone] Ange Munoz PA-C Unavailable Unavailable Elizabeth Steward MD Unavailable + Abdirizak Villalta MD Unavailable +[phone] Kelley Gunderson MD Primary Care Provider +[phone] Kelley Gunderson MD Unavailable +[phone] Kelley Gunderson MD Unavailable +[phone] Abdirizak Villalta MD Unavailable +[phone] Hugo Osborne MD Unavailable +[phone] Kassie Elizabeth MD Unavailable +[phone] Kassie Elizabeth MD Primary Care Provider +[phone] Holli Damian PA-C Unavailable +[phone] Dilip Taet DPM Unavailable +[phone] Abdirizak Villalta MD Unavailable +[phone] Kassie Martinez [facility] Unavailable Shani Madison RN Unavailable Unavailable Jackie Muñoz RN Unavailable Unavailable Juan Kassie [facility] Unavailable +[phone] Darcy Trevino RN Unavailable Unavailable JuanReynaKassie [facility] Unavailable +[phone] Luh Tapia PA-C Unavailable +[phone] Holli Damian PA-C Unavailable +[phone] Luh Tapia PA-C Unavailable +[phone] Abdiel New PA-C Unavailable [phone] Katie Reina DPM, Podiatry /Foot and Ankle Surgery Unavailable Cl Hugo MD Unavailable +[phone] Christopher Castaneda DO Unavailable [phone] Markie Wade MD Unavailable [phone] Dilip Tate DPM Unavailable +[phone] Christopher Castaneda DO Unavailable [phone] Encounter Details Date Type Department Care Team (Late st Contact Info) Description 08/04/[address] [address] [facility] Social History Tobacco Use Types Packs/Day Years Used Date Smoking Tobacco: Former Cigarettes 1 1 0 05/09/2010 - 05/10/2011 Smokeless Tobacco: Never Alcohol Use Standard Drinks/Week Comments No 0 (1 standard drink = 0.6 oz pur e alcohol) Sex and Gender Information Value Date Recorded Sex Assigned at Male 06/23/2020 10:21 PM CDT Legal Sex Male 3:30 AM CHANGE PERSON Gender Identity Male 06/23/2020 10:21 PM CDT Sexual Orientation Straight 06/23/2020 10 :21 PM CDT documented as of this encounter Plan of Treatment Upcoming Encounters Date Type Department Care Team (Late st Contact Info) Description 04/09/2024 9:30 AM CHANGE PERSON Office Visit [facility] [address] [place] [address] [place] [address] [place] [address] 04/14/2024 2:00 PM CHANGE PERSON Office Visit [facility] [address] [place] [phone] Kassie Martinez, [facility] [address] [place], [place] [phone] documented as of this encounter Visit Diagnoses Not on filedocumented in this encounter Additional Health Concerns Infection Onset Date Last Indicated Resolved Time Rule Out COVID-19 03/01/2022 03/01/2022 03/22/2022 11:41 PM CHANGE PERSON Rule Out COVID-19 06/13/2022 06/13/2022 06/14/2022 9:45 AM CDT documented as of this encounter Care Teams Lean Facilitator Relationship Specialty Start Date End Date Hansel Gillespie MD PCP - General 03/16/07 03/11/17 Kelley Gunderson MD [address] [place] [address] 612625 PCP - General Internal Medicine 03/12/17 01/28/21 Kelley Gunderson MD [address] [place] [address] 040923 PCP - Assigned PCP 05/04/17 04/28/18 [place] [address] [place] [address] PCP - General Family Medicine 01/29/21 Ange Munoz PA-C Physician Facing Slitter Physician Facing Slitter 04/27/15 04/27/15 Elizabeth Steward MD [address] [facility] [address] [place] [address] Internal Medicine 06/13/16 09/23/16 Abdirizak Villalta MD [address] [place] [address] [address] [place] [address] Referring Physician Gastroenterology 09/24/16 Kelley Gunderson MD [address] [place] [address] Assigned PCP 05/04/17 10/14/20 Abdirizak Villalta MD [address] [place] [address] Assigned Gastroenterology Provider 12/17/19 06/17/20 [place] [address] [address] Assigned Musculoskeletal Provider 12/17/19 01/27/21 [place] [address] [place] [address] Assigned PCP 10/15/20 Holli Damian PA-C [address] [place] [address] Assigned Surgical Provider 02/04/21 04/26/22 [place] Tate DPM [address] [facility] [address] [place] [address] Assigned Musculoskeletal Provider 01/28/21 07/26/22 Abdirizak Villalta MD [address] 532895 Assigned Gastroenterology Provider 01/28/21 07/26/22 Kassie Martinez [facility] [address] [place] [address] Pharmacist Pharmacist 05/14/21 Shani Madison, MARIE Personal Advocate & Liaison ([facility]) Family Medicine 05/15/21 07/06/21 Jackie Muñoz RN Personal Advocate & Liaison ([facility]) Family Medicine 07/06/21 05/22/22 [facility] [address] [place] [address] Assigned MTM Pharmacist 07/21/21 Darcy Trevino, line therapist Diabetes Education 09/25/21 [facility] [address] [place] [address] Assigned MTM Pharmacist 11/21/21 Luh Tapia PA-C [address] [address] Assigned Surgical Provider 04/27/22 06/21/22 Holli Damian PA-C [address] [place] [address] Assigned Surgical Provider 06/22/22 06/28/22 Luh Tapia PA-C [address] [place] [address] Assigned Surgical Provider 06/29/22 08/16/23 Abdiel New PA-C [address] [address] Assigned Musculoskeletal Provider 12/21/22 01/03/23 Katie Reina DPM, Podiatry/Foot and Ankle Surgery [address] [facility] [address] [place] [address] Assigned Musculoskeletal Provider 01/04/23 06/16/23 Cl Hugo MD [address] [place] [address] Urology 01/28/23 [place] [address] [address], [facility] [address] [place] [address] Assigned Musculoskeletal Provider 06/17/23 08/16/23 Markie Wade MD 9 [place], [place] [address] Assigned Surgical Provider 08/17/23 Dilip Tate DPM [address] [facility] [address] [place] [address] Assigned Musculoskeletal Provider 08/17/23 01/16/24 [place] [address] [address]AL, [address] [address] Assigned Musculoskeletal Provider 01/17/24 documented as of this encounter
--- OUTSIDE RECORDS SUMMARY | 2024-02-29 19:29 | XMS_ITS | Encounter Summary ---
Author Organization [facility] Address [address] [place] [address] Care Team Providers Care Erp Developer Name Role Phone Hansel Gillespie MD Primary Care Provider [phone] Ange Munoz PA-C Unavailable Unavailable Elizabeth Steward MD Unavailable + Abdirizak Villalta MD Unavailable +[phone] Kelley Gunderson MD Primary Care Provider [phone] Kelley Gunderson MD Unavailable +[phone] Kelley Gunderson MD Unavailable +[phone] Abdirizak Villalta MD Unavailable [phone] Hugo Osborne MD Unavailable [phone] Kassie Elizabeth MD Unavailable +[phone] Kassie Elizabeth MD Primary Care Provider +[phone] Holli Damian PA-C Unavailable +[phone] Dilip Tate DPM Unavailable +[phone] Abdirizak Villalta MD Unavailable +[phone] Kassie Martinez [facility] Unavailable Shani Madison RN Unavailable Unavailable Jackie Muñoz RN Unavailable Unavailable Juan Kassie [facility] Unavailable [phone] Darcy Trevino RN Unavailable Unavailable JuanReynaKassie [facility] Unavailable +[phone] Luh Tapia PA-C Unavailable [phone] Holli Damian PA-C Unavailable +[phone] Luh Tapia PA-C Unavailable [phone] Abdiel New PA-C Unavailable [phone] Katie Reina DPM, Podiatry /Foot and Ankle Surgery Unavailable Cl Hugo MD Unavailable +[phone] Christopher Castaneda DO Unavailable [phone] Markie Wade MD Unavailable [phone] Dilip Tate DPM Unavailable +[phone] Christopher Castaneda DO Unavailable [phone] Encounter Details Date Type Department Care Team (Late st Contact Info) Description 09/05/2011 [facility] Medical Advice [address] [address] Hansel Gillespie MD [address] [id number] Social History Tobacco Use Types Packs/Day Years Used Date Smoking Tobacco: Former Cigarettes 1 1 0 05/09/2010 - 05/10/2011 Smokeless Tobacco: Never Alcohol Use Standard Drinks/Week Comments No 0 (1 standard drink = 0.6 oz pur e alcohol) Sex and Gender Information Value Date Recorded Sex Assigned at Male 06/23/2020 10:21 PM CDT Legal Sex Male 3:30 AM JUMBO OPERATOR Gender Identity Male 06/23/2020 10:21 PM CDT Sexual Orientation Straight 06/23/2020 10 :21 PM CDT documented as of this encounter Plan of Treatment Upcoming Encounters Date Type Department Care Team (Late st Contact Info) Description 04/09/2024 9:30 AM JUMBO OPERATOR Office Visit [facility] [address] [place] [phone] [place] [address] [place] [address] 04/14/2024 2:00 PM JUMBO OPERATOR Office Visit [facility] [address] [place] [address] [facility] [address] [place] [address] documented as of this encounter Visit Diagnoses Not on filedocumented in this encounter Additional Health Concerns Infection Onset Date Last Indicated Resolved Time Rule Out COVID-19 03/01/2022 03/01/2022 03/22/2022 11:41 PM JUMBO OPERATOR Rule Out COVID-19 06/13/2022 06/13/2022 06/14/2022 9:45 AM CDT documented as of this encounter Care Teams Erp Developer Relationship Specialty Start Date End Date Hansel Gillespie MD PCP - General 03/16/07 03/11/17 Kelley Gunderson MD 516 [facility] [address] [place] [address] PCP - General Internal Medicine 03/12/17 01/28/21 Kelley Gunderson MD [address] [address] PCP - Assigned PCP 05/04/17 04/28/18 [place] [address] [place] [address] PCP - General Family Medicine 01/29/21 Ange Munoz PA-C Physician Sheet Ironworker Physician Sheet Ironworker 04/27/15 04/27/15 Elizabeth Steward MD [address] [place] [address] Internal Medicine 06/13/16 09/23/16 Abdirizak Villalta MD [address] [place] [address] Referring Physician Gastroenterology 09/24/16 Kelley Gunderson MD [address] [place] [address] Assigned PCP 05/04/17 10/14/20 Abdirizak Villalta MD [address] [place] [address] Assigned Gastroenterology Provider 12/17/19 06/17/20 [place] [address] [address] Assigned Musculoskeletal Provider 12/17/19 01/27/21 [place] [address] [place] [address] Assigned PCP 10/15/20 Holli Damian PA-C [address] [place] [address] Assigned Surgical Provider 02/04/21 04/26/22 Dilip Tate DPM [address] [facility] [address] [place] [address] Assigned Musculoskeletal Provider 01/28/21 07/26/22 Abdirizak Villalta MD 516 [facility] [address] [place] [address] Assigned Gastroenterology Provider 01/28/21 07/26/22 aKssie Martinez [facility] [address] [place] [address] Pharmacist Pharmacist 05/14/21 Shani Madison, MARIE Personal Advocate & Liaison ([facility]) Family Medicine 05/15/21 07/06/21 Jackie Muñoz, MARIE Personal Advocate & Liaison ([facility]) Family Medicine 07/06/21 05/22/22 [facility] [address] [place] [address] Assigned MTM Pharmacist 07/21/21 Darcy Trevino, costing manager Diabetes Education 09/25/21 Kassie Martinez [facility] [address] [place] [address] Assigned MTM Pharmacist 11/21/21 Luh Tapia PA-C [address] [place] [address] Assigned Surgical Provider 04/27/22 06/21/22 Holli Damian PA-C [address] [place] [address] Assigned Surgical Provider 06/22/22 06/28/22 Luh Tapia PA-C [address] [place] [address] Assigned Surgical Provider 06/29/22 08/16/23 Abdiel New PA-C [address] [place] [address] Assigned Musculoskeletal Provider 12/21/22 01/03/23 Katie Reina DPM, Podiatry/Foot and Ankle Surgery [address] [facility] 300 [place] [address] Assigned Musculoskeletal Provider 01/04/23 06/16/23 Cl Hugo MD [address] [place] [address] 394 [place] [address] Urology 01/28/23 [place] [address] [address] [facility] 300 [place] [address] Assigned Musculoskeletal Provider 06/17/23 08/16/23 Markie Wade MD [address] [place] [address] Assigned Surgical Provider 08/17/23 Dilip [place] DPM [address] [facility] 300 [place] [address] Assigned Musculoskeletal Provider 08/17/23 01/16/24 [place] [address] [facility] 300 [place] [address] Assigned Musculoskeletal Provider 01/17/24 documented as of this encounter
--- OUTSIDE RECORDS SUMMARY | 2024-02-29 19:29 | XMS_ITS | Encounter Summary ---
Author Organization [facility] Address [address] [place] [address] Care Team Providers Care Software Verification Engineer Name Role Phone Hansel Gillespie MD Primary Care Provider [phone] Hernan Munoz PA-C Unavailable Unavailable Elizabeth Steward MD Unavailable + Abdirizak Villalta MD Unavailable [phone] Kelley Gunderson MD Primary Care Provider +[phone] Kelley Gunderson MD Unavailable +[phone] Kelley Gunderson MD Unavailable +[phone] Abdirizak Villalta MD Unavailable +[phone] Hugo Osborne MD Unavailable +[phone] Kassie Elizabeth MD Unavailable +[phone] Kassie Elizabeth MD Primary Care Provider +[phone] Holli Damian PA-C Unavailable +[phone] Dilip Tate DPM Unavailable +[phone] Abdirizak Villalta MD Unavailable +[phone] Kassie Martinez [facility] Unavailable [phone] Shani Madison RN Unavailable Unavailable Jackie Muñoz RN Unavailable Unavailable Juan Kassie [facility] Unavailable [phone] Darcy Trevino RN Unavailable Unavailable Juan, Kassie [facility] Unavailable +[phone] Luh Tapia PA-C Unavailable +[phone] Nati Holli Connie PA-C Unavailable +[phone] Luh Tapia PA-C Unavailable [phone] Abdiel Sophy PA-C Unavailable [phone] Katie Reina DPM, Podiatry /Foot and Ankle Surgery Unavailable Cl Hugo MD Unavailable +[phone] Christopher Castaneda DO Unavailable [phone] Markie Wade MD Unavailable [phone] Dilip aTte DPM Unavailable [phone] Christopher Castaneda DO Unavailable [phone] Reason for Visit * Reason Onset Date Comments CD Outpatient 10/27/2012 L+ Other Encounter Details Date Type Department Care Team (Late st Contact Info) Description 10/27/2012 Telephone [facility] Intake [address] [place] [address] Generic, Behavioral Intake, CD Outpatient (L+ ); Social History Tobacco Use Types Packs/Day Years Used Date Smoking Tobacco: Former Cigarettes 1 1 0 05/09/2010 - 05/10/2011 Smokeless Tobacco: Never Alcohol Use Standard Drinks/Week Comments Yes 0 (1 standard drink = 0.6 oz pur e alcohol) Sex and Gender Information Value Date Recorded Sex Assigned at Male 06/23/2020 10:21 PM CDT Legal Sex Male 3:30 AM TOOLER Gender Identity Male 06/23/2020 10:21 PM CDT Sexual Orientation Straight 06/23/2020 10 :21 PM CDT documented as of this encounter Miscellaneous Notes * Telephone Encounter - Hernan Solorio - 10/28/2012 4:40 PM CDT Message copied by HERNAN SOLORIO on FriOct 28, 2012 4:40 PM ------ Message from: ELMIRA LIZARRAGA Created: FriOct 28, 2012 4:00 PM Regarding: Ok for LP with conditions Dhruv is ok for LP per Ellis and Willa, but since he has refused detox and 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 We would do a UA on admission, check for vitals. He would need to come with his meds. He has [facility] e-cert. Best recommendation remains, 1) go to detox and 2) got to 28 - 45 day program. Ellis Lizarraga [facility] * Telephone Encounter - Hernan Solorio - 10/28/2012 4:04 PM CDT L/m took both pills at 7 am on 10/28/12. No ativan for a month. * Telephone Encounter - Beny Villegas - 10/28/2012 1:16 PM CDT Spoke with ellis, he will need to bring case back to nursing review. Upon original screening by ellis from 10-27-12 pt was to have been off of his oxycodone, ativan and tramadol from 10-23-12. elig was based on this data. Ellis will reassess and update intake with new plan. Pt has NOT yet been informed, Waiting on updated screen from ellis * Telephone Encounter - Beny Villegas - 10/28/2012 11:15 AM CDT Call pt to offer bed in lodging. Review franky of med, Pt reports alc use, franky 10-18-12. Pt is still actively using his oxycodone franky 10-28-12 am 5mg, Qd use 5mg x4 or 20mg qd. Tramadol franky 10-28-12 am 50mg, Qd use 50mg x4 or 200mg qd. vm left with ellis as to how to proceed with pt, What sort of time parameters of sobriety before bed can be offered, pt should be called once ellis updates. Pt still needs to be ref to [facility] and discuss BG monitor etc.. * Telephone Encounter - Ely Dias - 10/28/2012 9:03 AM CDT Received second rule 25 assessment,filed. * Telephone Encounter - Janet Pandey - 10/27/2012 1:42 PM CDT Message copied by JANET PANDEY on FriOct 27, 2012 1:42 PM ------ Message from: ELMIRA LIZARRAGA Created: FriOct 27, 2012 12:45 PM Regarding: ok for LP Dhruv is ok for LP if he is fully detoxed of alcohol, gutierrez's, opiates, is off tramadol, and brings in his glucometer with test strips. He has [facility] cert, would need to talk with [facility] about oop$. While he would be accepted in LP I agree with his referral from [facility], that he would do better in a 28 - 45 day program.Ellis Lizarraga [facility], [facility] * Telephone Encounter - Rosalva Tijerina - 10/27/2012 9:13 AM CDT Received rule 25. Faxed to L+ for review. * Telephone Encounter - Roge Reynoso - 10/27/2012 7:42 AM CDT Pt seeking L+ due to etoh and OxyContin Pt is aware he can not be on OxyContin in L+ Does not feel detox is a concern Had eval @ [facility] Will have eval sent for l+ review. documented in this encounter Plan of Treatment Upcoming Encounters Date Type Department Care Team (Late st Contact Info) Description 04/09/2024 9:30 AM TOOLER Office Visit [facility] [address] [place] [phone] [place] [address] [place], [place] [address] 04/14/2024 2:00 PM TOOLER Office Visit [facility] [address] [place] [phone] Kassie Martinez, [facility] [address] [place] [address] documented as of this encounter Visit Diagnoses Not on filedocumented in this encounter Additional Health Concerns Infection Onset Date Last Indicated Resolved Time Rule Out COVID-19 03/01/2022 03/01/2022 03/22/2022 11:41 PM TOOLER Rule Out COVID-19 06/13/2022 06/13/2022 06/14/2022 9:45 AM CDT documented as of this encounter Care Teams Software Verification Engineer Relationship Specialty Start Date End Date Hansel Gillespie MD PCP - General 03/16/07 03/11/17 Kelley Gunderson MD [address] [address] PCP - General Internal Medicine 03/12/17 01/28/21 Kelley Gunderson MD [address] [place] [address] PCP - Assigned PCP 05/04/17 04/28/18 [place] [address] [place] [address] PCP - General Family Medicine 01/29/21 Hernan Munoz PA-C Physician Linemarker Physician Linemarker 04/27/15 04/27/15 Elizabeth Steward MD [address] [place] [address] Internal Medicine 06/13/16 09/23/16 Abdirizak Villalta MD [address] [place] [address] Referring Physician Gastroenterology 09/24/16 Kelley Gunderson MD [address] [place] [address] Assigned PCP 05/04/17 10/14/20 Abdirizak Villalta MD [address] [place] [address] Assigned Gastroenterology Provider 12/17/19 06/17/20 [place] [address] [address] Assigned Musculoskeletal Provider 12/17/19 01/27/21 [place] [address] [place] [address] Assigned PCP 10/15/20 Holli Damian PA-C [address] [place] [address] Assigned Surgical Provider 02/04/21 04/26/22 Dilip Tate DPM [address] [facility] [address] [place] [address] Assigned Musculoskeletal Provider 01/28/21 07/26/22 Abdirizak Villalta MD 516 [facility] [address] [place], [place] [address] Assigned Gastroenterology Provider 01/28/21 07/26/22 Kassie Martinez [facility] [address] [place] [address] Pharmacist Pharmacist 05/14/21 Shani Madison, MARIE Personal Advocate & Liaison ([facility]) Family Medicine 05/15/21 07/06/21 Jackie Muñoz RN Personal Advocate & Liaison ([facility]) Family Medicine 07/06/21 05/22/22 Kassie Martinez [facility] [address] [place] [address] Assigned MTM Pharmacist 07/21/21 Darcy Tervino, hr generalist Diabetes Education 09/25/21 Kassie Martinez [facility] [address] [place] [address] Assigned MTM Pharmacist 11/21/21 Luh Tapia PA-C [address] [place] [address] Assigned Surgical Provider 04/27/22 06/21/22 Holli Damian PA-C [address] [place] [address] Assigned Surgical Provider 06/22/22 06/28/22 Luh Tapia PA-C [address] [place] [address] Assigned Surgical Provider 06/29/22 08/16/23 Abdiel New PA-C [address] [place] [address] Assigned Musculoskeletal Provider 12/21/22 01/03/23 Katie Reina DPCourt, Podiatry/Foot and Ankle Surgery [address] [address] [address] Assigned Musculoskeletal Provider 01/04/23 06/16/23 Cl Hugo MD [address] [place] [address] Urology 01/28/23 [place] [address] [address]AL, [address] [address] Assigned Musculoskeletal Provider 06/17/23 08/16/23 Markie Wade MD [address] [place] [address] [place] [address] Assigned Surgical Provider 08/17/23 [place] [address] [facility] [address] [place], [place] [address] Assigned Musculoskeletal Provider 08/17/23 01/16/24 [place] [address] [facility] [address] [place] [address] Assigned Musculoskeletal Provider 01/17/24 documented as of this encounter
--- OUTSIDE RECORDS SUMMARY | 2024-02-29 19:29 | XMS_ITS | Encounter Summary ---
Author Organization [facility] Address [address] [place] [address] Care Team Providers Care Glass Processing Worker Name Role Phone Hansel Gillespie MD Primary Care Provider [phone] Ange Munoz PA-C Unavailable Unavailable Elizabeth Steward MD Unavailable + Abdirizak Villalta MD Unavailable +[phone] Kelley Gunderson MD Primary Care Provider [phone] Kelley Gunderson MD Unavailable +[phone] Kelley Gunderson MD Unavailable +[phone] Abdirizak Villalta MD Unavailable +[phone] Hugo Osborne MD Unavailable +[phone] Kassie Elizabeth MD Unavailable +[phone] Kassie Elizabeth MD Primary Care Provider +[phone] Holli Damian PA-C Unavailable +[phone] Dilip Tate DPM Unavailable +[phone] Abdirizak Villalta MD Unavailable +[phone] Kassie Martinez [facility] Unavailable Shani Madison RN Unavailable Unavailable Jackie Muñoz RN Unavailable Unavailable Juan Kassie [facility] Unavailable +[phone] Darcy Trevino RN Unavailable Unavailable JuanReynaKassie [facility] Unavailable +[phone] Luh Tapia PA-C Unavailable +[phone] Holli Damian PA-C Unavailable +[phone] Luh Tapia PA-C Unavailable [phone] Abdiel New PA-C Unavailable [phone] Katie Reina DPM, Podiatry /Foot and Ankle Surgery Unavailable Cl Hugo MD Unavailable +[phone] Christopher Castaneda DO Unavailable [phone] Markie Wade MD Unavailable [phone] Dilip Tate DPM Unavailable +[phone] Christopher Castaneda DO Unavailable [phone] Encounter Details Date Type Department Care Team (Late st Contact Info) Description 10/20/2014 MyC Medical Advice Initial Department [facility] Social History Tobacco Use Types Packs/Day Years Used Date Smoking Tobacco: Former Cigarettes 1 1 0 05/09/2010 - 05/10/2011 Smokeless Tobacco: Never Alcohol Use Standard Drinks/Week Comments No 0 (1 standard drink = 0.6 oz pur e alcohol) Sex and Gender Information Value Date Recorded Sex Assigned at Male 06/23/2020 10:21 PM CDT Legal Sex Male 3:30 AM THERAPIST RESPIRATORY Gender Identity Male 06/23/2020 10:21 PM CDT Sexual Orientation Straight 06/23/2020 10 :21 PM CDT documented as of this encounter Plan of Treatment Upcoming Encounters Date Type Department Care Team (Late st Contact Info) Description 04/09/2024 9:30 AM THERAPIST RESPIRATORY Office Visit [address] [address] [place] [address] [place] [address] 04/14/2024 2:00 PM THERAPIST RESPIRATORY Office Visit [address] [phone] Kassie Martinez, [facility] [address] [place] [address] documented as of this encounter Visit Diagnoses Not on filedocumented in this encounter Additional Health Concerns Infection Onset Date Last Indicated Resolved Time Rule Out COVID-19 03/01/2022 03/01/2022 03/22/2022 11:41 PM THERAPIST RESPIRATORY Rule Out COVID-19 06/13/2022 06/13/2022 06/14/2022 9:45 AM CDT documented as of this encounter Care Teams Glass Processing Worker Relationship Specialty Start Date End Date Hansel Gillespie MD PCP - General 03/16/07 03/11/17 Kelley Gunderson MD [address] [address] PCP - General Internal Medicine 03/12/17 01/28/21 Kelley Gunderson MD [address] [place] [address] PCP - Assigned PCP 05/04/17 04/28/18 [place] [address] [place] [address] PCP - General Family Medicine 01/29/21 Ange Munoz PA-C Physician Belt Molder Physician Belt Molder 04/27/15 04/27/15 Elizabeth Steward MD [address] [place] [address] Internal Medicine 06/13/16 09/23/16 Abdirizak Villalta MD [address] [place] [address] Referring Physician Gastroenterology 09/24/16 Kelley Gunderson MD [address] [place] [address] Assigned PCP 05/04/17 10/14/20 Abdirizak Villalta MD [address] [place] [address] Assigned Gastroenterology Provider 12/17/19 06/17/20 [place] [id number] [place] [address] Assigned Musculoskeletal Provider 12/17/19 01/27/21 [place] [address] [place] [address] Assigned PCP 10/15/20 Holli Damian PA-C [address] [facility] [place] [address] Assigned Surgical Provider 02/04/21 04/26/22 [place] [address] [facility] [address] [place] [address] Assigned Musculoskeletal Provider 01/28/21 07/26/22 Abdirizak Villalta MD [address] [facility] [address] [place] [address] Assigned Gastroenterology Provider 01/28/21 07/26/22 [facility] [address] [place] [address] Pharmacist Pharmacist 05/14/21 Shani Madison, MARIE Personal Advocate & Liaison ([facility]) Family Medicine 05/15/21 07/06/21 Jackie Muñoz RN Personal Advocate & Liaison ([facility]) Family Medicine 07/06/21 05/22/22 [facility] [address] [place] [address] Assigned MTM Pharmacist 07/21/21 Darcy Trevino, collar starcher Diabetes Education 09/25/21 [facility] [address] [place] [address] Assigned MTM Pharmacist 11/21/21 Luh Tapia PA-C [address] [place] [address] Assigned Surgical Provider 04/27/22 06/21/22 Holli Damian PA-C [address] [place] [address] Assigned Surgical Provider 06/22/22 06/28/22 Luh Tapia PA-C [address] [facility] [address] [address] Assigned Surgical Provider 06/29/22 08/16/23 Abdiel New PA-C [address] [place] [address] Assigned Musculoskeletal Provider 12/21/22 01/03/23 Katie Reina DPM, Podiatry/Foot and Ankle Surgery [address] [facility] [address] [place] [address] Assigned Musculoskeletal Provider 01/04/23 06/16/23 Cl Hugo MD [address] [place] [address] Urology 01/28/23 [place] [address] COSME CARBAJAL, [address] [address] Assigned Musculoskeletal Provider 06/17/23 08/16/23 Markie Wade MD [address] [place] [address] Assigned Surgical Provider 08/17/23 Dilip Tate D[place] [address] [facility] [address] [place] [address] Assigned Musculoskeletal Provider 08/17/23 01/16/24 [place] [address] COS[address] CARBAJAL, [facility] 300 [place] [address] Assigned Musculoskeletal Provider 01/17/24 documented as of this encounter
--- OUTSIDE RECORDS SUMMARY | 2024-02-29 19:29 | XMS_ITS | Encounter Summary ---
Author Organization [facility] Address [address] [place] [address] Care Team Providers Care Deputy County Counsel Name Role Phone Hansel Gillespie MD Primary Care Provider [phone] Ange Munoz PA-C Unavailable Unavailable Elizabeth Steward MD Unavailable + Abdirizak Villalta MD Unavailable [phone] Kelley Gunderson MD Primary Care Provider [phone] Kelley Gunderson MD Unavailable [phone] Kelley Gunderson MD Unavailable +[phone] Abdirizak Villalta MD Unavailable [phone] Hugo Osborne MD Unavailable [phone] Kassie Elizabeth MD Unavailable +[phone] Kassie Elizabeth MD Primary Care Provider [phone] Holli Damian PA-C Unavailable +[phone] Dilip Tate DPM Unavailable +[phone] Abdirizak Villalta MD Unavailable +[phone] Kassie Martinez [facility] Unavailable Shani Madison RN Unavailable Unavailable Jackie Muñoz RN Unavailable Unavailable Juan Kassie [facility] Unavailable [phone] Darcy Trevino RN Unavailable Unavailable JuanReynaKassie [facility] Unavailable [phone] Luh Tapia PA-C Unavailable [phone] Holli Damian PA-C Unavailable +[phone] Luh Tapia PA-C Unavailable [phone] Abdiel New PA-C Unavailable [phone] Katie Reina DPM, Podiatry /Foot and Ankle Surgery Unavailable Cl Hugo MD Unavailable [phone] Christopher Castaneda DO Unavailable [phone] Markie Wade MD Unavailable [phone] Dilip Tate DPM Unavailable +[phone] Christopher Castaneda DO Unavailable [phone] Encounter Details Date Type Department Care Team (Late st Contact Info) Description 08/16/2011 MyC Medical Advice [address] [address] Hansel Gillespie MD [address] 7607[address] Social History Tobacco Use Types Packs/Day Years Used Date Smoking Tobacco: Former Cigarettes 1 1 0 05/09/2010 - 05/10/2011 Smokeless Tobacco: Never Alcohol Use Standard Drinks/Week Comments No 0 (1 standard drink = 0.6 oz pur e alcohol) Sex and Gender Information Value Date Recorded Sex Assigned at Male 06/23/2020 10:21 PM CDT Legal Sex Male 3:30 AM OFFICE SECRETARY Gender Identity Male 06/23/2020 10:21 PM CDT Sexual Orientation Straight 06/23/2020 10 :21 PM CDT documented as of this encounter Plan of Treatment Upcoming Encounters Date Type Department Care Team (Late st Contact Info) Description 04/09/2024 9:30 AM OFFICE SECRETARY Office Visit [facility] [address] [place] [phone] [place] [address] [place] [address] 04/14/2024 2:00 PM OFFICE SECRETARY Office Visit [facility] [address] [place] [address] [facility] [address] [place] [address] documented as of this encounter Visit Diagnoses Not on filedocumented in this encounter Additional Health Concerns Infection Onset Date Last Indicated Resolved Time Rule Out COVID-19 03/01/2022 03/01/2022 03/22/2022 11:41 PM OFFICE SECRETARY Rule Out COVID-19 06/13/2022 06/13/2022 06/14/2022 9:45 AM CDT documented as of this encounter Care Teams Deputy County Counsel Relationship Specialty Start Date End Date Hansel Gillespie MD PCP - General 03/16/07 03/11/17 Kelley Gunderson MD 516 [facility] [place] [address] PCP - General Internal Medicine 03/12/17 01/28/21 Kelley Gunderson MD [address] [address] PCP - Assigned PCP 05/04/17 04/28/18 [place] [address] [place] [address] PCP - General Family Medicine 01/29/21 Ange Munoz PA-C Physician Abrasive Worker Physician Abrasive Worker 04/27/15 04/27/15 Elizabeth Steward MD [address] [place] [address] Internal Medicine 06/13/16 09/23/16 Abdirizak Villalta MD [address] [place] [address] Referring Physician Gastroenterology 09/24/16 Kelley Gunderson MD [address] [place] [address] Assigned PCP 05/04/17 10/14/20 Abdirizak Villalta MD [address] [place] [address] Assigned Gastroenterology Provider 12/17/19 06/17/20 [place] [address] [address] Assigned Musculoskeletal Provider 12/17/19 01/27/21 [place] [address] [place] [address] Assigned PCP 10/15/20 Holli Damian PA-C [address] [place] [address] Assigned Surgical Provider 02/04/21 04/26/22 [place] DPM [address] [facility] [address] [place] [address] Assigned Musculoskeletal Provider 01/28/21 07/26/22 Abdirizak Villalta MD 516 [facility] [address] [place] [address] Assigned Gastroenterology Provider 01/28/21 07/26/22 Kassie Martinez [facility] [address] [place] [address] Pharmacist Pharmacist 05/14/21 Shani Madison, MARIE Personal Advocate & Liaison ([facility]) Family Medicine 05/15/21 07/06/21 Jackie Muñoz, MARIE Personal Advocate & Liaison ([facility]) Family Medicine 07/06/21 05/22/22 [facility] [address] [place] [address] Assigned MTM Pharmacist 07/21/21 Darcy Trevino, license distributor Diabetes Education 09/25/21 Kassie Martinez [facility] [address] [place] [address] Assigned MTM Pharmacist 11/21/21 Luh Tapia PA-C [address] [place] [address] Assigned Surgical Provider 04/27/22 06/21/22 Holli Damian PA-C [address] [place] [address] Assigned Surgical Provider 06/22/22 06/28/22 Luh Tapia PA-C [address] [place] [address] Assigned Surgical Provider 06/29/22 08/16/23 Abdiel New PA-C [address] [place] [address] Assigned Musculoskeletal Provider 12/21/22 01/03/23 Katie Reina DPM, Podiatry/Foot and Ankle Surgery [address] [facility] 300 [place] [address] Assigned Musculoskeletal Provider 01/04/23 06/16/23 Cl Hugo MD [address] [place] [address] 394 [place] [address] Urology 01/28/23 [place] [address] COS[address]BAJAL [facility] 300 [place] [address] Assigned Musculoskeletal Provider 06/17/23 08/16/23 Markie Wade MD [address] [place] [address] Assigned Surgical Provider 08/17/23 [place]ta[place] DPM [address] [facility] 300 [place] [address] Assigned Musculoskeletal Provider 08/17/23 01/16/24 [place] [address] [facility], [facility] 300 [place] [address] Assigned Musculoskeletal Provider 01/17/24 documented as of this encounter
--- OUTSIDE RECORDS SUMMARY | 2024-02-29 19:29 | XMS_ITS | Encounter Summary ---
Author Organization [facility] Address [address] [place] [address] Care Team Providers Care Baseball Inspector Name Role Phone Hansel Gillespie MD Primary Care Provider [phone] Ange Munoz PA-C Unavailable Unavailable Elizabeth Steward MD Unavailable + Abdirizak Villalta MD Unavailable +[phone] Kelley Gunderson MD Primary Care Provider +[phone] Kelley Gunderson MD Unavailable +[phone] Kelley Gunderson MD Unavailable +[phone] Abdirizak Villalta MD Unavailable [phone] Hugo Osborne MD Unavailable +[phone] Kassie Elizabeth MD Unavailable +[phone] Kassie Elizabeth MD Primary Care Provider +[phone] Holli Damian PA-C Unavailable +[phone] Dilip Tate DPM Unavailable +[phone] Abdirizak Villalta MD Unavailable +[phone] Kassie Martinez [facility] Unavailable +[phone] Shani Madison RN Unavailable Unavailable Jackie Muñoz RN Unavailable Unavailable Juan Kassie [facility] Unavailable [phone] Darcy Trevino RN Unavailable Unavailable Juan, Kassie [facility] Unavailable +[phone] Luh Tapia PA-C Unavailable +[phone] Holli Damian PA-C Unavailable +[phone] Luh Tapia PA-C Unavailable [phone] Abdiel New PA-C Unavailable [phone] Katie Reina DPM, Podiatry /Foot and Ankle Surgery Unavailable Cl Hugo MD Unavailable [phone] Christopher Castaneda DO Unavailable [phone] Markie Wade MD Unavailable [phone] Dilip Tate DPM Unavailable [phone] Christopher Castaneda DO Unavailable [phone] Reason for Visit * Reason Onset Date Comments Refill Request 11/05/2011 Encounter Details Date Type Department Care Team (Late st Contact Info) Description 11/05/2011 MyC Refill [address] [address] Abdiel Bauer DPM [facility] [address] [place] [address] Refill Request Social History Tobacco Use Types Packs/Day Years Used Date Smoking Tobacco: Former Cigarettes 1 1 0 05/09/2010 - 05/10/2011 Smokeless Tobacco: Never Alcohol Use Standard Drinks/Week Comments No 0 (1 standard drink = 0.6 oz pur e alcohol) Sex and Gender Information Value Date Recorded Sex Assigned at Male 06/23/2020 10:21 PM CDT Legal Sex Male 3:30 AM SAND WORKER Gender Identity Male 06/23/2020 10:21 PM CDT Sexual Orientation Straight 06/23/2020 10 :21 PM CDT documented as of this encounter Miscellaneous Notes * Telephone Encounter - Juany Champion - 11/05/2011 10:06 AM [facility] Original authorizing provider: Abdiel Bauer DPM, DPCourt Gomez would like a refill of the following medications: ciclopirox (LOPROX) 0.77 % cream [Abdiel Bauer DPM, DPM] Preferred pharmacy: [facility] Comment: Please send to [facility] in [address] documented in this encounter Plan of Treatment Upcoming Encounters Date Type Department Care Team (Late st Contact Info) Description 04/09/2024 9:30 AM SAND WORKER Office Visit [facility] [address] [place] [id number] [place] [address] [place] [address] 04/14/2024 2:00 PM SAND WORKER Office Visit M [facility] [address] [place] [phone] Kassie Martinez, [facility] [address] [place] [address] documented as of this encounter Visit Diagnoses Diagnosis Pain in limb- Primary Achilles bursitis or tendinitis Dermatophytosis of foot documented in this encounter Additional Health Concerns Infection Onset Date Last Indicated Resolved Time Rule Out COVID-19 03/01/2022 03/01/2022 03/22/2022 11:41 PM SAND WORKER Rule Out COVID-19 06/13/2022 06/13/2022 06/14/2022 9:45 AM CDT documented as of this encounter Care Teams Baseball Inspector Relationship Specialty Start Date End Date Hansel Gillespie MD PCP - General 03/16/07 03/11/17 Kelley Gunderson MD [address] [place] [address] PCP - General Internal Medicine 03/12/17 01/28/21 Kelley Gunderson MD [address] [place] [address] PCP - Assigned PCP 05/04/17 04/28/18 [place] [address] [place] [address] PCP - General Family Medicine 01/29/21 Ange Munoz PA-C Physician Fisher Trawl Line Physician Fisher Trawl Line 04/27/15 04/27/15 Elizabeth Steward MD [address] [place] [address] Internal Medicine 06/13/16 09/23/16 Abdirizak Villalta MD [address] [place] [address] Referring Physician Gastroenterology 09/24/16 Kelley Gunderson MD [address] [place] [address] Assigned PCP 05/04/17 10/14/20 Abdirizak Villalta MD [address] [place] [address], [place] [address] Assigned Gastroenterology Provider 12/17/19 06/17/20 [place] [address] [facility] 300 [place] [address] Assigned Musculoskeletal Provider 12/17/19 01/27/21 [place] [address] [place] [address] Assigned PCP 10/15/20 Holli Damian PA-C 6405 [facility] [address] [place] [address] Assigned Surgical Provider 02/04/21 04/26/22 Dilip Tate DPM [address] [facility] 300 [place], [place] [address]67 Assigned Musculoskeletal Provider 01/28/21 07/26/22 Abdirizak Villalta MD 516 [facility] [address] [place] [address] Assigned Gastroenterology Provider 01/28/21 07/26/22 Kassie Martinez RPH [address] [place], [place] [id number] Pharmacist Pharmacist 05/14/21 Shani Madison, RN Personal Advocate & Liaison ([facility]) Family Medicine 05/15/21 07/06/21 Jackie Muñoz RN Personal Advocate & Liaison ([facility]) Family Medicine 07/06/21 05/22/22 Kassie Martinez R[facility] [address] [place] [address] Assigned MTM Pharmacist 07/21/21 Darcy Trevino, welder production line gas Diabetes Education 09/25/21 [facility] [address] [place] [address] Assigned MTM Pharmacist 11/21/21 Luh Tapia PA-C [address] [facility] 500 [place] [address] Assigned Surgical Provider 04/27/22 06/21/22 Holli Damian PA-C [address] [place] [address] Assigned Surgical Provider 06/22/22 06/28/22 Luh Tapia PA-C [address] [facility] 500 [place] [address] Assigned Surgical Provider 06/29/22 08/16/23 Abdiel New PA-C [address] [address] Assigned Musculoskeletal Provider 12/21/22 01/03/23 Katie Reina DPM, Podiatry/Foot and Ankle Surgery [address] [place] [address] Assigned Musculoskeletal Provider 01/04/23 06/16/23 Cl Hugo MD 420 [facility] 394 [place] [address] Urology 01/28/23 [place] [address] COSME CARBAJAL, [facility] 300 [place] [address] Assigned Musculoskeletal Provider 06/17/23 08/16/23 Markie Wade MD [address] [place] [address] Assigned Surgical Provider 08/17/23 [place] [address] [facility] 300 [place] [address] Assigned Musculoskeletal Provider 08/17/23 01/16/24 [place] [address] COSME CARBAJAL, [facility] 300 [place] [address] Assigned Musculoskeletal Provider 01/17/24 documented as of this encounter
--- OUTSIDE RECORDS SUMMARY | 2024-02-29 19:29 | XMS_ITS | Encounter Summary ---
Author Organization [facility] Address [address] [place] [address] Care Team Providers Care Prop And Effects Designer Name Role Phone Hansel Gillespie MD Primary Care Provider [phone] Ange Munoz PA-C Unavailable Unavailable Elizabeth Steward MD Unavailable + Abdirizak Villalta MD Unavailable +[phone] Kelley Gunderson MD Primary Care Provider +[phone] Kelley Gunderson MD Unavailable +[phone] Kelley Gunderson MD Unavailable +[phone] Abdirizak Villalta MD Unavailable +[phone] Hugo Osborne MD Unavailable +[phone] Kassie Elizabeth MD Unavailable +[phone] Kassie Elizabeth MD Primary Care Provider +[phone] Holli Damian PA-C Unavailable +[phone] Dilip Tate DPM Unavailable +[phone] Abdirizak Villalta MD Unavailable +[phone] Kassie Martinez [facility] Unavailable Shani Madison RN Unavailable Unavailable Jackie Muñoz RN Unavailable Unavailable Juan Kassie [facility] Unavailable +[phone] Darcy Trevino RN Unavailable Unavailable JuanReynaKassie [facility] Unavailable +[phone] Luh Tapia PA-C Unavailable +[phone] Holli Damian PA-C Unavailable +[phone] Luh Tapia PA-C Unavailable +[phone] Abdiel New PA-C Unavailable [phone] Katie Reina DPM, Podiatry /Foot and Ankle Surgery Unavailable Cl Hugo MD Unavailable +[phone] Christopher Castaneda DO Unavailable [phone] Markie Wade MD Unavailable [phone] Dilip Tate DPM Unavailable +[phone] Christopher Castaneda DO Unavailable [phone] Encounter Details Date Type Department Care Team (Late st Contact Info) Description 12/24/[address] [address] Ben[facility] Social History Tobacco Use Types Packs/Day Years Used Date Smoking Tobacco: Former Cigarettes 1 1 0 05/09/2010 - 05/10/2011 Smokeless Tobacco: Never Alcohol Use Standard Drinks/Week Comments No 0 (1 standard drink = 0.6 oz pur e alcohol) Sex and Gender Information Value Date Recorded Sex Assigned at Male 06/23/2020 10:21 PM CDT Legal Sex Male 3:30 AM TANYARD WORKER Gender Identity Male 06/23/2020 10:21 PM CDT Sexual Orientation Straight 06/23/2020 10 :21 PM CDT documented as of this encounter Plan of Treatment Upcoming Encounters Date Type Department Care Team (Late st Contact Info) Description 04/09/2024 9:30 AM TANYARD WORKER Office Visit [facility] [address] [place] [address] [place] [address] [place] [address] 04/14/2024 2:00 PM TANYARD WORKER Office Visit [facility] [address] [place] [phone] Kassie Martinez, [facility] [address] [place], [place] [id number] documented as of this encounter Visit Diagnoses Not on filedocumented in this encounter Additional Health Concerns Infection Onset Date Last Indicated Resolved Time Rule Out COVID-19 03/01/2022 03/01/2022 03/22/2022 11:41 PM TANYARD WORKER Rule Out COVID-19 06/13/2022 06/13/2022 06/14/2022 9:45 AM CDT documented as of this encounter Care Teams Prop And Effects Designer Relationship Specialty Start Date End Date Hansel Gillespie MD PCP - General 03/16/07 03/11/17 Kelley Gunderson MD [address] [place] [address] [id number] PCP - General Internal Medicine 03/12/17 01/28/21 Kelley Gunderson MD [address] [place] [address] [id number] PCP - Assigned PCP 05/04/17 04/28/18 [place] [address] [place] [address] PCP - General Family Medicine 01/29/21 Ange Munoz PA-C Physician Risk Management Internship Physician Risk Management Internship 04/27/15 04/27/15 Elizabeth Steward MD [facility] [address] [place] [address] Internal Medicine 06/13/16 09/23/16 Abdirizak Villalta MD [address] [place] [address] [address] [place] [address] Referring Physician Gastroenterology 09/24/16 Kelley Gunderson MD [address] [place] [address] Assigned PCP 05/04/17 10/14/20 Abdirizak Villalta MD [address] [place] [address] Assigned Gastroenterology Provider 12/17/19 06/17/20 [place] [address] [address] Assigned Musculoskeletal Provider 12/17/19 01/27/21 [place] [address] [place] [address] Assigned PCP 10/15/20 Holli Damian PA-C [address] [place] [address] Assigned Surgical Provider 02/04/21 04/26/22 Dilip Tate DPM [address] [facility] [address] [place] [address] Assigned Musculoskeletal Provider 01/28/21 07/26/22 Abdirizak Villalta MD [address] [address] Assigned Gastroenterology Provider 01/28/21 07/26/22 Kassie Martinez [facility] [address] [place] [address] Pharmacist Pharmacist 05/14/21 Shani Madison, MARIE Personal Advocate & Liaison ([facility]) Family Medicine 05/15/21 07/06/21 Jackie Muñoz RN Personal Advocate & Liaison ([facility]) Family Medicine 07/06/21 05/22/22 [facility] [address] [place] [address] Assigned MTM Pharmacist 07/21/21 Darcy Trevino, operations supervisor 2nd shift Diabetes Education 09/25/21 [facility] [address] [place] [address] Assigned MTM Pharmacist 11/21/21 Luh Tapia PA-C [address] [address] Assigned Surgical Provider 04/27/22 06/21/22 Holli Damian PA-C [address] [place] [address] Assigned Surgical Provider 06/22/22 06/28/22 Luh Tapia PA-C [address] [place] [address] Assigned Surgical Provider 06/29/22 08/16/23 Abdiel New PA-C [address] [address] Assigned Musculoskeletal Provider 12/21/22 01/03/23 Katie Reina DPM, Podiatry/Foot and Ankle Surgery [address] [facility] [address] [place] [address] Assigned Musculoskeletal Provider 01/04/23 06/16/23 Cl Hugo MD [address] [place] [address] Urology 01/28/23 [place] [address] [address]AL, [facility] 300 [place] [address] Assigned Musculoskeletal Provider 06/17/23 08/16/23 Markie Wade MD 9 [place], [place] [address] Assigned Surgical Provider 08/17/23 [place] [address] [facility] [address] [place] [address] Assigned Musculoskeletal Provider 08/17/23 01/16/24 [place] [address] [address]AL, [address] [address] Assigned Musculoskeletal Provider 01/17/24 documented as of this encounter
--- OUTSIDE RECORDS SUMMARY | 2024-02-29 19:29 | XMS_ITS | Encounter Summary ---
Author Organization [facility] Address [address] [place] [address] Care Team Providers Care Bullet Lubricating Machine Operator Name Role Phone Hansel Gillespie MD Primary Care Provider [phone] Ange Munoz PA-C Unavailable Unavailable Elizabeth Steward MD Unavailable + Abdirizak Villalta MD Unavailable +[phone] eKlley Gunderson MD Primary Care Provider [phone] Kelley Gunderson MD Unavailable +[phone] Kelley Gunderson MD Unavailable +[phone] Abdirizak Villlata MD Unavailable [phone] Hugo Osborne MD Unavailable +[phone] Kassie Elizabeth MD Unavailable +[phone] Kassie Elizabeth MD Primary Care Provider [phone] Holli Damian PA-C Unavailable +[phone] Dilip Tate DPM Unavailable +[phone] Abdirizak Villalta MD Unavailable +[phone] Kassie Martinez [facility] Unavailable [phone] Shani Madison RN Unavailable Unavailable Jackie Muñoz RN Unavailable Unavailable Juan Kassie [facility] Unavailable +[phone] Darcy Trevino RN Unavailable Unavailable JuanReynaKassie [facility] Unavailable +[phone] Luh Tapia PA-C Unavailable +[phone] Holli Damian PA-C Unavailable +[phone] Luh Tapia PA-C Unavailable +[phone] Abdiel New PA-C Unavailable [phone] Katie Reina DPM, Podiatry /Foot and Ankle Surgery Unavailable Cl Hugo MD Unavailable +[phone] Christopher Castaneda DO Unavailable [phone] Markie Wade MD Unavailable [phone] Dilip Tate DPM Unavailable +[phone] Christopher Castaneda DO Unavailable [phone] Encounter Details Date Type Department Care Team (Late st Contact Info) Description 04/27/2014 MyC Medical Advice Initial Department [facility] Social History Tobacco Use Types Packs/Day Years Used Date Smoking Tobacco: Former Cigarettes 1 1 0 05/09/2010 - 05/10/2011 Smokeless Tobacco: Never Alcohol Use Standard Drinks/Week Comments No 0 (1 standard drink = 0.6 oz pur e alcohol) Sex and Gender Information Value Date Recorded Sex Assigned at Male 06/23/2020 10:21 PM CDT Legal Sex Male 3:30 AM HOME AID Gender Identity Male 06/23/2020 10:21 PM CDT Sexual Orientation Straight 06/23/2020 10 :21 PM CDT documented as of this encounter Plan of Treatment Upcoming Encounters Date Type Department Care Team (Late st Contact Info) Description 04/09/2024 9:30 AM HOME AID Office Visit [address] [address] [place] [address] [place] [address] 04/14/2024 2:00 PM HOME AID Office Visit [address] [phone] Kassie Martinez, [facility] [address] [place] [address] documented as of this encounter Visit Diagnoses Not on filedocumented in this encounter Additional Health Concerns Infection Onset Date Last Indicated Resolved Time Rule Out COVID-19 03/01/2022 03/01/2022 03/22/2022 11:41 PM HOME AID Rule Out COVID-19 06/13/2022 06/13/2022 06/14/2022 9:45 AM CDT documented as of this encounter Care Teams Bullet Lubricating Machine Operator Relationship Specialty Start Date End Date Hansel Gillespie MD PCP - General 03/16/07 03/11/17 Kelley Gunderson MD [address] [address] PCP - General Internal Medicine 03/12/17 01/28/21 Kelley Gunderson MD [address] [place] [address] PCP - Assigned PCP 05/04/17 04/28/18 [place] [address] [place] [address] PCP - General Family Medicine 01/29/21 Ange Munoz PA-C Physician Returning Officer Physician Returning Officer 04/27/15 04/27/15 Elizabeth Steward MD [address] [place] [address] Internal Medicine 06/13/16 09/23/16 Abdirizak Villalta MD [address] [place] [address] Referring Physician Gastroenterology 09/24/16 Kelley Gunderson MD [address] [place] [address] Assigned PCP 05/04/17 10/14/20 Abdirizak Villalta MD [address] [place] [address] Assigned Gastroenterology Provider 12/17/19 06/17/20 Hugo Osborne [place] [address] [place] [address] Assigned Musculoskeletal Provider 12/17/19 01/27/21 [place] [address] [place] [address] Assigned PCP 10/15/20 Holli Damian PA-C [address] [facility] [place] [address] Assigned Surgical Provider 02/04/21 04/26/22 [place] [address] [facility] [address] [place] [address] Assigned Musculoskeletal Provider 01/28/21 07/26/22 Abdirizak Villalta MD [address] [facility] [address] [place] [address] Assigned Gastroenterology Provider 01/28/21 07/26/22 [facility] [address] [place] [address] Pharmacist Pharmacist 05/14/21 Shani Madison, MARIE Personal Advocate & Liaison ([facility]) Family Medicine 05/15/21 07/06/21 Jackie Muñoz RN Personal Advocate & Liaison ([facility]) Family Medicine 07/06/21 05/22/22 [facility] [address] [place] [address] Assigned MTM Pharmacist 07/21/21 Darcy Trevino, form tamper operator Diabetes Education 09/25/21 [facility] [address] [place] [address] Assigned MTM Pharmacist 11/21/21 Luh Tapia PA-C [address] [place] [address] Assigned Surgical Provider 04/27/22 06/21/22 Holli Damian PA-C [address] [place] [address] Assigned Surgical Provider 06/22/22 06/28/22 Luh Tapia PA-C [address] [facility] [address] [address] Assigned Surgical Provider 06/29/22 08/16/23 Abdiel New PA-C [address] [place] [address] Assigned Musculoskeletal Provider 12/21/22 01/03/23 Katie Reina DPM, Podiatry/Foot and Ankle Surgery [address] [facility] 300 [place] [address] Assigned Musculoskeletal Provider 01/04/23 06/16/23 Cl Hugo MD [address] [place] [address] Urology 01/28/23 [place] [address] [address]AL, [address] [address] Assigned Musculoskeletal Provider 06/17/23 08/16/23 Markie Wade MD [address] [place] [address] Assigned Surgical Provider 08/17/23 [place] [address] [facility] 300 [place] [address] Assigned Musculoskeletal Provider 08/17/23 01/16/24 [place] [address] [address], [facility] 300 [place] [address] Assigned Musculoskeletal Provider 01/17/24 documented as of this encounter
--- OUTSIDE RECORDS SUMMARY | 2024-02-29 19:29 | XMS_ITS | Encounter Summary ---
Author Organization [facility] Address [address] [place] [address] Care Team Providers Care Mechanical Piping Designer Name Role Phone Hansel Gillespie MD Primary Care Provider [phone] Ange Munoz PA-C Unavailable Unavailable Elizabeth Steward MD Unavailable + Abdirizak Villalta MD Unavailable +[phone] Kelley Gunderson MD Primary Care Provider +[phone] Kelley Gunderson MD Unavailable +[phone] Kelley Gunderson MD Unavailable +[phone] Abdirizak Villalta MD Unavailable +[phone] Hugo Osborne MD Unavailable +[phone] Kassie Elizabeth MD Unavailable +[phone] Kassie Elizabeth MD Primary Care Provider +[phone] Holli Damian PA-C Unavailable +[phone] Dilip Tate DPM Unavailable +[phone] Abdirizak Villalta MD Unavailable +[phone] Kassie Martinez [facility] Unavailable +[phone] Shani Madison RN Unavailable Unavailable Jackie Muñoz RN Unavailable Unavailable Juan Kassie [facility] Unavailable +[phone] Darcy Trevino RN Unavailable Unavailable JuanReynaKassie [facility] Unavailable +[phone] Luh Tapia PA-C Unavailable +[phone] Nati Hollimc Rosales PA-C Unavailable +[phone] Luh Tapia PA-C Unavailable +[phone] Abdiel New PA-C Unavailable [phone] Katie Reina DPM, Podiatry /Foot and Ankle Surgery Unavailable Cl Hugo MD Unavailable +[phone] Christopher Castaneda DO Unavailable [phone] Markie Wade MD Unavailable [phone] Dilip Tate DPM Unavailable +[phone] Christopher Castaneda DO Unavailable [phone] Reason for Visit * Reason Onset Date Comments Infection 11/11/2014 Encounter Details Date Type Department Care Team (Late st Contact Info) Description 11/11/2014 MyC Medical Advice [address] [address] Hansel Gillespie MD [address] [id number] Infection Social History Tobacco Use Types Packs/Day Years Used Date Smoking Tobacco: Former Cigarettes 1 1 0 05/09/2010 - 05/10/2011 Smokeless Tobacco: Never Alcohol Use Standard Drinks/Week Comments No 0 (1 standard drink = 0.6 oz pur e alcohol) Sex and Gender Information Value Date Recorded Sex Assigned at Male 06/23/2020 10:21 PM CDT Legal Sex Male 3:30 AM POULTRY KILLER Gender Identity Male 06/23/2020 10:21 PM CDT Sexual Orientation Straight 06/23/2020 10 :21 PM CDT documented as of this encounter Miscellaneous Notes * Telephone Encounter - Lesly Mathis RN - 11/11/2014 2:24 PM CDT Sent a message to initiate an E visit. Lesly Reis RN * Telephone Encounter - Hansel Gillespie MD - 11/11/2014 2:13 PM CDT This is appropriate for an evisit. Please have Dhruv initiate one. Thanks. documented in this encounter Plan of Treatment Upcoming Encounters Date Type Department Care Team (Late st Contact Info) Description 04/09/2024 9:30 AM POULTRY KILLER Office Visit [facility] [address] [place] [address] [place] [address] [place] [address] 04/14/2024 2:00 PM POULTRY KILLER Office Visit [facility] [address] [place] [phone] [facility] [address] [place] [address] documented as of this encounter Visit Diagnoses Not on filedocumented in this encounter Additional Health Concerns Infection Onset Date Last Indicated Resolved Time Rule Out COVID-19 03/01/2022 03/01/2022 03/22/2022 11:41 PM POULTRY KILLER Rule Out COVID-19 06/13/2022 06/13/2022 06/14/2022 9:45 AM CDT documented as of this encounter Care Teams Mechanical Piping Designer Relationship Specialty Start Date End Date Hansel Gillespie MD PCP - General 03/16/07 03/11/17 Kelley Gunderson MD [address] [place] [address] PCP - General Internal Medicine 03/12/17 01/28/21 Kelley Gunderson MD [address] [place] [address] PCP - Assigned PCP 05/04/17 04/28/18 [place] [address] [place] [address] PCP - General Family Medicine 01/29/21 Ange Munoz PA-C Physician Crossbow Maker Physician Crossbow Maker 04/27/15 04/27/15 Elizabeth Steward MD [address] [place] [address] Internal Medicine 06/13/16 09/23/16 Abdirizak Villalta MD [address] [place] [address] Referring Physician Gastroenterology 09/24/16 Kelley Gunderson MD [address] [place] [address] Assigned PCP 05/04/17 10/14/20 Abdirizak Villalta MD [address] [place] [address] Assigned Gastroenterology Provider 12/17/19 06/17/20 [place] [address] [facility] [address] [place] [address] Assigned Musculoskeletal Provider 12/17/19 01/27/21 [place] [address] [place] [address] Assigned PCP 10/15/20 Holli Damian PA-C 6[address] [facility] [place] [address] Assigned Surgical Provider 02/04/21 04/26/22 [place] [address] [facility] [address] [place] [address] Assigned Musculoskeletal Provider 01/28/21 07/26/22 Abdirizak Villalta MD 516 [facility] [address] [place] [address] Assigned Gastroenterology Provider 01/28/21 07/26/22 Kassie Martinez [facility] [address] [place] [address] Pharmacist Pharmacist 05/14/21 Shani Madison, RN Personal Advocate & Liaison ([facility]) Family Medicine 05/15/21 07/06/21 Jackie Muñoz RN Personal Advocate & Liaison ([facility]) Family Medicine 07/06/21 05/22/22 Kassie Martinez [facility] [address] [place] [address] Assigned MTM Pharmacist 07/21/21 Darcy Trevino, steamblaster Diabetes Education 09/25/21 Kassie Martinez [facility] [address] [place] [address] Assigned MTM Pharmacist 11/21/21 Luh Tapia PA-C [address] [place] [address] Assigned Surgical Provider 04/27/22 06/21/22 Holli Damian PA-C [address] [place] [address] Assigned Surgical Provider 06/22/22 06/28/22 Luh Tapia PA-C [address] [place] [address] Assigned Surgical Provider 06/29/22 08/16/23 Abdiel New PA-C [address] [address] Assigned Musculoskeletal Provider 12/21/22 01/03/23 Katie Reina DPM, Podiatry/Foot and Ankle Surgery [address] [place] [address] Assigned Musculoskeletal Provider 01/04/23 06/16/23 Cl Hugo MD [address] [place] [address] [place] [address] Urology 01/28/23 [place] [address] [address] CARBAJAL, [address] [address] Assigned Musculoskeletal Provider 06/17/23 08/16/23 Markie Wade MD [address] [place] [address] Assigned Surgical Provider 08/17/23 Dilip Tate DPM [address] [facility] 300 [place] [address] Assigned Musculoskeletal Provider 08/17/23 01/16/24 [place] [address] [address], [facility] 300 [place] [address] Assigned Musculoskeletal Provider 01/17/24 documented as of this encounter
--- OUTSIDE RECORDS SUMMARY | 2024-02-29 19:29 | XMS_ITS | Encounter Summary ---
Author Organization [facility] Address [address] [place] [address] Care Team Providers Care Geology Associate Name Role Phone Hansel Gillespie MD Primary Care Provider [phone] Ange Munoz PA-C Unavailable Unavailable Elizabeth Steward MD Unavailable + Abdirizak Villalta MD Unavailable +[phone] Kelley Gunderson MD Primary Care Provider +[phone] Kelley Gunderson MD Unavailable +[phone] Kelley Gunderson MD Unavailable +[phone] Abdirizak Villalta MD Unavailable +[phone] Hugo Osborne MD Unavailable +[phone] Kassie Elizabeth MD Unavailable +[phone] Kassie Elizabeth MD Primary Care Provider +[phone] Holli Damian PA-C Unavailable +[phone] Dilip Tate DPM Unavailable +[phone] Abdirizak Villalta MD Unavailable +[phone] Kassie Martinez [facility] Unavailable +[phone] Shani Madison RN Unavailable Unavailable Jackie Muñoz RN Unavailable Unavailable Juan Kassie [facility] Unavailable +[phone] Darcy Trevino RN Unavailable Unavailable JuanReynaKassie [facility] Unavailable +[phone] Luh Tapia PA-C Unavailable +[phone] Holli Damian PA-C Unavailable +[phone] Luh Tapia PA-C Unavailable +[phone] Abdiel New PA-C Unavailable [phone] Katie Reina DPM, Podiatry /Foot and Ankle Surgery Unavailable Cl Hugo MD Unavailable +[phone] Christopher Castaneda DO Unavailable [phone] Markie Wade MD Unavailable [phone] Dilip Tate DPM Unavailable +[phone] Christopher Castaneda DO Unavailable [phone] Encounter Details Date Type Department Care Team (Late st Contact Info) Description 09/05/2011 MyC Medical Advice [address] [address] Hansel Gillespie MD [address] [id number] Social History Tobacco Use Types Packs/Day Years Used Date Smoking Tobacco: Former Cigarettes 1 1 0 05/09/2010 - 05/10/2011 Smokeless Tobacco: Never Alcohol Use Standard Drinks/Week Comments No 0 (1 standard drink = 0.6 oz pur e alcohol) Sex and Gender Information Value Date Recorded Sex Assigned at Male 06/23/2020 10:21 PM CDT Legal Sex Male 3:30 AM SERVICE ARCHITECT Gender Identity Male 06/23/2020 10:21 PM CDT Sexual Orientation Straight 06/23/2020 10 :21 PM CDT documented as of this encounter Plan of Treatment Upcoming Encounters Date Type Department Care Team (Late st Contact Info) Description 04/09/2024 9:30 AM SERVICE ARCHITECT Office [facility] [address] [place] [phone] [place] [address] [place] [address] 04/14/2024 2:00 PM SERVICE ARCHITECT Office Visit [facility] [address] [place] [address] [facility] [address] [place] [address] documented as of this encounter Visit Diagnoses Not on filedocumented in this encounter Additional Health Concerns Infection Onset Date Last Indicated Resolved Time Rule Out COVID-19 03/01/2022 03/01/2022 03/22/2022 11:41 PM SERVICE ARCHITECT Rule Out COVID-19 06/13/2022 06/13/2022 06/14/2022 9:45 AM CDT documented as of this encounter Care Teams Geology Associate Relationship Specialty Start Date End Date Hansel Gillespie MD PCP - General 03/16/07 03/11/17 Kelley Gunderson MD 516 [facility] [address] [place] [address] PCP - General Internal Medicine 03/12/17 01/28/21 Kelley Gunderson MD [address] [address] PCP - Assigned PCP 05/04/17 04/28/18 [place] [address] [place] [address] PCP - General Family Medicine 01/29/21 Ange Munoz PA-C Physician Director Visual Physician Director Visual 04/27/15 04/27/15 Elizabeth Steward MD [address] [place] [address] Internal Medicine 06/13/16 09/23/16 Abdirizak Villalta MD [address] [place] [address] Referring Physician Gastroenterology 09/24/16 Kelley Gunderson MD [address] [place] [address] Assigned PCP 05/04/17 10/14/20 Abdirizak Villalta MD [address] [place] [address] Assigned Gastroenterology Provider 12/17/19 06/17/20 [place] [address] [address] Assigned Musculoskeletal Provider 12/17/19 01/27/21 [place] [address] [place] [address] Assigned PCP 10/15/20 Holli Damian PA-C [address] [place] [address] Assigned Surgical Provider 02/04/21 04/26/22 Dilip Tate DPM [address] [facility] [address] [place] [address] Assigned Musculoskeletal Provider 01/28/21 07/26/22 Abdirizak Villalta MD [address] [facility] [address] [place] [address] Assigned Gastroenterology Provider 01/28/21 07/26/22 Kassie Martinez [facility] [address] [place] [address] Pharmacist Pharmacist 05/14/21 Shani Madison, MARIE Personal Advocate & Liaison ([facility]) Family Medicine 05/15/21 07/06/21 Jackie Muñoz, MARIE Personal Advocate & Liaison ([facility]) Family Medicine 07/06/21 05/22/22 [facility] [address] [place] [address] Assigned MTM Pharmacist 07/21/21 Darcy Trevino, student union consultant Diabetes Education 09/25/21 Kassie Martinez [facility] [address] [place] [address] Assigned MTM Pharmacist 11/21/21 Luh Tapia PA-C [address] [place] [address] Assigned Surgical Provider 04/27/22 06/21/22 Holli Damian PA-C [address] [place] [address] Assigned Surgical Provider 06/22/22 06/28/22 Luh Tapia PA-C [address] [place] [address] Assigned Surgical Provider 06/29/22 08/16/23 Abdiel New PA-C [address] [place] [address] Assigned Musculoskeletal Provider 12/21/22 01/03/23 Katie Reina DPM, Podiatry/Foot and Ankle Surgery [address] [facility] [address] [place] [address] Assigned Musculoskeletal Provider 01/04/23 06/16/23 Cl Hugo MD [address] [place] [address] 394 [place] [address] Urology 01/28/23 [place] [address] [address] [facility] [address] [place] [address] Assigned Musculoskeletal Provider 06/17/23 08/16/23 Markie Wade MD [address] [place] [address] Assigned Surgical Provider 08/17/23 [place] [address] [facility] 300 [place] [address] Assigned Musculoskeletal Provider 08/17/23 01/16/24 [place] [address] [facility], [facility] 300 [place] [address] Assigned Musculoskeletal Provider 01/17/24 documented as of this encounter
--- OUTSIDE RECORDS SUMMARY | 2024-02-29 19:29 | XMS_ITS | Encounter Summary ---
Author Organization [facility] Address [address] [place] [address] Care Team Providers Care Steel Construction Worker Name Role Phone Hansel Gillespie MD Primary Care Provider [phone] Ange Munoz PA-C Unavailable Unavailable Elizabeth Steward MD Unavailable + Abdirizak Villalta MD Unavailable [phone] Kelley Gunderson MD Primary Care Provider [phone] Kelley Gunderson MD Unavailable +[phone] Kelley Gunderson MD Unavailable +[phone] Abdirizak Villalta MD Unavailable [phone] Hugo Osborne MD Unavailable +[phone] Kassie Elizabeth MD Unavailable +[phone] Kassie Elizabeth MD Primary Care Provider +[phone] Holli Damian PA-C Unavailable +[phone] Dilip Tate DPM Unavailable +[phone] Abdirizak Villalta MD Unavailable [phone] Kassie Martinez [facility] Unavailable Shani Madison RN Unavailable Unavailable Jackie Muñoz RN Unavailable Unavailable Juan Kassie [facility] Unavailable [phone] Darcy Trevino RN Unavailable Unavailable Juan, Kassie [facility] Unavailable [phone] Luh Tapia PA-C Unavailable +[phone] Nati Hollimc Rosales PA-C Unavailable +[phone] Luh Tapia PA-C Unavailable [phone] Abdiel Sophy PA-C Unavailable [phone] Katie Reina DPM, Podiatry /Foot and Ankle Surgery Unavailable Cl Hugo MD Unavailable +[phone] Christopher Castaneda DO Unavailable [phone] Markie Wade MD Unavailable [phone] Dilip Tate DPM Unavailable +[phone] Christopher Castaneda DO Unavailable [phone] Reason for Visit * Reason Onset Date Comments Refill Request 09/27/2014 Vitamin B-12 Encounter Details Date Type Department Care Team (Late st Contact Info) Description 09/27/[address] [address] Hansel Gillespie MD [address] [id number] Refill Request (Vitamin B-12) Social History Tobacco Use Types Packs/Day Years Used Date Smoking Tobacco: Former Cigarettes 1 1 0 05/09/2010 - 05/10/2011 Smokeless Tobacco: Never Alcohol Use Standard Drinks/Week Comments No 0 (1 standard drink = 0.6 oz pur e alcohol) Sex and Gender Information Value Date Recorded Sex Assigned at Male 06/23/2020 10:21 PM CDT Legal Sex Male 3:30 AM SPORTSPERSONS Gender Identity Male 06/23/2020 10:21 PM CDT Sexual Orientation Straight 06/23/2020 10 :21 PM CDT documented as of this encounter Miscellaneous Notes * Telephone Encounter - Jessica Parson - 09/27/2014 1:57 PM CDT Vitamin B-12 Last Written Prescription Date: 03/11/13 Last Fill Quantity: 118, # refills: PRN [place] [facility] [place] care provider: 06/28/14 Thanks!! Jessica Parson [facility] documented in this encounter Plan of Treatment Upcoming Encounters Date Type Department Care Team (Late st Contact Info) Description 04/09/2024 9:30 AM SPORTSPERSONS Office Visit [facility] [address] [place] [phone] [place] [id number] [place] [address] 04/14/2024 2:00 PM SPORTSPERSONS Office Visit [facility] [address] [place] [address] Kassie Martinez, [facility] [address] [place] [address] documented as of this encounter Visit Diagnoses Diagnosis Vitamin B12 deficiency (non anaemic)- Primary Other B-complex deficiencies documented in this encounter Additional Health Concerns Infection Onset Date Last Indicated Resolved Time Rule Out COVID-19 03/01/2022 03/01/2022 03/22/2022 11:41 PM SPORTSPERSONS Rule Out COVID-19 06/13/2022 06/13/2022 06/14/2022 9:45 AM CDT documented as of this encounter Care Teams Steel Construction Worker Relationship Specialty Start Date End Date Hansel Gillespie MD PCP - General 03/16/07 03/11/17 Kelley Gunderson MD [address] [place] [address] PCP - General Internal Medicine 03/12/17 01/28/21 Kelley Gunderson MD [address] [place] [address] PCP - Assigned PCP 05/04/17 04/28/18 [place] [address] [place] [address] PCP - General Family Medicine 01/29/21 Ange Munoz PA-C Physician Manager Wastewater Physician Manager Wastewater 04/27/15 04/27/15 Elizabeth Steward MD [address] [place] [address] MD Internal Medicine 06/13/16 09/23/16 Abdirizak Villalta MD [address] [place] [address] Referring Physician Gastroenterology 09/24/16 Kelley Gunderson MD [address] [place] [address] Assigned PCP 05/04/17 10/14/20 Abdirizak Villalta MD [address] [place] [address] Assigned Gastroenterology Provider 12/17/19 06/17/20 [place] [address] [facility] [address] [place] [address] Assigned Musculoskeletal Provider 12/17/19 01/27/21 [place] [address] [place] [address] Assigned PCP 10/15/20 Holli Damian PA-C [address] [facility] [address] [place] [address] Assigned Surgical Provider 02/04/21 04/26/22 [place] [address] [facility] [address] [place] [address] Assigned Musculoskeletal Provider 01/28/21 07/26/22 Abdirizak Villalta MD [address] [place] [address] Assigned Gastroenterology Provider 01/28/21 07/26/22 Kassie Martinez [facility] [address] [place] [address] Pharmacist Pharmacist 05/14/21 Shani Madison, RN Personal Advocate & Liaison ([facility] Family Medicine 05/15/21 07/06/21 Jackie Muñoz RN Personal Advocate & Liaison ([facility]) Family Medicine 07/06/21 05/22/22 Kassie Martinez [facility] [address] [place] [address] Assigned MTM Pharmacist 07/21/21 Darcy Trevino, purchasing agent Diabetes Education 09/25/21 Kassie Martinez [facility] [address] [place] [address] Assigned MTM Pharmacist 11/21/21 Luh Tapia PA-C [address] [facility] [address] [place] [address] Assigned Surgical Provider 04/27/22 06/21/22 Holli Damian PA-C 6405 [facility] [address] [place] [address] Assigned Surgical Provider 06/22/22 06/28/22 Luh Tapia PA-C 6363 [facility] [address] [place] [address] Assigned Surgical Provider 06/29/22 08/16/23 Abdiel New PA-C [address] [place] [address] Assigned Musculoskeletal Provider 12/21/22 01/03/23 Katie Reina DPM, Podiatry/Foot and Ankle Surgery [address] [facility] 300 [place] [address] Assigned Musculoskeletal Provider 01/04/23 06/16/23 Cl Hugo MD 420 [facility] 394 [place] [address] Urology 01/28/23 [place] [address] [address], [facility] 300 [place] [address] Assigned Musculoskeletal Provider 06/17/23 08/16/23 Markie Wade MD 9 [place] [address] Assigned Surgical Provider 08/17/23 Dilip Tate DPM [address] [facility] 300 [place], [place] 238827 Assigned Musculoskeletal Provider 08/17/23 01/16/24 [place] [address] [address], [facility] 300 [place] [address] Assigned Musculoskeletal Provider 01/17/24 documented as of this encounter
--- OUTSIDE RECORDS SUMMARY | 2024-02-29 19:29 | XMS_ITS | Encounter Summary ---
Author Organization [facility] Address [address] [place] [address] Care Team Providers Care Optician Name Role Phone Hansel Gillespie MD Primary Care Provider [phone] Ange Munoz PA-C Unavailable Unavailable Elizabeth Steward MD Unavailable + Abdirizak Villalta MD Unavailable +[phone] Kelley Gunderson MD Primary Care Provider +[phone] Kelley Gunderson MD Unavailable +[phone] Kelley Gunderson MD Unavailable +[phone] Abdirizak Villalta MD Unavailable [phone] Hugo Osborne MD Unavailable [phone] Kassie Elizabeth MD Unavailable +[phone] Kassie Elizabeth MD Primary Care Provider [phone] Holli Damian PA-C Unavailable +[phone] Dilip Tate DPM Unavailable +[phone] Abdirizak Villalta MD Unavailable +[phone] [facility] Unavailable [phone] Shani Madison RN Unavailable Unavailable Jackie Muñoz RN Unavailable Unavailable Juan Kassie [facility] Unavailable +[phone] Darcy Trevino RN Unavailable Unavailable JuanReynaKassie [facility] Unavailable +[phone] Luh Tapia PA-C Unavailable +[phone] Holli Damian PA-C Unavailable +[phone] Luh Tapia PA-C Unavailable +[phone] Abdiel eNw PA-C Unavailable [phone] Katie Reina DPM, Podiatry /Foot and Ankle Surgery Unavailable Cl Hugo MD Unavailable +[phone] Christopher Castaneda DO Unavailable [phone] Markie Wade MD Unavailable [phone] Dilip Tate DPM Unavailable +[phone] Christopher Castaneda DO Unavailable [phone] Encounter Details Date Type Department Care Team (Late st Contact Info) Description 10/14/2011 MyC Medical Advice [address] [address] Hansel Gillespie MD [address] 972985 Social History Tobacco Use Types Packs/Day Years Used Date Smoking Tobacco: Former Cigarettes 1 1 0 05/09/2010 - 05/10/2011 Smokeless Tobacco: Never Alcohol Use Standard Drinks/Week Comments No 0 (1 standard drink = 0.6 oz pur e alcohol) Sex and Gender Information Value Date Recorded Sex Assigned at Male 06/23/2020 10:21 PM CDT Legal Sex Male 3:30 AM LOGGER ALL ROUND Gender Identity Male 06/23/2020 10:21 PM CDT Sexual Orientation Straight 06/23/2020 10 :21 PM CDT documented as of this encounter Plan of Treatment Upcoming Encounters Date Type Department Care Team (Late st Contact Info) Description 04/09/2024 9:30 AM LOGGER ALL ROUND Office [facility] [address] [place] [address] [place] [address] [place] [address] 04/14/2024 2:00 PM LOGGER ALL ROUND Office [facility] [address] [place] [address] [facility] [address] [place] [address] documented as of this encounter Visit Diagnoses Not on filedocumented in this encounter Additional Health Concerns Infection Onset Date Last Indicated Resolved Time Rule Out COVID-19 03/01/2022 03/01/2022 03/22/2022 11:41 PM LOGGER ALL ROUND Rule Out COVID-19 06/13/2022 06/13/2022 06/14/2022 9:45 AM CDT documented as of this encounter Care Teams Optician Relationship Specialty Start Date End Date Hansel Gillespie MD PCP - General 03/16/07 03/11/17 Kelley Gunderson MD [address] [facility] [place] [address] PCP - General Internal Medicine 03/12/17 01/28/21 Kelley Gunderson MD [address] [address] PCP - Assigned PCP 05/04/17 04/28/18 [place] [address] [place] [address] PCP - General Family Medicine 01/29/21 Ange Munoz PA-C Physician Auto Mechanic Physician Auto Mechanic 04/27/15 04/27/15 Elizabeht Steward MD [address] [place] [address] Internal Medicine 06/13/16 09/23/16 Abdirizak Villalta MD [address] [place] [address] Referring Physician Gastroenterology 09/24/16 Kelley Gunderson MD [address] [place] [address] Assigned PCP 05/04/17 10/14/20 Abdirizak Villalta MD [address] [place] [address] Assigned Gastroenterology Provider 12/17/19 06/17/20 [place] [address] [address] Assigned Musculoskeletal Provider 12/17/19 01/27/21 [place] [address] [place] [address] Assigned PCP 10/15/20 Holli Damian PA-C [address] [place] [address] Assigned Surgical Provider 02/04/21 04/26/22 [place] [address] [facility] [address] [place] [address] Assigned Musculoskeletal Provider 01/28/21 07/26/22 Abdirizak Villalta MD [address] [facility] [address] [place] [address] Assigned Gastroenterology Provider 01/28/21 07/26/[address] [facility] [address] [place] [address] Pharmacist Pharmacist 05/14/21 Shani Madison, MARIE Personal Advocate & Liaison ([facility]) Family Medicine 05/15/21 07/06/21 Jackie Muñoz, MARIE Personal Advocate & Liaison ([facility]) Family Medicine 07/06/21 05/22/22 [facility] [address] [place] [address] Assigned MTM Pharmacist 07/21/21 Darcy Trevino, tip banding machine operator Diabetes Education 09/25/[address] [facility] [address] [place] [address] Assigned MTM Pharmacist 11/21/21 Luh Tapia PA-C [address] [place] [address] Assigned Surgical Provider 04/27/22 06/21/22 Holli Damian PA-C [address] [place] [address] Assigned Surgical Provider 06/22/22 06/28/22 Luh Tapia PA-C [address] [place] [address] Assigned Surgical Provider 06/29/22 08/16/23 Abdiel New PA-C [address] [place] [address] Assigned Musculoskeletal Provider 12/21/22 01/03/23 Katie Reina DPM, Podiatry/Foot and Ankle Surgery [address] [facility] 300 [place] [address] Assigned Musculoskeletal Provider 01/04/23 06/16/23 Cl Hugo MD [address] [place] [address] [address] [place] [address] Urology 01/28/23 [place] [address] [address] [facility] 300 [place] [address] Assigned Musculoskeletal Provider 06/17/23 08/16/23 Markie Wade MD [address] [place] [address] Assigned Surgical Provider 08/17/23 Dilip Tate DPM [address] [facility] [address] [place] [address] Assigned Musculoskeletal Provider 08/17/23 01/16/24 [place] [address] [facility] 300 [place] [address] Assigned Musculoskeletal Provider 01/17/24 documented as of this encounter
--- OUTSIDE RECORDS SUMMARY | 2024-02-29 19:29 | XMS_ITS | Encounter Summary ---
Author Organization [facility] Address [address] [place] [address] Care Team Providers Care Customs Guard Name Role Phone Hansel Gillespie MD Primary Care Provider [phone] Ange Munoz PA-C Unavailable Unavailable Elizabeth Steward MD Unavailable + Abdirizak Villalta MD Unavailable +[phone] Kelley Gunderson MD Primary Care Provider +[phone] Kelley Gunderson MD Unavailable +[phone] Kelley Gunderson MD Unavailable +[phone] Abdirizak Villalta MD Unavailable +[phone] Hugo Osborne MD Unavailable +[phone] Kassie Elizabeth MD Unavailable +[phone] Kassie Elizabeth MD Primary Care Provider +[phone] Holli Damian PA-C Unavailable +[phone] Dilip Tate DPM Unavailable +[phone] Abdirizak Villalta MD Unavailable +[phone] Kassie Martinez [facility] Unavailable Shani Madison RN Unavailable Unavailable Jackie Muñoz RN Unavailable Unavailable Juan Kassie [facility] Unavailable [phone] Darcy Trevino RN Unavailable Unavailable JuanReynaKassie [facility] Unavailable +[phone] Luh Tapia PA-C Unavailable +[phone] Holli Damian PA-C Unavailable +[phone] Luh Tapia PA-C Unavailable +[phone] Abdiel New PA-C Unavailable [phone] Katie Reina DPM, Podiatry /Foot and Ankle Surgery Unavailable Cl Hugo MD Unavailable +[phone] Christopher Castaneda DO Unavailable [phone] Markie Wade MD Unavailable [phone] Dilip Tate DPM Unavailable +[phone] Christopher Castaneda DO Unavailable [phone] Encounter Details Date Type Department Care Team (Late st Contact Info) Description 03/08/2014 MyC Medical Advice [address] [address] Hansel Gillespie MD [address] [id number] Social History Tobacco Use Types Packs/Day Years Used Date Smoking Tobacco: Former Cigarettes 1 1 0 05/09/2010 - 05/10/2011 Smokeless Tobacco: Never Alcohol Use Standard Drinks/Week Comments No 0 (1 standard drink = 0.6 oz pur e alcohol) Sex and Gender Information Value Date Recorded Sex Assigned at Male 06/23/2020 10:21 PM CDT Legal Sex Male 3:30 AM COLLAR TURNER Gender Identity Male 06/23/2020 10:21 PM CDT Sexual Orientation Straight 06/23/2020 10 :21 PM CDT documented as of this encounter Plan of Treatment Upcoming Encounters Date Type Department Care Team (Late st Contact Info) Description 04/09/2024 9:30 AM COLLAR TURNER Office Visit [facility] [address] [place] [phone] [place] [address] [place] [address] 04/14/2024 2:00 PM COLLAR TURNER Office Visit [facility] [address] [place] [address] [facility] [address] [place] [address] documented as of this encounter Visit Diagnoses Not on filedocumented in this encounter Additional Health Concerns Infection Onset Date Last Indicated Resolved Time Rule Out COVID-19 03/01/2022 03/01/2022 03/22/2022 11:41 PM COLLAR TURNER Rule Out COVID-19 06/13/2022 06/13/2022 06/14/2022 9:45 AM CDT documented as of this encounter Care Teams Customs Guard Relationship Specialty Start Date End Date Hansel Gillespie MD PCP - General 03/16/07 03/11/17 Kelley Gunderson MD [address] [facility] [facility] [address] [place] [address] PCP - General Internal Medicine 03/12/17 01/28/21 Kelley Gunderson MD [address] [address] PCP - Assigned PCP 05/04/17 04/28/18 [place] [address] [place] [address] PCP - General Family Medicine 01/29/21 Ange Munoz PA-C Physician Claims Sorter Physician Claims Sorter 04/27/15 04/27/15 Elizabeth Steward MD [address] [place] [address] Internal Medicine 06/13/16 09/23/16 Abdirizak Villalta MD [address] [place] [address] Referring Physician Gastroenterology 09/24/16 Kelley Gunderson MD [address] [place] [address] Assigned PCP 05/04/17 10/14/20 Abdirizak Villalta MD [address] [place] [address] Assigned Gastroenterology Provider 12/17/19 06/17/20 [place] [address] [address] Assigned Musculoskeletal Provider 12/17/19 01/27/21 [place] [address] [place] [address] Assigned PCP 10/15/20 Holli Damian PA-C [address] [place] [address] Assigned Surgical Provider 02/04/21 04/26/22 Dilip Tate DPM [address] [facility] [address] [place] [address] Assigned Musculoskeletal Provider 01/28/21 07/26/22 Abdirizak Villalta MD [address] [facility] [facility] [address] [place] [address] Assigned Gastroenterology Provider 01/28/21 07/26/22 Kassie Martinez [facility] [address] [place] [address] Pharmacist Pharmacist 05/14/21 Shani Madison, MARIE Personal Advocate & Liaison ([facility]) Family Medicine 05/15/21 07/06/21 Jackie Muñoz, MARIE Personal Advocate & Liaison ([facility]) Family Medicine 07/06/21 05/22/22 [facility] [address] [place] [address] Assigned MTM Pharmacist 07/21/21 Darcy Trevino, data entry Diabetes Education 09/25/21 Kassie Martinez [facility] [address] [place] [address] Assigned MTM Pharmacist 11/21/21 Luh Tapia PA-C [address] [place] [address] Assigned Surgical Provider 04/27/22 06/21/22 Holli Damian PA-C [address] [place] [address] Assigned Surgical Provider 06/22/22 06/28/22 Luh Tapia PA-C [address] [place] [address] Assigned Surgical Provider 06/29/22 08/16/23 Abdiel New PA-C [address] [place] [address] Assigned Musculoskeletal Provider 12/21/22 01/03/23 Katie Reina DPM, Podiatry/Foot and Ankle Surgery [address] [facility] [address] [place] [address] Assigned Musculoskeletal Provider 01/04/23 06/16/23 Cl Hugo MD [address] [place] [address] [address] [place] [address] Urology 01/28/23 [place] [address] [address] [facility] [address] [place] [address] Assigned Musculoskeletal Provider 06/17/23 08/16/23 Markie Wade MD [address] [place] [address] Assigned Surgical Provider 08/17/23 [place] [address] [facility] [address] [place] [address] Assigned Musculoskeletal Provider 08/17/23 01/16/24 [place] [address] [facility] [address] [place] [address] Assigned Musculoskeletal Provider 01/17/24 documented as of this encounter
--- OUTSIDE RECORDS SUMMARY | 2024-02-29 19:29 | XMS_ITS | Encounter Summary ---
Author Organization [facility] Address [address] [place] [address] Care Team Providers Care Electrical Instrument Maker Name Role Phone Hansel Gillespie MD Primary Care Provider [phone] Ange Munoz PA-C Unavailable Unavailable Elizabeth Steward MD Unavailable + Abdirizak Villalta MD Unavailable [phone] Kelley Gunderson MD Primary Care Provider [phone] Kelley Gunderson MD Unavailable +[phone] Kelley Gunderson MD Unavailable +[phone] Abdirizak Villalta MD Unavailable [phone] Hugo Osborne MD Unavailable [phone] Kassie Elizabeth MD Unavailable +[phone] Kassie Elizabeth MD Primary Care Provider [phone] Holli Damian PA-C Unavailable +[phone] Dilip Tate DPM Unavailable +[phone] Abdirizak Villalta MD Unavailable +[phone] Kassie Martinez [facility] Unavailable Shani Madison RN Unavailable Unavailable Jackie Muñoz RN Unavailable Unavailable Juan Kassie [facility] Unavailable [phone] Darcy Trevino RN Unavailable Unavailable JuanReynaKassie [facility] Unavailable [phone] Luh Tapia PA-C Unavailable [phone] Holli Damian PA-C Unavailable +[phone] Luh Tapia PA-C Unavailable [phone] Abdiel New PA-C Unavailable [phone] Katie Reina DPM, Podiatry /Foot and Ankle Surgery Unavailable Cl Hugo MD Unavailable +[phone] Christopher Castaneda DO Unavailable [phone] Markie Wade MD Unavailable [phone] Dilip Tate DPM Unavailable [phone] Christopher Castaneda DO Unavailable [phone] Encounter Details Date Type Department Care Team (Late st Contact Info) Description 09/24/2011 MyC Medical Advice [address] [address] Hansel Gillespie MD [address] [id number] Social History Tobacco Use Types Packs/Day Years Used Date Smoking Tobacco: Former Cigarettes 1 1 0 05/09/2010 - 05/10/2011 Smokeless Tobacco: Never Alcohol Use Standard Drinks/Week Comments No 0 (1 standard drink = 0.6 oz pur e alcohol) Sex and Gender Information Value Date Recorded Sex Assigned at Male 06/23/2020 10:21 PM CDT Legal Sex Male 3:30 AM LINE SERVICE TECHNICIAN Gender Identity Male 06/23/2020 10:21 PM CDT Sexual Orientation Straight 06/23/2020 10 :21 PM CDT documented as of this encounter Plan of Treatment Upcoming Encounters Date Type Department Care Team (Late st Contact Info) Description 04/09/2024 9:30 AM LINE SERVICE TECHNICIAN Office Visit [facility] [address] [place] [phone] [place] [address] [place] [address] 04/14/2024 2:00 PM LINE SERVICE TECHNICIAN Office [facility] [address] [place] [address] [facility] [address] [place] [address] documented as of this encounter Visit Diagnoses Not on filedocumented in this encounter Additional Health Concerns Infection Onset Date Last Indicated Resolved Time Rule Out COVID-19 03/01/2022 03/01/2022 03/22/2022 11:41 PM LINE SERVICE TECHNICIAN Rule Out COVID-19 06/13/2022 06/13/2022 06/14/2022 9:45 AM CDT documented as of this encounter Care Teams Electrical Instrument Maker Relationship Specialty Start Date End Date Hansel Gillespie MD PCP - General 03/16/07 03/11/17 Kelley Gunderson MD 516 [facility] [place] [facility] [address] [place] [address] PCP - General Internal Medicine 03/12/17 01/28/21 Kelley Gunderson MD [address] [address] PCP - Assigned PCP 05/04/17 04/28/18 [place] [address] [place] [address] PCP - General Family Medicine 01/29/21 Ange Munoz PA-C Physician Apron Man Physician Apron Man 04/27/15 04/27/15 Elizabeth Steward MD [address] [place] [address] Internal Medicine 06/13/16 09/23/16 Abdirizak Villalta MD [address] [place] [address] Referring Physician Gastroenterology 09/24/16 Kelley Gunderson MD [address] [place] [address] Assigned PCP 05/04/17 10/14/20 Abdirizak Villalta MD [address] [place] [address] Assigned Gastroenterology Provider 12/17/19 06/17/20 [place] [address] [address] Assigned Musculoskeletal Provider 12/17/19 01/27/21 [place] [address] [place] [address] Assigned PCP 10/15/20 Holli Damian PA-C [address] [place] [address] Assigned Surgical Provider 02/04/21 04/26/22 [place] [address] [facility] [address] [place] [address] Assigned Musculoskeletal Provider 01/28/21 07/26/22 Abdirizak Villalta MD 516 [facility] [address] [place] [address] Assigned Gastroenterology Provider 01/28/21 07/26/22 Kassie Martinez [facility] [address] [place] [address] Pharmacist Pharmacist 05/14/21 Shani Madison, MARIE Personal Advocate & Liaison ([facility]) Family Medicine 05/15/21 07/06/21 Jackie Muñoz, MARIE Personal Advocate & Liaison ([facility]) Family Medicine 07/06/21 05/22/22 [facility] [address] [place] [address] Assigned MTM Pharmacist 07/21/21 Darcy Trevino, allopathic doctor Diabetes Education 09/25/21 Kassie Martinez [facility] [address] [place] [address] Assigned MTM Pharmacist 11/21/21 Luh Tapia PA-C [address] [place] [address] Assigned Surgical Provider 04/27/22 06/21/22 Holli Damian PA-C [address] [place] [address] Assigned Surgical Provider 06/22/22 06/28/22 Luh Tapia PA-C [address] [place] [address] Assigned Surgical Provider 06/29/22 08/16/23 Abdiel New PA-C [address] [place] [address] Assigned Musculoskeletal Provider 12/21/22 01/03/23 Katie Reina DPM, Podiatry/Foot and Ankle Surgery [address] [facility] 300 [place] [address] Assigned Musculoskeletal Provider 01/04/23 06/16/23 Cl Hugo MD [address] [place] [address] 394 [place] [address] Urology 01/28/23 [place] [address] [facility] [address] [place] [address] Assigned Musculoskeletal Provider 06/17/23 08/16/23 Markie Wade MD [address] [place] [address] Assigned Surgical Provider 08/17/23 [place] [address] [facility] [address] [place] [address] Assigned Musculoskeletal Provider 08/17/23 01/16/24 [place] [address] [facility], [facility] [address] [place] [address] Assigned Musculoskeletal Provider 01/17/24 documented as of this encounter
--- OUTSIDE RECORDS SUMMARY | 2024-02-29 19:29 | XMS_ITS | Encounter Summary ---
Author Organization [facility] Address [address] [place] [address] Care Team Providers Care Sweatband Shaper Name Role Phone Hansel Gillespie MD Primary Care Provider [phone] Ange Munoz PA-C Unavailable Unavailable Elizabeth Steward MD Unavailable + Abdirizak Villalta MD Unavailable +[phone] Kelley Gunderson MD Primary Care Provider +[phone] Kelley Gunderson MD Unavailable +[phone] Kelley Gunderson MD Unavailable +[phone] Abdirizak Villalta MD Unavailable +[phone] Hugo Osborne MD Unavailable +[phone] Kassie Elizabeth MD Unavailable +[phone] Kassie Elizabeth MD Primary Care Provider +[phone] Holli Damian PA-C Unavailable +[phone] Dilip Tate DPM Unavailable +[phone] Abdirizak Villalta MD Unavailable +[phone] Kassie Martinez [facility] Unavailable Shani Madison RN Unavailable Unavailable Jackie Muñoz RN Unavailable Unavailable Juan Kassie [facility] Unavailable +[phone] Darcy Trevino RN Unavailable Unavailable JuanReynaKassie [facility] Unavailable +[phone] Luh Tapia PA-C Unavailable [phone] Holli Damian PA-C Unavailable +[phone] Luh Tapia PA-C Unavailable [phone] Abdiel New PA-C Unavailable [phone] Katie Reina DPM, Podiatry /Foot and Ankle Surgery Unavailable Cl Hugo MD Unavailable +[phone] Christopher Castaneda DO Unavailable [phone] Markie Wade MD Unavailable [phone] Dilip Tate DPM Unavailable [phone] Christopher Castaneda DO Unavailable [phone] Encounter Details Date Type Department Care Team (Late st Contact Info) Description 09/17/[address] [address] Benigno [facility]on Social History Tobacco Use Types Packs/Day Years Used Date Smoking Tobacco: Former Cigarettes 1 1 0 05/09/2010 - 05/10/2011 Smokeless Tobacco: Never Alcohol Use Standard Drinks/Week Comments No 0 (1 standard drink = 0.6 oz pur e alcohol) Sex and Gender Information Value Date Recorded Sex Assigned at Male 06/23/2020 10:21 PM CDT Legal Sex Male 3:30 AM PRINTS AND DRAWINGS CURATOR Gender Identity Male 06/23/2020 10:21 PM CDT Sexual Orientation Straight 06/23/2020 10 :21 PM CDT documented as of this encounter Plan of Treatment Upcoming Encounters Date Type Department Care Team (Late st Contact Info) Description 04/09/2024 9:30 AM PRINTS AND DRAWINGS CURATOR Office Visit [facility] [address] [place] [address] [place] [address] [place] [address] 04/14/2024 2:00 PM PRINTS AND DRAWINGS CURATOR Office [facility] [address] [place] [phone] Kassie Martinez, [facility] [address] [place], [place] [address] documented as of this encounter Visit Diagnoses Not on filedocumented in this encounter Additional Health Concerns Infection Onset Date Last Indicated Resolved Time Rule Out COVID-19 03/01/2022 03/01/2022 03/22/2022 11:41 PM PRINTS AND DRAWINGS CURATOR Rule Out COVID-19 06/13/2022 06/13/2022 06/14/2022 9:45 AM CDT documented as of this encounter Care Teams Sweatband Shaper Relationship Specialty Start Date End Date Hansel Gillespie MD PCP - General 03/16/07 03/11/17 Kelley Gunderson MD [address] [place] [address] PCP - General Internal Medicine 03/12/17 01/28/21 Kelley Gunderson MD [address] [place] [address] PCP - Assigned PCP 05/04/17 04/28/18 [place] [address] [place] [address] PCP - General Family Medicine 01/29/21 Ange Munoz PA-C Physician Brush Finisher Physician Brush Finisher 04/27/15 04/27/15 Elizabeth Steward MD 6 [facility] [address] [place] [address] Internal Medicine 06/13/16 09/23/16 Abdirizak Villalta MD [address] [place] [address] [address] [place] [address] Referring Physician Gastroenterology 09/24/16 Kelley Gunderson MD [address] [place] [address] Assigned PCP 05/04/17 10/14/20 Abdirizak Villalta MD [address] [place] [address] Assigned Gastroenterology Provider 12/17/19 06/17/20 [place] [address] [address] Assigned Musculoskeletal Provider 12/17/19 01/27/21 [place] [address] [place] [address] Assigned PCP 10/15/20 Holli Damian PA-C [address] [place] [address] Assigned Surgical Provider 02/04/21 04/26/22 [place] [address] [facility] [address] [place] [address] Assigned Musculoskeletal Provider 01/28/21 07/26/22 Abdirizak Villalta MD [address] [address] Assigned Gastroenterology Provider 01/28/21 07/26/22 Kassie Martinez [facility] [address] [place] [address] Pharmacist Pharmacist 05/14/21 Shani Madison, MARIE Personal Advocate & Liaison ([facility]) Family Medicine 05/15/21 07/06/21 Jackie Muñoz RN Personal Advocate & Liaison ([facility]) Family Medicine 07/06/21 05/22/[address] [facility] [address] [place] [address] Assigned MTM Pharmacist 07/21/21 Darcy Trevino, locator specialist Diabetes Education 09/25/[address] [facility] [address] [place] [address] Assigned MTM Pharmacist 11/21/21 Luh Tapia PA-C [address] [address] Assigned Surgical Provider 04/27/22 06/21/22 Holli Damian PA-C [address] [place] [address] Assigned Surgical Provider 06/22/22 06/28/22 Luh Tapia PA-C [address] [place] [address] Assigned Surgical Provider 06/29/22 08/16/23 Abdiel New PA-C [address] [address] Assigned Musculoskeletal Provider 12/21/22 01/03/23 Katie Reina DPM, Podiatry/Foot and Ankle Surgery [address] [facility] [address] [place] [address] Assigned Musculoskeletal Provider 01/04/23 06/16/23 Cl Hugo MD [address] [place] [address] Urology 01/28/23 [place] [address] [address]BAJAL, [address] [place] [address] Assigned Musculoskeletal Provider 06/17/23 08/16/23 Markie Wade MD [address] [place], [place] [address] Assigned Surgical Provider 08/17/23 [place] [address] [facility] [address] [place] [address] Assigned Musculoskeletal Provider 08/17/23 01/16/24 [place] [address] [address]AL, [address] [address] Assigned Musculoskeletal Provider 01/17/24 documented as of this encounter
--- OUTSIDE RECORDS SUMMARY | 2024-02-29 19:29 | XMS_ITS | Encounter Summary ---
Author Organization [facility] Address [address] [place] [address] Care Team Providers Care Gravedigger Name Role Phone Hansel Gillespie MD Primary Care Provider [phone] Ange Munoz PA-C Unavailable Unavailable Elizabeth Steward MD Unavailable + Abdirizak Villalta MD Unavailable +[phone] Kelley Gunderson MD Primary Care Provider +[phone] Kelley Gunderson MD Unavailable +[phone] Kelley Gunderson MD Unavailable +[phone] Abdirizak Villalta MD Unavailable +[phone] Hugo Osborne MD Unavailable +[phone] Kassie Elizabeth MD Unavailable +[phone] Kassie Elizabeth MD Primary Care Provider +[phone] Holli Damian PA-C Unavailable +[phone] Dilip Tate DPM Unavailable +[phone] Abdirizak Villalta MD Unavailable +[phone] Kassie Martinez [facility] Unavailable Shani Madison RN Unavailable Unavailable Jackie Muñoz RN Unavailable Unavailable Juan Kassie [facility] Unavailable +[phone] Darcy Trevino RN Unavailable Unavailable JuanReynaKassie [facility] Unavailable +[phone] Luh Tapia PA-C Unavailable +[phone] Holli Damian PA-C Unavailable +[phone] Luh Tapia PA-C Unavailable +[phone] Abdiel New PA-C Unavailable [phone] Katie Reina DPM, Podiatry /Foot and Ankle Surgery Unavailable Cl Hugo MD Unavailable +[phone] Christopher Castaneda DO Unavailable [phone] Markie Wade MD Unavailable [phone] Dilip Tate DPM Unavailable +[phone] Christopher Castaneda DO Unavailable [phone] Encounter Details Date Type Department Care Team (Late st Contact Info) Description 09/05/2011 MyC Medical Advice [address] [address] Hansel Gillespie MD [address] [id number] Social History Tobacco Use Types Packs/Day Years Used Date Smoking Tobacco: Former Cigarettes 1 1 0 05/09/2010 - 05/10/2011 Smokeless Tobacco: Never Alcohol Use Standard Drinks/Week Comments No 0 (1 standard drink = 0.6 oz pur e alcohol) Sex and Gender Information Value Date Recorded Sex Assigned at Male 06/23/2020 10:21 PM CDT Legal Sex Male 3:30 AM LIGHT OUT EXAMINER Gender Identity Male 06/23/2020 10:21 PM CDT Sexual Orientation Straight 06/23/2020 10 :21 PM CDT documented as of this encounter Plan of Treatment Upcoming Encounters Date Type Department Care Team (Late st Contact Info) Description 04/09/2024 9:30 AM LIGHT OUT EXAMINER Office Visit [facility] [address] [place] [phone] [place] [address] [place] [address] 04/14/2024 2:00 PM LIGHT OUT EXAMINER Office Visit [facility] [address] [place] [address] [facility] [address] [place] [address] documented as of this encounter Visit Diagnoses Not on filedocumented in this encounter Additional Health Concerns Infection Onset Date Last Indicated Resolved Time Rule Out COVID-19 03/01/2022 03/01/2022 03/22/2022 11:41 PM LIGHT OUT EXAMINER Rule Out COVID-19 06/13/2022 06/13/2022 06/14/2022 9:45 AM CDT documented as of this encounter Care Teams Gravedigger Relationship Specialty Start Date End Date Hansel Gillespie MD PCP - General 03/16/07 03/11/17 Kelley Gunderson MD [address] [facility] [address] [place] [address] PCP - General Internal Medicine 03/12/17 01/28/21 Kelley Gunderson MD [address] [address] PCP - Assigned PCP 05/04/17 04/28/18 [place] [address] [place] [address] PCP - General Family Medicine 01/29/21 Ange Munoz PA-C Physician Inspection And Testing Supervisor Physician Inspection And Testing Supervisor 04/27/15 04/27/15 Elizabeth Steward MD [address] [place] [address] Internal Medicine 06/13/16 09/23/16 Abdirizak Villalta MD [address] [place] [address] Referring Physician Gastroenterology 09/24/16 Kelley Gunderson MD [address] [place] [address] Assigned PCP 05/04/17 10/14/20 Abdirizak Villalta MD [address] [place] [address] Assigned Gastroenterology Provider 12/17/19 06/17/20 [place] [address] [address] Assigned Musculoskeletal Provider 12/17/19 01/27/21 [place] [address] [place] [address] Assigned PCP 10/15/20 Holli Damian PA-C [address] [place] [address] Assigned Surgical Provider 02/04/21 04/26/22 Dilip Tate DPM [address] [facility] [address] [place] [address] Assigned Musculoskeletal Provider 01/28/21 07/26/22 Abdirizak Villalta MD [address] [facility] [address] [place] [address] Assigned Gastroenterology Provider 01/28/21 07/26/22 Kassie Martinez [facility] [address] [place] [address] Pharmacist Pharmacist 05/14/21 Shani Madison, MARIE Personal Advocate & Liaison ([facility]) Family Medicine 05/15/21 07/06/21 Jackie Muñoz, MARIE Personal Advocate & Liaison ([facility]) Family Medicine 07/06/21 05/22/22 [facility] [address] [place] [address] Assigned MTM Pharmacist 07/21/21 Darcy Trevino, director project management Diabetes Education 09/25/21 Kassie Martinez [facility] [address] [place] [address] Assigned MTM Pharmacist 11/21/21 Luh Tapia PA-C [address] [place] [address] Assigned Surgical Provider 04/27/22 06/21/22 Holli Damian PA-C [address] [place] [address] Assigned Surgical Provider 06/22/22 06/28/22 Luh Tapia PA-C [address] [place] [address] Assigned Surgical Provider 06/29/22 08/16/23 bAdiel New PA-C [address] [place] [address] Assigned Musculoskeletal Provider 12/21/22 01/03/23 Katie Reina DPM, Podiatry/Foot and Ankle Surgery [address] [facility] [address] [place] [address] Assigned Musculoskeletal Provider 01/04/23 06/16/23 Cl Hugo MD [address] [place] [address] [address] [place] [address] Urology 01/28/23 [place] [address] [address] [facility] [address] [place] [address] Assigned Musculoskeletal Provider 06/17/23 08/16/23 Markie Wade MD [address] [place] [address] Assigned Surgical Provider 08/17/23 Dilip [place] DPM [address] [facility] [address] [place] [address] Assigned Musculoskeletal Provider 08/17/23 01/16/24 [place] [address] [facility] [address] [place] [address] Assigned Musculoskeletal Provider 01/17/24 documented as of this encounter
--- OUTSIDE RECORDS SUMMARY | 2024-02-29 19:29 | XMS_ITS | Encounter Summary ---
Author Organization [facility] Address [address] [place] [address] Care Team Providers Care File Keeper Name Role Phone Hansel Gillespie MD Primary Care Provider [phone] Ange Munoz PA-C Unavailable Unavailable Elizabeth Steward MD Unavailable + Abdirizak Villalta MD Unavailable [phone] Kelley Gunderson MD Primary Care Provider +[phone] Kelley Gunderson MD Unavailable +[phone] Kelley Gunderson MD Unavailable +[phone] Abdirizak Villalta MD Unavailable [phone] Hugo Osborne MD Unavailable +[phone] Kassie Elizabeth MD Unavailable +[phone] Kassie Elizabeth MD Primary Care Provider +[phone] Holli Damian PA-C Unavailable +[phone] Dilip Tate DPM Unavailable +[phone] Abdirizak Villalta MD Unavailable +[phone] Kassie Martinez [facility] Unavailable Shani Madison RN Unavailable Unavailable Jackie Muñoz RN Unavailable Unavailable Juan Kassie [facility] Unavailable +[phone] Darcy Trevino RN Unavailable Unavailable JuanReynaKassie [facility] Unavailable +[phone] Luh Tapia PA-C Unavailable [phone] Holli Damian PA-C Unavailable +[phone] Luh Tapia PA-C Unavailable [phone] Abdiel New PA-C Unavailable [phone] Katie Reina DPM, Podiatry /Foot and Ankle Surgery Unavailable Cl Hugo MD Unavailable [phone] Christopher Castaneda DO Unavailable [phone] Markie Wade MD Unavailable [phone] Dilip Tate DPM Unavailable [phone] Christopher Castaneda DO Unavailable [phone] Encounter Details Date Type Department Care Team (Late st Contact Info) Description 08/09/[address] [address] [facility] Social History Tobacco Use Types Packs/Day Years Used Date Smoking Tobacco: Former Cigarettes 1 1 0 05/09/2010 - 05/10/2011 Smokeless Tobacco: Never Alcohol Use Standard Drinks/Week Comments No 0 (1 standard drink = 0.6 oz pur e alcohol) Sex and Gender Information Value Date Recorded Sex Assigned at Male 06/23/2020 10:21 PM CDT Legal Sex Male 3:30 AM PALEONTOLOGY TEACHER Gender Identity Male 06/23/2020 10:21 PM CDT Sexual Orientation Straight 06/23/2020 10 :21 PM CDT documented as of this encounter Plan of Treatment Upcoming Encounters Date Type Department Care Team (Late st Contact Info) Description 04/09/2024 9:30 AM PALEONTOLOGY TEACHER Office Visit [facility] [address] [place] [address] [place] [address] [place] [address] 04/14/2024 2:00 PM PALEONTOLOGY TEACHER Office Visit [facility] [address] [place] [phone] Kassie Martinez, [facility] [address] [place], [place] [address] documented as of this encounter Visit Diagnoses Not on filedocumented in this encounter Additional Health Concerns Infection Onset Date Last Indicated Resolved Time Rule Out COVID-19 03/01/2022 03/01/2022 03/22/2022 11:41 PM PALEONTOLOGY TEACHER Rule Out COVID-19 06/13/2022 06/13/2022 06/14/2022 9:45 AM CDT documented as of this encounter Care Teams File Keeper Relationship Specialty Start Date End Date Hansel Gillespie MD PCP - General 03/16/07 03/11/17 Kelley Gunderson MD [address] [place] [address] [id number] PCP - General Internal Medicine 03/12/17 01/28/21 Kelley Gunderson MD [address] [place] [address] [id number] PCP - Assigned PCP 05/04/17 04/28/18 [place] [address] [place] [address] PCP - General Family Medicine 01/29/21 Ange Munoz PA-C Physician Institutional Asset Manager Physician Institutional Asset Manager 04/27/15 04/27/15 Elizabeth Steward MD 6 [facility] [address] [place] [address] Internal Medicine 06/13/16 09/23/16 Abdirizak Villalta MD [address] [place] [address] [address] [place] [address] Referring Physician Gastroenterology 09/24/16 Kelley Gunderson MD [address] [place] [address] Assigned PCP 05/04/17 10/14/20 Abdirizak Villalta MD [address] [place] [address] Assigned Gastroenterology Provider 12/17/19 06/17/20 [place] [address] [address] Assigned Musculoskeletal Provider 12/17/19 01/27/21 [place] [address] [place] [address] Assigned PCP 10/15/20 Holli Damian PA-C [address] [place] [address] Assigned Surgical Provider 02/04/21 04/26/22 [place] [address] [facility] [address] [place] [address] Assigned Musculoskeletal Provider 01/28/21 07/26/22 Abdirizak Villalta MD [address] 964485 Assigned Gastroenterology Provider 01/28/21 07/26/22 Kassie Martinez [facility] [address] [place] [address] Pharmacist Pharmacist 05/14/21 Shani Madison, MARIE Personal Advocate & Liaison ([facility]) Family Medicine 05/15/21 07/06/21 Jackie Muñoz RN Personal Advocate & Liaison ([facility]) Family Medicine 07/06/21 05/22/22 [facility] [address] [place] [address] Assigned MTM Pharmacist 07/21/21 Darcy Trevino, director of photography Diabetes Education 09/25/21 [facility] [address] [place] [address] Assigned MTM Pharmacist 11/21/21 Luh Tapia PA-C [address] [address] Assigned Surgical Provider 04/27/22 06/21/22 Holli Damian PA-C [address] [place] [address] Assigned Surgical Provider 06/22/22 06/28/22 Luh Tapia PA-C [address] [place] [address] Assigned Surgical Provider 06/29/22 08/16/23 Abdiel New PA-C [address] [address] Assigned Musculoskeletal Provider 12/21/22 01/03/23 Katie Reina DPM, Podiatry/Foot and Ankle Surgery [address] [facility] [address] [place] [address] Assigned Musculoskeletal Provider 01/04/23 06/16/23 Cl Hugo MD [address] [place] [address] Urology 01/28/23 [place] [address] [address], [facility] 300 [place] [address] Assigned Musculoskeletal Provider 06/17/23 08/16/23 Markie [place] MD 9 [place], [place] 721845 Assigned Surgical Provider 08/17/23 [place] [address] [facility] [address] [place] [address] Assigned Musculoskeletal Provider 08/17/23 01/16/24 [place] [address] [address], [address] [address] Assigned Musculoskeletal Provider 01/17/24 documented as of this encounter
--- OUTSIDE RECORDS SUMMARY | 2024-02-29 19:29 | XMS_ITS | Encounter Summary ---
Author Organization [facility] Address [address] [place] [address] Care Team Providers Care Sustainability Manager Name Role Phone Hansel Gillespie MD Primary Care Provider [phone] Ange Munoz PA-C Unavailable Unavailable Elizabeth Steward MD Unavailable + Abdirizak Villalta MD Unavailable [phone] Kelley Gunderson MD Primary Care Provider +[phone] Kelley Gunderson MD Unavailable +[phone] Kelley Gunderson MD Unavailable +[phone] Abdirizak Villalta MD Unavailable [phone] Hugo Osborne MD Unavailable +[phone] Kassie Elizabeth MD Unavailable +[phone] Kassie Elizabeth MD Primary Care Provider +[phone] Holli Damian PA-C Unavailable +[phone] Dilip Tate DPM Unavailable +[phone] Abdirizak Villalta MD Unavailable +[phone] Kassie Martinez [facility] Unavailable Shani Madison RN Unavailable Unavailable Jackie Muñoz RN Unavailable Unavailable Juan Kassie [facility] Unavailable +[phone] Darcy Trevino RN Unavailable Unavailable JuanReynaKassie [facility] Unavailable +[phone] Luh Tapia PA-C Unavailable +[phone] Holli Damian PA-C Unavailable +[phone] Luh Tapia PA-C Unavailable [phone] Abdiel New PA-C Unavailable [phone] Katie Reina DPM, Podiatry /Foot and Ankle Surgery Unavailable Cl Hugo MD Unavailable +[phone] Christopher Castaneda DO Unavailable [phone] Markie Wade MD Unavailable [phone] Dilip Tate DPM Unavailable [phone] Christopher Castaneda DO Unavailable [phone] Encounter Details Date Type Department Care Team (Latest Contact Info) Description 10/05/2014 MyC Medical Advice [address] [address] Hansel Gillespie MD [address] [address] Dysmetabolic syndrome (Primary Dx); Hyperlipidemia with target LDL less than 100; Hypertriglyceridemia Social History Tobacco Use Types Packs/Day Years Used Date Smoking Tobacco: Former Cigarettes 1 1 0 05/09/2010 - 05/10/2011 Smokeless Tobacco: Never Alcohol Use Standard Drinks/Week Comments No 0 (1 standard drink = 0.6 oz pur e alcohol) Sex and Gender Information Value Date Recorded Sex Assigned at Male 06/23/2020 10:21 PM CDT Legal Sex Male 3:30 AM QUALITY CONTROL CHECKER Gender Identity Male 06/23/2020 10:21 PM CDT Sexual Orientation Straight 06/23/2020 10 :21 PM CDT documented as of this encounter Plan of Treatment Upcoming Encounters Date Type Department Care Team (Late st Contact Info) Description 04/09/2024 9:30 AM QUALITY CONTROL CHECKER Office Visit [facility] [address] [place] [address] [place] [address] [place] [address] 04/14/2024 2:00 PM QUALITY CONTROL CHECKER Office Visit [facility] [address] [place] [phone] Kassie Martinez [facility] [address] [place], [place] [address] documented as of this encounter Visit Diagnoses Diagnosis Dysmetabolic syndrome- Primary Dysmetabolic Syndrome X Hyperlipidemia with target LDL less than 100 Other and unspecified hyperlipidemia Hypertriglyceridemia Pure hyperglyceridemia documented in this encounter Additional Health Concerns Infection Onset Date Last Indicated Resolved Time Rule Out COVID-19 03/01/2022 03/01/2022 03/22/2022 11:41 PM QUALITY CONTROL CHECKER Rule Out COVID-19 06/13/2022 06/13/2022 06/14/2022 9:45 AM CDT documented as of this encounter Care Teams Sustainability Manager Relationship Specialty Start Date End Date Hansel Gillespie MD PCP - General 03/16/07 03/11/17 Kelley Gunderson MD 516 [facility] [address] [place] [address] PCP - General Internal Medicine 03/12/17 01/28/21 Kelley Gunderson MD [address] [address] PCP - Assigned PCP 05/04/17 04/28/18 [place] [address] [place] [address] PCP - General Family Medicine 01/29/21 Ange Munoz PA-C Physician Lens Marker Physician Lens Marker 04/27/15 04/27/15 Elizabeth Steward MD [address] [place] [address] Internal Medicine 06/13/16 09/23/16 Abdirizak Villalta MD [address] [place] [address] Referring Physician Gastroenterology 09/24/16 Kelley Gunderson MD [address] [place] [address] Assigned PCP 05/04/17 10/14/20 Abdirizak Villalta MD [address] [place] [address] Assigned Gastroenterology Provider 12/17/19 06/17/20 [place] [address] [address] Assigned Musculoskeletal Provider 12/17/19 01/27/21 [place] [address] [place] [address] Assigned PCP 10/15/20 Holli Damian PA-C [address] [facility] [address] [place] [address] Assigned Surgical Provider 02/04/21 04/26/22 [place] [address] [facility] [address] [place] [address] Assigned Musculoskeletal Provider 01/28/21 07/26/22 Abdirizak Villalta MD 516 [facility] [address] [place] [address] Assigned Gastroenterology Provider 01/28/21 07/26/22 Kassie Martinez [facility] [address] [place] [address] Pharmacist Pharmacist 05/14/21 Shani Madison, MARIE Personal Advocate & Liaison ([facility]) Family Medicine 05/15/21 07/06/21 Jackie Muñoz RN Personal Advocate & Liaison ([facility]) Family Medicine 07/06/21 05/22/22 Kassie Martinez [facility] [address] [place] [address] Assigned MTM Pharmacist 07/21/21 Darcy Trevino, front office attendant Diabetes Education 09/25/21 Kassie aMrtinez [facility] [address] [place] [address] Assigned MTM Pharmacist 11/21/21 Luh Tapia PA-C [address] [place] [address] Assigned Surgical Provider 04/27/22 06/21/22 Holli Damian PA-C [address] [place] [address] Assigned Surgical Provider 06/22/22 06/28/22 Luh Tapia PA-C [address] [place] [address] Assigned Surgical Provider 06/29/22 08/16/23 Abdiel New PA-C [address] [place] [address] Assigned Musculoskeletal Provider 12/21/22 01/03/23 Katie Reina DPM, Podiatry/Foot and Ankle Surgery [address] [address] [address] Assigned Musculoskeletal Provider 01/04/23 06/16/23 Cl Hugo MD [address] [place] [address] Urology 01/28/23 [place] [address] [address] [address] Assigned Musculoskeletal Provider 06/17/23 08/16/23 Markie Wade MD [address] [place] [address] Assigned Surgical Provider 08/17/23 [place] [address] [facility] [address] [place] [address] Assigned Musculoskeletal Provider 08/17/23 01/16/24 [place] [address] [facility], [address] [address] Assigned Musculoskeletal Provider 01/17/24 documented as of this encounter
--- OUTSIDE RECORDS SUMMARY | 2024-02-29 19:30 | XMS_ITS | Encounter Summary ---
Author Organization [facility] Address [address] [place] [address] Care Team Providers Care Devulcanizer Charger Name Role Phone Hansel Gillespie MD Primary Care Provider [phone] Ange Munzo PA-C Unavailable Unavailable Elizabeth Steward MD Unavailable + Abdirizak Villalta MD Unavailable +[phone] Kelley Gunderson MD Primary Care Provider +[phone] Kelley Gunderson MD Unavailable +[phone] Kelley Gunderson MD Unavailable +[phone] Abdirizak Villalta MD Unavailable +[phone] Hugo Osborne MD Unavailable +[phone] Kassie Elizabeth MD Unavailable +[phone] Kassie Elizabeth MD Primary Care Provider +[phone] Holli Damian PA-C Unavailable +[phone] Dilip Tate DPM Unavailable +[phone] Abdirizak Villalta MD Unavailable +[phone] Kassie Martinez [facility] Unavailable +[phone] Shani Madison RN Unavailable Unavailable Jackie Muñoz RN Unavailable Unavailable Juan Kassie [facility] Unavailable +[phone] Darcy Trevino RN Unavailable Unavailable JuanReynaKassie [facility] Unavailable +[phone] Luh Tapia PA-C Unavailable +[phone] Holli Damian PA-C Unavailable +[phone] Luh Tapia PA-C Unavailable +[phone] Abdiel New PA-C Unavailable [phone] Katie Reina DPM, Podiatry /Foot and Ankle Surgery Unavailable Cl Hugo MD Unavailable +[phone] Christopher Castaneda DO Unavailable [phone] Markie Wade MD Unavailable [phone] Dilip Tate DPM Unavailable +[phone] Christopher Castaneda DO Unavailable [phone] Encounter Details Date Type Department Care Team (Late st Contact Info) Description 06/07/2011 MyC Medical Advice [address] [address] [facility] Social History Tobacco Use Types Packs/Day Years Used Date Smoking Tobacco: Every Day Cigarettes 1 1 Alcohol Use Standard Drinks/Week Comments No 0 (1 standard drink = 0.6 oz pur e alcohol) Sex and Gender Information Value Date Recorded Sex Assigned at Male 06/23/2020 10:21 PM CDT Legal Sex Male 3:30 AM AUTO DISMANTLER Gender Identity Male 06/23/2020 10:21 PM CDT Sexual Orientation Straight 06/23/2020 10 :21 PM CDT documented as of this encounter Plan of Treatment Upcoming Encounters Date Type Department Care Team (Late st Contact Info) Description 04/09/2024 9:30 AM AUTO DISMANTLER Office Visit [facility] [address] [place] [address] [place] [address] [place] [address] 04/14/2024 2:00 PM AUTO DISMANTLER Office [facility] [address] [place] [phone] Kassie Martinez, [facility] [address] [place] [address] documented as of this encounter Visit Diagnoses Not on filedocumented in this encounter Additional Health Concerns Infection Onset Date Last Indicated Resolved Time Rule Out COVID-19 03/01/2022 03/01/2022 03/22/2022 11:41 PM AUTO DISMANTLER Rule Out COVID-19 06/13/2022 06/13/2022 06/14/2022 9:45 AM CDT documented as of this encounter Care Teams Devulcanizer Charger Relationship Specialty Start Date End Date Hansel Gillespie MD PCP - General 03/16/07 03/11/17 Kelley Gunderson MD [address] [address] PCP - General Internal Medicine 03/12/17 01/28/21 Kelley Gunderson MD [address] [place] [address] 374213 PCP - Assigned PCP 05/04/17 04/28/18 [place] [address] [place] [address] PCP - General Family Medicine 01/29/21 Ange Munoz PA-C Physician Head Still Operator Physician Head Still Operator 04/27/15 04/27/15 Elizabeth Steward MD [address] [address] Internal Medicine 06/13/16 09/23/16 Abdirizak Villalta MD [address] [place] [address] Referring Physician Gastroenterology 09/24/16 Kelley Gunderson MD [address] [place] [address] Assigned PCP 05/04/17 10/14/20 Abdirizak Villalta MD [address] [place] [address] Assigned Gastroenterology Provider 12/17/19 06/17/20 [place] [address] [address] Assigned Musculoskeletal Provider 12/17/19 01/27/21 [place] [address] [place] [address] Assigned PCP 10/15/20 Holli Damian PA-C [address] [facility] [address] [place] [address] Assigned Surgical Provider 02/04/21 04/26/22 Dilip Tate DPM [address] [facility] [address] [place] [address] Assigned Musculoskeletal Provider 01/28/21 07/26/22 Abdirizak Villalta MD 516 [facility] [address] [place] [address] Assigned Gastroenterology Provider 01/28/21 07/26/22 [facility] [address] [place] [address] Pharmacist Pharmacist 05/14/21 Shani Madison, MARIE Personal Advocate & Liaison ([facility]) Family Medicine 05/15/21 07/06/21 Jackie Muñoz RN Personal Advocate & Liaison ([facility]) Family Medicine 07/06/21 05/22/22 [facility] [address] [place] [address] Assigned MTM Pharmacist 07/21/21 Darcy Trevino, high school academic coach Diabetes Education 09/25/21 [facility] [address] [place] [address] Assigned MTM Pharmacist 11/21/21 Luh Tapia PA-C [address] [place] 546715 Assigned Surgical Provider 04/27/22 06/21/22 Holli Damian PA-C [address] [place] [address] Assigned Surgical Provider 06/22/22 06/28/22 Luh Tapia PA-C [address] [facility] 500 [place] [address] Assigned Surgical Provider 06/29/22 08/16/23 Abdiel New PA-C [address] [place] [address] Assigned Musculoskeletal Provider 12/21/22 01/03/23 Katie Reina DPM, Podiatry/Foot and Ankle Surgery [address] [facility] 300 [place] [address] Assigned Musculoskeletal Provider 01/04/23 06/16/23 Cl Hugo MD [address] [place] [address] [address] [place] [address] Urology 01/28/23 [place] [address] [facility] 300 [place] [address] Assigned Musculoskeletal Provider 06/17/23 08/16/23 Markie Wade MD [address] [place] [address] Assigned Surgical Provider 08/17/23 Dilip Tate DPM [address] [facility] 300 [place] [address] Assigned Musculoskeletal Provider 08/17/23 01/16/24 [place] [address] [address]BA[address]AL, [address] [address] Assigned Musculoskeletal Provider 01/17/24 documented as of this encounter
--- OUTSIDE RECORDS SUMMARY | 2024-02-29 19:30 | XMS_ITS | Encounter Summary ---
Author Organization [facility] Address [address] [place] [address] Care Team Providers Care Disability Insurance Hearing Officer Name Role Phone Hansel Gillespie MD Primary Care Provider [phone] Ange Munoz PA-C Unavailable Unavailable Elizabeth Steward MD Unavailable + Abdirizak Villalta MD Unavailable [phone] Kelley Gunderson MD Primary Care Provider [phone] Kelley Gunderson MD Unavailable +[phone] Kelley Gunderson MD Unavailable +[phone] Abdirizak Villalta MD Unavailable +[phone] Hugo Osborne MD Unavailable +[phone] Kassie Elizabeth MD Unavailable +[phone] Kassie Elizabeth MD Primary Care Provider +[phone] Holli Damian PA-C Unavailable +[phone] Dilip Tate DPM Unavailable +[phone] Abdirizak Villalta MD Unavailable +[phone] Kassie Martinez [facility] Unavailable +[phone] Shani Madison RN Unavailable Unavailable Jackie Muñoz RN Unavailable Unavailable Juan Kassie [facility] Unavailable +[phone] Darcy Trevino RN Unavailable Unavailable JuanReynaKassie [facility] Unavailable +[phone] Luh Tapia PA-C Unavailable +[phone] Holli Damian PA-C Unavailable +[phone] Luh Tapia PA-C Unavailable [phone] Abdiel New PA-C Unavailable [phone] Katie Reina DPM, Podiatry /Foot and Ankle Surgery Unavailable Cl Hugo MD Unavailable [phone] Christopher Castaneda DO Unavailable [phone] Markie Wade MD Unavailable [phone] Dilip Tate DPM Unavailable +[phone] Christopher Castaneda DO Unavailable [phone] Encounter Details Date Type Department Care Team (Late st Contact Info) Description 10/31/2010 MyC Medical Advice [address] [address] [facility] VITAMIN D DEFICIENCY NOS Social History Tobacco Use Types Packs/Day Years Used Date Smoking Tobacco: Every Day Cigarettes 1 1 Alcohol Use Standard Drinks/Week Comments No 0 (1 standard drink = 0.6 oz pur e alcohol) Sex and Gender Information Value Date Recorded Sex Assigned at Male 06/23/2020 10:21 PM CDT Legal Sex Male 3:30 AM GEOTHERMAL POWERPLANT MECHANIC Gender Identity Male 06/23/2020 10:21 PM CDT Sexual Orientation Straight 06/23/2020 10 :21 PM CDT documented as of this encounter Plan of Treatment Upcoming Encounters Date Type Department Care Team (Late st Contact Info) Description 04/09/2024 9:30 AM GEOTHERMAL POWERPLANT MECHANIC Office Visit [facility] [id number] [place] [address] [place] [address] [place] [address] 04/14/2024 2:00 PM GEOTHERMAL POWERPLANT MECHANIC Office Visit [facility] [address] [place] [phone] Kassie Martinez, [facility] [address] [place] [address] documented as of this encounter Visit Diagnoses Diagnosis VITAMIN D DEFICIENCY NOS Unspecified vitamin D deficiency documented in this encounter Additional Health Concerns Infection Onset Date Last Indicated Resolved Time Rule Out COVID-19 03/01/2022 03/01/2022 03/22/2022 11:41 PM GEOTHERMAL POWERPLANT MECHANIC Rule Out COVID-19 06/13/2022 06/13/2022 06/14/2022 9:45 AM CDT documented as of this encounter Care Teams Disability Insurance Hearing Officer Relationship Specialty Start Date End Date Hansel Gillespie MD PCP - General 03/16/07 03/11/17 Kelley Gunderson MD [address] [address] PCP - General Internal Medicine 03/12/17 01/28/21 Kelley Gunderson MD [address] [place] [address] 779773 PCP - Assigned PCP 05/04/17 04/28/18 [place] [address] [place] [address] PCP - General Family Medicine 01/29/21 Ange Munoz PA-C Physician Shop Mechanic Physician Shop Mechanic 04/27/15 04/27/15 Elizabeth Steward MD [address] [address] MD Internal Medicine 06/13/16 09/23/16 Abdirizak Villalta MD [address] [place] [address] Referring Physician Gastroenterology 09/24/16 Kelley Gunderson MD [address] [place] [address] Assigned PCP 05/04/17 10/14/20 Abdirizak Villalta MD [address] [place] [address] Assigned Gastroenterology Provider 12/17/19 06/17/20 [place] [address] [address] Assigned Musculoskeletal Provider 12/17/19 01/27/21 [place] [address] [place] [address] Assigned PCP 10/15/20 Holil Damian PA-C [address] [place] [address] Assigned Surgical Provider 02/04/21 04/26/22 [place] DPM [address] [facility] [address] [place] [address] Assigned Musculoskeletal Provider 01/28/21 07/26/22 Abdirizak Villalta MD 516 [facility] [address] [place] [address] Assigned Gastroenterology Provider 01/28/21 07/26/22 Kassie aMrtinez [facility] [address] [place] [address] Pharmacist Pharmacist 05/14/21 Shani Madison, MARIE Personal Advocate & Liaison ([facility]) Family Medicine 05/15/21 07/06/21 Jackie Muñoz RN Personal Advocate & Liaison ([facility]) Family Medicine 07/06/21 05/22/22 Kassie Martinez [facility] [address] [place] [address] Assigned MTM Pharmacist 07/21/21 Darcy Trevino, cold meat chef Diabetes Education 09/25/21 Kassie Martinez [facility] [address] [place] [address] Assigned MTM Pharmacist 11/21/21 Luh Tapia PA-C [address] [place] [address] Assigned Surgical Provider 04/27/22 06/21/22 Holli Damian PA-C [address] [place] [address] Assigned Surgical Provider 06/22/22 06/28/22 Luh Tapia PA-C [address] [place] [address] Assigned Surgical Provider 06/29/22 08/16/23 Abdiel New PA-C [address] [place] [address] Assigned Musculoskeletal Provider 12/21/22 01/03/23 Katie Reina DPM, Podiatry/Foot and Ankle Surgery [address] [facility] 300 [place] [address] Assigned Musculoskeletal Provider 01/04/23 06/16/23 Cl Hugo MD [address] [place] [address] 394 [place] [address] Urology 01/28/23 [place] [address] [facility] 300 [place] [address] Assigned Musculoskeletal Provider 06/17/23 08/16/23 Markie Wade MD [address] [place] [address] 851835 Assigned Surgical Provider 08/17/23 [place] [address] [facility] [address] [place] [address] Assigned Musculoskeletal Provider 08/17/23 01/16/24 [place] [address] [address]BA[address]AL, [address] [address] Assigned Musculoskeletal Provider 01/17/24 documented as of this encounter
--- OUTSIDE RECORDS SUMMARY | 2024-02-29 19:30 | XMS_ITS | Encounter Summary ---
Author Organization [facility] Address [address] [place] [address] Care Team Providers Care Sap Basis Consultant Name Role Phone Hansel Gillespie MD Primary Care Provider [phone] Ange Munoz PA-C Unavailable Unavailable Elizabeth Steward MD Unavailable + Abdirizak Villalta MD Unavailable +[phone] Kelley Gunderson MD Primary Care Provider +[phone] Kelley Gunderson MD Unavailable +[phone] Kelley Gunderson MD Unavailable +[phone] Abdirizak Villalta MD Unavailable +[phone] Hugo Osborne MD Unavailable +[phone] Kassie Elizabeth MD Unavailable +[phone] Kassie Elizabeth MD Primary Care Provider +[phone] Holli Damian PA-C Unavailable +[phone] Dilip Tate DPM Unavailable +[phone] Abdirizak Villalta MD Unavailable +[phone] Kassie Martinez [facility] Unavailable +[phone] Shani Madison RN Unavailable Unavailable Jackie Muñoz RN Unavailable Unavailable Juan Kassie [facility] Unavailable +[phone] Darcy Trevino RN Unavailable Unavailable JuanReynaKassie [facility] Unavailable +[phone] Luh Tapia PA-C Unavailable +[phone] Nati Hollimc Rosales PA-C Unavailable +[phone] Luh Tapia PA-C Unavailable +[phone] Abdiel New PA-C Unavailable [phone] Katie Reina DPM, Podiatry /Foot and Ankle Surgery Unavailable Cl Hugo MD Unavailable +[phone] Christopher Castaneda DO Unavailable [phone] Markie Wade MD Unavailable [phone] Dilip Tate DPM Unavailable +[phone] Christopher Castaneda DO Unavailable [phone] Reason for Visit * Reason Onset Date Comments Refill Request 02/12/2008 Encounter Details Date Type Department Care Team (Late st Contact Info) Description 02/11/2008 MyC Medical Advice [address] [address] Hansel Gillespie MD [address] [address] Refill Request Social History Tobacco Use Types Packs/Day Years Used Date Smoking Tobacco: Former Cigarettes 0 07/08/2005 - 07/08/2006 Alcohol Use Standard Drinks/Week Comments No 0 (1 standard drink = 0.6 oz pur e alcohol) Sex and Gender Information Value Date Recorded Sex Assigned at Male 06/23/2020 10:21 PM CDT Legal Sex Male 3:30 AM SINKER WINDER Gender Identity Male 06/23/2020 10:21 PM CDT Sexual Orientation Straight 06/23/2020 10 :21 PM CDT documented as of this encounter Plan of Treatment Upcoming Encounters Date Type Department Care Team (Late st Contact Info) Description 04/09/2024 9:30 AM SINKER WINDER Office Visit [facility] [address] [place] [address] [place] [address] [place] [address] 04/14/2024 2:00 PM SINKER WINDER Office [facility] [address] [place] [address] [facility] [address] [place], [place] [address] documented as of this encounter Visit Diagnoses Diagnosis Smoking- Primary Tobacco use disorder documented in this encounter Additional Health Concerns Infection Onset Date Last Indicated Resolved Time Rule Out COVID-19 03/01/2022 03/01/2022 03/22/2022 11:41 PM SINKER WINDER Rule Out COVID-19 06/13/2022 06/13/2022 06/14/2022 9:45 AM CDT documented as of this encounter Care Teams Sap Basis Consultant Relationship Specialty Start Date End Date Hansel Gillespie MD PCP - General 03/16/07 03/11/17 Kelley Gunderson MD 516 [facility] [address] [place] [address] PCP - General Internal Medicine 03/12/17 01/28/21 Kelley Gunderson MD [address] [place] [address] PCP - Assigned PCP 05/04/17 04/28/18 [place] [address] [place] [address] PCP - General Family Medicine 01/29/21 Ange Munoz PA-C Physician Smooth Stucco Resurfacer Physician Smooth Stucco Resurfacer 04/27/15 04/27/15 Elizabeth Steward MD [address] [place] [address] Internal Medicine 06/13/16 09/23/16 Abdirizak Villalta MD [address] [place] [address] Referring Physician Gastroenterology 09/24/16 Kelley Gunderson MD [address] [place] [address] Assigned PCP 05/04/17 10/14/20 Abdirizak Villalta MD [address] [place] [address] Assigned Gastroenterology Provider 12/17/19 06/17/20 [place] [address] [address] Assigned Musculoskeletal Provider 12/17/19 01/27/21 [place] [address] [place] [address] Assigned PCP 10/15/20 Holli Damian PA-C [address] [place] [address] Assigned Surgical Provider 02/04/21 04/26/22 [place] [address] [facility] [address] [place], [place] [address] Assigned Musculoskeletal Provider 01/28/21 07/26/22 Abdirizak Villalta MD 516 [facility] [address] [place], [place] [address] Assigned Gastroenterology Provider 01/28/21 07/26/22 Kassie Martinez [facility] [address] [place] [address] Pharmacist Pharmacist 05/14/21 Shani Madison, MARIE Personal Advocate & Liaison ([facility]) Family Medicine 05/15/21 07/06/21 Jackie Muñoz, MARIE Personal Advocate & Liaison ([facility]) Family Medicine 07/06/21 05/22/22 Kassie Martinez [facility] [address] [place] [address] Assigned MTM Pharmacist 07/21/21 Darcy Trevino, condenser setter Diabetes Education 09/25/21 Kassie Martinez [facility] [address] [place] [address] Assigned MTM Pharmacist 11/21/21 Luh Tapia PA-C [address] [place] [address] Assigned Surgical Provider 04/27/22 06/21/22 Holli Damian PA-C [address] [place] [address] Assigned Surgical Provider 06/22/22 06/28/22 Luh Tapia PA-C [address] [place] [address] Assigned Surgical Provider 06/29/22 08/16/23 Abdiel New PA-C [address] [address] Assigned Musculoskeletal Provider 12/21/22 01/03/23 Katie Reina DPM, Podiatry/Foot and Ankle Surgery [address] [address] [facility] 300 [place], [place] 4665[address] Assigned Musculoskeletal Provider 01/04/23 06/16/23 Cl Hugo MD [address] [place] [address] 394 [place], [place] [address] Urology 01/28/23 [place] [address] [facility] CAR[facility] 300 [place], [place] 04[address] Assigned Musculoskeletal Provider 06/17/23 08/16/23 Markie Wade MD [address] [place] [address] 870285 Assigned Surgical Provider 08/17/23 [place] [address] [facility] [address] [place] [address] Assigned Musculoskeletal Provider 08/17/23 01/16/24 [place] [address] [facility], [address] [place] [address] Assigned Musculoskeletal Provider 01/17/24 documented as of this encounter
--- OUTSIDE RECORDS SUMMARY | 2024-02-29 19:30 | XMS_ITS | Encounter Summary ---
Author Organization [place] Address [address] [place] [address] Care Team Providers Care Hide Trimmer Name Role Phone Hansel Gillespie MD Primary Care Provider [phone] Ange Munoz PA-C Unavailable Unavailable Elizabeth Steward MD Unavailable + Abdirizak Villalta MD Unavailable +[phone] Kelley Gunderson MD Primary Care Provider [phone] Kelley Gunderson MD Unavailable +[phone] Kelley Gunderson MD Unavailable +[phone] Abdirizak Villalta MD Unavailable +[phone] Hugo Osborne MD Unavailable +[phone] Kassie Elizabeth MD Unavailable +[phone] Kassie Elizabeth MD Primary Care Provider +[phone] Holli Damian PA-C Unavailable +[phone] Dilip Tate DPM Unavailable +[phone] Abdirizak Villalta MD Unavailable +[phone] Kassie Martinez [facility] Unavailable +[phone] Shani Madison RN Unavailable Unavailable Jackie Muñoz RN Unavailable Unavailable Juan Kassie [facility] Unavailable +[phone] Darcy Trevino RN Unavailable Unavailable JuanReynaKassie [facility] Unavailable +[phone] Luh Tapia PA-C Unavailable +[phone] Holli Damian PA-C Unavailable +[phone] Luh Tapia PA-C Unavailable +[phone] Abdiel New PA-C Unavailable [phone] Katie Reina DPM, Podiatry /Foot and Ankle Surgery Unavailable Cl Hugo MD Unavailable +[phone] Christopher Castaneda DO Unavailable [phone] Markie Wade MD Unavailable [phone] Dilip Tate DPM Unavailable +[phone] Christopher Castaneda DO Unavailable [phone] Encounter Details Date Type Department Care Team (Late st Contact Info) Description 07/11/2010 MyC Medical Advice [address] [address] [facility] Social History Tobacco Use Types Packs/Day Years Used Date Smoking Tobacco: Every Day Cigarettes 1 1 Alcohol Use Standard Drinks/Week Comments No 0 (1 standard drink = 0.6 oz pur e alcohol) Sex and Gender Information Value Date Recorded Sex Assigned at Male 06/23/2020 10:21 PM CDT Legal Sex Male 3:30 AM DECKHAND SHRIMP BOAT Gender Identity Male 06/23/2020 10:21 PM CDT Sexual Orientation Straight 06/23/2020 10 :21 PM CDT documented as of this encounter Plan of Treatment Upcoming Encounters Date Type Department Care Team (Late st Contact Info) Description 04/09/2024 9:30 AM DECKHAND SHRIMP BOAT Office Visit [facility] [address] [place] [address] [place] [address] [place] [address] 04/14/2024 2:00 PM DECKHAND SHRIMP BOAT Office Visit [facility] [address] [place] [phone] Kassie Martinez, [facility] [address] [place] [address] documented as of this encounter Visit Diagnoses Not on filedocumented in this encounter Additional Health Concerns Infection Onset Date Last Indicated Resolved Time Rule Out COVID-19 03/01/2022 03/01/2022 03/22/2022 11:41 PM DECKHAND SHRIMP BOAT Rule Out COVID-19 06/13/2022 06/13/2022 06/14/2022 9:45 AM CDT documented as of this encounter Care Teams Hide Trimmer Relationship Specialty Start Date End Date Hansel Gillespie MD PCP - General 03/16/07 03/11/17 Kelley Gunderson MD [address] [id number] PCP - General Internal Medicine 03/12/17 01/28/21 Kelley Gunderson MD [address] [place] [address] PCP - Assigned PCP 05/04/17 04/28/18 [place] [address] [place] [address] PCP - General Family Medicine 01/29/21 Ange Munoz PA-C Physician Clay Modeler Physician Clay Modeler 04/27/15 04/27/15 Elizabeth Steward MD [address] [address] Internal Medicine 06/13/16 09/23/16 Abdirizak Villalta MD [address] [place] [address] Referring Physician Gastroenterology 09/24/16 Kelley Gunderson MD [address] [place] [address] Assigned PCP 05/04/17 10/14/20 Abdirizak Villalta MD [address] [place] [address] Assigned Gastroenterology Provider 12/17/19 06/17/20 [place] [address] [address] Assigned Musculoskeletal Provider 12/17/19 01/27/21 [place] [address] [place] [address] Assigned PCP 10/15/20 Holli Damian PA-C [address] [facility] [facility] [address] [place] [address] Assigned Surgical Provider 02/04/21 04/26/22 Dilip Tate DPM [address] [facility] [address] [place] [address] Assigned Musculoskeletal Provider 01/28/21 07/26/22 Abdirizak Villalta MD 516 [facility] [address] [place] [address] Assigned Gastroenterology Provider 01/28/21 07/26/22 [facility] [address] [place] [address] Pharmacist Pharmacist 05/14/21 Shani Madison, MARIE Personal Advocate & Liaison ([facility]) Family Medicine 05/15/21 07/06/21 Jackie Muñoz RN Personal Advocate & Liaison ([facility]) Family Medicine 07/06/21 05/22/22 [facility] [address] [place] [address] Assigned MTM Pharmacist 07/21/21 Darcy Trevino, filenet admin Diabetes Education 09/25/21 [facility] [address] [place] [address] Assigned MTM Pharmacist 11/21/21 Luh Tapia PA-C [address] [place] [id number] Assigned Surgical Provider 04/27/22 06/21/22 Holli Damian PA-C [address] [place] 844170 Assigned Surgical Provider 06/22/22 06/28/22 Luh Tapia PA-C [address] [facility] [address] [place] [address] Assigned Surgical Provider 06/29/22 08/16/23 Abdiel New PA-C [address] [place] [address] Assigned Musculoskeletal Provider 12/21/22 01/03/23 Katie Reina DPM, Podiatry/Foot and Ankle Surgery [address] [facility] 300 [place] [address] Assigned Musculoskeletal Provider 01/04/23 06/16/23 Cl Hugo MD [address] [place] [address] 394 [place] [address] Urology 01/28/23 [place] [address] [facility] 300 [place] [address] Assigned Musculoskeletal Provider 06/17/23 08/16/23 Markie Wade MD [address] [place] [address] Assigned Surgical Provider 08/17/23 Dilip Tate DPM [address] [facility] 300 [place] [address] Assigned Musculoskeletal Provider 08/17/23 01/16/24 [place] [address] COS[address] CARBAJAL, [address] [address] Assigned Musculoskeletal Provider 01/17/24 documented as of this encounter
--- OUTSIDE RECORDS SUMMARY | 2024-02-29 19:30 | XMS_ITS | Encounter Summary ---
Author Organization [place] Address [address] [place] [address] Care Team Providers Care Perfusionist Name Role Phone Hansel Gillespie MD Primary Care Provider [phone] Ange Munoz PA-C Unavailable Unavailable Elizabeth Steward MD Unavailable + Abdirizak Villalta MD Unavailable +[phone] Kelley Gunderson MD Primary Care Provider [phone] Kelley Gunderson MD Unavailable +[phone] Kelley Gunderson MD Unavailable +[phone] Abdirizak Villalta MD Unavailable +[phone] Hugo Osborne MD Unavailable [phone] Kassie Elizabeth MD Unavailable +[phone] Kassie Elizabeth MD Primary Care Provider +[phone] Holli Damian PA-C Unavailable +[phone] Dilip Tate DPM Unavailable +[phone] Abdirizak Villalta MD Unavailable +[phone] Kassie Martinez [facility] Unavailable Shani Madison RN Unavailable Unavailable Jackie Muñoz RN Unavailable Unavailable Juan Kassie [facility] Unavailable [phone] Darcy Trevino RN Unavailable Unavailable JuanReynaKassie [facility] Unavailable +[phone] Luh Tapia PA-C Unavailable +[phone] Holli Damian PA-C Unavailable +[phone] Luh Tapia PA-C Unavailable [phone] Abdiel New PA-C Unavailable [phone] Katie Reina DPM, Podiatry /Foot and Ankle Surgery Unavailable Cl Hugo MD Unavailable +[phone] Christopher Castaneda DO Unavailable [phone] Markie Wade MD Unavailable [phone] Dilip Tate DPM Unavailable [phone] Christopher Castaneda DO Unavailable [phone] Encounter Details Date Type Department Care Team (Late st Contact Info) Description 12/03/2010 MyC Medical Advice [address] [address] Hansel Gillespie MD [address] [address] Social History Tobacco Use Types Packs/Day Years Used Date Smoking Tobacco: Every Day Cigarettes 1 1 Alcohol Use Standard Drinks/Week Comments No 0 (1 standard drink = 0.6 oz pur e alcohol) Sex and Gender Information Value Date Recorded Sex Assigned at Male 06/23/2020 10:21 PM CDT Legal Sex Male 3:30 AM UNISAW OPERATOR Gender Identity Male 06/23/2020 10:21 PM CDT Sexual Orientation Straight 06/23/2020 10 :21 PM CDT documented as of this encounter Plan of Treatment Upcoming Encounters Date Type Department Care Team (Late st Contact Info) Description 04/09/2024 9:30 AM UNISAW OPERATOR Office Visit [facility] [address] [place] [phone] [place] [address] [place], [place] [address] 04/14/2024 2:00 PM UNISAW OPERATOR Office Visit [facility] [address] [place] [phone] Kassie Martinez, [facility] [address] [place], [place] [address] documented as of this encounter Visit Diagnoses Not on filedocumented in this encounter Additional Health Concerns Infection Onset Date Last Indicated Resolved Time Rule Out COVID-19 03/01/2022 03/01/2022 03/22/2022 11:41 PM UNISAW OPERATOR Rule Out COVID-19 06/13/2022 06/13/2022 06/14/2022 9:45 AM CDT documented as of this encounter Care Teams Perfusionist Relationship Specialty Start Date End Date Hansel Gillespie MD PCP - General 03/16/07 03/11/17 Kelley Gunderson MD [address] [place] [address] PCP - General Internal Medicine 03/12/17 01/28/21 Kelley Gunderson MD [address] [place] [address] PCP - Assigned PCP 05/04/17 04/28/18 [place] [address] [place] [address] PCP - General Family Medicine 01/29/21 Ange Munoz PA-C Physician Patient Sitter Physician Patient Sitter 04/27/15 04/27/15 Elizabeth Steward MD [address] [place] [address] Internal Medicine 06/13/16 09/23/16 Abdirizak Villalta MD [address] [place] [address] Referring Physician Gastroenterology 09/24/16 Kelley Gunderson MD [address] [place] [address] Assigned PCP 05/04/17 10/14/20 Abdirizak Villalta MD [address] [place] [address] Assigned Gastroenterology Provider 12/17/19 06/17/20 [place] [address] [address] Assigned Musculoskeletal Provider 12/17/19 01/27/21 [place] [address] [place] [address] Assigned PCP 10/15/20 Holli Damian PA-C [address] [address] [place] [address] Assigned Surgical Provider 02/04/21 04/26/22 [place] [address] [facility] [address] [place] [address] Assigned Musculoskeletal Provider 01/28/21 07/26/22 Abdirizak Villalta MD [address] [address] Assigned Gastroenterology Provider 01/28/21 07/26/22 [facility] [address] [place] [address] Pharmacist Pharmacist 05/14/21 Shani Madison, MARIE Personal Advocate & Liaison ([facility]) Family Medicine 05/15/21 07/06/21 Jackie Muñoz RN Personal Advocate & Liaison ([facility]) Family Medicine 07/06/21 05/22/22 [facility] [address] [place] [address] Assigned MTM Pharmacist 07/21/21 Darcy Trevino, order planner Diabetes Education 09/25/21 [facility] [address] [place] [address] Assigned MTM Pharmacist 11/21/21 Luh Tapia PA-C [address] [facility] [address] [place] [address] Assigned Surgical Provider 04/27/22 06/21/22 Holli Damian PA-C [address] [place] [address] Assigned Surgical Provider 06/22/22 06/28/22 Luh Tapia PA-C [address] [facility] [address] [place] [address] Assigned Surgical Provider 06/29/22 08/16/23 Abdiel New PA-C [address] [place] [address] Assigned Musculoskeletal Provider 12/21/22 01/03/23 Katie Reina DPM, Podiatry/Foot and Ankle Surgery [address] [facility] 300 [place] [address] Assigned Musculoskeletal Provider 01/04/23 06/16/23 Cl Hugo MD [address] [place] [address] Urology 01/28/23 [place] [address] COS[address] CARBAJAL, [facility] 300 [place] [address] Assigned Musculoskeletal Provider 06/17/23 08/16/23 Markie Wade MD [address] [place] [address] Assigned Surgical Provider 08/17/23 Dilip [place] DPM [address] [facility] 300 [place] [address] Assigned Musculoskeletal Provider 08/17/23 01/16/24 [place] [address] COS[address] CARBAJAL, [address] [address] Assigned Musculoskeletal Provider 01/17/24 documented as of this encounter
--- OUTSIDE RECORDS SUMMARY | 2024-02-29 19:30 | XMS_ITS | Encounter Summary ---
Author Organization [place] Address [address] [place] [address] Care Team Providers Care Fur Pointer Name Role Phone Hansel Gillespie MD Primary Care Provider [phone] Ange Munoz PA-C Unavailable Unavailable Elizabeth Steward MD Unavailable + Abdirizak Villalta MD Unavailable +[phone] Kelley Gunderson MD Primary Care Provider +[phone] Kelley Gundersno MD Unavailable +[phone] Kelley Gunderson MD Unavailable +[phone] Abdirizak Villalta MD Unavailable +[phone] Hugo Osborne MD Unavailable +[phone] Kassie Elizabeth MD Unavailable +[phone] Kassie Elizabeth MD Primary Care Provider +[phone] Holli Damian PA-C Unavailable +[phone] Dilip Tate DPM Unavailable +[phone] Abdirizak Villalta MD Unavailable +[phone] Kassie Martinez [facility] Unavailable +[phone] Shani Madison RN Unavailable Unavailable Jackie Muñoz RN Unavailable Unavailable Juna Kassie [facility] Unavailable [phone] Darcy Trevino RN Unavailable Unavailable JuanReynaKassie [facility] Unavailable +[phone] Luh Tapia PA-C Unavailable +[phone] Holli Damian PA-C Unavailable +[phone] Luh Tapia PA-C Unavailable [phone] Abdiel New PA-C Unavailable [phone] Katie Reina DPM, Podiatry /Foot and Ankle Surgery Unavailable Cl Hugo MD Unavailable +[phone] Christopher Castaneda DO Unavailable [phone] Markie Wade MD Unavailable [phone] Dilip Tate DPM Unavailable +[phone] Christopher Castaneda DO Unavailable [phone] Encounter Details Date Type Department Care Team (Late st Contact Info) Description 06/10/2011 MyC Medical Advice [address] [address] Hansel Gillespie MD [address] [address] Social History Tobacco Use Types Packs/Day Years Used Date Smoking Tobacco: Former Cigarettes 1 1 0 05/09/2010 - 05/10/2011 Smokeless Tobacco: Never Alcohol Use Standard Drinks/Week Comments No 0 (1 standard drink = 0.6 oz pur e alcohol) Sex and Gender Information Value Date Recorded Sex Assigned at Male 06/23/2020 10:21 PM CDT Legal Sex Male 3:30 AM SECURITY ESCORT Gender Identity Male 06/23/2020 10:21 PM CDT Sexual Orientation Straight 06/23/2020 10 :21 PM CDT documented as of this encounter Plan of Treatment Upcoming Encounters Date Type Department Care Team (Late st Contact Info) Description 04/09/2024 9:30 AM SECURITY ESCORT Office Visit [facility] [address] [place] [address] [place] [address] [place] [address] 04/14/2024 2:00 PM SECURITY ESCORT Office Visit [facility] [address] [place] [address] [facility] [address] [place] [address] documented as of this encounter Visit Diagnoses Not on filedocumented in this encounter Additional Health Concerns Infection Onset Date Last Indicated Resolved Time Rule Out COVID-19 03/01/2022 03/01/2022 03/22/2022 11:41 PM SECURITY ESCORT Rule Out COVID-19 06/13/2022 06/13/2022 06/14/2022 9:45 AM CDT documented as of this encounter Care Teams Fur Pointer Relationship Specialty Start Date End Date Hansel Gillespie MD PCP - General 03/16/07 03/11/17 Kelley Gunderson MD 516 [facility] [address] [place] [address] PCP - General Internal Medicine 03/12/17 01/28/21 Kelley Gunderson MD [address] [address] PCP - Assigned PCP 05/04/17 04/28/18 [place] [address] [place] [address] PCP - General Family Medicine 01/29/21 Ange Munoz PA-C Physician Energy And Sustainability Manager Physician Energy And Sustainability Manager 04/27/15 04/27/15 Elizabeth Steward MD [address] [place] [address] Internal Medicine 06/13/16 09/23/16 Abdirizak Villalta MD [address] [place] [address] Referring Physician Gastroenterology 09/24/16 Kelley Gunderson MD [address] [place] [address] Assigned PCP 05/04/17 10/14/20 Abdirizak Villalta MD [address] [place] [address] Assigned Gastroenterology Provider 12/17/19 06/17/20 [place] [address] [address] Assigned Musculoskeletal Provider 12/17/19 01/27/21 [place] [address] [place] [address] Assigned PCP 10/15/20 Holli Damian PA-C [address] [place] [address] Assigned Surgical Provider 02/04/21 04/26/22 [place] D[place] [address] [facility] [address] [place] [address] Assigned Musculoskeletal Provider 01/28/21 07/26/22 Abdirizak Villalta MD 516 [facility] [address] [place] [address] Assigned Gastroenterology Provider 01/28/21 07/26/22 Kassie Martinez [facility] [address] [place] [address] Pharmacist Pharmacist 05/14/21 Shani Madison, MARIE Personal Advocate & Liaison ([facility]) Family Medicine 05/15/21 07/06/21 Jackie Muñoz, MARIE Personal Advocate & Liaison ([facility]) Family Medicine 07/06/21 05/22/22 [facility] [address] [place] [address] Assigned MTM Pharmacist 07/21/21 Darcy Trevino, coppersmith apprentice Diabetes Education 09/25/21 Kassie Martinez [facility] [address] [place] [address] Assigned MTM Pharmacist 11/21/21 Luh Tapia PA-C [address] [place] [address] Assigned Surgical Provider 04/27/22 06/21/22 Holli Damian PA-C [address] [place] [address] Assigned Surgical Provider 06/22/22 06/28/22 Luh Tapia PA-C [address] [place] [address] Assigned Surgical Provider 06/29/22 08/16/23 Abdiel New PA-C [address] [place] [address] Assigned Musculoskeletal Provider 12/21/22 01/03/23 Katie Reina DPM, Podiatry/Foot and Ankle Surgery [address] [facility] 300 [place] [address] Assigned Musculoskeletal Provider 01/04/23 06/16/23 Cl Hugo MD [address] [place] [address] 394 [place] [address] Urology 01/28/23 [place] [address] [address] CARBAJAL [facility] 300 [place] [address] Assigned Musculoskeletal Provider 06/17/23 08/16/23 Markie Wade MD [address] [place] [address] Assigned Surgical Provider 08/17/23 [place] [address] [facility] 300 [place] [address] Assigned Musculoskeletal Provider 08/17/23 01/16/24 [place] [address] [facility], [facility] 300 [place] [address] Assigned Musculoskeletal Provider 01/17/24 documented as of this encounter
--- OUTSIDE RECORDS SUMMARY | 2024-02-29 19:30 | XMS_ITS | Encounter Summary ---
Author Organization [place] Address [address] [place] [address] Care Team Providers Care Assurance Specialist Name Role Phone Hansel Gillespie MD Primary Care Provider [phone] Ange Munoz PA-C Unavailable Unavailable Elizabeth Steward MD Unavailable + Abdirizak Villalta MD Unavailable +[phone] Kelley Gunderson MD Primary Care Provider +[phone] Kelley Gunderson MD Unavailable +[phone] Kelley Gunderson MD Unavailable +[phone] Abdirizak Villalta MD Unavailable +[phone] Hugo Osborne MD Unavailable +[phone] Kassie Elizabeth MD Unavailable +[phone] Kassie Elizabeth MD Primary Care Provider +[phone] Holli Damian PA-C Unavailable +[phone] Dilip Tate DPM Unavailable +[phone] Abdirizak Villalta MD Unavailable +[phone] Kassie Martinez [facility] Unavailable +[phone] Shani Madison RN Unavailable Unavailable Jackie Muñoz RN Unavailable Unavailable Juna Kassie [facility] Unavailable +[phone] Darcy Trevino RN Unavailable Unavailable JuanReynaKassie [facility] Unavailable +[phone] Luh Tapia PA-C Unavailable +[phone] Holli Damian PA-C Unavailable +[phone] Luh Tapia PA-C Unavailable +[phone] Abdiel New PA-C Unavailable [phone] Katie Reina DPM, Podiatry /Foot and Ankle Surgery Unavailable Cl Hugo MD Unavailable +[phone] Christopher Castaneda DO Unavailable [phone] Markie Wade MD Unavailable [phone] Dilip Tate DPM Unavailable +[phone] Christopher Castaneda DO Unavailable [phone] Encounter Details Date Type Department Care Team (Late st Contact Info) Description 07/11/2011 MyC Medical Advice [address] [address] Hansel Gillespie MD [address] [address] Social History Tobacco Use Types Packs/Day Years Used Date Smoking Tobacco: Former Cigarettes 1 1 0 05/09/2010 - 05/10/2011 Smokeless Tobacco: Never Alcohol Use Standard Drinks/Week Comments No 0 (1 standard drink = 0.6 oz pur e alcohol) Sex and Gender Information Value Date Recorded Sex Assigned at Male 06/23/2020 10:21 PM CDT Legal Sex Male 3:30 AM 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 MACHINE HELPER Gender Identity Male 06/23/2020 10:21 PM CDT Sexual Orientation Straight 06/23/2020 10 :21 PM CDT documented as of this encounter Plan of Treatment Upcoming Encounters Date Type Department Care Team (Late st Contact Info) Description 04/09/2024 9:30 AM EDGER MACHINE HELPER Office Visit [facility] [address] [place] [phone] [place] [address] [place] [address] 04/14/2024 2:00 PM EDGER MACHINE HELPER Office Visit [facility] [address] [place] [address] [facility] [address] [place] [address] documented as of this encounter Visit Diagnoses Not on filedocumented in this encounter Additional Health Concerns Infection Onset Date Last Indicated Resolved Time Rule Out COVID-19 03/01/2022 03/01/2022 03/22/2022 11:41 PM EDGER MACHINE HELPER Rule Out COVID-19 06/13/2022 06/13/2022 06/14/2022 9:45 AM CDT documented as of this encounter Care Teams Assurance Specialist Relationship Specialty Start Date End Date Hansel Gillespie MD PCP - General 03/16/07 03/11/17 Kelley Gunderson MD 516 [facility] [address] [place] [address] PCP - General Internal Medicine 03/12/17 01/28/21 Kelley Gunderson MD [address] [address] PCP - Assigned PCP 05/04/17 04/28/18 [place] [address] [place] [address] PCP - General Family Medicine 01/29/21 Ange Munoz PA-C Physician Fuller Brush Worker Physician Fuller Brush Worker 04/27/15 04/27/15 Elizabeth Steward MD [address] [place] [address] Internal Medicine 06/13/16 09/23/16 Abdirizak Villalta MD [address] [place] [address] Referring Physician Gastroenterology 09/24/16 Kelley Gunderson MD [address] [place] [address] Assigned PCP 05/04/17 10/14/20 Abdirizak Villalta MD [address] [place] [address] Assigned Gastroenterology Provider 12/17/19 06/17/20 [place] [address] [address] Assigned Musculoskeletal Provider 12/17/19 01/27/21 [place] [address] [place] [address] Assigned PCP 10/15/20 Holli Damian PA-C [address] [place] [address] Assigned Surgical Provider 02/04/21 04/26/22 [place] [address] [facility] [address] [place] [address] Assigned Musculoskeletal Provider 01/28/21 07/26/22 Abdirizak Villalta MD 516 [facility] [address] [place] [address] Assigned Gastroenterology Provider 01/28/21 07/26/22 Kassie Martinez [facility] [address] [place] [address] Pharmacist Pharmacist 05/14/21 Shani Madison, MARIE Personal Advocate & Liaison ([facility]) Family Medicine 05/15/21 07/06/21 Jackie Muñoz, MARIE Personal Advocate & Liaison ([facility]) Family Medicine 07/06/21 05/22/22 [facility] [address] [place] [address] Assigned MTM Pharmacist 07/21/21 Darcy Trevino, electronics computer mechanic Diabetes Education 09/25/21 Kassie Martinez [facility] [address] [place] [address] Assigned MTM Pharmacist 11/21/21 Luh Tapia PA-C [address] [place] [address] Assigned Surgical Provider 04/27/22 06/21/22 Holli Damian PA-C [address] [place] [address] Assigned Surgical Provider 06/22/22 06/28/22 Luh Tapia PA-C [address] [place] [address] Assigned Surgical Provider 06/29/22 08/16/23 Abdiel New PA-C [address] [place] [address] Assigned Musculoskeletal Provider 12/21/22 01/03/23 Katie Reina DPM, Podiatry/Foot and Ankle Surgery [address] [facility] [address] [place] [address] Assigned Musculoskeletal Provider 01/04/23 06/16/23 Cl Hugo MD [address] [place] [address] [place] [address] Urology 01/28/23 [place] [address] [address] [facility] [address] [place] [address] Assigned Musculoskeletal Provider 06/17/23 08/16/23 Markie Wade MD [address] [place] [address] Assigned Surgical Provider 08/17/23 Dilip Tate DPM [address] [facility] [address] [place] [address] Assigned Musculoskeletal Provider 08/17/23 01/16/24 [place] [address] [facility], [facility] [address] [place] [address] Assigned Musculoskeletal Provider 01/17/24 documented as of this encounter
--- OUTSIDE RECORDS SUMMARY | 2024-02-29 19:30 | XMS_ITS | Encounter Summary ---
Author Organization [place] Address [address] [place] [address] Care Team Providers Care Cured Meats Supervisor Name Role Phone Hansel Gillespie MD Primary Care Provider [phone] Ange Munoz PA-C Unavailable Unavailable Elizabeth Steward MD Unavailable + Abdirizak Villalta MD Unavailable [phone] Kelley Gunderson MD Primary Care Provider +[phone] Kelley Gunderson MD Unavailable +[phone] Kelley Gunderson MD Unavailable +[phone] Abdirizak Villalta MD Unavailable [phone] Hugo Osborne MD Unavailable +[phone] Kassie Elizabeth MD Unavailable +[phone] Kassie Elizabeth MD Primary Care Provider [phone] Holli Damian PA-C Unavailable +[phone] Dilip Tate DPM Unavailable +[phone] Abdirizak Villalta MD Unavailable +[phone] Kassie Martinez [facility] Unavailable [phone] Shani Madison RN Unavailable Unavailable Jackie Muñoz RN Unavailable Unavailable Juan Kassie [facility] Unavailable +[phone] Darcy Trevino RN Unavailable Unavailable JuanReynaKassie [facility] Unavailable +[phone] Luh Tapia PA-C Unavailable +[phone] Holli Damian PA-C Unavailable +[phone] Luh Tapia PA-C Unavailable [phone] Abdiel New PA-C Unavailable [phone] Katie Reina DPM, Podiatry /Foot and Ankle Surgery Unavailable Cl Hugo MD Unavailable [phone] Christopher Castaneda DO Unavailable [phone] Markie Wade MD Unavailable [phone] Dilip Tate DPM Unavailable +[phone] Christopher Castaneda DO Unavailable [phone] Encounter Details Date Type Department Care Team (Late st Contact Info) Description 05/31/2011 MyC Medical Advice [address] [address] [facility] Social History Tobacco Use Types Packs/Day Years Used Date Smoking Tobacco: Every Day Cigarettes 1 1 Alcohol Use Standard Drinks/Week Comments No 0 (1 standard drink = 0.6 oz pur e alcohol) Sex and Gender Information Value Date Recorded Sex Assigned at Male 06/23/2020 10:21 PM CDT Legal Sex Male 3:30 AM SCHOOL JANITOR Gender Identity Male 06/23/2020 10:21 PM CDT Sexual Orientation Straight 06/23/2020 10 :21 PM CDT documented as of this encounter Plan of Treatment Upcoming Encounters Date Type Department Care Team (Late st Contact Info) Description 04/09/2024 9:30 AM SCHOOL JANITOR Office Visit [facility] [address] [place] [address] [place] [address] [place] [address] 04/14/2024 2:00 PM SCHOOL JANITOR Office Visit [facility] [address] [place] [phone] Kassie Martinez, [facility] [address] [place] [address] documented as of this encounter Visit Diagnoses Not on filedocumented in this encounter Additional Health Concerns Infection Onset Date Last Indicated Resolved Time Rule Out COVID-19 03/01/2022 03/01/2022 03/22/2022 11:41 PM SCHOOL JANITOR Rule Out COVID-19 06/13/2022 06/13/2022 06/14/2022 9:45 AM CDT documented as of this encounter Care Teams Cured Meats Supervisor Relationship Specialty Start Date End Date Hansel Gillespie MD PCP - General 03/16/07 03/11/17 Kelley Gunderson MD [address] [address] PCP - General Internal Medicine 03/12/17 01/28/21 Kelley Gunderson MD [address] [place] [address] PCP - Assigned PCP 05/04/17 04/28/18 [place] [address] [place] [address] PCP - General Family Medicine 01/29/21 Ange Munoz PA-C Physician Roll Line Operator Physician Roll Line Operator 04/27/15 04/27/15 Elizabeth Steward MD [address] [address] Internal Medicine 06/13/16 09/23/16 Abdirizak Villalta MD [address] [place] [address] Referring Physician Gastroenterology 09/24/16 Kelley Gunderson MD [address] [place] [address] Assigned PCP 05/04/17 10/14/20 Abdirizak Villalta MD [address] [place] [address] Assigned Gastroenterology Provider 12/17/19 06/17/20 [place] [address] [address] Assigned Musculoskeletal Provider 12/17/19 01/27/21 [place] [address] [place] [address] Assigned PCP 10/15/20 Holli Damian PA-C [address] [facility] [facility] [address] [place] [address] Assigned Surgical Provider 02/04/21 04/26/22 [place] [address] [facility] [address] [place] [address] Assigned Musculoskeletal Provider 01/28/21 07/26/22 Abdirizak Villalta MD 516 [facility] [address] [place] [address] Assigned Gastroenterology Provider 01/28/21 07/26/22 [facility] [address] [place] [address] Pharmacist Pharmacist 05/14/21 Shani Madison, MARIE Personal Advocate & Liaison ([facility]) Family Medicine 05/15/21 07/06/21 Jackie Muñoz RN Personal Advocate & Liaison ([facility]) Family Medicine 07/06/21 05/22/22 [facility] [address] [place] [address] Assigned MTM Pharmacist 07/21/21 Darcy Trevino, viscose cellar worker Diabetes Education 09/25/21 [facility] [address] [place] [address] Assigned MTM Pharmacist 11/21/21 Luh Tapia PA-C [address] [place] [address] Assigned Surgical Provider 04/27/22 06/21/22 Holli Damian PA-C [address] [place] [address]85126 Assigned Surgical Provider 06/22/22 06/28/22 Luh Tapia PA-C [address] [facility] 500 [place] [address] Assigned Surgical Provider 06/29/22 08/16/23 Abdiel New PA-C [address] [place] [address] Assigned Musculoskeletal Provider 12/21/22 01/03/23 Katie Reina DPM, Podiatry/Foot and Ankle Surgery [address] [facility] 300 [place] [address] Assigned Musculoskeletal Provider 01/04/23 06/16/23 Cl Hugo MD [address] [place] [address] 394 [place] [address] Urology 01/28/23 [place] [address] [facility] 300 [place] [address] Assigned Musculoskeletal Provider 06/17/23 08/16/23 Markie Wade MD [address] [place] [address] Assigned Surgical Provider 08/17/23 [place] [address] [facility] [address] [place] [address] Assigned Musculoskeletal Provider 08/17/23 01/16/24 [place] [address] [address], [address] [address] Assigned Musculoskeletal Provider 01/17/24 documented as of this encounter
--- OUTSIDE RECORDS SUMMARY | 2024-02-29 19:30 | XMS_ITS ---
Author Organization [place] Address [facility]ly [facility], [facility] [place] [address] Care Team Providers Care Unit Educator Name Role Phone Abdirizak Villalta MD Unavailable [phone] Kassie Elizabeth MD Unavailable +[phone] Kassie Elizabeth MD Primary Care Provider [phone] Kassie Martinez [facility] Unavailable Darcy Trevino RN Unavailable Unavailable Kassie Martinez [facility] Unavailable +[phone] Cl Hugo MD Unavailable +[phone] Markie Wade MD Unavailable [phone] Christopher Castaneda DO Unavailable [phone] Diabetes Self-Management Education Status:Enrolled (Active) Start date:09/25/2021 Enrollment date:09/25/2021 Case Team Name Relationship Phone Darcy Trevino RNfield enumerator(Responsible S taff) Continued Care and Services Coordination
--- OUTSIDE RECORDS SUMMARY | 2024-02-29 19:30 | XMS_ITS | Encounter Summary ---
Author Organization [place] Address [address] [place] [address] Care Team Providers Care Electric Melt Operator Name Role Phone Hansel Gillespie MD Primary Care Provider [phone] Ange Munoz PA-C Unavailable Unavailable Elizabeth Steward MD Unavailable + Abdirizak Villalta MD Unavailable +[phone] Kelley Gunderson MD Primary Care Provider +[phone] Kelley Gunderson MD Unavailable +[phone] Kelley Gunderson MD Unavailable +[phone] Abdirizak Villalta MD Unavailable +[phone] Hugo Osborne MD Unavailable +[phone] Kassie Elizabeth MD Unavailable +[phone] Kassie Elizabeth MD Primary Care Provider +[phone] Holli Damian PA-C Unavailable +[phone] Dilip Tate DPM Unavailable +[phone] Abdirizak Villalta MD Unavailable +[phone] Kassie Martinez [facility] Unavailable Shani Madison RN Unavailable Unavailable Jackie Muñoz RN Unavailable Unavailable Juan Kassie [facility] Unavailable [phone] Darcy Trevino RN Unavailable Unavailable JuanReynaKassie [facility] Unavailable +[phone] Luh Tapia PA-C Unavailable +[phone] Holli Damian PA-C Unavailable +[phone] Luh Tapia PA-C Unavailable [phone] Abdiel New PA-C Unavailable [phone] Katie Reina DPM, Podiatry /Foot and Ankle Surgery Unavailable Cl Hugo MD Unavailable +[phone] Christopher Castaneda DO Unavailable [phone] Markie Wade MD Unavailable [phone] Dilip Tate DPM Unavailable +[phone] Christopher Castaneda DO Unavailable [phone] Encounter Details Date Type Department Care Team (Late st Contact Info) Description 12/23/2010 MyC Medical Advice [address] [address] Hansel Gillespie MD [address] [address] Social History Tobacco Use Types Packs/Day Years Used Date Smoking Tobacco: Every Day Cigarettes 1 1 Alcohol Use Standard Drinks/Week Comments No 0 (1 standard drink = 0.6 oz pur e alcohol) Sex and Gender Information Value Date Recorded Sex Assigned at Male 06/23/2020 10:21 PM CDT Legal Sex Male 3:30 AM TUBULAR RIVETER Gender Identity Male 06/23/2020 10:21 PM CDT Sexual Orientation Straight 06/23/2020 10 :21 PM CDT documented as of this encounter Plan of Treatment Upcoming Encounters Date Type Department Care Team (Late st Contact Info) Description 04/09/2024 9:30 AM TUBULAR RIVETER Office Visit [facility] [address] [place] [address] [place] [address] [place], [place] [address] 04/14/2024 2:00 PM TUBULAR RIVETER Office Visit [facility] [address] [place] [phone] Kassie Martinez, [facility] [address] [place], [place] [address] documented as of this encounter Visit Diagnoses Not on filedocumented in this encounter Additional Health Concerns Infection Onset Date Last Indicated Resolved Time Rule Out COVID-19 03/01/2022 03/01/2022 03/22/2022 11:41 PM TUBULAR RIVETER Rule Out COVID-19 06/13/2022 06/13/2022 06/14/2022 9:45 AM CDT documented as of this encounter Care Teams Electric Melt Operator Relationship Specialty Start Date End Date Hansel Gillespie MD PCP - General 03/16/07 03/11/17 Kelley Gunderson MD [address] [place] [address] PCP - General Internal Medicine 03/12/17 01/28/21 Kelley Gunderson MD [address] [place] [address] PCP - Assigned PCP 05/04/17 04/28/18 [place] [address] [place] [address] PCP - General Family Medicine 01/29/21 Ange Munoz PA-C Physician Signs Cleaner Physician Signs Cleaner 04/27/15 04/27/15 Elizabeth Steward MD [address] [place] [address] Internal Medicine 06/13/16 09/23/16 Abdirizak Villalta MD [address] [place] [address] Referring Physician Gastroenterology 09/24/16 Kelley Gunderson MD [address] [place] [address] Assigned PCP 05/04/17 10/14/20 Abdirizak Villalta MD [address] [place] [address] Assigned Gastroenterology Provider 12/17/19 06/17/20 [place] [address] [address] Assigned Musculoskeletal Provider 12/17/19 01/27/21 [place] [address] [place] [address] Assigned PCP 10/15/20 Holli Damian PA-C [address] [address] [place] [address] Assigned Surgical Provider 02/04/21 04/26/22 [place] D[place] [address] [facility] [address] [place] [address] Assigned Musculoskeletal Provider 01/28/21 07/26/22 Abdirizak Villalta MD [address] [address] Assigned Gastroenterology Provider 01/28/21 07/26/22 [facility] [address] [place] [address] Pharmacist Pharmacist 05/14/21 Shani Madison, MARIE Personal Advocate & Liaison ([facility]) Family Medicine 05/15/21 07/06/21 Jackie Muñoz RN Personal Advocate & Liaison ([facility]) Family Medicine 07/06/21 05/22/22 [facility] [address] [place] [address] Assigned MTM Pharmacist 07/21/21 Darcy Trevino, fish skinning machine feeder Diabetes Education 09/25/21 [facility] [address] [place] [address] Assigned MTM Pharmacist 11/21/21 Luh Tapia PA-C [address] [facility] [address] [place] [address] Assigned Surgical Provider 04/27/22 06/21/22 Holli Damian PA-C [address] [place] [address] Assigned Surgical Provider 06/22/22 06/28/22 Luh Tapia PA-C [address] [facility] [address] [place] [address] Assigned Surgical Provider 06/29/22 08/16/23 Abdiel New PA-C [address] [place] [address] Assigned Musculoskeletal Provider 12/21/22 01/03/23 Katie Reina DPM, Podiatry/Foot and Ankle Surgery [address] [facility] 300 [place] [address] Assigned Musculoskeletal Provider 01/04/23 06/16/23 Cl Hugo MD [address] [place] [address] Urology 01/28/23 [place] [address] [address]BA[address]AL, [facility] 300 [place] [address] Assigned Musculoskeletal Provider 06/17/23 08/16/23 Markie Wade MD [address] [place] [address] Assigned Surgical Provider 08/17/23 [place] [address] [facility] 300 [place] [address] Assigned Musculoskeletal Provider 08/17/23 01/16/24 [place] [address] [address], [address] [address] Assigned Musculoskeletal Provider 01/17/24 documented as of this encounter
--- OUTSIDE RECORDS SUMMARY | 2024-02-29 19:30 | XMS_ITS | Encounter Summary ---
Author Organization [facility] Address [address] [place] [address] Care Team Providers Care Environmental Associate Name Role Phone Hansel Gillespie MD Primary Care Provider [phone] Ange Munoz PA-C Unavailable Unavailable Elizabeth Steward MD Unavailable + Abdirizak Villalta MD Unavailable +[phone] Kelley Gunderson MD Primary Care Provider +[phone] Kelley Gunderson MD Unavailable [phone] Kelley Gunderson MD Unavailable +[phone] Abdirizak Villalta MD Unavailable [phone] Hugo Osborne MD Unavailable +[phone] Kassie Elizabeth MD Unavailable +[phone] Kassie Elizabeth MD Primary Care Provider +[phone] Holli Damian PA-C Unavailable +[phone] Dilip Tate DPM Unavailable +[phone] Abdirizak Villalta MD Unavailable +[phone] Kassie Martinez [facility] Unavailable +[phone] Shani Madison RN Unavailable Unavailable Jackie Muñoz RN Unavailable Unavailable Juan Kassie [facility] Unavailable [phone] Darcy Trevino RN Unavailable Unavailable JuanReynaKassie [facility] Unavailable [phone] Luh Tapia PA-C Unavailable +[phone] Holli Damian PA-C Unavailable +[phone] Luh Tapia PA-C Unavailable +[phone] Abdiel New PA-C Unavailable [phone] Katie Reina DPM, Podiatry /Foot and Ankle Surgery Unavailable Cl Hugo MD Unavailable +[phone] Christopher Castaneda DO Unavailable [phone] Markie Wade MD Unavailable [phone] Dilip Tate DPM Unavailable +[phone] Christopher Castaneda DO Unavailable [phone] Encounter Details Date Type Department Care Team (Late st Contact Info) Description 07/11/2011 [facility] Medical Advice [address] [address] Hansel Gillespie MD [address] [address] Social History Tobacco Use Types Packs/Day Years Used Date Smoking Tobacco: Former Cigarettes 1 1 0 05/09/2010 - 05/10/2011 Smokeless Tobacco: Never Alcohol Use Standard Drinks/Week Comments No 0 (1 standard drink = 0.6 oz pur e alcohol) Sex and Gender Information Value Date Recorded Sex Assigned at Male 06/23/2020 10:21 PM CDT Legal Sex Male 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 Gender Identity Male 06/23/2020 10:21 PM CDT Sexual Orientation Straight 06/23/2020 10 :21 PM CDT documented as of this encounter Plan of Treatment Upcoming Encounters Date Type Department Care Team (Late st Contact Info) Description 04/09/2024 9:30 AM RESTAURANT EXPEDITOR Office Visit [facility] [address] [place] [phone] [place] [address] [place] [address] 04/14/2024 2:00 PM RESTAURANT EXPEDITOR Office Visit [facility] [address] [place] [address] [facility] [address] [place] [address] documented as of this encounter Visit Diagnoses Not on filedocumented in this encounter Additional Health Concerns Infection Onset Date Last Indicated Resolved Time Rule Out COVID-19 03/01/2022 03/01/2022 03/22/2022 11:41 PM RESTAURANT EXPEDITOR Rule Out COVID-19 06/13/2022 06/13/2022 06/14/2022 9:45 AM CDT documented as of this encounter Care Teams Environmental Associate Relationship Specialty Start Date End Date Hansel Gillespie MD PCP - General 03/16/07 03/11/17 Kelley Gunderson MD [address] [facility] [address] [place] [address] PCP - General Internal Medicine 03/12/17 01/28/21 Kelley Gunderson MD [address] [address] PCP - Assigned PCP 05/04/17 04/28/18 [place] [address] [place] [address] PCP - General Family Medicine 01/29/21 Ange Munoz PA-C Physician Chief Psychologist Physician Chief Psychologist 04/27/15 04/27/15 Elizabeth Steward MD [address] [place] [address] Internal Medicine 06/13/16 09/23/16 Abdirizak Villalta MD [address] [place] [address] Referring Physician Gastroenterology 09/24/16 Kelley Gunderson MD [address] [place] [address] Assigned PCP 05/04/17 10/14/20 Abdirizak Villalta MD [address] [place] [address] Assigned Gastroenterology Provider 12/17/19 06/17/20 [place] [address] [address] Assigned Musculoskeletal Provider 12/17/19 01/27/21 [place] [address] [place] [address] Assigned PCP 10/15/20 Holli Damian PA-C [address] [place] [address] Assigned Surgical Provider 02/04/21 04/26/22 Dilip Tate DPM [address] [facility] [address] [place] [address] Assigned Musculoskeletal Provider 01/28/21 07/26/22 Abdirizak Villalta MD [address] [facility] [address] [place] [address] Assigned Gastroenterology Provider 01/28/21 07/26/22 Kassie Martinez [facility] [address] [place] [address] Pharmacist Pharmacist 05/14/21 Shani Madison, MARIE Personal Advocate & Liaison ([facility]) Family Medicine 05/15/21 07/06/21 Jackie Muñoz, MARIE Personal Advocate & Liaison ([facility]) Family Medicine 07/06/21 05/22/22 [facility] [address] [place] [address] Assigned MTM Pharmacist 07/21/21 Darcy Trevino, triage assistant Diabetes Education 09/25/21 Kassie Martinez [facility] [address] [place] [address] Assigned MTM Pharmacist 11/21/21 Luh Tapia PA-C [address] [place] [address] Assigned Surgical Provider 04/27/22 06/21/22 Holli Damian PA-C [address] [place] [address] Assigned Surgical Provider 06/22/22 06/28/22 Luh Tapia PA-C [address] [place] [address] Assigned Surgical Provider 06/29/22 08/16/23 Abdiel New PA-C [address] [place] [address] Assigned Musculoskeletal Provider 12/21/22 01/03/23 Katie Reina DPM, Podiatry/Foot and Ankle Surgery [address] [facility] [address] [place] [address] Assigned Musculoskeletal Provider 01/04/23 06/16/23 Cl Hugo MD [address] [place] [address] [address] [place] [address] Urology 01/28/23 [place] [address] [address] [facility] [address] [place] [address] Assigned Musculoskeletal Provider 06/17/23 08/16/23 Markie Wade MD [address] [place] [address] Assigned Surgical Provider 08/17/23 Dilip Tate DPM [address] [facility] [address] [place] [address] Assigned Musculoskeletal Provider 08/17/23 01/16/24 [place] [address] [facility] [address] [place] [address] Assigned Musculoskeletal Provider 01/17/24 documented as of this encounter
--- OUTSIDE RECORDS SUMMARY | 2024-02-29 19:30 | XMS_ITS | Encounter Summary ---
Author Organization [facility] Address [address] [place] [address] Care Team Providers Care Blind Eyeletter Name Role Phone Hansel Gillespie MD Primary Care Provider [phone] Ange Munoz PA-C Unavailable Unavailable Elizabeth Steward MD Unavailable + Abdirizak Villalta MD Unavailable [phone] Kelley Gunderson MD Primary Care Provider [phone] Kelley Gunderson MD Unavailable [phone] Kelley Gunderson MD Unavailable [phone] Abdirizak Villalta MD Unavailable [phone] Hugo Osborne MD Unavailable [phone] Kassie Elizabeth MD Unavailable [phone] Kassie Elizabeth MD Primary Care Provider [phone] Holli Damian PA-C Unavailable +[phone] Dilip Tate DPM Unavailable +[phone] Abdirizak Villalta MD Unavailable [phone] Kassie Martinez [facility] Unavailable Shani Madison RN Unavailable Unavailable Jackie Muñoz RN Unavailable Unavailable Juan Kassie [facility] Unavailable [phone] Darcy Trevino RN Unavailable Unavailable JuanReynaKassie [facility] Unavailable +[phone] Luh Tapia PA-C Unavailable [phone] Holli Damian PA-C Unavailable +[phone] Luh Tapia PA-C Unavailable [phone] Adbiel New PA-C Unavailable [phone] Katie Reina DPM, Podiatry /Foot and Ankle Surgery Unavailable Cl Hugo MD Unavailable [phone] Christopher Castaneda DO Unavailable [phone] Markie Wade MD Unavailable [phone] Dilip Tate DPM Unavailable +[phone] Christopher Castaneda DO Unavailable [phone] Encounter Details Date Type Department Care Team (Late st Contact Info) Description 07/04/[address] [address] [facility] Social History Tobacco Use Types Packs/Day Years Used Date Smoking Tobacco: Former Cigarettes 1 1 0 05/09/2010 - 05/10/2011 Smokeless Tobacco: Never Alcohol Use Standard Drinks/Week Comments No 0 (1 standard drink = 0.6 oz pur e alcohol) Sex and Gender Information Value Date Recorded Sex Assigned at Male 06/23/2020 10:21 PM CDT Legal Sex Male 3:30 AM SCRAP DEALER Gender Identity Male 06/23/2020 10:21 PM CDT Sexual Orientation Straight 06/23/2020 10 :21 PM CDT documented as of this encounter Plan of Treatment Upcoming Encounters Date Type Department Care Team (Late st Contact Info) Description 04/09/2024 9:30 AM SCRAP DEALER Office Visit [facility] [address] [place] [address] [place] [address] [place] [address] 04/14/2024 2:00 PM SCRAP DEALER Office Visit [facility] [address] [place] [phone] Kassie Martinez, [facility] [address] [place], [place] [address] documented as of this encounter Visit Diagnoses Not on filedocumented in this encounter Additional Health Concerns Infection Onset Date Last Indicated Resolved Time Rule Out COVID-19 03/01/2022 03/01/2022 03/22/2022 11:41 PM SCRAP DEALER Rule Out COVID-19 06/13/2022 06/13/2022 06/14/2022 9:45 AM CDT documented as of this encounter Care Teams Blind Eyeletter Relationship Specialty Start Date End Date Hansel Gillespie MD PCP - General 03/16/07 03/11/17 Kelley Gunderson MD [address] [place] [address] PCP - General Internal Medicine 03/12/17 01/28/21 Kleley Gunderson MD [address] [place] [id number] PCP - Assigned PCP 05/04/17 04/28/18 [place] [address] [place] [address] PCP - General Family Medicine 01/29/21 Ange Munoz PA-C Physician Auto Vinyl Top Installer Physician Auto Vinyl Top Installer 04/27/15 04/27/15 Elizabeth Steward MD [address] [facility] [address] [place] [address] Internal Medicine 06/13/16 09/23/16 Abdirizak Villalta MD [address] [place] [address] [address] [place] [address] Referring Physician Gastroenterology 09/24/16 Kelley Gunderson MD [address] [place] [address] Assigned PCP 05/04/17 10/14/20 Abdirizak Villalta MD [address] [place] [address] Assigned Gastroenterology Provider 12/17/19 06/17/20 [place] [address] [address] Assigned Musculoskeletal Provider 12/17/19 01/27/21 [place] [address] [place] [address] Assigned PCP 10/15/20 Holli Damian PA-C [address] [place] [address] Assigned Surgical Provider 02/04/21 04/26/22 [place] [address] [facility] [address] [place] [address] Assigned Musculoskeletal Provider 01/28/21 07/26/22 Abdirizak Villalta MD [address] [address] Assigned Gastroenterology Provider 01/28/21 07/26/22 Kassie Martinez [facility] [address] [place] [address] Pharmacist Pharmacist 05/14/21 Shani Madison, MARIE Personal Advocate & Liaison ([facility]) Family Medicine 05/15/21 07/06/21 Jackie Muñoz RN Personal Advocate & Liaison ([facility]) Family Medicine 07/06/21 05/22/22 [facility] [address] [place] [address] Assigned MTM Pharmacist 07/21/21 Darcy Trevino, drawing instructor Diabetes Education 09/25/21 [facility] [address] [place] [address] Assigned MTM Pharmacist 11/21/21 Luh Tapia PA-C [address] [address] Assigned Surgical Provider 04/27/22 06/21/22 Holli Damian PA-C [address] [place] [address] Assigned Surgical Provider 06/22/22 06/28/22 Luh Tapia PA-C [address] [place] [address] Assigned Surgical Provider 06/29/22 08/16/23 Abdiel New PA-C [address] [address] Assigned Musculoskeletal Provider 12/21/22 01/03/23 Katie Reina DPM, Podiatry/Foot and Ankle Surgery [address] [facility] [address] [place] [address] Assigned Musculoskeletal Provider 01/04/23 06/16/23 Cl Hugo MD [address] [place] [address] Urology 01/28/23 [place] [address] [address], [facility] [address] [place] [address] Assigned Musculoskeletal Provider 06/17/23 08/16/23 Markie Wade MD [address] [place], [place] [address] Assigned Surgical Provider 08/17/23 [place] [address] [facility] [address] [place] [address] Assigned Musculoskeletal Provider 08/17/23 01/16/24 [place] [address] [address], [address] [address] Assigned Musculoskeletal Provider 01/17/24 documented as of this encounter
[2024-02-29 20:06] LABS: Appearance Urine Clear (Clear); Bilirubin Urine Negative (Negative); Blood Urine Negative (Negative); Glucose Urine 3+ (Negative); Ketones Urine Trace (Negative); Leukocyte Esterase Urine Negative (Negative); Nitrite Urine Negative (Negative); Protein Urine 1+ (Negative); Specific Gravity Urine 1.025 (1.000-1.030); Urobilinogen Urine 0.2 (0.2-1.0)
[2024-02-29 20:13] LABS: Color Urine Yellow (Yellow)
[2024-02-29 20:40] LABS: RBC Urine 0-2 (0-2); Squamous Epithelial Cell Urine Few (None-Few); WBC Urine 0-2 (0-5)
[2024-02-29] MEDS: IBUPROFEN 200 MG TABLET 600 MG PO (21:17)
[2024-02-29] MEDS: PIPERACILLIN/TAZOBACTAM 3.375 GM in 0.9 % SODIUM CHLORIDE Mini-bag 100 ML IVPB (21:37)
[2024-02-29 21:43] LABS: Lipase* 1113 U/L (23-300)
[2024-02-29 21:45] VITALS: BP 142/82; PULSE 88; RESP 22; TEMP 40.1; O2SAT 98
[2024-02-29 22:02] LABS: Lactate* 2.4 mmol/L (0.5-1.9)
[2024-02-29 22:09] VITALS: BP 124/78; PULSE 128; RESP 20; TEMP 37.9; O2SAT 95
[2024-02-29 22:21] VITALS: TEMP 37.9
[2024-02-29 23:00] VITALS: BP 124/78; PULSE 107; PULSE 118; RESP 18; RESP 20; TEMP 37.9; O2SAT 95
[2024-02-29 23:15] LABS: Triglycerides* 259 mg/dL (40-149)
[2024-02-29] MEDS: SODIUM CHLORIDE 0.9 % (FLUSH) 10 ML SYRINGE 5 ML IVF (23:18)
[2024-02-29] MEDS: HYDROmorphone 0.5 mg/0.5 ml inj IVP (23:18)
--- NOTE | 2024-02-29 23:33 | P.IMHP_ITS ---
Hospitalist- H&P: HPI History of Present Illness Time Seen by Provider: 22:35 Date Seen: 02/29/24 Chief complaint: Covid symptoms, heart flutter, abd pa Narrative: Dhruv Gomez is a 59 year old male with a history of treated hepatitis C, alcoholism in remission with history of alcoholic pancreatitis 20 years ago, obesity, known leukopenia and thrombocytopenia, diabetes mellitus type 2 for which he is using insulin, and [place] for which he uses CPAP who woke up this morning with vague abdominal pain and flu-like symptoms of diaphoresis, fever, chills, muscle and joint aches. He notes that the abdominal pain feels like when he had alcoholic pancreatitis in the past, but he has had no alcohol for over 20 years. The other symptoms feel like COVID. He has had some nausea but no vomiting. Denies any urinary symptoms, rashes, blood in his stool or black tarry stool. He has had intermittent left-sided chest pain and this came on at the very end of my exam. We immediately got an EKG while he was still having pain. Review of Systems Status of ROS: Reports: 10 or more systems reviewed and unremarkable except as noted in History and below [facility] Medical History (Updated 03/01/24 @ 02:05 by Vesna Tapia MD) Factor 5 Leiden mutation, heterozygous ?D68.51 - Activated protein C resistance (ICD-10) COPD (chronic obstructive pulmonary disease) ?J44.9 - Chronic obstructive pulmonary disease, unspecified (ICD-10) Polysubstance abuse ?F19.10 - Other psychoactive substance abuse, uncomplicated (ICD-10) Vitamin B12 deficiency ?E53.8 - Deficiency of other specified B group vitamins (ICD-10) Hepatitis B core antibody positive ?R76.8 - Other specified abnormal immunological findings in serum (ICD-10) Hyperlipidemia ?E78.5 - Hyperlipidemia, unspecified (ICD-10) Hypertriglyceridemia ?E78.1 - Pure hyperglyceridemia (ICD-10) Gastroesophageal reflux disease without esophagitis ?K21.9 - Gastro-esophageal reflux disease without esophagitis (ICD-10) Coronary artery disease involving [place] coronary artery of [place] heart without angina pectoris ?I25.10 - Atherosclerotic heart disease of [place] coronary artery without angina pectoris (ICD-10) Hepatitis C ?B19.20 - Unspecified viral hepatitis C without hepatic coma (ICD-10) Type 2 diabetes mellitus ?E11.9 - Type 2 diabetes mellitus without complications (ICD-10) Asthma ?J45.909 - Unspecified asthma, uncomplicated (ICD-10) Thrombocytopenia ?D69.6 - Thrombocytopenia, unspecified (ICD-10) Metabolic syndrome ?E88.810 - Metabolic syndrome (ICD-10) Obesity ?E66.9 - Obesity, unspecified (ICD-10) Alcoholic pancreatitis ?K85.20 - Alcohol induced acute pancreatitis without necrosis or infection (ICD-10) H/O alcohol abuse ?F10.11 - Alcohol abuse, in remission (ICD-10) Hypercholesteremia ?E78.00 - Pure hypercholesterolemia, unspecified (ICD-10) Hypertension ?I10 - Essential (primary) hypertension (ICD-10) [place] (obstructive sleep apnea) ?G47.33 - Obstructive sleep apnea (adult) (pediatric) (ICD-10) Surgical History (Updated 03/01/24 @ 01:33 by Vesna Tapia MD) Hx of colonoscopy ?Z98.890 - Other specified postprocedural states (ICD-10) History of esophagogastroduodenoscopy (EGD) ?Z98.890 - Other specified postprocedural states (ICD-10) S/P T&A (status post tonsillectomy and adenoidectomy) ?Z90.89 - Acquired absence of other organs (ICD-10) Status post bariatric surgery ?Z98.84 - Bariatric surgery status (ICD-10) H/O left inguinal hernia repair ?Z98.890 - Other specified postprocedural states (ICD-10) ?Z87.19 - Personal history of other diseases of the digestive system (ICD-10) S/P left knee arthroscopy ?Z98.890 - Other specified postprocedural states (ICD-10) Hx of appendectomy ?Z90.49 - Acquired absence of other specified parts of digestive tract (ICD- 10) H/O right wrist surgery ?Z98.890 - Other specified postprocedural states (ICD-10) Family History (Updated 03/01/24 @ 02:12 by Vesna Tapia MD) Father Lung cancer Bladder cancer Mother Coronary artery disease Social History (Updated 03/01/24 @ 01:36 by Vesna Tapia MD) Narrative: , Kimberly is here with him. 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 Quit cigarettes 15 years ago, still cigars occasionally, denies recreational drugs. Wishes to be a full code. What is your current living situation?: I presently have a place to live Problems where you live: no known problems Problems where you live details: N/A In the past 12 months, utilities in danger of being shut off: no In past 12 months, lack of transportation kept you from medical appts, meetings, work, or getting things needed for daily living: no In the past 12 mos, have been you worried that your food would run out before you had money to buy more?: never true In the past 12 mos, the food you bought just didn't last and you didn't have money to buy more?: never true Highest level of school completed/degree received: Associate degree: occupational, technical, vocational program Smoking Status: Current some day smoker What tobacco products do you use: cigars Second hand tobacco smoke exposure: No How often do you have a drink containing alcohol: never How often do you have six or more drinks on one occasion: Never AUDIT-C Alcohol total score: 0 Non-prescribed substance use: denies use Caffeine: Yes How often does anyone, including family, friends and others, physically hurt you : never How often does anyone, including family, friends and others, insult or talk down to you: never How often does anyone, including family, friends and others, threaten you with harm: never How often does anyone, including family, friends and others, scream or curse at you: never service: No Meds Home Medications and Allergies Home Medications ?Medication ?Instructions ?Recorded ?Confirmed ?Type cholecalciferol (vitamin D3) 25 2,000 unit PO DAILY 02/29/24 02/29/24 History mcg (1,000 unit) capsule (Vitamin D3) glipizide 10 mg tablet 10 mg PO BID 02/29/24 02/29/24 History insulin glargine 100 unit/mL (3 unit subcut 02/29/24 History mL) subcutaneous pen (Lantus Solostar U-100 Insulin) lisinopril 5 mg tablet 5 mg PO DAILY blood pressure 02/29/24 02/29/24 History metformin 1,000 mg tablet 1,000 mg PO BID 02/29/24 02/29/24 History omeprazole magnesium 20 mg 20 mg PO DAILY 02/29/24 02/29/24 History tablet,delayed release (Prilosec OTC) tirzepatide 10 mg/0.5 mL 10 mg subcut Q7D 02/29/24 02/29/24 History subcutaneous pen injector (Moungopiro) Allergies Allergy/AdvReac Type Severity Reaction Status Date / Time No Known Drug Allergies Allergy Verified 02/29/24 18:35 Exam Narrative: Exam Narrative: General: No acute distress. Awake alert oriented x3. Morbidly obese. Thick neck. HEENT: Normocephalic atraumatic, pupils equally round and reactive to light and accommodation. Oropharynx clear. Mucous membranes are dry. No cervical lymphadenopathy, thyromegaly or carotid bruits. No JVD. Cardiovascular: Tachycardia, regular. No murmurs, gallops, or rubs. Chest: No increased work of breathing. Clear to auscultation bilaterally. No crackles or wheezes. Abdomen: Bowel sounds present. Protuberant. Umbilical hernia is present, this is reducible and there is no overlying erythema. Soft, tender to palpation in the epigastrium and right upper quadrant. Negative Velazquez sign. Palpable splenomegaly. Extremities: No edema, no cyanosis or clubbing. Skin: No jaundice, no pallor, no rashes. Const: Vital Signs, click to edit/add: Vital Signs - 24 hr 02/29/24 18:30 02/29/24 21:45 02/29/24 22:09 Temperature 99.9 F H 104.2 F H 100.2 F H Pulse Rate [Right Pulse Oximeter] 130 H 88 128 H Respiratory Rate 24 22 20 Blood Pressure [Ri ght Arm] 124/78 Blood Pressure [Ri ght Upper Arm] 144/118 H 142/82 H Pulse Oximetry 94 98 95 Oxygen Delivery Me thod Room Air Room Air Room Air 02/29/24 22:21 Temperature 100.2 F H Pulse Rate [Right Pulse Oximeter] Respiratory Rate Blood Pressure [Ri ght Arm] Blood Pressure [Ri ght Upper Arm] Pulse Oximetry Oxygen Delivery Me thod Hospitalist - H&P: Result Labs Labs: Short CBC 02/29/24 Range/Units 19:00 WBC 2.53 L (4.50-11.00) K/uL Hgb 16.8 (13.5-17.5) gm/dL Hct 49.8 (37.0-53.0) % Plt Count 70 L (140-440) K/uL BMP 02/29/24 18:50 Sodium 133 L Potassium 4.2 Chloride 105 Carbon Dioxide 20 BUN 20 Creatinine 0.7 Glucose 235 H Calcium 9.4 Liver Function 02/29/24 Range/Units 18:50 Total Bilirubin 1.0 (0.1-1.5) mg/dL AST 41 H (12-35) U/L ALT 66 H (4-50) U/L Alkaline Phosphatase 45 (40-150) U/L Albumin 4.0 (3.3-5.0) g/dL Urine 02/29/24 Range/Units 19:57 Urine Color Yellow (Yellow) Urine Appearance Clear (Clear) Urine pH 5.0 (5.0-8.5) Ur Specific [place] 1.025 (1.000-1.030) Urine Protein 1+ A (Negative) Urine Glucose (UA) 3+ A (Negative) Ordering Physician: Adolfo Tripp D.O. Date of Service: 02/29/24 Procedure(s): CT abdomen pelvis w con Accession Number(s): [id number] cc: Adolfo Tripp D.O.; Provider,Not a Local~ For Patients: As a result of the Century Cures Act, medical imaging exams and procedure reports are released immediately into your electronic medical record. You may view this report before your referring provider. If you have questions, please contact your health care provider. INDICATION: Abdominal pain. TECHNIQUE: Multiplanar CT examination of the abdomen and pelvis was performed after the administration of 137 mL Omnipaque 300 intravenous contrast. COMPARISON: Same day ultrasound abdomen. FINDINGS: Lower chest: No focal consolidation. Normal heart size. No pleural effusions or pneumothorax. Linear band like opacification of the lungs bilaterally, likely subsegmental atelectasis and/or scarring. Liver: Diffuse hepatic steatosis. Gallbladder: Distended gallbladder measuring approximately 11.9 cm longitudinally. No gallbladder wall thickening, cholelithiasis or pericholecystic edema. Biliary: Unremarkable. Pancreas: Within normal limits. Spleen: Splenomegaly. Adrenal glands: Unremarkable. Renal/ureters/bladder: Normal in size and symmetrically enhancing. No obstructive uropathy. No hydronephrosis or obstructive urinary calculi. Subcentimeter renal hypodensities are too small to characterize. Tiny nonobstructive calculi within the collecting system of the left kidney. The ureters appear unremarkable. The bladder is within normal limits. Pelvis: Unremarkable prostate. Gastrointestinal: Mild wall thickening and hyperenhancement involving loops of nondistended, fluid-filled small bowel diffusely. No bowel obstruction. Normal appendix. Trace colonic diverticulosis without pericolonic fat stranding. Mild colonic stool burden. Vasculature: No aortic aneurysm. The portal vein remains patent. Mild atherosclerotic calcifications. Lymph nodes: No pathologic lymphadenopathy by size criteria. Peritoneum: No free fluid or pneumoperitoneum. No drainable fluid collections. Abdominal wall/soft tissues: Unremarkable. Small fat containing umbilical hernia. Bones: No acute osseous abnormalities. Multilevel degenerative changes of the visualized thoracolumbar spine. IMPRESSION: 1. Mild wall thickening and hyperenhancement involving loops of nondistended, fluid-filled small bowel diffusely, raising the possibility of an underlying nonspecific infectious versus inflammatory enteritis. No bowel obstruction. 2. Gallbladder distention without cholelithiasis, gallbladder wall thickening or adjacent inflammatory changes to suggest acute cholecystitis. 3. Splenomegaly. 4. Diffuse hepatic steatosis. Please note that all CT scans at this facility use dose modulation, iterative reconstruction, and/or weight-based dosing when appropriate to reduce radiation dose to as low as reasonably achievable. Dictated by Raul Mccarthy MD @ 02/29/2024 8:54:48 PM (Electronically Signed) Ordering Physician: Adolfo Tripp D.O. Date of Service: 02/29/24 Procedure(s): XR chest 2V Accession Number(s): [id number] cc: Adolfo Tripp D.O.; Provider,Not a Local~ For Patients: As a result of the Century Cures Act, medical imaging exams and procedure reports are released immediately into your electronic medical record. You may view this report before your referring provider. If you have questions, please contact your health care provider. INDICATION: Intermittent chest pain. COMPARISON: None. FINDINGS: The cardiomediastinal silhouette is normal. The lungs are essentially clear. The pulmonary vasculature and pleural surfaces appear normal. There are mild multilevel wedge compression fractures of the lower thoracic and upper lumbar spine. IMPRESSION: No acute cardiac pulmonary process identified. There are mild multilevel wedge compression fractures of the lower thoracic and upper lumbar spine. Dictated by Del Wade MD @ 02/29/2024 8:48:03 PM (Electronically Signed) Ordering Physician: Adolfo Tripp D.O. Date of Service: 02/29/24 Procedure(s): US gallbladder Accession Number(s): [id number] cc: Adolfo Tripp D.O.; Provider,Not a Local~ For Patients: As a result of the Cures Act, medical imaging exams and procedure reports are released immediately into your electronic medical record. You may view this report before your referring provider. If you have questions, please contact your health care provider. INDICATION: Right upper quadrant pain. TECHNIQUE: Limited right upper quadrant ultrasound examination of the abdomen was performed. Grayscale and color Doppler images were obtained. COMPARISON: Same day CT abdomen and pelvis. FINDINGS: Liver: Normal in size and contour. Increased echogenicity of the hepatic echotexture, compatible with diffuse hepatic steatosis. No suspicious hepatic masses. Gallbladder: Distended gallbladder measuring 5.6 cm in maximal transverse dimension. No pericholecystic fluid. Biliary sludge. No cholelithiasis. Sonographic Velazquez`s sign was negative. Common bile duct: Measures 8.5 mm, within normal limits given patient`s age. Pancreas: Visualized portions unremarkable. Right kidney: Normal in size. No hydronephrosis. No suspicious renal masses or obstructive urinary calculus. Vascular: Visualized aorta and IVC are unremarkable. IMPRESSION: 1. Gallbladder distention and biliary sludge without cholelithiasis or other sonographic evidence of acute cholecystitis, indeterminate. Consider further evaluation with a nuclear medicine HIDA scan if clinically warranted. 2. Diffuse hepatic steatosis. Dictated by Raul Mccarthy MD @ 02/29/2024 8:42:29 PM (Electronically Signed) Assessment and Plan Assessment and plan (1) Sepsis: Problem comment: - severe sepsis secondary to pancreatitis and suspected acute cholecystitis - was given 3L IVF in ER. I have also started him on maintenance IVF. - BC drawn in ER. - Started on zosyn and vancomycin Status: Acute (2) Pancreatitis: Problem comment: - suspect gallstone pancreatitis. Has h/o alcohol pancreatitis, but has been sober over 20 years. Also has h/o hypertriglyceridemia, but it is currently 259. which is unlikely to cause pancreatitis. - Will consult surgery - Clear liquid diet - IVF - Recheck labs in am Status: Acute (3) Cholecystitis: Problem comment: - suspect acute cholecystitis: RUQ pain, fever, sepsis, elevated LFTs, CT and US findings - clear liq diet - IVF - Consult surgery - recheck labs in am - zosyn as above Status: Acute (4) [place] (obstructive sleep apnea): Problem comment: uses CPAP - continue this; he brought it with him Status: Chronic (5) Leukopenia: Problem comment: - 06/26/2023 white blood count 3.8 - 02/29/2024 WBC 2.53 Status: Acute (6) Thrombocytopenia: Problem comment: - 06/2023 platelets 82 - 02/29/2024 platelets 70 Status: Acute (7) Type 2 diabetes mellitus: Problem comment: - 12/30/2023 hemoglobin A1c 7.7 % - patient will be on clear liq diet - Continue LA insulin, decrease doses slightly (he is hyperglycemic from infection, so I will only decrease a little instead of to 50% of his usual dose) - Medium dose ISS with ACHS accuchecks Status: Chronic (8) Hypertriglyceridemia: Problem comment: - 09/30/2023 triglycerides 459 - 02/29/2024 triglycerides 259 Status: Chronic (9) Splenomegaly: Problem comment: - Palpable. Patient cautioned to avoid activities that may put him at risk for rupture - Associated with leukopenia and thrombocytopenia. I recommended he f/u with his occasional caregiver as an outpatient Status: Acute (10) Hepatic steatosis: Status: Acute (11) Chest pain: Problem comment: - EKG and trop obtained. Monitor on telemetry. Status: Acute Total Time Spent Total Time Spent: Time spent: Today I spent 75 minutes seeing the patient, discussing the patient with ER staff, reviewing [facility]panse and EPIC notes/diagnostics, discussing the care plan with the patient and his and longterm and documenting my impressions and plan in the medical record. MEDICAL NECESSITY FOR HOSPITALIZATION Anticipated midnights in the hospital: 2 Admitting diagnosis: Sepsis, pancreatitis, suspected acute cholecystitis Risk of morbidity and mortality: [high] Acuity is characterized as high and reflected in: Patient has splenomegaly with thrombocytopenia and leukopenia, sepsis with heart rate in the 130s and elevated lactate. Complicated medical history as well which includes history of pancreatitis secondary to alcohol, history of alcoholism, history of hepatitis C. This patient will require hospital services as outlined in the assessment and plan in order to stabilize and be safely discharged to a lower level of care. Because of the risk and acuity as described above, this patient cannot be managed at a lower level of care. LENGTH OF STAY: 2 IP ? Anticipated LOS>2 midnights due to acuity of clinical presentation requiring inpatient level of care
[2024-02-29] MEDS: LACTATED RINGERS 1000 ML 1,000 ML 125 ML IV (23:52)
[2024-03-01] VITALS (10 sets, daily range): BP systolic 100–123; BP diastolic 65–81; PULSE 72–107; RESP 16–18; TEMP 36.3–37.6; O2SAT 91–96
[2024-03-01] MEDS: INSULIN GLARGINE,HUM.REC.ANLOG 100 UNIT/ML INSULN.PEN 30 UNIT SUBCUT (00:13)
[2024-03-01 00:22] LABS: Lactate* 2.2 mmol/L (0.5-1.9)
[2024-03-01 00:57] LABS: Troponin I* < 0.01 ng/mL (0.01-0.04)
[2024-03-01] MEDS: HYDROmorphone 0.5 mg/0.5 ml inj IVP ×10 (02:11→19:46)
[2024-03-01] MEDS: SODIUM CHLORIDE 0.9 % (FLUSH) 10 ML SYRINGE 5 ML IVF ×6 (02:12→21:06)
[2024-03-01 02:25] LABS: Lactate* 1.7 mmol/L (0.5-1.9)
[2024-03-01] MEDS: PIPERACILLIN/TAZOBACTAM 3.375 GM in 0.9 % SODIUM CHLORIDE Mini-bag 100 ML IVPB ×4 (04:09→21:06)
[2024-03-01] MEDS: ACETAMINOPHEN 325 MG TABLET 975 MG PO ×2 (05:36→16:28)
[2024-03-01 06:31] LABS: Eosinophils Percent Auto 0.4 % (0.0-7.0); Hematocrit 43.5 % (37.0-53.0); Hemoglobin* 14.3 gm/dL (13.5-17.5); Immature Granulocytes Pct Auto 1.1 %; Lymphocytes Percent Auto 15.4 % (20-44); Mean Corpuscular HGB Conc 33 gm/dL (32-36); Mean Corpuscular Hemoglobin 28 pg (26-34); Mean Corpuscular Volume 86 fL (80-100); Monocytes Percent Auto 11.2 % (0.0-11.0); Neutrophils Percent Auto 71.9 % (42.0-72.0); Platelet Count* 50 K/uL (140-440); RDW Coefficient of Variation % 13.6 % (11.5-15.5); Red Blood Count 5.05 m/uL (4.30-5.90); White Blood Count* 2.85 K/uL (4.50-11.00)
[2024-03-01 06:38] LABS: Slide Review Reflex No
--- NOTE | 2024-03-01 06:51 | PC.NURSE ---
Addendum entered by Karina Arellano RN 03/01/24 07:36: Pt given PRN pain medication throughout the shift for c/o abdominal pain. Original Note: End of shift note [id number]: Pt A&Ox4 and able to make needs known. He has been requesting IV pain medication frequently for what he reports as 4-8/10 pain with no nonverbal indications of pain noted this morning. Pt tolerating CL diet. He transfers/ambulates with SBA. LR running per order with IV antibiotics administered per orders. Tele in place with sinus tachycardia noted. Heart rate improved at 87 at this time. Pt noted to be be febrile with temp of 100.2 upon admission to med/surg. Pt continent of bladder. CGM in place to LUE. No c/o N/V noted this morning. Pt c/o chest pain during MD visit last evening. EKG was performed- result of sinus tachycardia and rightward axis noted- results given to MD Tapia for review. Call light within reach.
[2024-03-01 06:52] LABS: Albumin* 3.2 g/dL (3.3-5.0)
[2024-03-01 06:53] LABS: Chloride* 105 mmol/L (96-114); Potassium* 4.1 mmol/L (3.6-5.1); Sodium* 134 mmol/L (135-149)
[2024-03-01 06:55] LABS: Anion Gap 7 mEq/L (7-15); Aspartate Amino Transferase* 27 U/L (12-35); Bilirubin Total* 1.3 mg/dL (0.1-1.5); Carbon Dioxide* 22 mmol/L (20-32); Creatinine* 0.9 mg/dL (0.5-1.5); Est. Creatinine Clearance* 82.62; Estimated Glomerular Filt Rate 97 ml/min
[2024-03-01 06:56] LABS: Alanine Aminotransferase* 48 U/L (4-50); Alkaline Phosphatase* 31 U/L (40-150); Blood Urea Nitrogen* 23 mg/dL (7-30); Glucose* 210 mg/dL (60-115); Lipase* 76 U/L (23-300)
[2024-03-01 07:28] LABS: Troponin I* < 0.01 ng/mL (0.01-0.04)
[2024-03-01] MEDS: LACTATED RINGERS 1000 ML 1,000 ML 125 ML IV (08:32)
[2024-03-01] MEDS: lisinopriL 5 MG TABLET PO (08:38)
[2024-03-01] MEDS: INSULIN ASPART 100 UNIT/ML SUBCUT (08:38)
[2024-03-01] MEDS: OMEPRAZOLE 20 MG CAPSULE DR PO (08:38)
[2024-03-01] MEDS: INSULIN GLARGINE,HUM.REC.ANLOG 100 UNIT/ML INSULN.PEN 40 UNIT SUBCUT (08:39)
--- NOTE | 2024-03-01 09:37 | P.IMPN_ITS ---
Progress Note: A&P Assessment and plan (1) Sepsis: Problem details: -resolving. BC negative to date. -keeping zosyn going; holding on vanc -fever has deserfesced - pain improved. Status: Acute (2) Acute cholecystitis: Problem details: continue zosyn given fever at admission and unreliable WBC count. CRP elevated; will trend. surgery likely 03/02/24 Status: Acute (3) Gallstone pancreatitis: Problem details: Likely passed a stone Status: Acute (4) Thrombocytopenia: Problem details: - 06/2023 platelets 82 - 02/29/2024 platelets 70 Status: Acute (5) Leukopenia: Problem details: - 06/26/2023 white blood count 3.8 - 02/29/2024 WBC 2.53 Status: Acute (6) Polysubstance (including opioids) dependence w/o physiol dependence: Problem details: sober previous alcoholic, meth and cocaine addict Status: Acute (7) Compression fracture: Problem details: etiology under question. outpatient workup likely. Status: Acute (8) Hepatitis C: Problem details: - treated Status: Acute (9) Splenomegaly: Problem details: - Palpable. Patient cautioned to avoid activities that may put him at risk for rupture - Associated with leukopenia and thrombocytopenia. 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 Status: Acute (10) Hypertriglyceridemia: Problem details: - 09/30/2023 triglycerides 459 - 02/29/2024 triglycerides 259 Status: Chronic (11) Hepatic steatosis: Status: Acute (12) Type 2 diabetes mellitus: Problem details: - 12/30/2023 hemoglobin A1c 7.7 % - patient will be on clear liq diet - Continue LA insulin, decrease doses slightly (he is hyperglycemic from infection, so I will only decrease a little instead of to 50% of his usual dose) - Medium dose ISS with ACHS accuchecks Status: Chronic (13) [place] (obstructive sleep apnea): Problem details: uses CPAP - continue this; he brought it with him Status: Chronic Subjective Date Seen: 03/01/24 Interval history: Daily Progress Note - Hospital Medicine Day #:2 CC: abrupt onset of midepigastric pain; chronic issues with thrombocytopenia; leukopenia; splenomegaly 24 HOUR UPDATE: Pain is still constant but improved control with meds. labs have improved. General surgery reviewed case. Ordered MRCP - reviewed results of this with surgeon - plan for lap errol in the am. Complicating hx is the chronic thrombocytopenia, leukopenia, splenomegaly, polysubtance abuse hx. Notable Labs, Micro, Rads, Interventions: depressed platelets and WBC count. normal kidney funcition mildly elevated INR depressed mag and ionized calcium lipase and LFTs are back to baseline/normal. Objective: resting in bed; bedside. Knows hx and context. Vitals: see above ABDOMEN: obese. splenomegaly appreciated. mild RUQ and mid epigastric tenderness. Lungs: Clear. Cardiac: S1S2. Disposition/Potential discharge - likely home 03/02 after lap errol. Today I spent 50minutes seeing the patient, reviewing Expanse and EPIC notes/diagnostics, discussing the care plan with our care time that includes social work, PT/OT, pharmacy, RT, nursing home and documenting my impressions and plan in the medical record. Exam Const: Vital Signs, click to edit/add: Vital Signs - 24 hr 02/29/24 18:30 02/29/24 21:45 02/29/24 22:09 Temperature 99.9 F H 104.2 F H 100.2 F H Pulse Rate Pulse Rate [Right Pulse Oximeter] 130 H 88 128 H Respiratory Rate 24 22 20 Blood Pressure [Ri ght Arm] 124/78 Blood Pressure [Ri ght Upper Arm] 144/118 H 142/82 H Pulse Oximetry 94 98 95 Oxygen Delivery Me thod Room Air Room Air Room Air 02/29/24 22:09 02/29/24 22:21 02/29/24 23:00 Temperature 100.2 F H Pulse Rate Pulse Rate [Right Pulse Oximeter] Respiratory Rate 20 20 Blood Pressure [Ri ght Arm] Blood Pressure [Ri ght Upper Arm] Pulse Oximetry 95 95 Oxygen Delivery Me thod Room Air Room Air 02/29/24 23:00 02/29/24 23:00 02/29/24 23:00 Temperature 100.2 F H Pulse Rate 118 H Pulse Rate [Right Pulse Oximeter] 118 H 107 H Respiratory Rate 20 18 Blood Pressure [Ri ght Arm] 124/78 Blood Pressure [Ri ght Upper Arm] Pulse Oximetry 95 Oxygen Delivery Me thod Room Air 03/01/24 02:25 03/01/24 02:27 03/01/24 06:54 Temperature 97.9 F Pulse Rate 88 Pulse Rate [Right Pulse Oximeter] 107 H Respiratory Rate 18 Blood Pressure [Ri ght Arm] 102/68 Blood Pressure [Ri ght Upper Arm] Pulse Oximetry 91 91 Oxygen Delivery Me thod CPAP 03/01/24 07:30 03/01/24 07:30 03/01/24 07:30 Temperature Pulse Rate 88 Pulse Rate [Right Pulse Oximeter] 83 Respiratory Rate 18 Blood Pressure [Ri ght Arm] Blood Pressure [Ri ght Upper Arm] Pulse Oximetry 95 Oxygen Delivery Me thod 03/01/24 07:30 03/01/24 07:30 Temperature 97.5 F L Pulse Rate Pulse Rate [Right Pulse Oximeter] 83 Respiratory Rate 18 18 Blood Pressure [Ri ght Arm] 105/68 Blood Pressure [Ri ght Upper Arm] Pulse Oximetry 95 95 Oxygen Delivery Me thod CPAP CPAP Labs Labs: Laboratory Results - last 24 hr 02/29/24 02/29/24 02/29/24 18:42 18:50 19:00 WBC 2.53 L RBC 5.93 H Hgb 16.8 Hct 49.8 MCV 84 MCH 28 MCHC 34 RDW Coeff of Sonido 13.2 Plt Count 70 L Neut % (Auto) 73.9 H Lymph % (Auto) 15.4 L [place] % (Auto) 9.5 Eos % (Auto) 1.2 Baso % (Auto) 0.0 Neut # (Auto) 1.90 Lymph # (Auto) 0.40 L [place] # (Auto) 0.20 Eos # (Auto) 0.00 Baso # (Auto) 0.00 Abs Immat Gran (auto) 0.00 Imm/Tot Granulo (auto) 0.0 Sodium 133 L Potassium 4.2 Chloride 105 Carbon Dioxide 20 Anion Gap 8 BUN 20 Creatinine 0.7 Estimated Creat Clear 82.62 Estimated GFR 105 Glucose 235 H Lactate 2.2 H Calcium 9.4 Magnesium 1.4 L Total Bilirubin 1.0 AST 41 H ALT 66 H Alkaline Phosphatase 45 Troponin I Total Protein 7.0 Albumin 4.0 Triglycerides 259 H Lipase 1113 H Urine Color Urine Appearance Urine pH Ur Specific [place] Urine Protein Urine Glucose (UA) Urine Ketones Urine Blood Urine Nitrite Urine Bilirubin Urine Urobilinogen Ur Leukocyte Esterase Urine RBC Urine WBC Ur Squamous Epith Cells Urine Bacteria SARS-CoV-2 (PCR) Negative SARS-CoV-2 Influenza Type A (PCR) Negative PCR FLU A Influenza Type B (PCR) Negative PCR FLU B RSV (PCR) Negative PCR RSV Lab Acknowledgement POC Troponin I 0.00 L 02/29/24 02/29/24 02/29/24 19:57 20:56 21:31 WBC RBC Hgb Hct MCV MCH MCHC RDW Coeff of Sonido Plt Count Neut % (Auto) Lymph % (Auto) [place] % (Auto) Eos % (Auto) Baso % (Auto) Neut # (Auto) Lymph # (Auto) [place] # (Auto) Eos # (Auto) Baso # (Auto) Abs Immat Gran (auto) Imm/Tot Granulo (auto) Sodium Potassium Chloride Carbon Dioxide Anion Gap BUN Creatinine Estimated Creat Clear Estimated GFR Glucose Lactate 2.4 H Calcium Magnesium Total Bilirubin AST ALT Alkaline Phosphatase Troponin I Total Protein Albumin Triglycerides Lipase Urine Color Yellow Urine Appearance Clear Urine pH 5.0 Ur Specific [place] 1.025 Urine Protein 1+ A Urine Glucose (UA) 3+ A Urine Ketones Trace A Urine Blood Negative Urine Nitrite Negative Urine Bilirubin Negative Urine Urobilinogen 0.2 Ur Leukocyte Esterase Negative Urine RBC 0-2 Urine WBC 0-2 Ur Squamous Epith Cells Few Urine Bacteria None SARS-CoV-2 (PCR) Influenza Type A (PCR) Influenza Type B (PCR) RSV (PCR) Lab Acknowledgement Test Added POC Troponin I 0.00 L 02/29/24 03/01/24 03/01/24 22:53 00:15 02:20 WBC RBC Hgb Hct MCV MCH MCHC RDW Coeff of Sonido Plt Count Neut % (Auto) Lymph % (Auto) [place] % (Auto) Eos % (Auto) Baso % (Auto) Neut # (Auto) Lymph # (Auto) [place] # (Auto) Eos # (Auto) Baso # (Auto) Abs Immat Gran (auto) Imm/Tot Granulo (auto) Sodium Potassium Chloride Carbon Dioxide Anion Gap BUN Creatinine Estimated Creat Clear Estimated GFR Glucose Lactate 2.2 H 1.7 Calcium Magnesium Total Bilirubin AST ALT Alkaline Phosphatase Troponin I < 0.01 L Total Protein Albumin Triglycerides Lipase Urine Color Urine Appearance Urine pH Ur Specific [place] Urine Protein Urine Glucose (UA) Urine Ketones Urine Blood Urine Nitrite Urine Bilirubin Urine Urobilinogen Ur Leukocyte Esterase Urine RBC Urine WBC Ur Squamous Epith Cells Urine Bacteria SARS-CoV-2 (PCR) Influenza Type A (PCR) Influenza Type B (PCR) RSV (PCR) Lab Acknowledgement Test Added POC Troponin I 03/01/24 06:12 WBC 2.85 L RBC 5.05 Hgb 14.3 Hct 43.5 MCV 86 MCH 28 MCHC 33 RDW Coeff of Sonido 13.6 Plt Count 50 L Neut % (Auto) 71.9 Lymph % (Auto) 15.4 L [place] % (Auto) 11.2 H Eos % (Auto) 0.4 Baso % (Auto) 0.0 Neut # (Auto) 2.00 Lymph # (Auto) 0.40 L [place] # (Auto) 0.30 Eos # (Auto) 0.00 Baso # (Auto) 0.00 Abs Immat Gran (auto) 0.00 Imm/Tot Granulo (auto) 1.1 Sodium 134 L Potassium 4.1 Chloride 105 Carbon Dioxide 22 Anion Gap 7 BUN 23 Creatinine 0.9 Estimated Creat Clear 82.62 Estimated GFR 97 Glucose 210 H Lactate Calcium 8.0 L Magnesium Total Bilirubin 1.3 AST 27 ALT 48 Alkaline Phosphatase 31 L Troponin I < 0.01 L Total Protein 6.0 Albumin 3.2 L Triglycerides Lipase 76 Urine Color Urine Appearance Urine pH Ur Specific [place] Urine Protein Urine Glucose (UA) Urine Ketones Urine Blood Urine Nitrite Urine Bilirubin Urine Urobilinogen Ur Leukocyte Esterase Urine RBC Urine WBC Ur Squamous Epith Cells Urine Bacteria SARS-CoV-2 (PCR) Influenza Type A (PCR) Influenza Type B (PCR) RSV (PCR) Lab Acknowledgement POC Troponin I
[2024-03-01] MEDS: OXYCODONE 5 MG TABLET 10 MG PO (10:03)
--- NOTE | 2024-03-01 10:15 | PM.GSCN ---
History of Present Illness Consult details Date Seen: 03/01/24 Consult date: 03/01/24 Narrative: Patient presented to the emergency department last night with abdominal pain. It started at 10:30 a.m. yesterday. He describes it as diffuse abdominal pain, but also discomfort in his epigastric. He had pain like this before when he had pancreatitis. This was over 10 years ago when he was actively drinking and using. He denies any current alcohol or drug use. He does report some associated nausea, no emesis. Denies any diarrhea. He has continued to pass gas. He ate about 9 hours before the episode started. He denies a large fatty meal, he had chicken wings. He did report shaking chills and a fever of 102. His past surgical history is positive for an open appendectomy and hernia repair. He does have a known umbilical hernia. Patient with a history of liver disease and splenomegaly. He does have chronically low platelets, this morning his platelets are at 50. He has a history of hepatitis C, treated several years ago. 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 He also has a history of type 2 diabetes and obstructive sleep apnea. Morbid obesity, currently on Mounjaro. Review of Systems Status of ROS: Reports: 6 or more systems reviewed and unremarkable except as noted in History and below [facility] Medical History (Updated 03/01/24 @ 10:27 by Roselyn Daniels MD) Factor 5 Leiden mutation, heterozygous ?D68.51 - Activated protein C resistance (ICD-10) COPD (chronic obstructive pulmonary disease) ?J44.9 - Chronic obstructive pulmonary disease, unspecified (ICD-10) Polysubstance abuse ?F19.10 - Other psychoactive substance abuse, uncomplicated (ICD-10) Vitamin B12 deficiency ?E53.8 - Deficiency of other specified B group vitamins (ICD-10) Hepatitis B core antibody positive ?R76.8 - Other specified abnormal immunological findings in serum (ICD-10) Hyperlipidemia ?E78.5 - Hyperlipidemia, unspecified (ICD-10) Hypertriglyceridemia ?E78.1 - Pure hyperglyceridemia (ICD-10) Gastroesophageal reflux disease without esophagitis ?K21.9 - Gastro-esophageal reflux disease without esophagitis (ICD-10) Coronary artery disease involving [place] coronary artery of [place] heart without angina pectoris ?I25.10 - Atherosclerotic heart disease of [place] coronary artery without angina pectoris (ICD-10) Hepatitis C ?B19.20 - Unspecified viral hepatitis C without hepatic coma (ICD-10) Type 2 diabetes mellitus ?E11.9 - Type 2 diabetes mellitus without complications (ICD-10) Asthma ?J45.909 - Unspecified asthma, uncomplicated (ICD-10) Thrombocytopenia ?D69.6 - Thrombocytopenia, unspecified (ICD-10) Metabolic syndrome ?E88.810 - Metabolic syndrome (ICD-10) Obesity ?E66.9 - Obesity, unspecified (ICD-10) Alcoholic pancreatitis ?K85.20 - Alcohol induced acute pancreatitis without necrosis or infection (ICD-10) H/O alcohol abuse ?F10.11 - Alcohol abuse, in remission (ICD-10) Hypercholesteremia ?E78.00 - Pure hypercholesterolemia, unspecified (ICD-10) Hypertension ?I10 - Essential (primary) hypertension (ICD-10) [place] (obstructive sleep apnea) ?G47.33 - Obstructive sleep apnea (adult) (pediatric) (ICD-10) Surgical History (Updated 03/01/24 @ 01:33 by Vesna Tapia MD) Hx of colonoscopy ?Z98.890 - Other specified postprocedural states (ICD-10) History of esophagogastroduodenoscopy (EGD) ?Z98.890 - Other specified postprocedural states (ICD-10) S/P T&A (status post tonsillectomy and adenoidectomy) ?Z90.89 - Acquired absence of other organs (ICD-10) Status post bariatric surgery ?Z98.84 - Bariatric surgery status (ICD-10) H/O left inguinal hernia repair ?Z98.890 - Other specified postprocedural states (ICD-10) ?Z87.19 - Personal history of other diseases of the digestive system (ICD-10) S/P left knee arthroscopy ?Z98.890 - Other specified postprocedural states (ICD-10) Hx of appendectomy ?Z90.49 - Acquired absence of other specified parts of digestive tract (ICD-10) H/O right wrist surgery ?Z98.890 - Other specified postprocedural states (ICD-10) Family History (Updated 03/01/24 @ 02:12 by Vesna Tapia MD) Father Lung cancer Bladder cancer Mother Coronary artery disease Social History (Updated 03/01/24 @ 01:36 by Vesna Tapia MD) Narrative: , Kimberly is here with him. 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 Quit cigarettes 15 years ago, still cigars occasionally, denies recreational drugs. Wishes to be a full code. What is your current living situation?: I presently have a place to live Problems where you live: no known problems Problems where you live details: N/A In the past 12 months, utilities in danger of being shut off: no In past 12 months, lack of transportation kept you from medical appts, meetings, work, or getting things needed for daily living: no In the past 12 mos, have been you worried that your food would run out before you had money to buy more?: never true In the past 12 mos, the food you bought just didn't last and you didn't have money to buy more?: never true Highest level of school completed/degree received: Associate degree: occupational, technical, vocational program Smoking Status: Current some day smoker What tobacco products do you use: cigars Second hand tobacco smoke exposure: No How often do you have a drink containing alcohol: never How often do you have six or more drinks on one occasion: Never AUDIT-C Alcohol total score: 0 Non-prescribed substance use: denies use Caffeine: Yes How often does anyone, including family, friends and others, physically hurt you: never How often does anyone, including family, friends and others, insult or talk down to you: never How often does anyone, including family, friends and others, threaten you with harm: never How often does anyone, including family, friends and others, scream or curse at you: never Do you think of yourself as: straight/heterosexual Gender Identity: male service: No Meds Home Medications and Allergies Home Medications ?Medication ?Instructions ?Recorded ?Confirmed ?Type cholecalciferol (vitamin D3) 25 2,000 unit PO DAILY 02/29/24 02/29/24 History mcg (1,000 unit) capsule (Vitamin D3) insulin glargine 100 unit/mL (3 40 - 50 unit subcut BID 02/29/24 03/01/24 History mL) subcutaneous pen (Lantus Solostar U-100 Insulin) lisinopril 5 mg tablet 5 mg PO DAILY blood pressure 02/29/24 02/29/24 History metformin 1,000 mg tablet 1,000 mg PO BID 02/29/24 02/29/24 History omeprazole magnesium 20 mg 20 mg PO DAILY 02/29/24 02/29/24 History tablet,delayed release (Prilosec OTC) glipizide 5 mg tablet 5 mg PO BID 03/01/24 03/01/24 History tirzepatide 15 mg/0.5 mL 15 mg subcut Q7D 03/01/24 03/01/24 History subcutaneous pen injector (Mounjaro) Allergies Allergy/AdvReac Type Severity Reaction Status Date / Time No Known Drug Allergies Allergy Verified 02/29/24 18:35 Exam Narrative: Exam Narrative: General: Alert and oriented, lying comfortably in bed. Respiratory: Equal breath rise bilaterally, maintained on room air CV: Well perfused Abdomen: Obese abdomen soft, some mild tenderness to palpation with no guarding or rebound. Diffuse tenderness. Negative Velazquez sign. Well-healed surgical incisions. Const: Vital Signs, click to edit/add: Vital Signs - 24 hr 02/29/24 18:30 02/29/24 21:45 02/29/24 22:09 Temperature 99.9 F H 104.2 F H 100.2 F H Pulse Rate Pulse Rate [Right Pulse Oximeter] 130 H 88 128 H Respiratory Rate 24 22 20 Blood Pressure [Ri ght Arm] 124/78 Blood Pressure [Ri ght Upper Arm] 144/118 H 142/82 H Pulse Oximetry 94 98 95 Oxygen Delivery Me thod Room Air Room Air Room Air 02/29/24 22:09 02/29/24 22:21 02/29/24 23:00 Temperature 100.2 F H Pulse Rate Pulse Rate [Right Pulse Oximeter] Respiratory Rate 20 20 Blood Pressure [Ri ght Arm] Blood Pressure [Ri ght Upper Arm] Pulse Oximetry 95 95 Oxygen Delivery Me thod Room Air Room Air 02/29/24 23:00 02/29/24 23:00 02/29/24 23:00 Temperature 100.2 F H Pulse Rate 118 H Pulse Rate [Right Pulse Oximeter] 118 H 107 H Respiratory Rate 20 18 Blood Pressure [Ri ght Arm] 124/78 Blood Pressure [Ri ght Upper Arm] Pulse Oximetry 95 Oxygen Delivery Me thod Room Air 03/01/24 02:25 03/01/24 02:27 03/01/24 06:54 Temperature 97.9 F Pulse Rate 88 Pulse Rate [Right Pulse Oximeter] 107 H Respiratory Rate 18 Blood Pressure [Ri ght Arm] 102/68 Blood Pressure [Ri ght Upper Arm] Pulse Oximetry 91 91 Oxygen Delivery Me thod CPAP 03/01/24 07:30 03/01/24 07:30 03/01/24 07:30 Temperature Pulse Rate 88 Pulse Rate [Right Pulse Oximeter] 83 Respiratory Rate 18 Blood Pressure [Ri ght Arm] Blood Pressure [Ri ght Upper Arm] Pulse Oximetry 95 Oxygen Delivery Me thod 03/01/24 07:30 03/01/24 07:30 Temperature 97.5 F L Pulse Rate Pulse Rate [Right Pulse Oximeter] 83 Respiratory Rate 18 18 Blood Pressure [Ri ght Arm] 105/68 Blood Pressure [Ri ght Upper Arm] Pulse Oximetry 95 95 Oxygen Delivery Me thod CPAP CPAP Results Labs Labs: Abnormal lab results 02/29/24 02/29/24 02/29/24 Range/Units 18:50 19:00 19:57 WBC 2.53 L (4.50-11.00) K/uL RBC 5.93 H (4.30-5.90) m/uL Plt Count 70 L (140-440) K/uL Neut % (Auto) 73.9 H (42.0-72.0) % Lymph % (Auto) 15.4 L (20-44) % [place] % (Auto) (0.0-11.0) % Lymph # (Auto) 0.40 L (0.90-2.90) K/uL Sodium 133 L (135-149) mmol/L Glucose 235 H (60-115) mg/dL Lactate 2.2 H (0.5-1.9) mmol/L Calcium (8.4-10.6) mg/dL Magnesium 1.4 L (1.5-2.6) mg/dL AST 41 H (12-35) U/L ALT 66 H (4-50) U/L Alkaline Phosphatase (40-150) U/L Troponin I (0.01-0.04) ng/mL Albumin (3.3-5.0) g/dL Triglycerides 259 H (40-149) mg/dL Lipase 1113 H (23-300) U/L Urine Protein 1+ A (Negative) Urine Glucose (UA) 3+ A (Negative) Urine Ketones Trace A (Negative) POC Troponin I 0.00 L (0.01-0.04) ng/ml 02/29/24 03/01/24 03/01/24 Range/Units 21:31 00:15 06:12 WBC 2.85 L (4.50-11.00) K/uL RBC (4.30-5.90) m/uL Plt Count 50 L (140-440) K/uL Neut % (Auto) (42.0-72.0) % Lymph % (Auto) 15.4 L (20-44) % [place] % (Auto) 11.2 H (0.0-11.0) % Lymph # (Auto) 0.40 L (0.90-2.90) K/uL Sodium 134 L (135-149) mmol/L Glucose 210 H (60-115) mg/dL Lactate 2.4 H 2.2 H (0.5-1.9) mmol/L Calcium 8.0 L (8.4-10.6) mg/dL Magnesium (1.5-2.6) mg/dL AST (12-35) U/L ALT (4-50) U/L Alkaline Phosphatase 31 L (40-150) U/L Troponin I < 0.01 L < 0.01 L (0.01-0.04) ng/mL Albumin 3.2 L (3.3-5.0) g/dL Triglycerides (40-149) mg/dL Lipase (23-300) U/L Urine Protein (Negative) Urine Glucose (UA) (Negative) Urine Ketones (Negative) POC Troponin I 0.00 L (0.01-0.04) ng/ml Diabetes panel 02/29/24 03/01/24 Range/Units 18:50 06:12 Sodium 133 L 134 L (135-149) mmol/L Potassium 4.2 4.1 (3.6-5.1) mmol/L Chloride 105 105 (96-114) mmol/L Carbon Dioxide 20 22 (20-32) mmol/L BUN 20 23 (7-30) mg/dL Creatinine 0.7 0.9 (0.5-1.5) mg/dL Glucose 235 H 210 H (60-115) mg/dL Calcium 9.4 8.0 L (8.4-10.6) mg/dL AST 41 H 27 (12-35) U/L ALT 66 H 48 (4-50) U/L Alkaline Phosphatase 45 31 L (40-150) U/L Total Protein 7.0 6.0 (6.0-8.3) g/dL Albumin 4.0 3.2 L (3.3-5.0) g/dL Triglycerides 259 H (40-149) mg/dL Calcium panel 02/29/24 03/01/24 Range/Units 18:50 06:12 Calcium 9.4 8.0 L (8.4-10.6) mg/dL Albumin 4.0 3.2 L (3.3-5.0) g/dL Pituitary panel 02/29/24 03/01/24 Range/Units 18:50 06:12 Sodium 133 L 134 L (135-149) mmol/L Potassium 4.2 4.1 (3.6-5.1) mmol/L Chloride 105 105 (96-114) mmol/L Carbon Dioxide 20 22 (20-32) mmol/L BUN 20 23 (7-30) mg/dL Creatinine 0.7 0.9 (0.5-1.5) mg/dL Glucose 235 H 210 H (60-115) mg/dL Calcium 9.4 8.0 L (8.4-10.6) mg/dL Adrenal panel 02/29/24 03/01/24 Range/Units 18:50 06:12 Sodium 133 L 134 L (135-149) mmol/L Potassium 4.2 4.1 (3.6-5.1) mmol/L Chloride 105 105 (96-114) mmol/L Carbon Dioxide 20 22 (20-32) mmol/L BUN 20 23 (7-30) mg/dL Creatinine 0.7 0.9 (0.5-1.5) mg/dL Glucose 235 H 210 H (60-115) mg/dL Calcium 9.4 8.0 L (8.4-10.6) mg/dL Total Bilirubin 1.0 1.3 (0.1-1.5) mg/dL AST 41 H 27 (12-35) U/L ALT 66 H 48 (4-50) U/L Alkaline Phosphatase 45 31 L (40-150) U/L Total Protein 7.0 6.0 (6.0-8.3) g/dL Albumin 4.0 3.2 L (3.3-5.0) g/dL All other labs normal. Imaging Abdomen CT scan report/results: report reviewed and image reviewed Abdominal ultrasound report/results: report reviewed and image reviewed Progress Note:A&P Assessment and plan (1) Abdominal pain: Status: Acute Assessment and Plan: Patient is a 59-year-old male with a 1 day history of epigastric abdominal pain. He does have a personal history of pancreatitis secondary to alcohol use, denies any current alcohol or drug use. On admission patient was febrile (104) and tachycardic. His lactic acid was elevated but has since normalized with resuscitation. He is neutropenic and thrombocytopenic (50). He does report a history of liver disease, splenomegaly and chronic thrombocytopenia. His LFTs on admission showed a mild elevation in transaminases (41 ALT, 65 AST), normal alkaline phosphatase and normal bilirubin. His lipase was mildly elevated at 1100. This morning he has normal liver panel and lipase (71). His pain is still present, although improved. Imaging showed on CT scan and splenomegaly, diffuse hyperenhancement of small bowel suspicious for possible enteritis, hepatic steatosis and gallbladder distention without gallbladder wall thickening or pericholecystic fluid. An abdominal ultrasound again showed a distended gallbladder with no gallbladder wall thickening or pericholecystic fluid. There was some sludge present within the neck of the gallbladder. Clinical history is suspicious for gallstone pancreatitis and choledocholithiasis, although would expect abnormalities of the liver panel. Distension of the gallbladder is apparent, however no evidence on imaging to support acute cholecystitis. Could consider further workup with a HIDA scan, however we do not have nuclear medicine services at this time. Recommend MRCP for further evaluation and continuing conservative management with IV fluids, antibiotics per hospitalist, trend labs. Okay for clear liquids today, make NPO at midnight. -IV and p.o. pain meds as needed -antibiotics per hospitalist -MRCP today -NPO at midnight -repeat liver panel in the morning
[2024-03-01 10:16] LABS: Ionized Calcium* 1.02 mmol/L (1.11-1.30)
[2024-03-01 10:24] LABS: INR 1.14 (0.91-1.10); Magnesium* 1.2 mg/dL (1.5-2.6); Prothrombin Time 15.4 Seconds
--- NOTE | 2024-03-01 10:37 | CRLHL7_ITS ---
For Patients: As a result of the Century Cures Act, medical imaging exams and procedure reports are released immediately into your electronic medical record. You may view this report before your referring provider. If you have questions, please contact your health care provider. Indication: Abdominal pain. Technique: Multisequence multiplanar MRI of the abdomen without IV contrast. Comparison: CT abdomen/pelvis dated 02/29/2024. Findings: Liver: Diffuse hepatic steatosis. Nodular liver contour, compatible with cirrhotic changes. Bile ducts: No significant intrahepatic or extrahepatic biliary duct dilation. No choledocholithiasis identified. Gallbladder: Distended gallbladder. Mild amount of pericholecystic fluid is present. No cholelithiasis identified. Pancreas: No pancreatic duct dilation. Spleen: Splenomegaly. Small splenule is noted. Punctate cystic lesions. Adrenals: Unremarkable. Kidneys: Punctate bilateral cysts. No hydronephrosis bilaterally. Retroperitoneum: No lymphadenopathy. Visualized Bowel and mesentery: Visualized bowel is nondilated, no evidence of bowel obstruction. Vessels: Unremarkable for unenhanced study. Abdominal wall: No acute abdominal wall abnormality. Bones: Multilevel degenerative changes of the spine. Impression: 1. Distended gallbladder, with mild amount of pericholecystic fluid, worrisome for cholecystitis. 2. No cholelithiasis or choledocholithiasis identified. No significant intrahepatic or extrahepatic biliary duct dilation. 3. Morphologic sequelae of cirrhosis. Diffuse hepatic steatosis. 4. Splenomegaly. Dictated by Olaf Upton MD @ 03/01/2024 1:52:48 PM (Electronically Signed)
[2024-03-01 12:22] LABS: Vitamin D 25 Hydroxy* 107 ng/mL (30-80)
[2024-03-01] MEDS: CALCIUM GLUC 1,000MG/50 ML 1,000 MG/50 ML BAG 100 MG IVPB (14:11)
[2024-03-01 14:24] LABS: C Reactive Protein* 6.4 mg/dL (0.5-1.0)
[2024-03-01 14:29] LABS: Ethanol* < 0.00 % (0.01-0.03)
[2024-03-01] MEDS: MAGNESIUM IV 2 GM/50 ML PIGGYBACK IVPB (14:42)
[2024-03-01] MEDS: hydrOXYzine pamoate 25 MG CAPSULE PO ×2 (16:29→21:05)
[2024-03-01] MEDS: KETOROLAC 15 MG/ML inj 30 MG IVP ×2 (16:30→21:05)
--- NOTE | 2024-03-01 18:38 | PC.NURSE ---
Addendum entered by Sinai Arreguin RN 03/01/24 18:42: dinner blood sugar was 141. Original Note: End of Shift [id number]: Patient pleasant and cooperative. Patient vitally stable, lungs clear, BS WNL, IV running LR at 125. Patient SBA with IV pole. Patient rates abdominal pain 5-6/10, Tylenol, Vistaril, and toradol given once, and Dilaudid given twice. Patient tolerating clear liquid diet. Patient urinating well and reported having two loose stools. Tele=NSR.
--- NOTE | 2024-03-01 18:41 | PC.NURSE ---
End of shift 1500/ pt has been pleasant. Pt is A&Ox4 and able to make needs known. abd pain is 5-7/10 and he is requesting IV pain meds/ he was started on po pain meds and he did not like them, was updated. he was npo and is now on a clears with npo at midnight and possible surgery tomorrow,. He tis up with SBA. IV fluids and IV antibiotics where given. Tele is nsr. his blood sugar meter was 189 and ours was 193 so we are ok to use his. .
[2024-03-02] VITALS (7 sets, daily range): BP systolic 108–141; BP diastolic 61–80; PULSE 69–84; RESP 14–20; TEMP 36.3–36.6; O2SAT 93–95
[2024-03-02] MEDS: HYDROmorphone 0.5 mg/0.5 ml inj IVP ×3 (00:02→09:55)
[2024-03-02] MEDS: LORazepam 2 MG/ML inj 1 MG IV (00:03)
[2024-03-02] MEDS: LACTATED RINGERS 1000 ML 1,000 ML 125 ML IV ×2 (01:40→11:37)
[2024-03-02] MEDS: KETOROLAC 15 MG/ML inj 30 MG IVP ×2 (03:37→11:19)
[2024-03-02] MEDS: PIPERACILLIN/TAZOBACTAM 3.375 GM in 0.9 % SODIUM CHLORIDE Mini-bag 100 ML IVPB ×2 (03:37→09:50)
--- NOTE | 2024-03-02 06:18 | PC.NURSE ---
19-07: pleasant and cooperative. Indep in rm. NPO at midnight. Rating pain 3-4.5/10, speech writer staying on top of prn medications (Toradol & Vistaril), educated pt on Dilaudid being used for severe?pain, pt continued to request Dilaudid ? see eMAR. VSS.
[2024-03-02 07:12] LABS: Basophils Percent Auto 0.4 % (0.0-3.0); Mean Corpuscular HGB Conc 33 gm/dL (32-36)
[2024-03-02 07:18] LABS: INR 1.17 (0.91-1.10); Prothrombin Time 15.7 Seconds
[2024-03-02 07:34] LABS: Albumin* 2.8 g/dL (3.3-5.0); Chloride* 106 mmol/L (96-114)
[2024-03-02 07:35] LABS: Potassium* 3.8 mmol/L (3.6-5.1); Sodium* 133 mmol/L (135-149)
[2024-03-02 07:37] LABS: Anion Gap 4 mEq/L (7-15); Aspartate Amino Transferase* 40 U/L (12-35); Bilirubin Direct* 0.5 mg/dL (0.0-0.5); Bilirubin Total* 1.1 mg/dL (0.1-1.5); Carbon Dioxide* 23 mmol/L (20-32); Creatinine* 0.8 mg/dL (0.5-1.5); Est. Creatinine Clearance* 82.62; Estimated Glomerular Filt Rate 101 ml/min; Total Protein* 5.2 g/dL (6.0-8.3)
[2024-03-02 07:38] LABS: Alanine Aminotransferase* 52 U/L (4-50); Alkaline Phosphatase* < 20 U/L (40-150); Blood Urea Nitrogen* 17 mg/dL (7-30); Calcium* 8.1 mg/dL (8.4-10.6); Gamma Glutamyl Transpeptidase* 74 U/L (8-55); Glucose* 101 mg/dL (60-115); Lipase* 45 U/L (23-300); Magnesium* 1.9 mg/dL (1.5-2.6)
[2024-03-02 07:52] LABS: C Reactive Protein* 13.2 mg/dL (0.5-1.0)
[2024-03-02 08:04] LABS: Slide Review Reflex Yes
[2024-03-02 08:50] LABS: White Blood Count* 2.35 K/uL (4.50-11.00)
[2024-03-02 08:51] LABS: Hematocrit 38.6 % (37.0-53.0); Hemoglobin* 12.7 gm/dL (13.5-17.5); Mean Corpuscular Volume 86 fL (80-100)
[2024-03-02 08:52] LABS: Mean Corpuscular Hemoglobin 28 pg (26-34)
[2024-03-02 08:54] LABS: Platelet Count* 40 K/uL (140-440); RDW Coefficient of Variation % 13.7 % (11.5-15.5)
[2024-03-02 08:55] LABS: Eosinophils Percent Auto 4.3 % (0.0-7.0); Lymphocytes Percent Auto 40.4 % (20-44); Monocytes Percent Auto 11.9 % (0.0-11.0)
[2024-03-02 08:56] LABS: Slide Review Acceptable Review (Acceptable)
[2024-03-02] MEDS: OMEPRAZOLE 20 MG CAPSULE DR PO (09:50)
[2024-03-02] MEDS: lisinopriL 5 MG TABLET PO (09:50)
[2024-03-02] MEDS: INSULIN GLARGINE,HUM.REC.ANLOG 100 UNIT/ML INSULN.PEN 40 UNIT SUBCUT (09:50)
--- NOTE | 2024-03-02 12:28 | PM.IMPN1 ---
Progress Note: A&P Assessment and plan (1) Sepsis: Problem details: -resolving. BC negative to date. -given thrombocytopenia, id suggested we switch to ceftriaxone and metronidazole -fever has defervesced - pain improved. Status: Acute (2) Acute cholecystitis: Problem details: Continue IV antibiotics, now ceftriaxone and metronidazole. Previously Zosyn and vanc. We switched antibiotics because of the thrombocytopenia Discuss this case with Infectious Disease and Gastroenterology at [place]. GI would except care and consult General surgery given his history hepatic issues and thrombocytopenia. Id consulted and advised on the antibiotic change. Will continue to discuss with our general surgery team about timing of intervention verses transfer. Status: Acute (3) Gallstone pancreatitis: Problem details: Likely passed a stone MRCP reveals concerns for acute cholecystitis, acalculous at this point. Pancreas has cooled off Status: Acute (4) Thrombocytopenia: Problem details: - 06/2023 platelets 82 - 02/29/2024 platelets 70 -03/01/2024 platelets 50 -03/02/2024 platelets 40, changed antibiotics Status: Acute (5) Leukopenia: Problem details: -2-3000 Status: Acute (6) Polysubstance (including opioids) dependence w/o physiol dependence: Problem details: sober previous alcoholic, meth and cocaine addict Status: Acute (7) Compression fracture: Problem details: etiology under question. outpatient workup likely. Status: Acute (8) Hepatitis C: Problem details: - treated, resolved Status: Acute (9) Splenomegaly: Problem details: - Palpable. Patient cautioned to avoid activities that may put him at risk for rupture - Associated with leukopenia and thrombocytopenia. I recommended he f/u with his carpenter rough as an outpatient Status: Acute (10) Hypertriglyceridemia: Problem details: - 09/30/2023 triglycerides 459 - 02/29/2024 triglycerides 259 Status: Chronic (11) Hepatic steatosis: Status: Acute (12) Type 2 diabetes mellitus: Problem details: - 12/30/2023 hemoglobin A1c 7.7 % - patient will be on clear liq diet - Continue LA insulin, decrease doses slightly (he is hyperglycemic from infection, so I will only decrease a little instead of to 50% of his usual dose) - Medium dose ISS with ACHS accuchecks Status: Chronic (13) [place] (obstructive sleep apnea): Problem details: uses CPAP - continue this; he brought it with him Status: Chronic Subjective Date Seen: 03/02/24 Interval history: Daily Progress Note - Hospital #:[id number] CC: gallstone pancreatitis; acute cholecystitis; chronic issues with thrombocytopenia; leukopenia; splenomegaly 24 HOUR UPDATE: Pain is still constant but improved control with meds. labs have improved. Hemodynamically stable. Afebrile. On room air. Blood sugars are well managed. Total white count remains depressed at 2.3/2.8. Hemoglobin is down to 12.7 likely delusional. Platelet count Morena was 70, 50 and now 40. INR 1.17 Very mild hyponatremia. His other electrolytes have been monitored. Of note he has low ionized calcium with a suppressed albumin. CRP has gone from 6-13. LFTs are upper end of normal or little elevated. MRCP 03/01 1. Distended gallbladder, with mild amount of pericholecystic fluid, worrisome for cholecystitis. 2. No cholelithiasis or choledocholithiasis identified. No significant intrahepatic or extrahepatic biliary duct dilation. 3. Morphorogic sequelae of cirrhosis. Diffuse hepatic steatosis. 4. Splenomegaly. Complicating hx is the chronic thrombocytopenia, leukopenia, splenomegaly, polysubtance abuse hx. Notable Labs, Micro, Rads, Interventions: Total white count remains depressed at 2.3/2.8. Hemoglobin is down to 12.7 likely delusional. Platelet count Morena was 70, 50 and now 40. INR 1.17 Very mild hyponatremia. His other electrolytes have been monitored. Of note he has low ionized calcium with a suppressed albumin. CRP has gone from 6-13. LFTs are upper end of normal or little elevated. MRCP 03/01 1. Distended gallbladder, with mild amount of pericholecystic fluid, worrisome for cholecystitis. 2. No cholelithiasis or choledocholithiasis identified. No significant intrahepatic or extrahepatic biliary duct dilation. 3. Morphorogic sequelae of cirrhosis. Diffuse hepatic steatosis. 4. Splenomegaly. Objective: resting in bed; bedside. Knows hx and context. Vitals: see above ABDOMEN: obese. splenomegaly appreciated. mild RUQ and mid epigastric tenderness. Lungs: Clear. Cardiac: S1S2. Disposition/Potential discharge - in next 1-2 days vs transfer based on labs and diet trial to [facility] for higher risk surgery or cholecystostomy tube placement Today I spent 50minutes seeing the patient, reviewing Expanse and EPIC notes/diagnostics, discussing the care plan with our care time that includes social work, PT/OT, pharmacy, RT, intermediate and documenting my impressions and plan in the medical record. Exam Const: Vital Signs, click to edit/add: Vital Signs - 24 hr 03/01/24 16:34 03/01/24 16:34 03/01/24 16:34 Temperature 99.6 F Pulse Rate Pulse Rate [Right Pulse Oximeter] 85 85 Respiratory Rate 18 18 Blood Pressure [Ri ght Arm] 123/81 Pulse Oximetry 94 94 Oxygen Delivery Me thod Room Air 03/01/24 16:34 03/01/24 18:10 03/01/24 19:50 Temperature 97.4 F L Pulse Rate 83 Pulse Rate [Right Pulse Oximeter] 74 Respiratory Rate 18 16 Blood Pressure [Ri ght Arm] 112/68 Pulse Oximetry 94 96 Oxygen Delivery Me thod Room Air Room Air 03/01/24 22:41 03/01/24 23:00 03/01/24 23:00 Temperature 97.5 F L Pulse Rate 72 Pulse Rate [Right Pulse Oximeter] 72 Respiratory Rate 16 16 Blood Pressure [Ri ght Arm] 100/75 Pulse Oximetry 94 94 Oxygen Delivery Me thod Room Air Room Air 03/01/24 23:00 03/01/24 23:00 03/02/24 03:00 Temperature 97.4 F L Pulse Rate Pulse Rate [Right Pulse Oximeter] 71 Respiratory Rate 16 16 Blood Pressure [Ri ght Arm] 109/61 Pulse Oximetry 94 95 Oxygen Delivery Me thod Room Air 03/02/24 07:00 03/02/24 07:00 03/02/24 07:00 Temperature 97.3 F L Pulse Rate Pulse Rate [Right Pulse Oximeter] 70 Respiratory Rate 14 16 Blood Pressure [Ri ght Arm] 114/71 Pulse Oximetry 95 95 95 Oxygen Delivery Me thod Room Air Room Air 03/02/24 11:00 03/02/24 12:11 Temperature 97.8 F Pulse Rate 79 Pulse Rate [Right Pulse Oximeter] 84 Respiratory Rate 16 Blood Pressure [Ri ght Arm] 129/80 Pulse Oximetry 95 Oxygen Delivery Me thod Room Air Labs Labs: Laboratory Results - last 24 hr 03/01/24 03/01/24 03/02/24 06:12 14:00 06:05 WBC 2.35 L RBC 4.50 Hgb 12.7 L Hct 38.6 MCV 86 MCH 28 MCHC 33 RDW Coeff of Sonido 13.7 Plt Count 40 L* Neut % (Auto) 43.0 Lymph % (Auto) 40.4 [place] % (Auto) 11.9 H Eos % (Auto) 4.3 Baso % (Auto) 0.4 Neut # (Auto) 1.00 L Lymph # (Auto) 0.90 [place] # (Auto) 0.30 Eos # (Auto) 0.10 Baso # (Auto) 0.00 Abs Immat Gran (auto) 0.00 Imm/Tot Granulo (auto) 0.0 Diff Slide Review Acceptable Review INR 1.17 H Sodium 133 L Potassium 3.8 Chloride 106 Carbon Dioxide 23 Anion Gap 4 L BUN 17 Creatinine 0.8 Estimated Creat Clear 82.62 Estimated GFR 101 Glucose 101 Calcium 8.1 L Ionized Calcium Sukhjinder 0.90 L Magnesium 1.9 Total Bilirubin 1.1 Direct Bilirubin 0.5 GGT 74 H AST 40 H ALT 52 H Alkaline Phosphatase < 20 L C-Reactive Protein 6.4 H 13.2 H Total Protein 5.2 L Albumin 2.8 L Lipase 45 25-OH Vitamin D Total 107 H Ethyl Alcohol < 0.00 L Lab Acknowledgement Test Added
[2024-03-02] MEDS: cefTRIAXone 2 GM in 0.9 % SODIUM CHLORIDE Mini-bag 100 ML IVPB (13:09)
[2024-03-02] MEDS: hydrOXYzine pamoate 25 MG CAPSULE PO ×2 (13:15→22:17)
[2024-03-02] MEDS: metroNIDAZOLE 500 MG/100 ML PIGGYBACK 100 MG IVPB ×2 (13:53→22:09)
--- NOTE | 2024-03-02 15:14 | PC.NURSE ---
Shift Summary: Patient pleasant andn cooperative. Up independently, encouraged to walk in halls to assist with motility. Patient had x1 BM, reports passing gas. Abdomen distended. Is currently tolerating clear liquids with some discomfort after breakfast. CPAP when sleeping. Vitals stable, afebrile throughout shift. PRN medication for pain, rating pain 4-5/10.
[2024-03-02] MEDS: CALCIUM GLUC 1,000MG/50 ML 1,000 MG/50 ML BAG 100 MG IVPB (15:24)
--- NOTE | 2024-03-02 15:44 | PM.GSPN ---
Subjective Subjective Date Seen: 03/02/24 Interval history: Patient is doing okay this morning. He does feel like the pain is better compared to yesterday. He still has some pain and pressure on the right side and epigastric. He has been tolerating clear liquids. Denies any increase in pain with p.o. intake. No nausea or vomiting. Continues to pass gas, no bowel movement today. Exam Narrative: Exam Narrative: General: Alert and oriented, no acute distress Abdomen: Obese abdomen, soft, some mild tenderness to deep palpation right-sided epigastric, no guarding or rebound. Const: Vital Signs, click to edit/add: Vital Signs - 24 hr 03/01/24 16:34 03/01/24 16:34 03/01/24 16:34 Temperature 99.6 F Pulse Rate Pulse Rate [Right Pulse Oximeter] 85 85 Respiratory Rate 18 18 Blood Pressure [Le ft Arm] Blood Pressure [Ri ght Arm] 123/81 Pulse Oximetry 94 94 [facility] 03/01/24 16:34 03/01/24 18:10 03/01/24 19:50 Temperature 97.4 F L Pulse Rate 83 Pulse Rate [Right Pulse Oximeter] 74 Respiratory Rate 18 16 Blood Pressure [Le ft Arm] Blood Pressure [Ri ght Arm] 112/68 Pulse Oximetry 94 96 [facility] Room Air 03/01/24 22:41 03/01/24 23:00 03/01/24 23:00 Temperature 97.5 F L Pulse Rate 72 Pulse Rate [Right Pulse Oximeter] 72 Respiratory Rate 16 16 Blood Pressure [Le ft Arm] Blood Pressure [Ri ght Arm] 100/75 Pulse Oximetry 94 94 Oxygen Delivery [facility] Room Air Room Air 03/01/24 23:00 03/01/24 23:00 03/02/24 03:00 Temperature 97.4 F L Pulse Rate Pulse Rate [Right Pulse Oximeter] 71 Respiratory Rate 16 16 Blood Pressure [Le ft Arm] Blood Pressure [Ri ght Arm] 109/61 Pulse Oximetry 94 95 [facility] 03/02/24 07:00 03/02/24 07:00 03/02/24 07:00 Temperature 97.3 F L Pulse Rate Pulse Rate [Right Pulse Oximeter] 70 Respiratory Rate 14 16 Blood Pressure [Le ft Arm] Blood Pressure [Ri ght Arm] 114/71 Pulse Oximetry 95 95 95 Oxygen Delivery Me thod Room Air Room Air 03/02/24 11:00 03/02/24 12:11 03/02/24 15:00 Temperature 97.8 F Pulse Rate 79 Pulse Rate [Right Pulse Oximeter] 84 Respiratory Rate 16 Blood Pressure [Le ft Arm] Blood Pressure [Ri ght Arm] 129/80 Pulse Oximetry 95 94 Oxygen Delivery Me thod Room Air 03/02/24 15:00 03/02/24 15:00 Temperature 97.3 F L Pulse Rate Pulse Rate [Right Pulse Oximeter] 69 Respiratory Rate 16 Blood Pressure [Le ft Arm] 108/71 Blood Pressure [Ri ght Arm] Pulse Oximetry 94 94 Oxygen Delivery Me thod Room Air Room Air Labs/Imaging Labs Labs: Leukopenia (2.3), anemia (12.7), platelet count 20, 40 on recheck. INR 1.17 CRP is elevated at 13.2. Alkaline phosphatase low at less than 20. Mild elevation AST 40/ALT 52. GGT 74 Imaging Imaging: No new imaging Progress Note:A&P Assessment and plan (1) Abdominal pain: Status: Deleted Assessment and Plan: Patient is a 59-year-old male with persistent right upper quadrant and epigastric pain. He does have a personal history of pancreatitis secondary to alcohol use, denies any current alcohol or drug use. On admission he had mild elevation of his lipase at 1100, now normalized. Hepatic panel is significant for mild elevation in ALT and AST. Bilirubin and alkaline phosphatase within normal limits. GGT mildly elevated at 74. An MRCP was obtained due to concerns for possible gallstone pancreatitis. No evidence of stones within the biliary tract and inflammation noted of the gallbladder concerning for possible acute cholecystitis. An abdominal ultrasound did demonstrate biliary sludge present. Patient has been maintained on IV antibiotics. He has a history of thrombocytopenia (on chart review platelets typically are between 80-140). Since admission his platelets have been low with labs this morning at 20, repeat check 40. This could be secondary to his antibiotics, which were changed to ceftriaxone and metronidazole. His pain has continued to be present, but is improving. Would not recommend patient proceed to surgery today given his low platelet count. Continue course of antibiotics and will plan to re-evaluate in the morning. If patient has improvement of his platelets to greater than 50 would consider taking patient to OR for laparoscopic cholecystectomy. Could also consider a transfusion of platelets preoperatively. -NPO at midnight with re-evaluation in the morning
[2024-03-02] MEDS: ALBUMIN HUMAN 25% 25 GM/100 ML VIAL IVPB ×2 (16:04→17:01)
[2024-03-02] MEDS: MAGNESIUM IV 2 GM/50 ML PIGGYBACK IVPB (18:10)
[2024-03-02] MEDS: HYDROmorphone 2 MG TABLET PO (19:53)
[2024-03-02] MEDS: SODIUM CHLORIDE 0.9 % (FLUSH) 10 ML SYRINGE 5 ML IVF (22:10)
[2024-03-02] MEDS: INSULIN GLARGINE,HUM.REC.ANLOG 100 UNIT/ML INSULN.PEN 30 UNIT SUBCUT (22:17)
--- NOTE | 2024-03-02 22:42 | PC.NURSE ---
End of Shift: Patient pleasant and cooperative. Afebrile. C/o pain in abdomen 3-5/10 and PRN Dilaudid and Vistaril given x1. Up independently and walking in hallway x1. Tolerating clear liquids with no nausea. Patient stated he had 5 loose bowel movements this shift, updated MD and sample obtained.
[2024-03-02 22:53] LABS: C.Difficile Negative (Negative); CDIFFEPI 027 PRESUMPTIVE NEGATIVE (Negative)
[2024-03-03] VITALS (26 sets, daily range): BP systolic 119–154; BP diastolic 54–87; PULSE 56–101; RESP 16–23; TEMP 36.2–37.1; O2SAT 20–97
[2024-03-03] MEDS: HYDROmorphone 2 MG TABLET PO ×2 (02:30→08:37)
[2024-03-03] MEDS: hydrOXYzine pamoate 25 MG CAPSULE PO (05:33)
[2024-03-03] MEDS: metroNIDAZOLE 500 MG/100 ML PIGGYBACK 100 MG IVPB ×2 (05:34→18:12)
[2024-03-03] MEDS: HYDROmorphone 0.5 mg/0.5 ml inj IVP ×6 (06:00→22:40)
[2024-03-03 06:30] LABS: HCO3 VBG 26 mmol/L (21-28); Ionized Calcium* 1.21 mmol/L (1.11-1.30); Lactate* 0.8 mmol/L (0.5-1.9); PCO2 VBG 37 mmHG (40-50); PO2 VBG 45.9 mmHG (25-47); pH VBG 7.448 (7.32-7.43)
[2024-03-03 06:38] LABS: Basophils Percent Auto 0.3 % (0.0-3.0); Eosinophils Percent Auto 1.7 % (0.0-7.0); Hemoglobin* 12.6 gm/dL (13.5-17.5); Immature Granulocytes Pct Auto 0.3 %; Lymphocytes Percent Auto 33.6 % (20-44); Mean Corpuscular HGB Conc 33 gm/dL (32-36); Mean Corpuscular Hemoglobin 28 pg (26-34); Mean Corpuscular Volume 85 fL (80-100); Monocytes Percent Auto 8.6 % (0.0-11.0); Neutrophils Percent Auto 55.5 % (42.0-72.0); Platelet Count* 52 K/uL (140-440); RDW Coefficient of Variation % 13.7 % (11.5-15.5); Red Blood Count 4.46 m/uL (4.30-5.90); White Blood Count* 2.92 K/uL (4.50-11.00)
--- NOTE | 2024-03-03 06:41 | PC.NURSE ---
End of shift report [id number]: Pleasant and cooperative with cares. Pain to abdomen rated 3-4/10 throughout the night, at 0545 patient reported pain 8/10 to left flank, patient reports that it is sharp and intense with breaths and movement. Administered PRN hydroxyzine, patient states his dissatisfaction with pain management due to his previous orders being discontinued. Patient requested board writer contact MD to see if there is any other options for pain medication. Aircraft Lay Out Worker spoke with Dr. Bazan, updated with changes and plan of care. MD ordered one time dose of dilaudid 0.5mg IV for severe pain. Patient reporting relief with IV medication, pain is down to 5-6/10. NPO since midnight, tolerated well.
[2024-03-03 06:55] LABS: Slide Review Reflex No
[2024-03-03 06:58] LABS: Albumin* 3.4 g/dL (3.3-5.0); Chloride* 110 mmol/L (96-114); INR 1.16 (0.91-1.10); Prothrombin Time 15.5 Seconds
[2024-03-03 06:59] LABS: Potassium* 3.8 mmol/L (3.6-5.1); Sodium* 139 mmol/L (135-149)
[2024-03-03 07:00] LABS: Creatinine* 0.7 mg/dL (0.5-1.5); Est. Creatinine Clearance* 82.62; Estimated Glomerular Filt Rate 105 ml/min
[2024-03-03 07:01] LABS: Alkaline Phosphatase* 24 U/L (40-150); Anion Gap 4 mEq/L (7-15); Aspartate Amino Transferase* 28 U/L (12-35); Bilirubin Direct* 0.3 mg/dL (0.0-0.5); Bilirubin Total* 0.7 mg/dL (0.1-1.5); Blood Urea Nitrogen* 9 mg/dL (7-30); Carbon Dioxide* 25 mmol/L (20-32); Gamma Glutamyl Transpeptidase* 66 U/L (8-55); Glucose* 118 mg/dL (60-115); Lipase* 282 U/L (23-300)
[2024-03-03 07:02] LABS: Alanine Aminotransferase* 38 U/L (4-50); Calcium* 9.2 mg/dL (8.4-10.6); Phosphorus* 1.7 mg/dL (2.5-4.5)
[2024-03-03 07:04] LABS: C Reactive Protein* 4.5 mg/dL (0.5-1.0)
[2024-03-03] MEDS: SODIUM CHLORIDE 0.9 % (FLUSH) 10 ML SYRINGE 5 ML IVF ×2 (08:36→21:54)
[2024-03-03] MEDS: OMEPRAZOLE 20 MG CAPSULE DR PO (08:36)
[2024-03-03] MEDS: lisinopriL 5 MG TABLET PO (08:36)
[2024-03-03] MEDS: INSULIN GLARGINE,HUM.REC.ANLOG 100 UNIT/ML INSULN.PEN 40 UNIT SUBCUT (08:37)
--- NOTE | 2024-03-03 10:38 | P.IMPN_ITS ---
Progress Note: A&P Assessment and plan (1) Sepsis: Problem details: RESOLVED -BC negative to date. -given thrombocytopenia, id suggested we switch to ceftriaxone and metronidazole -fever has defervesced - pain improved. Status: Resolved (2) Acute cholecystitis: Problem details: Continue IV antibiotics, now ceftriaxone and metronidazole. Previously Zosyn and vanc. We switched antibiotics because of the thrombocytopenia Discuss this case with Infectious Disease and Gastroenterology at [place]. GI would except care and consult General surgery given his history hepatic issues and thrombocytopenia. ID consulted and advised on the antibiotic change. 03/03: Dr. Daniels, General Surgery, planning for cholecystectomy this afternoon Status: Acute (3) Gallstone pancreatitis: Problem details: Likely passed a stone MRCP reveals concerns for acute cholecystitis, acalculous at this point. Pancreas has cooled off Status: Acute (4) Thrombocytopenia: Problem details: - 06/2023 platelets 82 - 02/29/2024 platelets 70 -03/01/2024 platelets 50 -03/02/2024 platelets 40, changed antibiotics -03/03/2024 platelets 52, platelet transfusion this morning, recheck in a.m. Status: Acute (5) Leukopenia: Problem details: -2-3000, stable Status: Acute (6) Polysubstance (including opioids) dependence w/o physiol dependence: Problem details: sober previous alcoholic, meth and cocaine addict Status: Acute (7) Compression fracture: Problem details: etiology under question. outpatient workup recommended Status: Acute (8) Hepatitis C: Problem details: - treated, resolved Status: Acute (9) Splenomegaly: Problem details: - Palpable. Patient cautioned to avoid activities that may put him at risk for rupture - Associated with leukopenia and thrombocytopenia. Recommended he f/u with his galley stripper as an outpatient Status: Acute (10) Hypertriglyceridemia: Problem details: - 09/30/2023 triglycerides 459 - 02/29/2024 triglycerides 259 Status: Chronic (11) Hepatic steatosis: Problem details: -noted Status: Acute (12) Type 2 diabetes mellitus: Problem details: - 12/30/2023 hemoglobin A1c 7.7 % - patient will be on clear liq diet - Continue LA insulin, decrease doses slightly (he is hyperglycemic from infection, so I will only decrease a little instead of to 50% of his usual dose) - Medium dose ISS with ACHS accuchecks Status: Chronic (13) [place] (obstructive sleep apnea): Problem details: uses CPAP - continue this; he brought it with him Status: Chronic Plan To OR this morning. Replace phosphorus. Replace platelets. Time Spent With Patient Total time spent: Total time spent caring for the patient today was 45 minutes. This includes time spent for the visit reviewing the chart, time spent during the visit, time spent after the visit and documentation and planning in coordination of care. Subjective Date Seen: 03/03/24 Interval history: Patient is seen this morning with at bedside. Reports feeling a bit better this morning. Had more abdominal pain yesterday and thinks related to his loose stools. C difficile is negative. Again, this morning less stooling and less pain. No nausea. Has been NPO this morning. Dr. Daniels has seen him already this morning and is planning for cholecystectomy. Patient remains afebrile. His only complaint this morning is that he did not have IV pain medication available yesterday. I do see he had oral Dilaudid available as well as Tylenol. Calcium, magnesium, albumin have improved following replacement. Phosphorus is low at 1.7. We will replace this. Platelets are 52 this morning, previously 40. Patient is awaiting platelet transfusion prior to surgical procedure. Exam Narrative: Exam Narrative: PHYSICAL EXAM General: Pleasant, conversant, NAD HEENT: Normocephalic, atraumatic, sclera white, EOMI, oral mucosa moist Cardiovascular: RRR, S1S2. No pitting edema Pulmonary: CTA bilaterally without rhonchi, rales, expiratory wheezes. No dyspnea Abdominal: Soft, mildly distended, mild pain right upper quadrant to periumbilical region, no guarding Neurological: Alert, answering questions appropriately, cranial nerves intact, no focal findings Extremities: No gross joint deformity or swelling. AROMI. Neurovascularly intact Skin: Warm, dry. Const: Vital Signs, click to edit/add: Vital Signs - 24 hr 03/02/24 11:00 03/02/24 12:11 03/02/24 15:00 Temperature 97.8 F Pulse Rate 79 Pulse Rate [Right Pulse Oximeter] 84 Respiratory Rate 16 Blood Pressure [Le ft Arm] Blood Pressure [Ri ght Arm] 129/80 Pulse Oximetry 95 94 Oxygen Delivery Me thod Room Air 03/02/24 15:00 03/02/24 15:00 03/02/24 15:00 Temperature 97.3 F L Pulse Rate 72 Pulse Rate [Right Pulse Oximeter] 69 Respiratory Rate 16 Blood Pressure [Le ft Arm] 108/71 Blood Pressure [Ri ght Arm] Pulse Oximetry 94 94 Oxygen Delivery Me thod Room Air Room Air 03/02/24 15:00 03/02/24 19:00 03/02/24 23:00 Temperature 97.9 F Pulse Rate 75 Pulse Rate [Right Pulse Oximeter] 69 80 Respiratory Rate 16 18 Blood Pressure [Le ft Arm] 141/78 H Blood Pressure [Ri ght Arm] Pulse Oximetry 94 Oxygen Delivery Me thod Room Air 03/02/24 23:00 03/02/24 23:00 03/02/24 23:00 Temperature Pulse Rate Pulse Rate [Right Pulse Oximeter] 79 Respiratory Rate 20 20 Blood Pressure [Le ft Arm] Blood Pressure [Ri ght Arm] Pulse Oximetry 93 93 Oxygen Delivery Me thod CPAP 03/02/24 23:00 03/03/24 02:35 03/03/24 07:47 Temperature 97.9 F 97.1 F L Pulse Rate 78 Pulse Rate [Right Pulse Oximeter] 79 56 L Respiratory Rate 20 16 Blood Pressure [Le ft Arm] 131/75 119/54 L Blood Pressure [Ri ght Arm] Pulse Oximetry 93 93 Oxygen Delivery Me thod CPAP CPAP 03/03/24 08:30 03/03/24 08:30 03/03/24 08:30 Temperature Pulse Rate Pulse Rate [Right Pulse Oximeter] 85 Respiratory Rate 20 20 Blood Pressure [Le ft Arm] Blood Pressure [Ri ght Arm] Pulse Oximetry 95 95 Oxygen Delivery Me thod Room Air CPAP 03/03/24 08:30 Temperature 97.3 F L Pulse Rate Pulse Rate [Right Pulse Oximeter] 85 Respiratory Rate 18 Blood Pressure [Le ft Arm] Blood Pressure [Ri ght Arm] 127/82 Pulse Oximetry 95 Oxygen Delivery Me thod Room Air Labs Labs: Laboratory Results - last 24 hr 03/02/24 03/03/24 20:02 06:02 WBC 2.92 L RBC 4.46 Hgb 12.6 L Hct 38.0 MCV 85 MCH 28 MCHC 33 RDW Coeff of Sonido 13.7 Plt Count 52 L Neut % (Auto) 55.5 Lymph % (Auto) 33.6 [place] % (Auto) 8.6 Eos % (Auto) 1.7 Baso % (Auto) 0.3 Neut # (Auto) 1.60 L Lymph # (Auto) 1.00 [place] # (Auto) 0.30 Eos # (Auto) 0.00 Baso # (Auto) 0.00 Abs Immat Gran (auto) 0.00 Imm/Tot Granulo (auto) 0.3 INR 1.16 H VBG pH 7.448 H VBG pCO2 37 L VBG pO2 45.9 VBG HCO3 26 Sodium 139 Potassium 3.8 Chloride 110 Carbon Dioxide 25 Anion Gap 4 L BUN 9 Creatinine 0.7 Estimated Creat Clear 82.62 Estimated GFR 105 Glucose 118 H Lactate 0.8 Calcium 9.2 Ionized Calcium Sukhjinder 1.21 Phosphorus 1.7 L Total Bilirubin 0.7 Direct Bilirubin 0.3 GGT 66 H AST 28 ALT 38 Alkaline Phosphatase 24 L C-Reactive Protein 4.5 H Total Protein 6.0 Albumin 3.4 Lipase 282 Stl C. diff Tox B Gene Negative Stl C. diff [id number] PRESUMPTIVE NEGATIVE Blood Type A Positive
--- NOTE | 2024-03-03 11:14 | PM.GSPN ---
Subjective Subjective Date Seen: 03/03/24 Interval history: Patient with continued abdominal pain on the right side, improved compared to yesterday but still present. He did start to have some diarrhea yesterday and this morning. Denies any nausea or vomiting. No current diarrhea. No fevers overnight. Exam Narrative: Exam Narrative: General: Alert and oriented, no acute distress Abdomen: Obese abdomen, soft, some tenderness with deep palpation right side with no guarding or rebound. Const: Vital Signs, click to edit/add: Vital Signs - 24 hr 03/02/24 12:11 03/02/24 15:00 03/02/24 15:00 Temperature Pulse Rate 79 Pulse Rate [Right Pulse Oximeter] Respiratory Rate Blood Pressure [Le ft Arm] Blood Pressure [Ri ght Arm] Pulse Oximetry 94 94 Oxygen Delivery Me thod Room Air 03/02/24 15:00 03/02/24 15:00 03/02/24 15:00 Temperature 97.3 F L Pulse Rate 72 Pulse Rate [Right Pulse Oximeter] 69 69 Respiratory Rate 16 16 Blood Pressure [Le ft Arm] 108/71 Blood Pressure [Ri ght Arm] Pulse Oximetry 94 Oxygen Delivery Me thod Room Air 03/02/24 19:00 03/02/24 23:00 03/02/24 23:00 Temperature 97.9 F Pulse Rate 75 Pulse Rate [Right Pulse Oximeter] 80 Respiratory Rate 18 Blood Pressure [Le ft Arm] 141/78 H Blood Pressure [Ri ght Arm] Pulse Oximetry 94 93 Oxygen Delivery Me thod Room Air 03/02/24 23:00 03/02/24 23:00 03/02/24 23:00 Temperature 97.9 F Pulse Rate Pulse Rate [Right Pulse Oximeter] 79 79 Respiratory Rate 20 20 20 Blood Pressure [Le ft Arm] 131/75 Blood Pressure [Ri ght Arm] Pulse Oximetry 93 93 Oxygen Delivery Me thod CPAP CPAP 03/03/24 02:35 03/03/24 07:47 03/03/24 08:30 Temperature 97.1 F L Pulse Rate 78 Pulse Rate [Right Pulse Oximeter] 56 L Respiratory Rate 16 Blood Pressure [Le ft Arm] 119/54 L Blood Pressure [Ri ght Arm] Pulse Oximetry 93 95 Oxygen Delivery Me thod CPAP 03/03/24 08:30 03/03/24 08:30 03/03/24 08:30 Temperature 97.3 F L Pulse Rate Pulse Rate [Right Pulse Oximeter] 85 85 Respiratory Rate 20 20 18 Blood Pressure [Le ft Arm] Blood Pressure [Ri ght Arm] 127/82 Pulse Oximetry 95 95 Oxygen Delivery Me thod Room Air CPAP Room Air Labs/Imaging Labs Labs: Platelets 52, INR 1.12, hemoglobin 12.6 Imaging Imaging: No new imaging Progress Note:A&P Assessment and plan (1) Abdominal pain: Status: Deleted Assessment and Plan: Patient is a 59-year-old male with persistent right upper quadrant and epigastric pain. He does have a personal history of pancreatitis secondary to alcohol use, denies any current alcohol or drug use. Abdominal pain has improved with IV antibiotics, but is still present. Imaging has ruled out any evidence of choledocholithiasis. There is evidence of biliary distension of the gallbladder and sludge within the neck. No pericholecystic fluid was appreciated on the MRCP. I had a detailed conversation with the patient regarding the diagnosis of cholecystitis. We discussed the treatment options including observation with diet modification and laparoscopic cholecystectomy. We discussed the risks of surgery (including but not limited to) the risks of bleeding, infection, injury to other structures in the abdomen including bile duct injury, bile leak and conversion to an open operation. We discussed the possibility that the patient's pain not improve with surgery. We discussed the possibility of permanent post-operative diarrhea that may require medical management. Additionally, the conceivably of complications requiring additional surgery or further hospitalization were also discussed including the risks of [place], respiratory failure, stroke and blood clots. The patient voiced an understanding of our conversation, had the opportunity to ask questions, agreed to accept the risks of surgery and asked that we proceed with surgery. Patient does have chronic thrombocytopenia. Platelets this morning were 52. Will have patient transfused 1 unit platelets prior to proceeding to the OR for laparoscopic cholecystectomy.
[2024-03-03] MEDS: LACTATED RINGERS 500 ML 500 ML 125 ML IV ×2 (11:45→13:34)
--- NOTE | 2024-03-03 12:30 | PC.NURSE ---
Patient went to surgery at 1120 with OR staff right after platelet transfusion was hung so it was completed by OR staff.
--- NOTE | 2024-03-03 12:44 | W.ANESCHARGE ---
Anesthesia Charges Start Date/Time Anesthesia Start Date: 03/03/24 Anesthesia Start Time: 11:24 Stop Date/Time Anesthesia Stop Date: 03/03/24 Anesthesia Stop Time: 15:43
--- NOTE | 2024-03-03 13:39 | SUR.OPER ---
UPDATED VIA PHONE ON SURGICAL PROGRESS, VERBAL PER DR. CASE AT 1338 -K.LALO, TRAIN CALLER
--- NOTE | 2024-03-03 15:12 | PC.NURSE ---
End of shift summary: Pt has been A&O, afebrile and VSS this morning prior to surgery. Blood sugars were 127 > 135; no short acting insulin given today d/t being NPO pre-operatively. He requested for Lantus 30 units rather than the 40 units that was scheduled. Pt had been up and vernon in his room with a steady gait. Reported x1 loose stool this morning. Reports abdominal pain at 5/10 and low back pain at 8/10- last PRN PO Dilaudid given @ 0835. PIV in right wrist SL and C/D/I with scant old bloody drainage. TELE read NSR. Pt's Dexcom on LUE and with accurate readings. D/t platelets being at 52 pre-op; pt had platelet transfusion hung prior to going to the OR, no known h/o transfusion reactions. OR staff was left responsible for ending transfusion. Pt is receiving IV Rocephin and IV Flagyl. He left for OR at 1120 with plan to have lap errol done. As of 1500, pt has not returned back to the floor. Report given to MARIE Hernandez.
[2024-03-03] MEDS: fentaNYL 100 MCG/2 ML inj 50 MCG IVP ×2 (15:30→16:02)
[2024-03-03] MEDS: BUPIVACAINE 0.5% 30 ML INJECTION (15:30)
[2024-03-03] MEDS: LACTATED RINGERS 500 ML 500 ML 30 ML IV (16:00)
--- NOTE | 2024-03-03 16:01 | P.ANES_ITS ---
Anesthesia Charges Start Date/Time Anesthesia Start Date: 03/03/24 Anesthesia Start Time: 11:24 Stop Date/Time Anesthesia Stop Date: 03/03/24 Anesthesia Stop Time: 15:43 Coding CPT Codes CPT Codes: ANESTH SURG UPPER ABDOMEN - 80699 ([id number]) P3 - PATIENT W/SEVERE SYS DISEASE, QK - SERVICE LIAISON REPRESENTATIVE 2-4 CNCRNT ANES PROC, QX - PHOTOGRAPHIC ARTIST SVC W/ MD MED DIRECTION
--- NOTE | 2024-03-03 16:01 | W.ANESCHARGE ---
Anesthesia Charges Start Date/Time Anesthesia Start Date: 03/03/24 Anesthesia Start Time: 11:24 Stop Date/Time Anesthesia Stop Date: 03/03/24 Anesthesia Stop Time: 15:43 Coding CPT Codes CPT Codes: ANESTH SURG UPPER ABDOMEN - 33685 ([id number]) P3 - PATIENT W/SEVERE SYS DISEASE, QK - ELEVATOR REPAIRER APPRENTICE 2-4 CNCRNT ANES PROC, QX - RADIO TOWER TECHNICIAN SVC W/ MD MED DIRECTION
--- NOTE | 2024-03-03 16:06 | PM.GSPRC ---
Operative Note Date of procedure: 03/03/24 Pre-op diagnosis: Acute cholecystitis Post-op diagnosis: Same, necrosis of the gallbladder Type of Procedure: Laparoscopic cholecystectomy-modifier 22 due to difficulty of the case, patient body habitus with morbid obesity and cirrhosis of the liver Indications: Patient is a 59-year-old male who has been hospitalized for persistent right upper quadrant abdominal pain. Workup was performed with findings concerning for acute cholecystitis. Different treatment options were reviewed with the patient with him deciding to proceed with operative intervention. Risks and benefits of operative intervention were discussed at length with the patient. Risks included but was not limited to: Bleeding, infection, risk of damage to surrounding structures, possible need for additional procedures, possible need to convert to an open operation and postoperative complications such as pneumonia, pulmonary emboli or IN. All questions and concerns were addressed with the patient agreeing to proceed. Due to patient's history of chronic thrombocytopenia 1 unit platelets was given preoperatively. His starting hemoglobin was 12.6 and platelets at 52. Procedure Description: After discussing the risks and benefits of the procedure, the patient signed informed consent.? The operative site was marked and the patient was brought to the operating room and placed on the operating table in supine position.? Care was taken to pad the patient's pressure points.?? The patient was then intubated by anesthesia.?? The operative site was then prepped and draped in the usual sterile fashion.? A time-out was then performed. Entrance to the abdomen was gained via a Gore technique with a 11 mm supraumbilical port. The abdomen was insufflated and briefly surveyed for signs of injury. There was none. There was an extensive amount of adhesions on the right side, consistent with the patient's history of perforated appendicitis. The liver was very cirrhotic and nodular in appearance. 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 An additional 5 mm port was placed subxiphoid. Through this port the omentum adhesions in the right upper quadrant were taken down from the anterior abdominal wall with cautery. Care was taken to ensure that no bowel was involved in the omentum or the abdominal wall adhesions. Once a sufficient amount of space was freed up to additional working ports were placed along the right side. These were placed under direct visualization. The gallbladder was significantly distended and enlarged. There was also evidence of a thickened rind encasing the entire gallbladder. Patient was then placed in reverse Trendelenburg position with the right side up. A laparoscopic needle was placed into the abdomen with 200 mL of bilious material removed. This allowed for adequate decompression so that the gallbladder fundus could be grasped and retracted cephalad. Care was taken not to tear the capsule of the liver, which again was nodular and cirrhotic. The omentum was densely adherent to the body of the gallbladder and the thickened inflammatory rind. The peritoneum on the midbody was incised with hook cautery and carefully dissected down towards the infundibulum. Due to the inflammatory nature of the tissue there was several areas of bleeding, which was controlled with 5 mm clips and cautery when appropriate. A tear in the gallbladder body occurred with spillage of bile. With continued dissection of the rind the infundibulum was identified and grasped. A combination of hook cautery and blunt dissection was used to carefully dissect out the cystic duct. During this dissection an artery was seen to be going directly into the gallbladder body, consistent with the cystic artery. Two clips were placed proximal and 1 distal before it was transected. The gallbladder was dissected off the cystic plate to achieve the critical view. Once this was achieved a clip was placed high on the cystic duct. This just barely went across the duct so the decision was made for an 0 PDS endoloop to be used for ligation of the cystic duct. The proximal aspect of the infundibulum was transected with scissors. The stump of the gallbladder and cystic duct was then ligated with a 0 PDS endoloop. A single lumen was seen. The cystic duct was also identified through the tear in the body of the gallbladder. The gallbladder was then taken off of the liver bed. Due to the friability of the tissue several tears occurred in the body of the gallbladder. This was carefully removed, taking care not to leave behind any fragments. The gallbladder was then placed in an Endo-Catch bag. The gallbladder bed was surveyed for hemostasis. A small amount of bile which had spilled was suctioned from the abdomen. A 15 [place]bourgish round drain was placed in the right upper quadrant through one of the 5 mm ports. This was secured in place with a 2-0 nylon stitch. The ports were then removed under direct vision. The umbilical port fascia was closed with 0 Vicryl. The skin was closed with absorbable subcuticular suture. Instrument sponge and needle counts were correct at the end of the case. The patient was then woken and transferred to the PACU in stable condition. Findings: Acute cholecystitis, necrosis of the gallbladder. Cirrhosis of the liver. Anesthesia: GETA Surgeon: Roselyn Daniels MD Estimated blood loss (mL): 500 Specimen: Gallbladder Condition: stable Disposition: PACU
[2024-03-03] MEDS: POTASSIUM PHOS/SODIUM PHOS 250 MG TABLET PO (17:36)
[2024-03-03] MEDS: cefTRIAXone 2 GM in 0.9 % SODIUM CHLORIDE Mini-bag 100 ML IVPB (17:36)
[2024-03-03] MEDS: INSULIN ASPART 100 UNIT/ML SUBCUT ×2 (17:41→21:09)
[2024-03-03 18:04] LABS: Basophils Percent Auto 0.3 % (0.0-3.0); Hematocrit 45.4 % (37.0-53.0); Hemoglobin* 14.6 gm/dL (13.5-17.5); Immature Granulocytes Pct Auto 0.3 %; Lymphocytes Percent Auto 14.2 % (20-44); Mean Corpuscular HGB Conc 32 gm/dL (32-36); Mean Corpuscular Hemoglobin 28 pg (26-34); Mean Corpuscular Volume 88 fL (80-100); Monocytes Percent Auto 8.4 % (0.0-11.0); Neutrophils Percent Auto 76.8 % (42.0-72.0); Platelet Count* 59 K/uL (140-440); RDW Coefficient of Variation % 13.8 % (11.5-15.5); Red Blood Count 5.15 m/uL (4.30-5.90); White Blood Count* 3.93 K/uL (4.50-11.00)
[2024-03-03 18:10] LABS: Slide Review Reflex No
[2024-03-03 18:37] LABS: Chloride* 108 mmol/L (96-114); Sodium* 140 mmol/L (135-149)
[2024-03-03 18:38] LABS: Potassium* 4.5 mmol/L (3.6-5.1)
[2024-03-03 18:40] LABS: Anion Gap 11 mEq/L (7-15); Blood Urea Nitrogen* 10 mg/dL (7-30); Carbon Dioxide* 21 mmol/L (20-32); Creatinine* 0.9 mg/dL (0.5-1.5); Est. Creatinine Clearance* 82.62; Estimated Glomerular Filt Rate 97 ml/min
[2024-03-03 18:41] LABS: Calcium* 9.6 mg/dL (8.4-10.6); Glucose* 186 mg/dL (60-115)
[2024-03-03] MEDS: INSULIN GLARGINE,HUM.REC.ANLOG 100 UNIT/ML INSULN.PEN 30 UNIT SUBCUT (21:08)
[2024-03-04] VITALS (9 sets, daily range): BP systolic 112–132; BP diastolic 67–86; PULSE 69–79; RESP 16–18; TEMP 36.6–37.1; O2SAT 93–96
[2024-03-04] MEDS: HYDROmorphone 0.5 mg/0.5 ml inj IVP ×6 (00:13→23:48)
[2024-03-04] MEDS: SODIUM CHLORIDE 0.9 % (FLUSH) 10 ML SYRINGE 5 ML IVF ×5 (00:13→22:08)
[2024-03-04] MEDS: metroNIDAZOLE 500 MG/100 ML PIGGYBACK 100 MG IVPB ×3 (03:09→18:44)
--- NOTE | 2024-03-04 06:43 | PC.NURSE ---
SHIFT NOTE -: Pt alert and oriented, afebrile, VSS on RA. Up SBA and tolerating well. Denies N/V, SOB, and CP. Pain rated 4-5/10, PRN Dilaudid given x3 with patient reporting adequate relief, ice pack to abdomen. Lap sites intact with scant old bloody drainage. DOTTIE drain patent and stripped. Bowel sounds active in all 4 quadrants. Encouraged walking in the halls and ankle pumps.
[2024-03-04 06:59] LABS: Hemoglobin* 12.8 gm/dL (13.5-17.5); Mean Corpuscular HGB Conc 33 gm/dL (32-36); Mean Corpuscular Hemoglobin 28 pg (26-34); Mean Corpuscular Volume 87 fL (80-100); Platelet Count* 78 K/uL (140-440); Red Blood Count 4.51 m/uL (4.30-5.90); White Blood Count* 4.59 K/uL (4.50-11.00)
[2024-03-04 07:01] LABS: Slide Review Reflex No
[2024-03-04 07:12] LABS: Albumin* 3.5 g/dL (3.3-5.0); Chloride* 106 mmol/L (96-114)
[2024-03-04 07:13] LABS: Sodium* 138 mmol/L (135-149)
[2024-03-04 07:15] LABS: Alanine Aminotransferase* 44 U/L (4-50); Alkaline Phosphatase* 28 U/L (40-150); Anion Gap 5 mEq/L (7-15); Aspartate Amino Transferase* 33 U/L (12-35); Bilirubin Direct* 0.4 mg/dL (0.0-0.5); Bilirubin Total* 1.1 mg/dL (0.1-1.5); Blood Urea Nitrogen* 12 mg/dL (7-30); Carbon Dioxide* 27 mmol/L (20-32); Creatinine* 0.8 mg/dL (0.5-1.5); Est. Creatinine Clearance* 82.62; Estimated Glomerular Filt Rate 101 ml/min; Glucose* 204 mg/dL (60-115); Phosphorus* 2.9 mg/dL (2.5-4.5); Total Protein* 6.2 g/dL (6.0-8.3)
[2024-03-04 07:16] LABS: Calcium* 9.5 mg/dL (8.4-10.6); Magnesium* 1.9 mg/dL (1.5-2.6)
[2024-03-04] MEDS: HYDROCODONE-ACETAMIN 5-325 MG 1 TAB PO ×2 (09:51→16:02)
[2024-03-04] MEDS: hydrOXYzine pamoate 25 MG CAPSULE PO ×2 (09:51→16:09)
[2024-03-04] MEDS: POTASSIUM PHOS/SODIUM PHOS 250 MG TABLET PO (09:52)
[2024-03-04] MEDS: OMEPRAZOLE 20 MG CAPSULE DR PO (09:52)
[2024-03-04] MEDS: lisinopriL 5 MG TABLET PO (09:52)
[2024-03-04] MEDS: INSULIN GLARGINE,HUM.REC.ANLOG 100 UNIT/ML INSULN.PEN 40 UNIT SUBCUT (09:53)
[2024-03-04] MEDS: INSULIN ASPART 100 UNIT/ML SUBCUT ×4 (09:54→22:08)
--- NOTE | 2024-03-04 11:25 | P.IMPN_ITS ---
Progress Note: A&P Assessment and plan (1) Acute cholecystitis: Problem details: Continue IV antibiotics, now ceftriaxone and metronidazole. Previously Zosyn and vanc. We switched antibiotics because of the thrombocytopenia Discuss this case with Infectious Disease and Gastroenterology at [place]. GI would except care and consult General surgery given his history hepatic issues and thrombocytopenia. ID consulted and advised on the antibiotic change. 03/03: Dr. Daniels, General Surgery, planning for cholecystectomy this afternoon 03/04: POD#1 s/p laparoscopic cholecystectomy, Dr. Daniels (DOS 03/03/24) Will follow general surgery postop recommendations. Currently clear diet. Pain medication as needed-weaning to oral prior to discharge, possibly tomorrow. Status: Acute (2) Sepsis: Problem details: RESOLVED -BC negative to date. -given thrombocytopenia, id suggested we switch to ceftriaxone and metronidazole -fever has defervesced - pain improved. Status: Resolved (3) Gallstone pancreatitis: Problem details: Likely passed a stone MRCP reveals concerns for acute cholecystitis, acalculous at this point. Pancreas has cooled off Lipase 282 postoperatively Status: Acute (4) Thrombocytopenia: Problem details: - 06/2023 platelets 82 - 02/29/2024 platelets 70 -03/01/2024 platelets 50 -03/02/2024 platelets 40, changed antibiotics -03/03/2024 platelets 52, platelet transfusion 03/03/24 Platelets continue to trend up, 78 following transfusion Status: Acute (5) Leukopenia: Problem details: -2-3000, stable Status: Acute (6) Polysubstance (including opioids) dependence w/o physiol dependence: Problem details: sober previous alcoholic, meth and cocaine addict Requesting IV narcotics over oral narcotics. Verbalizes understanding oral narcotics provide longer lasting relief, however also verbalizes wanting IV narcotics as they work ?quicker. Will continue to wean to oral prior to discharge as discussed with patient. Status: Acute (7) Compression fracture: Problem details: etiology under question Outpatient workup recommended Status: Acute (8) Hepatitis C: Problem details: - treated, resolved Status: Acute (9) Splenomegaly: Problem details: - Palpable. Patient cautioned to avoid activities that may put him at risk for rupture - Associated with leukopenia and thrombocytopenia. Recommended he f/u with his natural resources manager as an outpatient Status: Acute (10) Hypertriglyceridemia: Problem details: - 09/30/2023 triglycerides 459 - 02/29/2024 triglycerides 259 Status: Chronic (11) Hepatic steatosis: Problem details: -noted Status: Acute (12) Type 2 diabetes mellitus: Problem details: - 12/30/2023 hemoglobin A1c 7.7 % - patient will be on clear liq diet - Continue LA insulin, decrease doses slightly (he is hyperglycemic from infection, so I will only decrease a little instead of to 50% of his usual dose) - Medium dose ISS with ACHS accuchecks Status: Chronic (13) [place] (obstructive sleep apnea): Problem details: uses CPAP - continue this; he brought it with him Status: Chronic Plan Following post op recommendations. Possible d/c to home 03/05/24 Time Spent With Patient Total time spent: Total time spent caring for the patient today was 45 minutes. This includes ti me spent for the visit reviewing the chart, time spent during the visit, time spent after the visit and documentation and planning in coordination of care. Subjective Date Seen: 03/04/24 Interval history: Patient is seen sitting up in bed this morning. Reports feeling better postoperatively. Continues to have abdominal pain but improved from yesterday. No nausea. Tolerating clears without increased pain or vomiting. Afebrile. Vitally stable. During morning report, patient reported to be requesting IV pain medication and demanding to speak with provider if nursing staff continues to encourage oral pain meds. When discussed with the patient, he tells me I am paying a lot of money to be here and should get what I ask for. Electrolytes improved. Exam Narrative: Exam Narrative: PHYSICAL EXAM General: Conversant, NAD Cardiovascular: RRR, S1S2. No pitting edema Pulmonary: CTA bilaterally without rhonchi, rales, expiratory wheezes. No dyspnea on room air Abdominal: Soft, mildly distended, mild pain midepigastric no guarding Neurological: Alert, answering questions appropriately, cranial nerves intact, no focal findings Extremities: No gross joint deformity or swelling. AROMI. Neurovascularly intact Skin: Warm, dry. Const: Vital Signs, click to edit/add: Vital Signs - 24 hr 03/03/24 15:40 03/03/24 15:45 03/03/24 15:50 Temperature 97.6 F Pulse Rate 95 89 83 Pulse Rate [Right Pulse Oximeter] Respiratory Rate 22 20 22 Blood Pressure 138/79 120/87 132/71 Blood Pressure [Le ft Arm] Pulse Oximetry 95 94 95 Oxygen Delivery Me thod OxyMask Oxygen Flow Rate 6 03/03/24 15:55 03/03/24 16:00 03/03/24 16:05 Temperature Pulse Rate 83 84 79 Pulse Rate [Right Pulse Oximeter] Respiratory Rate 23 21 20 Blood Pressure 128/78 138/80 124/76 Blood Pressure [Le ft Arm] Pulse Oximetry 95 95 94 Oxygen Delivery Me thod Oxygen Flow Rate 03/03/24 16:10 03/03/24 16:15 03/03/24 16:15 Temperature 98.4 F 97.1 F L Pulse Rate 80 79 86 Pulse Rate [Right Pulse Oximeter] Respiratory Rate 21 22 20 Blood Pressure 130/72 132/73 130/78 Blood Pressure [Le ft Arm] Pulse Oximetry 95 94 90 Oxygen Delivery Me thod Room Air Oxygen Flow Rate 03/03/24 16:30 03/03/24 16:45 03/03/24 17:00 Temperature 97.6 F 97.2 F L 97.5 F L Pulse Rate 88 81 83 Pulse Rate [Right Pulse Oximeter] Respiratory Rate 20 20 20 Blood Pressure 124/79 122/78 124/79 Blood Pressure [Le ft Arm] Pulse Oximetry 91 90 20 L Oxygen Delivery Me thod Room Air Room Air OxyMask Oxygen Flow Rate 6 03/03/24 17:07 03/03/24 17:08 03/03/24 17:15 Temperature 97.4 F L Pulse Rate 85 Pulse Rate [Right Pulse Oximeter] Respiratory Rate 18 Blood Pressure 139/85 Blood Pressure [Le ft Arm] Pulse Oximetry 90 90 97 Oxygen Delivery Me thod Room Air Room Air Oxygen Flow Rate 03/03/24 17:45 03/03/24 18:15 03/03/24 19:15 Temperature 97.1 F L 97.3 F L Pulse Rate 86 89 92 Pulse Rate [Right Pulse Oximeter] Respiratory Rate 20 20 20 Blood Pressure 147/86 H 140/82 H 138/85 Blood Pressure [Le ft Arm] Pulse Oximetry 91 92 95 Oxygen Delivery Me thod Room Air Room Air Room Air Oxygen Flow Rate 03/03/24 20:15 03/03/24 21:15 03/03/24 22:15 Temperature 97.2 F L 97.6 F 98.5 F Pulse Rate 89 101 H 94 Pulse Rate [Right Pulse Oximeter] Respiratory Rate 20 18 18 Blood Pressure 148/84 H 154/82 H 146/82 H Blood Pressure [Le ft Arm] Pulse Oximetry 93 94 94 Oxygen Delivery Me thod Room Air Room Air Room Air Oxygen Flow Rate 03/03/24 23:00 03/03/24 23:00 03/03/24 23:00 Temperature 98.7 F Pulse Rate Pulse Rate [Right Pulse Oximeter] 90 90 Respiratory Rate 18 Blood Pressure Blood Pressure [Le ft Arm] 126/79 Pulse Oximetry 94 94 Oxygen Delivery Me thod Room Air Oxygen Flow Rate 03/03/24 23:00 03/03/24 23:00 03/04/24 03:00 Temperature 97.8 F Pulse Rate 99 Pulse Rate [Right Pulse Oximeter] 72 Respiratory Rate 18 16 Blood Pressure Blood Pressure [Le ft Arm] Pulse Oximetry 94 93 Oxygen Delivery Va thod Room Air Room Air Oxygen Flow Rate 03/04/24 06:00 Temperature Pulse Rate Pulse Rate [Right Pulse Oximeter] 74 Respiratory Rate 18 Blood Pressure Blood Pressure [Le ft Arm] 112/67 Pulse Oximetry 96 Oxygen Delivery Va thod Room Air Oxygen Flow Rate Labs Labs: Laboratory Results - last 24 hr 03/03/24 03/04/24 17:55 06:42 WBC 3.93 L 4.59 RBC 5.15 4.51 Hgb 14.6 12.8 L Hct 45.4 39.0 MCV 88 87 MCH 28 28 MCHC 32 33 RDW Coeff of Sonido 13.8 Plt Count 59 L 78 L Neut % (Auto) 76.8 H Lymph % (Auto) 14.2 L Crane % (Auto) 8.4 Eos % (Auto) 0.0 Baso % (Auto) 0.3 Neut # (Auto) 3.00 Lymph # (Auto) 0.60 L Crane # (Auto) 0.30 Eos # (Auto) 0.00 Baso # (Auto) 0.00 Abs Immat Gran (auto) 0.00 Imm/Tot Granulo (auto) 0.3 Sodium 140 138 Potassium 4.5 4.0 Chloride 108 106 Carbon Dioxide 21 27 Anion Gap 11 5 L BUN 10 12 Creatinine 0.9 0.8 Estimated Creat Clear 82.62 82.62 Estimated GFR 97 101 Glucose 186 H 204 H Calcium 9.6 9.5 Phosphorus 2.9 Magnesium 1.9 Total Bilirubin 1.1 Direct Bilirubin 0.4 AST 33 ALT 44 Alkaline Phosphatase 28 L Total Protein 6.2 Albumin 3.5
--- NOTE | 2024-03-04 12:31 | PM.GSPN ---
Subjective Subjective Date Seen: 03/04/24 Interval history: Patient is doing well postoperatively. He does have some pain on the right side where the gallbladder was removed and the drain remains in place. He has been able to get up and move around. He is still requiring IV pain medicine. He tolerated clear liquids and is feeling hungry. Denies any nausea or vomiting. No other concerns. Exam Narrative: Exam Narrative: General: Alert and oriented, no acute distress Abdomen: Soft, appropriately tender in the right upper quadrant with no guarding or rebound. Incisions with Steri-Strips in place, some dried blood but no concern for infection. Drain in place with minimal sanguinous output. Const: Vital Signs, click to edit/add: Vital Signs - 24 hr 03/03/24 15:40 03/03/24 15:45 03/03/24 15:50 Temperature 97.6 F Pulse Rate 95 89 83 Pulse Rate [Right Pulse Oximeter] Respiratory Rate 22 20 22 Blood Pressure 138/79 120/87 132/71 Blood Pressure [Le ft Arm] Pulse Oximetry 95 94 95 Oxygen Delivery Me thod OxyMask Oxygen Flow Rate 6 03/03/24 15:55 03/03/24 16:00 03/03/24 16:05 Temperature Pulse Rate 83 84 79 Pulse Rate [Right Pulse Oximeter] Respiratory Rate 23 21 20 Blood Pressure 128/78 138/80 124/76 Blood Pressure [Le ft Arm] Pulse Oximetry 95 95 94 Oxygen Delivery Me thod Oxygen Flow Rate 03/03/24 16:10 03/03/24 16:15 03/03/24 16:15 Temperature 98.4 F 97.1 F L Pulse Rate 80 79 86 Pulse Rate [Right Pulse Oximeter] Respiratory Rate 21 22 20 Blood Pressure 130/72 132/73 130/78 Blood Pressure [Le ft Arm] Pulse Oximetry 95 94 90 Oxygen Delivery Me thod Room Air Oxygen Flow Rate 03/03/24 16:30 03/03/24 16:45 03/03/24 17:00 Temperature 97.6 F 97.2 F L 97.5 F L Pulse Rate 88 81 83 Pulse Rate [Right Pulse Oximeter] Respiratory Rate 20 20 20 Blood Pressure 124/79 122/78 124/79 Blood Pressure [Le ft Arm] Pulse Oximetry 91 90 20 L Oxygen Delivery Me thod Room Air Room Air OxyMask Oxygen Flow Rate 6 03/03/24 17:07 03/03/24 17:08 03/03/24 17:15 Temperature 97.4 F L Pulse Rate 85 Pulse Rate [Right Pulse Oximeter] Respiratory Rate 18 Blood Pressure 139/85 Blood Pressure [Le ft Arm] Pulse Oximetry 90 90 97 Oxygen Delivery Me thod Room Air Room Air Oxygen Flow Rate 03/03/24 17:45 03/03/24 18:15 03/03/24 19:15 Temperature 97.1 F L 97.3 F L Pulse Rate 86 89 92 Pulse Rate [Right Pulse Oximeter] Respiratory Rate 20 20 20 Blood Pressure 147/86 H 140/82 H 138/85 Blood Pressure [Le ft Arm] Pulse Oximetry 91 92 95 Oxygen Delivery Me thod Room Air Room Air Room Air Oxygen Flow Rate 03/03/24 20:15 03/03/24 21:15 03/03/24 22:15 Temperature 97.2 F L 97.6 F 98.5 F Pulse Rate 89 101 H 94 Pulse Rate [Right Pulse Oximeter] Respiratory Rate 20 18 18 Blood Pressure 148/84 H 154/82 H 146/82 H Blood Pressure [Le ft Arm] Pulse Oximetry 93 94 94 Oxygen Delivery Me thod Room Air Room Air Room Air Oxygen Flow Rate 03/03/24 23:00 03/03/24 23:00 03/03/24 23:00 Temperature 98.7 F Pulse Rate Pulse Rate [Right Pulse Oximeter] 90 90 Respiratory Rate 18 Blood Pressure Blood Pressure [Le ft Arm] 126/79 Pulse Oximetry 94 94 Oxygen Delivery Me thod Room Air Oxygen Flow Rate 03/03/24 23:00 03/03/24 23:00 03/04/24 03:00 Temperature 97.8 F Pulse Rate 99 Pulse Rate [Right Pulse Oximeter] 72 Respiratory Rate 18 16 Blood Pressure Blood Pressure [Le ft Arm] Pulse Oximetry 94 93 Oxygen Delivery Me thod Room Air Room Air Oxygen Flow Rate 03/04/24 06:00 Temperature Pulse Rate Pulse Rate [Right Pulse Oximeter] 74 Respiratory Rate 18 Blood Pressure Blood Pressure [Le ft Arm] 112/67 Pulse Oximetry 96 Oxygen Delivery Me thod Room Air Oxygen Flow Rate Labs/Imaging Labs Labs: LFTs within normal limits, no leukocytosis, hemoglobin 12.8. Progress Note:A&P Assessment and plan (1) Abdominal pain: Status: Deleted Assessment and Plan: Patient is postop day 1 laparoscopic cholecystectomy. Intraoperatively evidence of cirrhosis and gallbladder consistent with acute cholecystitis. Procedure was very difficult with 500 mL blood loss. A right upper quadrant drain was left in place. Drain has minimal sanguinous output this morning. Patient has remained hemodynamically stable with hemoglobin 12.8. No concern for ongoing bleeding. Platelets have also improved to 78. His LFTs remain within normal limits. No evidence of bile within drain output. Pain as expected for postop day 1 of a difficult procedure. Would recommend continue with IV and p.o. pain meds as needed. Drain will stay in place at this time, anticipate removal prior to discharge. Patient has been tolerating clear liquids, okay to advance to low-fat diet.
[2024-03-04] MEDS: cefTRIAXone 2 GM in 0.9 % SODIUM CHLORIDE Mini-bag 100 ML IVPB (17:37)
[2024-03-04] MEDS: INSULIN GLARGINE,HUM.REC.ANLOG 100 UNIT/ML INSULN.PEN 30 UNIT SUBCUT (22:07)
[2024-03-05] MEDS: metroNIDAZOLE 500 MG/100 ML PIGGYBACK 100 MG IVPB ×2 (01:51→11:14)
[2024-03-05] MEDS: HYDROCODONE-ACETAMIN 5-325 MG 1 TAB PO (02:01)
[2024-03-05 03:00] VITALS: BP 155/83; PULSE 90; RESP 22; TEMP 36.8; O2SAT 95
--- NOTE | 2024-03-05 05:42 | PC.NURSE ---
[id number] Pt slept ok during night, using home cpap. up ind to br. requested IV pain meds x1, and oral pain meds x1 to help with pain control. 1 loose BM during shift, dark stool per pt report, rn did not see as pt flushed toilet. tolerated PO intake, denies N/V.
[2024-03-05 07:00] VITALS: BP 138/68; PULSE 77; RESP 20; TEMP 36.6; O2SAT 94; O2SAT 95
[2024-03-05] MEDS: HYDROmorphone 0.5 mg/0.5 ml inj IVP (08:29)
[2024-03-05] MEDS: SODIUM CHLORIDE 0.9 % (FLUSH) 10 ML SYRINGE 5 ML IVF (08:30)
[2024-03-05] MEDS: OMEPRAZOLE 20 MG CAPSULE DR PO (08:30)
[2024-03-05] MEDS: lisinopriL 5 MG TABLET PO (08:57)
[2024-03-05] MEDS: INSULIN GLARGINE,HUM.REC.ANLOG 100 UNIT/ML INSULN.PEN 40 UNIT SUBCUT (08:59)
[2024-03-05 09:00] LABS: Basophils Percent Auto 0.3 % (0.0-3.0); Eosinophils Percent Auto 1.4 % (0.0-7.0); Hemoglobin* 12.5 gm/dL (13.5-17.5); Immature Granulocytes Pct Auto 0.3 %; Lymphocytes Percent Auto 27.9 % (20-44); Mean Corpuscular HGB Conc 33 gm/dL (32-36); Mean Corpuscular Hemoglobin 28 pg (26-34); Mean Corpuscular Volume 86 fL (80-100); Monocytes Percent Auto 12.5 % (0.0-11.0); Neutrophils Percent Auto 57.6 % (42.0-72.0); Platelet Count* 57 K/uL (140-440); RDW Coefficient of Variation % 13.6 % (11.5-15.5); Red Blood Count 4.42 m/uL (4.30-5.90); White Blood Count* 2.87 K/uL (4.50-11.00)
[2024-03-05 09:08] LABS: Slide Review Reflex No
[2024-03-05 09:11] LABS: Albumin* 3.4 g/dL (3.3-5.0); Chloride* 106 mmol/L (96-114); Potassium* 3.7 mmol/L (3.6-5.1); Sodium* 137 mmol/L (135-149)
[2024-03-05 09:13] LABS: Creatinine* 0.8 mg/dL (0.5-1.5); Est. Creatinine Clearance* 82.62; Estimated Glomerular Filt Rate 101 ml/min
[2024-03-05 09:14] LABS: Alanine Aminotransferase* 50 U/L (4-50); Alkaline Phosphatase* 30 U/L (40-150); Anion Gap 7 mEq/L (7-15); Aspartate Amino Transferase* 39 U/L (12-35); Bilirubin Total* 1.1 mg/dL (0.1-1.5); Blood Urea Nitrogen* 13 mg/dL (7-30); Calcium* 9.4 mg/dL (8.4-10.6); Carbon Dioxide* 24 mmol/L (20-32); Glucose* 173 mg/dL (60-115)
--- NOTE | 2024-03-05 10:09 | P.DS_ITS ---
DS: Providers Provider Date Seen: 03/05/24 Date of admission: 03/01/24 01:46 Primary care physician: Not a Local Provider Admitting Clinician: Vesna Tapia MD Consults: 03/01/24 01:56 Consult to Physician [CONS] Routine Comment: Consulting Provider: Roselyn Daniels Has provider been notified: No 03/02/24 10:38 Consult to Infectious Diseases [CONS] Urgent Comment: acute cholecystitis on vanc/zosyn - low platelets Consulting Provider: [facility] Attending Physician on discharge: Vesna Tapia MD DS: Summary Hospital Course Hospital Course: Course of care and details as noted above. Sepsis resolved. Discharged to home following lap cholecystectomy. Outpatient follow up in surgery clinic. Remainder of chronic medical comorbidities were monitored and managed with home medications. Outpatient follow-up with patient's providers to be scheduled when he is able. Time Spent with Patient Time attestation: Total time spent providing and/or coordinating discharge services: Exam Const: Vital Signs, click to edit/add: Vital Signs - 24 hr 03/04/24 11:30 03/04/24 15:00 03/04/24 15:00 Temperature 98 F Pulse Rate Pulse Rate [Right Pulse Oximeter] 69 78 Respiratory Rate 18 18 Blood Pressure [Le ft Arm] Blood Pressure [Ri ght Arm] 120/73 Pulse Oximetry 93 93 Oxygen Delivery Me thod Room Air Oxygen Flow Rate 03/04/24 15:00 03/04/24 15:00 03/04/24 18:31 Temperature 98.1 F Pulse Rate 73 Pulse Rate [Right Pulse Oximeter] 78 Respiratory Rate 18 18 Blood Pressure [Le ft Arm] 123/80 Blood Pressure [Ri ght Arm] Pulse Oximetry 93 93 Oxygen Delivery Me thod Room Air Room Air Oxygen Flow Rate 03/04/24 19:00 03/04/24 23:00 03/04/24 23:00 Temperature 98.1 F Pulse Rate 79 Pulse Rate [Right Pulse Oximeter] 72 Respiratory Rate 18 Blood Pressure [Le ft Arm] Blood Pressure [Ri ght Arm] 126/78 Pulse Oximetry 94 93 Oxygen Delivery Me thod Room Air Oxygen Flow Rate 03/04/24 23:00 03/04/24 23:00 03/05/24 03:00 Temperature 98.8 F 98.2 F Pulse Rate Pulse Rate [Right Pulse Oximeter] 77 90 Respiratory Rate 18 18 22 Blood Pressure [Le ft Arm] Blood Pressure [Ri ght Arm] 132/74 155/83 H Pulse Oximetry 93 93 95 Oxygen Delivery Me thod CPAP Room Air CPAP Room Air CPAP Oxygen Flow Rate 0 0 DS: Data Data Completed and Pending Labs on day of discharge: Labs from last 24 hours 03/05/24 08:46 WBC 2.87 L RBC 4.42 Hgb 12.5 L Hct 38.0 MCV 86 MCH 28 MCHC 33 RDW Coeff of Sonido 13.6 Plt Count 57 L Neut % (Auto) 57.6 Lymph % (Auto) 27.9 [place] % (Auto) 12.5 H Eos % (Auto) 1.4 Baso % (Auto) 0.3 Neut # (Auto) 1.70 Lymph # (Auto) 0.80 L [place] # (Auto) 0.40 Eos # (Auto) 0.00 Baso # (Auto) 0.00 Abs Immat Gran (auto) 0.00 Imm/Tot Granulo (auto) 0.3 Sodium 137 Potassium 3.7 Chloride 106 Carbon Dioxide 24 Anion Gap 7 BUN 13 Creatinine 0.8 Estimated Creat Clear 82.62 Estimated GFR 101 Glucose 173 H Calcium 9.4 Total Bilirubin 1.1 AST 39 H ALT 50 Alkaline Phosphatase 30 L Total Protein 6.0 Albumin 3.4 Preliminary micro results at discharge 02/29/24 21:31 Blood Culture - Preliminary Blood NO GROWTH AFTER 96 HOURS 02/29/24 21:15 Blood Culture - Preliminary Blood NO GROWTH AFTER 96 HOURS Discharge Plan Discharge Disposition: Home, Self-Care Date of Admission: 03/01/24 01:46 Attending Provider on Discharge: Roselyn Daniels Consulting Providers: Roselyn Daniels; Estefania Harris; Rahda Marvin Primary Care Provider: Provider,Not a Local Condition: Guarded Anticipated Discharge Date/Time: 03/05/24 09:51 Discharge Medications: New hydrocodone-acetaminophen 5-325 mg tablet 1 tab PO Q6H PRN (Reason: pain) Qty: 30 0RF senna 8.6 mg capsule 8.6 mg PO DAILY PRN (Reason: constipation) Qty: 90 0RF Continued metformin 1,000 mg tablet 1,000 mg PO BID insulin glargine [Lantus Solostar U-100 Insulin] 100 unit/mL (3 mL) insulin pen 40 - 50 unit subcut BID Patient Comments: 50u in am, 40u in pm lisinopril 5 mg tablet 5 mg PO DAILY omeprazole magnesium [Prilosec OTC] 20 mg tablet,delayed release (DR/EC) 20 mg PO DAILY cholecalciferol (vitamin D3) [Vitamin D3] 25 mcg (1,000 unit) capsule 2,000 unit PO DAILY glipizide 5 mg tablet 5 mg PO BID Mounjaro 15 mg/0.5 mL pen injector 15 mg subcut Q7D Discharge Orders: Discharge Order (Routine); Ordered 03/05/24 Ordered By: Carmencita Duenas Patient Education: Hydrocodone/Acetaminophen (By mouth), Laxative, Stimulant (By mouth), General Anesthesia (DC), Laparoscopic Cholecystectomy (DC), Post- Operative Instructions: Laparoscopic Cholecystectomy Additional Instructions: You were prescribed a narcotic pain medication. In addition you may supplement with Tylenol and/or ibuprofen. Be sure to not exceed greater than 4 g of Tylenol in a 24 hour period. While on narcotic pain medicine please take stool softeners. A prescription of stool softeners has been sent to the pharmacy. Stop if having greater than 2 stools per day. You have Steri-Strips dressings in place, allow these to fall off on their own. For your drain site, please cover with a bandage. Change this bandage as needed. You should expect to have some drainage over the next few days as the area heals. Okay to shower. Do not soak in a bath or swim for 2 weeks. Follow-up with Dr. Daniels in 2-3 weeks. Please call if you are experiencing severe pain, nausea, vomiting, difficulty urinating, fever or not had a bowel movement in 4 days after surgery. Activity Level: No strenuous activity Activity Detail: Activity as tolerated. Avoid strenuous activity. No lifting greater than 20 lb for 2 weeks. Discharge Diet: Low Fat/Low Cholesterol Diet Detail: Continue on a low-fat diet for 2 weeks. Follow Up Appointments: Roeslyn Daniels MD [Staff Physician] - 03/25/24 1:30 pm ([facility] for follow up with Dr. Daniels) Provider,Not a Local [Primary Care Provider] - Forms: [place] Info Instructions
--- NOTE | 2024-03-05 10:17 | P.DS_ITS ---
DS: Providers Provider Date Seen: 03/05/24 Date of admission: 03/01/24 01:46 Primary care physician: Not a Local Provider Admitting Clinician: Vesna Tapia MD Consults: 03/01/24 01:56 Consult to Physician [CONS] Routine Comment: Consulting Provider: Roselyn Daniels Has provider been notified: No 03/02/24 10:38 Consult to Infectious Diseases [CONS] Urgent Comment: acute cholecystitis on vanc/zosyn - low platelets Consulting Provider: [facility] Attending Physician on discharge: LAUREN White, PA-C [facility] Date of Discharge: 03/05/24 DS: Diagnosis Discharge Diagnosis (1) Acute cholecystitis: Status: Acute Problem details: Continue IV antibiotics, now ceftriaxone and metronidazole. Previously Zosyn and vanc. We switched antibiotics because of the thrombocytopenia Discuss this case with Infectious Disease and Gastroenterology at [place]. GI would except care and consult General surgery given his history hepatic issues and thrombocytopenia. ID consulted and advised on the antibiotic change. 03/03: Dr. Daniels, General Surgery, planning for cholecystectomy this afternoon S/p laparoscopic cholecystectomy, Dr. Daniels (DOS 03/03/24). Postoperatively, did well. Drain was removed on day of discharge by General surgery. Completed cou rse of IV antibiotics. No further oral antibiotics prescribed. Discharged to home with outpatient surgical follow-up. Diet and activity recommendations/restrictions provided by surgery. (2) Sepsis: Status: Resolved Problem details: RESOLVED -BC - no growth after 96 hours -given thrombocytopenia, id suggested we switch to ceftriaxone and metronidazole -fever has defervesced - pain improved. Patient completed course of IV antibiotics prior to discharge. No oral antibiotics prescribed as discussed with General Surgery. (3) Gallstone pancreatitis: Status: Acute Problem details: Likely passed a stone MRCP reveals concerns for acute cholecystitis, acalculous at this point. Pancreas has cooled off Lipase 282 postoperatively (4) Thrombocytopenia: Status: Acute Problem details: - 06/2023 platelets 82 - 02/29/2024 platelets 70 -03/01/2024 platelets 50 -03/02/2024 platelets 40, changed antibiotics -03/03/2024 platelets 52, platelet transfusion 03/03/24 Platelets continue to trend up, 78 following transfusion. 57 on morning of discharge. Outpatient follow-up with PCP (5) Leukopenia: Status: Acute Problem details: -2-3000, remained stable (6) Polysubstance (including opioids) dependence w/o physiol dependence: Status: Acute Problem details: sober previous alcoholic, meth and cocaine addict Requesting IV narcotics over oral narcotics. Verbalizes understanding oral narcotics provide longer lasting relief, however also verbalizes wanting IV narcotics as they work ?quicker. Will continue to wean to oral prior to discharge as discussed with patient. (7) Compression fracture: Status: Acute Problem details: etiology under question Outpatient workup with PCP recommended (8) Hepatitis C: Status: Acute Problem details: - treated, resolved (9) Splenomegaly: Status: Acute Problem details: - Palpable. Patient cautioned to avoid activities that may put him at risk for rupture - Associated with leukopenia and thrombocytopenia. Recommended he f/u with his rn gyn as an outpatient (10) Hypertriglyceridemia: Status: Chronic Problem details: - 09/30/2023 triglycerides 459 - 02/29/2024 triglycerides 259 Outpatient management with PCP (11) Hepatic steatosis: Status: Acute Problem details: CT/MRI shows diffuse hepatic steatosis. Outpatient follow-up (12) Type 2 diabetes mellitus: Status: Chronic Problem details: - 12/30/2023 hemoglobin A1c 7.7 % - patient will be on clear liq diet - Continue LA insulin, decrease doses slightly (he is hyperglycemic from infection, so I will only decrease a little instead of to 50% of his usual dose) - Medium dose ISS with ACHS accuchecks Resumed on home medications on discharge. Continue management with PCP (13) [place] (obstructive sleep apnea): Status: Chronic Problem details: Continue home CPAP DS: Summary Hospital Course Hospital Course: Course of care and details as noted above. Sepsis resolved. Discharged to home following lap cholecystectomy. Outpatient follow up in surgery clinic. Remainder of chronic medical comorbidities were monitored and managed with home medications. Outpatient follow-up with patient's providers to be scheduled when he is able. Status at Discharge Functional status at discharge: independent ambulation Overall status at discharge: patient is back to baseline Time Spent with Patient Time attestation: Total time spent providing and/or coordinating discharge services: Time spent: Greater than 30 minutes Exam Narrative: Exam Narrative: PHYSICAL EXAM General: Pleasant, conversant, NAD Cardiovascular: RRR Pulmonary: No dyspnea Abdomen: Drain in place, sanguinous in small amount - removed by General surgery prior to discharge Neurological: Alert, answering questions appropriately Skin: Warm, dry. Const: Vital Signs, click to edit/add: Vital Signs - 24 hr 03/04/24 11:30 03/04/24 15:00 03/04/24 15:00 Temperature 98 F Pulse Rate Pulse Rate [Right Pulse Oximeter] 69 78 Respiratory Rate 18 18 Blood Pressure [Le ft Arm] Blood Pressure [Ri ght Arm] 120/73 Pulse Oximetry 93 93 Oxygen Delivery Me thod Room Air Oxygen Flow Rate 03/04/24 15:00 03/04/24 15:00 03/04/24 18:31 Temperature 98.1 F Pulse Rate 73 Pulse Rate [Right Pulse Oximeter] 78 Respiratory Rate 18 18 Blood Pressure [Le ft Arm] 123/80 Blood Pressure [Ri ght Arm] Pulse Oximetry 93 93 Oxygen Delivery Me thod Room Air Room Air Oxygen Flow Rate 03/04/24 19:00 03/04/24 23:00 03/04/24 23:00 Temperature 98.1 F Pulse Rate 79 Pulse Rate [Right Pulse Oximeter] 72 Respiratory Rate 18 Blood Pressure [Le ft Arm] Blood Pressure [Ri ght Arm] 126/78 Pulse Oximetry 94 93 Oxygen Delivery Me thod Room Air Oxygen Flow Rate 03/04/24 23:00 03/04/24 23:00 03/05/24 03:00 Temperature 98.8 F 98.2 F Pulse Rate Pulse Rate [Right Pulse Oximeter] 77 90 Respiratory Rate 18 18 22 Blood Pressure [Le ft Arm] Blood Pressure [Ri ght Arm] 132/74 155/83 H Pulse Oximetry 93 93 95 Oxygen Delivery Me thod CPAP Room Air CPAP Room Air CPAP Oxygen Flow Rate 0 0 03/05/24 07:00 03/05/24 07:00 Temperature Pulse Rate Pulse Rate [Right Pulse Oximeter] Respiratory Rate 20 Blood Pressure [Le ft Arm] Blood Pressure [Ri ght Arm] Pulse Oximetry 95 95 Oxygen Delivery Me thod Room Air Oxygen Flow Rate DS: Data Data Completed and Pending Labs on day of discharge: Labs from last 24 hours 03/05/24 08:46 WBC 2.87 L RBC 4.42 Hgb 12.5 L Hct 38.0 MCV 86 MCH 28 MCHC 33 RDW Coeff of Sonido 13.6 Plt Count 57 L Neut % (Auto) 57.6 Lymph % (Auto) 27.9 Davidson % (Auto) 12.5 H Eos % (Auto) 1.4 Baso % (Auto) 0.3 Neut # (Auto) 1.70 Lymph # (Auto) 0.80 L Davidson # (Auto) 0.40 Eos # (Auto) 0.00 Baso # (Auto) 0.00 Abs Immat Gran (auto) 0.00 Imm/Tot Granulo (auto) 0.3 Sodium 137 Potassium 3.7 Chloride 106 Carbon Dioxide 24 Anion Gap 7 BUN 13 Creatinine 0.8 Estimated Creat Clear 82.62 Estimated GFR 101 Glucose 173 H Calcium 9.4 Total Bilirubin 1.1 AST 39 H ALT 50 Alkaline Phosphatase 30 L Total Protein 6.0 Albumin 3.4 Preliminary micro results at discharge 02/29/24 21:31 Blood Culture - Preliminary Blood NO GROWTH AFTER 96 HOURS 02/29/24 21:15 Blood Culture - Preliminary Blood NO GROWTH AFTER [address] abdomen pelvis: Attestation: I have reviewed the pertinent imaging results. Radiologist's impression: Lower chest: No focal consolidation. Normal heart size. No pleural effusions or pneumothorax. Linear band like opacification of the lungs bilaterally, likely subsegmental atelectasis and/or scarring. Liver: Diffuse hepatic steatosis. Gallbladder: Distended gallbladder measuring approximately 11.9 cm longitudinally. No gallbladder wall thickening, cholelithiasis or pericholecystic edema. Biliary: Unremarkable. Pancreas: Within normal limits. Spleen: Splenomegaly. Adrenal glands: Unremarkable. Renal/ureters/bladder: Normal in size and symmetrically enhancing. No obstructive uropathy. No hydronephrosis or obstructive urinary calculi. Subcentimeter renal hypodensities are too small to characterize. Tiny nonobstructive calculi within the collecting system of the left kidney. The ureters appear unremarkable. The bladder is within normal limits. Pelvis: Unremarkable prostate. Gastrointestinal: Mild wall thickening and hyperenhancement involving loops of nondistended, fluid-filled small bowel diffusely. No bowel obstruction. Normal appendix. Trace colonic diverticulosis without pericolonic fat stranding. Mild colonic stool burden. Vasculature: No aortic aneurysm. The portal vein remains patent. Mild atherosclerotic calcifications. Lymph nodes: No pathologic lymphadenopathy by size criteria. Peritoneum: No free fluid or pneumoperitoneum. No drainable fluid collections. Abdominal wall/soft tissues: Unremarkable. Small fat containing umbilical hernia. Bones: No acute osseous abnormalities. Multilevel degenerative changes of the visualized thoracolumbar spine. IMPRESSION: 1. Mild wall thickening and hyperenhancement involving loops of nondistended, fluid-filled small bowel diffusely, raising the possibility of an underlying nonspecific infectious versus inflammatory enteritis. No bowel obstruction. 2. Gallbladder distention without cholelithiasis, gallbladder wall thickening or adjacent inflammatory changes to suggest acute cholecystitis. 3. Splenomegaly. 4. Diffuse hepatic steatosis. Chest x-ray: Attestation: I have reviewed the pertinent imaging results. Radiologist's impression: The cardiomediastinal silhouette is normal. The lungs are essentially clear. The pulmonary vasculature and pleural surfaces appear normal. There are mild multilevel wedge compression fractures of the lower thoracic and upper lumbar spine. IMPRESSION: No acute cardiac pulmonary process identified. There are mild multilevel wedge compression fractures of the lower thoracic and upper lumbar spine. Abdomen ultrasound: Attestation: I have reviewed the pertinent imaging results. Radiologist's impression: Liver: Normal in size and contour. Increased echogenicity of the hepatic echotexture, compatible with diffuse hepatic steatosis. No suspicious hepatic masses. Gallbladder: Distended gallbladder measuring 5.6 cm in maximal transverse dimension. No pericholecystic fluid. Biliary sludge. No cholelithiasis. Sonographic Velazquez`s sign was negative. Common bile duct: Measures 8.5 mm, within normal limits given patient`s age. Pancreas: Visualized portions unremarkable. Right kidney: Normal in size. No hydronephrosis. No suspicious renal masses or obstructive urinary calculus. Vascular: Visualized aorta and IVC are unremarkable. IMPRESSION: 1. Gallbladder distention and biliary sludge without cholelithiasis or other sonographic evidence of acute cholecystitis, indeterminate. Consider further evaluation with a nuclear medicine HIDA scan if clinically warranted. 2. Diffuse hepatic steatosis. Abdomen MRI: Attestation: I have reviewed the pertinent imaging results. Radiologist's impression: Liver: Diffuse hepatic steatosis. Nodular liver contour, compatible with cirrhotic changes. Bile ducts: No significant intrahepatic or extrahepatic biliary duct dilation. No choledocholithiasis identified. Gallbladder: Distended gallbladder. Mild amount of pericholecystic fluid is present. No cholelithiasis identified. Pancreas: No pancreatic duct dilation. Spleen: Splenomegaly. Small splenule is noted. Punctate cystic lesions. Adrenals: Unremarkable. Kidneys: Punctate bilateral cysts. No hydronephrosis bilaterally. Retroperitoneum: No lymphadenopathy. Visualized Bowel and mesentery: Visualized bowel is nondilated, no evidence of bowel obstruction. Vessels: Unremarkable for unenhanced study. Abdominal wall: No acute abdominal wall abnormality. Bones: Multilevel degenerative changes of the spine. Impression: 1. Distended gallbladder, with mild amount of pericholecystic fluid, worrisome for cholecystitis. 2. No cholelithiasis or choledocholithiasis identified. No significant intrahepatic or extrahepatic biliary duct dilation. 3. Morphologic sequelae of cirrhosis. Diffuse hepatic steatosis. 4. Splenomegaly. Discharge Plan Discharge Disposition: Home, Self-Care Date of Admission: 03/01/24 01:46 Attending Provider on Discharge: Roselyn Daniels Consulting Providers: Roselyn Daniels; Estefania Harris; Radha Marvin Primary Care Provider: Provider,Not a Local Condition: Guarded Anticipated Discharge Date/Time: 03/05/24 09:51 Discharge Medications: New hydrocodone-acetaminophen 5-325 mg tablet 1 tab PO Q6H PRN (Reason: pain) Qty: 30 0RF senna 8.6 mg capsule 8.6 mg PO DAILY PRN (Reason: constipation) Qty: 90 0RF Continued metformin 1,000 mg tablet 1,000 mg PO BID insulin glargine [Lantus Solostar U-100 Insulin] 100 unit/mL (3 mL) insulin pen 40 - 50 unit subcut BID Patient Comments: 50u in am, 40u in pm lisinopril 5 mg tablet 5 mg PO DAILY omeprazole magnesium [Prilosec OTC] 20 mg tablet,delayed release (DR/EC) 20 mg PO DAILY cholecalciferol (vitamin D3) [Vitamin D3] 25 mcg (1,000 unit) capsule 2,000 unit PO DAILY glipizide 5 mg tablet 5 mg PO BID Mounjaro 15 mg/0.5 mL pen injector 15 mg subcut Q7D Discharge Orders: Discharge Order (Routine); Ordered 03/05/24 Ordered By: Carmencita Duenas Patient Education: General Anesthesia (DC), Laparoscopic Cholecystectomy (DC), Post-Operative Instructions: Laparoscopic Cholecystectomy Additional Instructions: You were prescribed a narcotic pain medication. In addition you may supplement with Tylenol and/or ibuprofen. Be sure to not exceed greater than 4 g of Tylenol in a 24 hour period. While on narcotic pain medicine please take stool softeners. A prescription of stool softeners has been sent to the pharmacy. Stop if having greater than 2 stools per day. You have Steri-Strips dressings in place, allow these to fall off on their own. For your drain site, please cover with a bandage. Change this bandage as needed. You should expect to have some drainage over the next few days as the area heals. Okay to shower. Do not soak in a bath or swim for 2 weeks. Follow-up with Dr. Daniels in 2-3 weeks. Please call if you are experiencing severe pain, nausea, vomiting, difficulty urinating, fever or not had a bowel movement in 4 days after surgery. Activity Level: No strenuous activity Activity Detail: Activity as tolerated. Avoid strenuous activity. No lifting greater than 20 lb for 2 weeks. Discharge Diet: Low Fat/Low Cholesterol Diet Detail: Continue on a low-fat diet for 2 weeks. Follow Up Appointments: Roselyn Daniels MD [Staff Physician] - (Two week follow-up) Provider,Not a Local [Primary Care Provider] - Forms: Errplane Info Instructions
--- NOTE | 2024-03-05 12:56 | PC.NURSE ---
shift note: pt afeb. IV dc'd intact. reviewed dc instructions and copies sent with pt at ok. Belongings reviewed and sent with pt at ok. Supplies for post DOTTIE site sent with pt at ok. lap sites intact and open to air.
== END 2024-03-05 12:30 | disposition home or self-care (01) | DRG 417 ==
LOC: ED 21:28 → MEDSURG 23:10
PROVIDERS: Family Medicine; Physician Assistant; Student in an Organized Health Care Education/Training Program; Surgery; Admitting Provider Family Medicine; Emergency Provider Student in an Organized Health Care Education/Training Program; Visit Provider Family Medicine
PROC: 0FT44ZZ Resection of Gallbladder, Percutaneous Endoscopic Approach (ICD-10-PCS; CPT 47562; principal; 2024-03-03 11:30)
DX: K81.0 Acute cholecystitis (principal); A41.9 Sepsis, unspecified organism; K85.10 Biliary acute pancreatitis without necrosis or infection; R65.20 Severe sepsis without septic shock; D68.51 Activated protein C resistance; M48.56XA Collapsed vertebra, not elsewhere classified, lumbar region, initial encounter for fracture; M48.54XA Collapsed vertebra, not elsewhere classified, thoracic region, initial encounter for fracture; F10.21 Alcohol dependence, in remission; K74.60 Unspecified cirrhosis of liver; D69.6 Thrombocytopenia, unspecified; K66.0 Peritoneal adhesions (postprocedural) (postinfection); G47.33 Obstructive sleep apnea (adult) (pediatric); E66.01 Morbid (severe) obesity due to excess calories; E11.9 Type 2 diabetes mellitus without complications; Z79.4 Long term (current) use of insulin; E78.1 Pure hyperglyceridemia; R16.1 Splenomegaly, not elsewhere classified; K76.0 Fatty (change of) liver, not elsewhere classified; R07.9 Chest pain, unspecified; F19.10 Other psychoactive substance abuse, uncomplicated; Z99.89 Dependence on other enabling machines and devices; I10 Essential (primary) hypertension; B19.20 Unspecified viral hepatitis C without hepatic coma; Z79.84 Long term (current) use of oral hypoglycemic drugs; Z68.39 Body mass index [BMI] 39.0-39.9, adult; D72.819 Decreased white blood cell count, unspecified; I25.10 Atherosclerotic heart disease of native coronary artery without angina pectoris; K21.9 Gastro-esophageal reflux disease without esophagitis; Z86.19 Personal history of other infectious and parasitic diseases
CPT/HCPCS: 00790; 36415; 36430; 71046; 74177; 74181; 76705; 80048; 80053; 80069; 80076; 81001; 82077; 82306; 82330; 82803; 82962; 82977; 83605; 83690; 83735; 84100; 84478; 84484; 85025; 85027; 85610; 86140; 86900; 86901; 87040; 87493; 87631; 88304; 93005; 99285; A9270; G0378; J0330; J0613; J0665; J0696; J1171; J1815; J1836; J1885; J2060; J2250; J2270; J2405; J2543; J2704; J2710; J3010; J3370; J3475; J3490; J7030; J7120; P9019; P9047; Q9967